=== PATIENT | male | born 1980 | race Two or more races ===

== ENCOUNTER 2016-04-30 22:21 | Emergency (ER) | payer SELFPAY ==
[2016-05-01] MEDS ORDERED: HYDROMORPHONE HCL INJ/PF 2 MG/ML AMPULE IV ONE (00:45)
[2016-05-01] MEDS ORDERED: NORMAL SALINE 1000 ML 1,000 ML IV ONE (00:45)
[2016-05-01 00:57] LABS: ABSOLUTE BASOPHILS # (AUTO) 0.1 10^3/uL (0.0-0.2); ABSOLUTE EOSINOPHILS # (AUTO) 0.4 10^3/uL (0.0-0.6); ABSOLUTE LYMPHOCYTES (AUTO) 2.4 10^3/uL (0.5-4.7); ABSOLUTE MONOCYTES (AUTO) 0.8 10^3/uL (0.1-1.4); ABSOLUTE NEUT (AUTO) 8.3 10^3/uL (1.7-8.2); EOSINOPHILS % (AUTO) 3.7 % (0-6); HEMATOCRIT 45.8 % (37.9-51.0); HEMOGLOBIN 15.1 g/dL (13.5-17.0); HGB HCT DIFFERENCE -0.5; MEAN CORPUSCULAR HEMOGLOBIN 29.3 pg (27.0-33.4); MEAN CORPUSCULAR HGB CONC 32.9 g/dL (32.0-36.0); MEAN CORPUSCULAR VOLUME 89 fl (80-97); MONOCYTES % (AUTO) 6.5 % (3-13); RED BLOOD COUNT 5.14 10^6/uL (4.35-5.55); RED CELL DISTRIBUTION WIDTH 14.4 % (11.5-14.0); SEGMENTED NEUTROPHILS % (AUTO) 68.8 % (42-78); WHITE BLOOD COUNT 12.1 10^3/uL (4.0-10.5)
[2016-05-01 00:58] LABS: ANION GAP 10 (5-19); BLOOD UREA NITROGEN 18 mg/dL (7-20); CALCIUM 9.9 mg/dL (8.4-10.2); CARBON DIOXIDE 32 mmol/L (22-30); CHLORIDE 103 mmol/L (98-107); CREATININE RESULT 0.95 mg/dL (0.52-1.25); GLUCOSE 81 mg/dL (75-110); POTASSIUM 4.1 mmol/L (3.6-5.0); SODIUM 144.7 mmol/L (137-145)
--- NOTE | 2016-05-01 01:02 | ER Document Report ---
ED General - General Chief Complaint: Abdominal Pain Stated Complaint: ABDOMINAL PAIN Notes: Patient is a 35-year-old male presents with complaint of pain in his abdomen. No fevers. Some nausea and vomiting. Mild diarrhea. No blood in the stool. He has a history of ulcerative colitis. He says his pain started up after she went without his pain medication. He was due for his pain medication today. He did see his physician who wrote his prescription but the prescription was not ready before the pharmacy closed and therefore he has gone more than 12 hours without any pain medication. He says since then he started having abdominal pain and feels as if he is having mild withdrawal. He has no other complaints at this time. Is currently prednisone for results of colitis. He is followed by Gastoenterologist, Dr. Reyes. No history of bowel resection. TRAVEL OUTSIDE OF THE [place] IN LAST 30 DAYS: No - Related Data Allergies/Adverse Reactions: Penicillins Allergy (Mild, Verified 04/07/16 12:58) rash/hives Past Medical History - Social History Smoking Status: Never Smoker Chew tobacco use (# tins/day): No Frequency of alcohol use: None Drug Abuse: None Family History: CAD, CVA, DM, Hyperlipidemia, Hypertension, Malignancy Patient has suicidal ideation: No Patient has homicidal ideation: No - Past Medical History Cardiac Medical History: Denies: Hx Heart Attack, Hx Hypertension Pulmonary Medical History: Denies: Hx Asthma, Hx Bronchitis, Hx COPD, Hx Pneumonia Neurological Medical History: Denies: Hx Seizures GI Medical History: Reports: Hx Ulcer - Ulcerative colitis, Hx Ulcerative Colitis, Hx Colonoscopy Musculoskeltal Medical History: Denies Hx Arthritis Past Surgical History: Reports: Hx Appendectomy - February 2015, Hx Vascular Surgery - Port placement - Immunizations Immunizations up to date: Yes Hx Diphtheria, Pertussis, Tetanus Vaccination: Yes Review of Systems - Review of Systems Notes: My Normal Review Basic REVIEW OF SYSTEMS: CONSTITUTIONAL : Denies fever, chills, or sweats. Denies recent illness. EENT: Denies eye, ear, throat, or mouth pain or symptoms. Denies nasal or sinus congestion. RESPIRATORY: Denies cough, cold, or chest congestion. Denies shortness of breath, difficulty breathing, or wheezing. GASTROINTESTINAL: Abdominal pain. Some vomiting. GENITOURINARY: Denies difficulty urinating, painful urination, burning, frequency, or blood in urine. MUSCULOSKELETAL: Denies neck or back pain or joint pain or swelling. SKIN: Denies rash or skin lesions. NEUROLOGICAL: Denies altered mental status or loss of consciousness. Denies headache. Denies weakness or paralysis or loss of use of either side. Denies problems with gait or speech. Denies sensory or motor loss. ALL OTHER SYSTEMS REVIEWED AND NEGATIVE. Physical Exam - Vital signs Vitals: Temp Pulse Resp BP Pulse Ox 97.5 F 84 17 141/91 H 96 04/30/16 22:42 04/30/16 22:42 04/30/16 22:42 04/30/16 22:42 04/30/16 22:42 - Notes Notes: General Appearance: Well nourished, alert, cooperative, no acute distress, no obvious discomfort. Vitals: reviewed, See vital signs table. Head: no swelling or tenderness to the head Eyes: PERRL, EOMI, Conjuctiva clear Mouth: No decreasd moisture Lungs: No wheezing, No rales, No rhonci, No accessory muscle use, good air exchange bilaterally. Heart: Normal rate, Regular rythm, No murmur, no rub Abdomen: Normal BS, soft, No rigidity, mild lower abdominal tenderness to palpation, No guarding, no rebound, no abdominal masses, no organomegaly Extremities: strength 5/5 in all extremities, good pulses in all extremities, no swelling or tenderness in the extremities, no edema. Skin: warm, dry, appropriate color, no rash Neuro: speech clear, oriented x 3, normal affect, responds appropriately to questions. Course - Vital Signs Vital signs: Temp Pulse Resp BP Pulse Ox 97.5 F 84 17 141/91 H 96 04/30/16 22:42 04/30/16 22:42 04/30/16 22:42 04/30/16 22:42 04/30/16 22:42 - Laboratory Result Diagrams: 05/01/16 00:17 05/01/16 00:17 Laboratory results interpreted by me: 05/01/16 05/01/16 00:17 00:17 WBC 12.1 H RDW 14.4 H Absolute Neutrophils 8.3 H Carbon Dioxide 32 H - Transfer of Care Notes: 05/01/16 04:02 Patient feels much improved and his pain is gone. He looks well. His laboratory evaluation is unremarkable. His abdominal exam is benign. I feel he is safe to be discharged home. I do suspect his symptoms were related to not having his narcotics as he typically is chronically on high dose narcotics. Patient encouraged return to ER immediately if he has worsening pain, fevers, or bloody stools. Patient agrees with plan and will be discharged home. Dictation of this chart was performed using voice recognition software; therefore, there may be some unintended grammatical errors. Discharge - Discharge Clinical Impression: Abdominal pain Qualifiers: Abdominal location: generalized Qualified Code(s): R10.84 - Generalized abdominal pain Opiate dependence Qualifiers: Substance use status: with unspecified opioid-induced disorder Qualified Code(s ): F11.29 - Opioid dependence with unspecified opioid-induced disorder Condition: Good Disposition: HOME, SELF-CARE Additional Instructions: ABDOMINAL PAIN: There are many causes of abdominal pain. Pain can mean a serious problem requiring surgery (such as appendicitis). It can also be an innocent problem that goes away on its own (such as a viral infection). Often, time must pass to determine the cause of pain. The physician does not feel that hospitalization is necessary, at present. Things may change within the next 24 hours. Call the doctor or come back for re- examination if any problems occur, such as: (1) Pain that becomes more severe, steady, or becomes concentrated in one specific area. Also, pain that is more severe with movement or coughing. (2) Vomiting that persists or becomes more frequent. (3) Blood in the vomitus, urine, or bowel movements. Blood in the stool may have a tarry or black appearance. (4) Shaking chills or fever greater than 100 degrees F. (5) The abdomen becomes more distended or swollen. (6) Bowel movements cease. (7) Failure to improve as expected. NORMAL EXAM AND WORKUP: At this time, your examination and workup show no significant abnormality. No significant abnormal physical findings are noted. All laboratory) studies that were ordered show no significant abnormality. Although your examination and all studies that were ordered showed no significant abnormal finding, there are no examinations and no studies that are 100% accurate. There is always the possibility that some abnormality could exist and not be detected with physical examination or within the limits and capabilities of laboratory and other studies. You should return or follow up as you were instructed on your visit today for further evaluation if your symptoms do not resolve. TORADOL INJECTION: You have been given an injection of ketorolac tromethamine (Toradol). This is an excellent, safe drug for pain control. It also has potent antiinflammatory action. You should have significant pain relief within about one hour. Toradol is not addicting and is non-sedating. It does not interfere with driving or work. Call or return if you develop itching, hives, shortness of breath, or rash. PAIN MEDICATION INJECTION: You have received an injection of a pain medication. You should experience significant pain relief within 45 minutes. This drug is a narcotic - - it will impair your judgement, slow your reaction time and make you sleepy ( as well as relieve your pain). Narcotics also can cause nausea. You should not drive, work with machinery, or perform any task requiring mental alertness until all effects of the medication are gone -- six to eight hours. Do not take any alcohol, or sedatives, and do not take any other medication without checking with your physician. FOLLOW-UP CARE: If you have been referred to a physician for follow-up care, call the physician s office for an appointment as you were instructed or within the next two days. If you experience worsening or a significant change in your symptoms, notify the physician immediately or return to the Emergency Department at any time for re-evaluation. FOLLOW-UP CARE: Please return to the ER immediately if you have worsening pain, fevers, intractable vomiting, bloody stools, or feel unwell. Referrals: ABBEY GARCIA DO [Primary Care Provider] - 05/03/16
[2016-05-01] MEDS ORDERED: PROMETHAZINE HCL INJ 25 MG/1 ML VIAL IM ONE (03:01)
[2016-05-01] MEDS ORDERED: PROMETHAZINE HCL INJ 25 MG/1 ML VIAL ONE (03:26)
[2016-05-01 04:51] VITALS: BP 128/86
== END 2016-05-01 04:40 | disposition home or self-care (01) ==
LOC: ER 22:21
DX: R10.84 Generalized abdominal pain (principal); F11.29 Opioid dependence with unspecified opioid-induced disorder; R11.2 Nausea with vomiting, unspecified; R19.7 Diarrhea, unspecified; Z88.0 Allergy status to penicillin
CPT/HCPCS: 99284; 96372; 96361; 96374; 36415; 82962; 85025; 80048; J1170; J2550; J7030

== ENCOUNTER 2016-05-17 04:35 | Emergency (ER) | payer SELFPAY ==
--- NOTE | 2016-05-17 06:49 | ER Document Report ---
ED General - General Chief Complaint: Other Stated Complaint: PORT COMPLICATIONS Mode of Arrival: Ambulatory Information source: Patient Notes: 35 yr old male with hx of power port placed 2 years ago in the right presents with sensation that the line is being extended and is palpable in the right neck. pt was seen here last month for similar complaint. TRAVEL OUTSIDE OF THE [place] IN LAST 30 DAYS: No - HPI Onset: Other Onset/Duration: Worse Quality of pain: No pain Severity: Mild Pain Level: 1 Associated symptoms: None Exacerbated by: Denies Relieved by: Denies Similar symptoms previously: Yes Recently seen / treated by doctor: Yes - Related Data Allergies/Adverse Reactions: Penicillins Allergy (Mild, Verified 04/07/16 12:58) rash/hives Past Medical History - Social History Smoking Status: Never Smoker Cigarette use (# per day): No Chew tobacco use (# tins/day): No Smoking Education Provided: No Frequency of alcohol use: None Drug Abuse: None Family History: CAD, CVA, DM, Hyperlipidemia, Hypertension, Malignancy Patient has suicidal ideation: No Patient has homicidal ideation: No - Past Medical History Cardiac Medical History: Denies: Hx Heart Attack, Hx Hypertension Pulmonary Medical History: Denies: Hx Asthma, Hx Bronchitis, Hx COPD, Hx Pneumonia Neurological Medical History: Denies: Hx Seizures Renal/ Medical History: Denies: Hx Peritoneal Dialysis GI Medical History: Reports: Hx Ulcer - Ulcerative colitis, Hx Ulcerative Colitis, Hx Colonoscopy Musculoskeltal Medical History: Denies Hx Arthritis Past Surgical History: Reports: Hx Appendectomy - February 2015, Hx Vascular Surgery - Port placement - Immunizations Immunizations up to date: Yes Hx Diphtheria, Pertussis, Tetanus Vaccination: Yes Review of Systems - Review of Systems Notes: REVIEW OF SYSTEMS: CONSTITUTIONAL : Denies fever, chills, or sweats. Denies recent illness. EENT: IV line in neck CARDIOVASCULAR: Denies chest pain. Denies palpitations or racing or irregular heart beat. Denies ankle edema. RESPIRATORY: Denies cough, cold, or chest congestion. Denies shortness of breath, difficulty breathing, or wheezing. GASTROINTESTINAL: Denies abdominal pain or distention. Denies nausea, vomiting , or diarrhea. Denies blood in vomitus, stools, or per rectum. Denies black, tarry stools. Denies constipation. GENITOURINARY: Denies difficulty urinating, painful urination, burning, frequency, blood in urine, or discharge. MUSCULOSKELETAL: Denies back or neck pain or stiffness. Denies joint pain or swelling. SKIN: Denies rash, lesions or sores. HEMATOLOGIC : Denies easy bruising or bleeding. LYMPHATIC: Denies swollen, enlarged glands. NEUROLOGICAL: Denies confusion or altered mental status. Denies passing out or loss of consciousness. Denies dizziness or lightheadedness. Denies headache. Denies weakness or paralysis or loss of use of either side. Denies problems with gait or speech. Denies sensory loss, numbness, or tingling. Denies seizures. PSYCHIATRIC: Denies anxiety or stress. Denies depression, suicidal ideation, or homicidal ideation. ALL OTHER SYSTEMS REVIEWED AND NEGATIVE. Dictation was performed using [employer] voice recognition software PHYSICAL EXAMINATION: GENERAL: Well-appearing, well-nourished and in no acute distress. HEAD: Atraumatic, normocephalic. EYES: Pupils equal round and reactive to light, extraocular movements intact, sclera anicteric, conjunctiva are normal. ENT: Nares patent, oropharynx clear without exudates. Moist mucous membranes. NECK: palpable port line in right neck LUNGS: Breath sounds clear to auscultation bilaterally and equal. No wheezes rales or rhonchi. HEART: Regular rate and rhythm without murmurs ABDOMEN: Soft, nontender, nondistended abdomen. No guarding, no rebound. No masses appreciated. Musculoskeletal: Normal range of motion, no pitting or edema. No cyanosis. NEUROLOGICAL: Cranial nerves grossly intact. Normal speech, normal gait. Normal sensory, motor exams PSYCH: Normal mood, normal affect. SKIN: Warm, Dry, normal turgor, no rashes or lesions noted. Physical Exam - Vital signs Vitals: Temp Pulse Resp BP Pulse Ox 97.9 F 84 18 129/82 H 95 05/17/16 04:44 05/17/16 04:44 05/17/16 04:44 05/17/16 04:44 05/17/16 04:44 Course - Re-evaluation Re-evalutation: 05/17/16 06:50 Patient will be sent for CT neck chest to evaluate proper placement 05/17/16 08:13 I spoke with on-call surgeon, I will order imaging to evaluate the function of the port 05/17/16 11:18 Port noted to be a dual, the medial port injected and works, pt made aware second access not checked pt wishes ot og home since he has been here so long will give him surgical follow up After performing a Medical Screening Examination, I estimate there is LOW risk for ACUTE CORONARY SYNDROME, RESPIRATORY FAILURE, SEPSIS OR MENINGITIS, thus I consider the discharge disposition reasonable. The patient and I have discussed the diagnosis and risks, and we agree with discharging home with close follow- up. We also discussed returning to the Emergency Department immediately if new or worsening symptoms occur. We have discussed the symptoms which are most concerning (e.g., changing or worsening pain, trouble swallowing or breathing, neck stiffness, fever) that necessitate immediate return. - Vital Signs Vital signs: Temp Pulse Resp BP Pulse Ox 97.9 F 84 18 129/82 H 95 05/17/16 04:44 05/17/16 04:44 05/17/16 04:44 05/17/16 04:44 05/17/16 04:44 - Diagnostic Test Radiology reviewed: Image reviewed, Reports reviewed Discharge - Discharge Clinical Impression: Neck pain on right side Condition: Stable Disposition: HOME, SELF-CARE Referrals: ABBEY GARCIA DO [Primary Care Provider] - Follow up as needed XENIA HARGROVE MD [ACTIVE STAFF] - Follow up tomorrow
[2016-05-17 12:25] VITALS: BP 120/90
== END 2016-05-17 12:16 | disposition home or self-care (01) ==
LOC: ER 04:35
DX: M54.2 Cervicalgia (principal); Z98.890 Other specified postprocedural states; Z88.0 Allergy status to penicillin
CPT/HCPCS: 36591; 36598; 70490; 71250; 99283

== ENCOUNTER 2016-06-14 18:00 | Emergency (ER) | payer SELFPAY ==
--- NOTE | 2016-06-14 18:35 | ER Document Report ---
ED Medical Screen (RME) - General Chief Complaint: Dizziness Stated Complaint: SHORTNESS OF BREATH,LIGHT HEADED Mode of Arrival: Ambulatory Information source: Patient Notes: 35 y/o M presents to ED c/o dizziness and sob. States was taking 120 mg Oxycodone daily and recently stopped three days ago. Denies fever or chest pain. I have greeted and performed a rapid initial assessment of this patient. A comprehensive ED assessment and evaluation of the patient, analysis of test results and completion of the medical decision making process will be conducted by additional ED providers. TRAVEL OUTSIDE OF THE [place] IN LAST 30 DAYS: No - Related Data Allergies/Adverse Reactions: Penicillins Allergy (Mild, Verified 06/14/16 18:24) rash/hives Past Medical History - Social History Chew tobacco use (# tins/day): No Frequency of alcohol use: None Drug Abuse: None - Past Medical History Cardiac Medical History: Denies: Hx Heart Attack, Hx Hypertension Pulmonary Medical History: Denies: Hx Asthma, Hx Bronchitis, Hx COPD, Hx Pneumonia Neurological Medical History: Denies: Hx Seizures Renal/ Medical History: Denies: Hx Peritoneal Dialysis GI Medical History: Reports: Hx Ulcer - Ulcerative colitis, Hx Ulcerative Colitis, Hx Colonoscopy Musculoskeltal Medical History: Denies Hx Arthritis Past Surgical History: Reports: Hx Appendectomy - February 2015, Hx Vascular Surgery - Port placement - Immunizations Immunizations up to date: Yes Hx Diphtheria, Pertussis, Tetanus Vaccination: Yes Physical Exam - General General appearance: Appears well, Alert In distress: None - Respiratory Respiratory status: No respiratory distress Breath sounds: Normal - Cardiovascular Rhythm: Regular Pulses: Normal: Radial Normal capillary refill: Yes - Psychological Associated symptoms: Anxious
[2016-06-14 18:53] LABS: ABSOLUTE BASOPHILS # (AUTO) 0.1 10^3/uL (0.0-0.2); ABSOLUTE EOSINOPHILS # (AUTO) 0.3 10^3/uL (0.0-0.6); ABSOLUTE LYMPHOCYTES (AUTO) 2.6 10^3/uL (0.5-4.7); ABSOLUTE MONOCYTES (AUTO) 0.8 10^3/uL (0.1-1.4); ABSOLUTE NEUT (AUTO) 7.1 10^3/uL (1.7-8.2); BASOPHILS % (AUTO) 1.2 % (0-2); EOSINOPHILS % (AUTO) 2.5 % (0-6); HEMATOCRIT 46.6 % (37.9-51.0); HEMOGLOBIN 15.6 g/dL (13.5-17.0); HGB HCT DIFFERENCE 0.2; MEAN CORPUSCULAR HEMOGLOBIN 29.6 pg (27.0-33.4); MEAN CORPUSCULAR HGB CONC 33.4 g/dL (32.0-36.0); MEAN CORPUSCULAR VOLUME 89 fl (80-97); RED BLOOD COUNT 5.25 10^6/uL (4.35-5.55); SEGMENTED NEUTROPHILS % (AUTO) 65.3 % (42-78); WHITE BLOOD COUNT 10.9 10^3/uL (4.0-10.5)
[2016-06-14 19:11] LABS: APPEARANCE,URINE SLIGHTLY-CLOUDY; BILIRUBIN,URINE NEGATIVE (NEGATIVE); GLUCOSE, URINE NEGATIVE (NEGATIVE); KETONES,URINE NEGATIVE (NEGATIVE); LEUKOCYTE ESTERASE,URINE NEGATIVE (NEGATIVE); NITRITE,URINE NEGATIVE (NEGATIVE); PROTEIN,URINE 30 mg/dL (NEGATIVE); URINE SPECIFIC GRAVITY 1.034; UROBILINOGEN,URINE NEGATIVE mg/dL (<2.0)
[2016-06-14 19:17] LABS: ALANINE AMINOTRANSFERASE 21 U/L (21-72); ALBUMIN 4.8 g/dL (3.5-5.0); ALKALINE PHOSPHATASE 84 U/L (38-126); ANION GAP 15 (5-19); ASPARTATE AMINO TRANSFERASE 21 U/L (17-59); BILIRUBIN,TOTAL 0.6 mg/dL (0.2-1.3); BLOOD UREA NITROGEN 15 mg/dL (7-20); CALCIUM 10.1 mg/dL (8.4-10.2); CARBON DIOXIDE 24 mmol/L (22-30); CHLORIDE 106 mmol/L (98-107); CREATININE RESULT 0.99 mg/dL (0.52-1.25); GLUCOSE 92 mg/dL (75-110); POTASSIUM 4.1 mmol/L (3.6-5.0); SODIUM 145.1 mmol/L (137-145)
[2016-06-14] MEDS ORDERED: PROMETHAZINE HCL INJ 25 MG/1 ML VIAL IM ONE (22:30)
[2016-06-14] MEDS ORDERED: CLONIDINE 0.1 MG/24 HR PATCH.TDWK TD ONE (22:30)
[2016-06-14] MEDS ORDERED: GABAPENTIN 300 MG CAPSULE PO ONE (22:30)
--- NOTE | 2016-06-14 22:36 | ER Document Report ---
ED General - General Chief Complaint: Dizziness Stated Complaint: SHORTNESS OF BREATH,LIGHT HEADED Mode of Arrival: Ambulatory Notes: Patient is a 35-year-old male presents with complaint of low nauseous, had some vomiting, times felt dizzy. He was on OxyContin and 20 mg 3 times a day. He says he started being on chronic pain medications and is trying to wean himself off. He says he quit taking them on Saturday. Today is night. He did receive a prescription for Phenergan from his PCP but has not yet picked up from the pharmacy. He's requesting further medications to help lessen the symptoms. He does not want any opiate pain medicines. TRAVEL OUTSIDE OF THE [place] IN LAST 30 DAYS: No - Related Data Allergies/Adverse Reactions: Penicillins Allergy (Mild, Verified 06/14/16 18:24) rash/hives Past Medical History - General Information source: Patient - Social History Smoking Status: Never Smoker Chew tobacco use (# tins/day): No Frequency of alcohol use: None Drug Abuse: None Family History: CAD, CVA, DM, Hyperlipidemia, Hypertension, Malignancy Patient has suicidal ideation: No Patient has homicidal ideation: No - Past Medical History Cardiac Medical History: Denies: Hx Heart Attack, Hx Hypertension Pulmonary Medical History: Denies: Hx Asthma, Hx Bronchitis, Hx COPD, Hx Pneumonia Neurological Medical History: Denies: Hx Seizures Renal/ Medical History: Denies: Hx Peritoneal Dialysis GI Medical History: Reports: Hx Ulcer - Ulcerative colitis, Hx Ulcerative Colitis, Hx Colonoscopy Musculoskeltal Medical History: Denies Hx Arthritis Past Surgical History: Reports: Hx Appendectomy - February 2015, Hx Vascular Surgery - Port placement - Immunizations Immunizations up to date: Yes Hx Diphtheria, Pertussis, Tetanus Vaccination: Yes Review of Systems - Review of Systems Notes: My Normal Review Basic REVIEW OF SYSTEMS: CONSTITUTIONAL : Denies fever, chills, or sweats. Denies recent illness. EENT: Denies eye, ear, throat, or mouth pain or symptoms. Denies nasal or sinus congestion. RESPIRATORY: Feels some shortness of breath GASTROINTESTINAL: Chronic mild abdominal pain. Some vomiting diarrhea Denies constipation. Last BM: GENITOURINARY: Denies difficulty urinating, painful urination, burning, frequency, or blood in urine. MUSCULOSKELETAL: Denies neck or back pain or joint pain or swelling. SKIN: Denies rash or skin lesions. NEUROLOGICAL: Denies altered mental status or loss of consciousness. Denies headache. Denies weakness or paralysis or loss of use of either side. Denies problems with gait or speech. Denies sensory or motor loss. ALL OTHER SYSTEMS REVIEWED AND NEGATIVE. Physical Exam - Notes Notes: General Appearance: Well nourished, alert, cooperative, no acute distress, no obvious discomfort. Well-appearing. Vitals: reviewed, See vital signs table. Head: no swelling or tenderness to the head Eyes: PERRL, EOMI, Conjuctiva clear Mouth: No decreasd moisture Neck: Supple, no neck tenderness, Lungs: No wheezing, No rales, No rhonci, No accessory muscle use, good air exchange bilaterally. Heart: Normal rate, Regular rythm, No murmur, no rub Abdomen: Normal BS, soft, No rigidity, mild diffuse abdominal tenderness to palpation, No guarding, no rebound, no abdominal masses, no organomegaly Extremities: strength 5/5 in all extremities, good pulses in all extremities, no swelling or tenderness in the extremities, no edema. Skin: warm, dry, appropriate color, no rash Neuro: speech clear, oriented x 3, normal affect, responds appropriately to questions. Course - Laboratory Result Diagrams: 06/14/16 18:45 06/14/16 18:45 Laboratory results interpreted by me: 06/14/16 06/14/16 06/14/16 18:45 18:45 18:45 WBC 10.9 H Sodium 145.1 H Urine Protein 30 H Urine Ascorbic Acid 20 H - Transfer of Care Notes: 06/14/16 22:36 Patient looks well. Feel the patient safe to be discharged home. Patient encouraged return to ER immediately if he has intractable vomiting, severe pain , or if he feels unwell. Patient agrees with plan will be discharged home. I do suspect his symptoms are related to stopping opiate medications being that this started approximately 1 day after he stopped them. Dictation of this chart was performed using voice recognition software; therefore, there may be some unintended grammatical errors. Discharge - Discharge Clinical Impression: Opiate withdrawal Condition: Good Disposition: HOME, SELF-CARE Additional Instructions: Please cover the clonidine patch when showering. You can wear the patch for 3- [address] when taking the Phenergan or gabapentin. Please return to ER immediately if you feel unwell, have recurrent vomiting, feel you' re becoming dehydrated, or feel further concerns. Please follow-up with your doctor in 3-4 days. Prescriptions: Gabapentin 200 mg PO BID #30 capsule Referrals: ARNOLDO NORTH MD [Primary Care Provider] - Follow up in 3-5 days
[2016-06-14] MEDS ORDERED: PROMETHAZINE HCL INJ 25 MG/1 ML VIAL ONE (23:12)
[2016-06-14 23:40] VITALS: BP 119/74
== END 2016-06-14 23:45 | disposition home or self-care (01) ==
LOC: ER 18:00
DX: F11.23 Opioid dependence with withdrawal (principal); R11.2 Nausea with vomiting, unspecified; R19.7 Diarrhea, unspecified; R42 Dizziness and giddiness; R06.02 Shortness of breath; R10.9 Unspecified abdominal pain; G89.29 Other chronic pain; Z88.0 Allergy status to penicillin
CPT/HCPCS: 99284; 96372; 36415; 85025; 80053; 81001; J3490; J2550

== ENCOUNTER 2016-06-17 22:16 | Emergency (ER) | payer SELFPAY ==
[2016-06-18] MEDS ORDERED: GABAPENTIN 300 MG CAPSULE PO ONE (00:57)
[2016-06-18] MEDS ORDERED: PROMETHAZINE HCL INJ 25 MG/1 ML VIAL IM ONE (00:57)
[2016-06-18] MEDS ORDERED: NORMAL SALINE 1000 ML 1,000 ML IV ONE (00:58)
[2016-06-18] MEDS ORDERED: CLONIDINE 0.1 MG/24 HR PATCH.TDWK TD ONE (00:58)
--- NOTE | 2016-06-18 00:59 | ER Document Report ---
ED General - General Chief Complaint: Nausea Stated Complaint: POSSIBLE DETOX Time seen by provider: 00:50 Notes: Patient is a 35-year-old male that comes emergency department for chief complaint of withdrawal symptoms. Patient states that he stopped taking 30 mg of oxycotin every 8 hours on Saturday, states that he has decided he is going to detox, he states that he was seen on night and was given a clonidine patch and additional medications, states he was unable to fill the medication or his provider's medication of Percocet because he did not make it to the pharmacy, states that today his patch and the medication seemed to wear off and his symptoms of nausea, shakiness, vomiting, and diarrhea returned. He denies any fever or chills. He states he feels like he is breathing rapidly occasionally. He denies any headache. Past medical history of ulcerative colitis, still taking his mesalamine. Denies blood in stools. TRAVEL OUTSIDE OF THE [place] IN LAST 30 DAYS: No - Related Data Allergies/Adverse Reactions: Penicillins Allergy (Mild, Verified 06/17/16 22:47) rash/hives Past Medical History - General Information source: Patient - Social History Smoking Status: Never Smoker Frequency of alcohol use: None Drug Abuse: Prescription drugs Lives with: Alone Family History: CAD, CVA, DM, Hyperlipidemia, Hypertension, Malignancy Patient has suicidal ideation: No Patient has homicidal ideation: No - Past Medical History Cardiac Medical History: Denies: Hx Heart Attack, Hx Hypertension Pulmonary Medical History: Denies: Hx Asthma, Hx Bronchitis, Hx COPD, Hx Pneumonia Neurological Medical History: Denies: Hx Seizures Renal/ Medical History: Denies: Hx Peritoneal Dialysis GI Medical History: Reports: Hx Ulcer - Ulcerative colitis, Hx Ulcerative Colitis, Hx Colonoscopy Musculoskeltal Medical History: Denies Hx Arthritis Past Surgical History: Reports: Hx Appendectomy - February 2015, Hx Vascular Surgery - Port placement - Immunizations Immunizations up to date: Yes Hx Diphtheria, Pertussis, Tetanus Vaccination: Yes Review of Systems - Review of Systems Constitutional: See HPI EENT: No symptoms reported Cardiovascular: No symptoms reported Respiratory: No symptoms reported Gastrointestinal: See HPI Genitourinary: No symptoms reported Male Genitourinary: No symptoms reported Musculoskeletal: No symptoms reported Skin: No symptoms reported Hematologic/Lymphatic: No symptoms reported Neurological/Psychological: No symptoms reported Physical Exam - Vital signs Vitals: Temp Pulse Resp BP Pulse Ox 97.5 F 88 16 114/70 98 06/17/16 22:19 06/17/16 22:19 06/17/16 22:19 06/17/16 22:19 06/17/16 22:19 Interpretation: Normal - General General appearance: Appears well, Alert In distress: None - HEENT Head: Normocephalic, Atraumatic Eyes: Normal Conjunctiva: Normal Extraocular movements intact: Yes Eyelashes: Normal Pupils: PERRL Mouth/Lips: Normal Mucous membranes: Normal Pharynx: Normal Neck: Normal - Respiratory Respiratory status: No respiratory distress Chest status: Nontender Breath sounds: Normal Chest palpation: Normal - Cardiovascular Rhythm: Regular. No: Tachycardia Heart sounds: Normal auscultation, S1 appreciated, S2 appreciated Murmur: No - Abdominal Inspection: Normal Distension: No distension Bowel sounds: Normal Tenderness: Nontender. No: Tender, Guarding Organomegaly: No organomegaly - Back Back: Normal, Nontender - Extremities General upper extremity: Normal inspection, Nontender, Normal color, Normal ROM , Normal temperature General lower extremity: Normal inspection, Nontender, Normal color, Normal ROM , Normal temperature, Normal weight bearing. No: Nazanin's sign - Neurological Neuro grossly intact: Yes Cognition: Normal Orientation: AAOx4 [place] Coma Scale Eye Opening: Spontaneous Perla Coma Scale Verbal: Oriented [place] Coma Scale Motor: Obeys Commands [place] Coma Scale Total: 15 Speech: Normal Cranial nerves: Normal Cerebellar coordination: Normal Motor strength normal: LUE, RUE, LLE, RLE Additional motor exam normals: Equal math interventionist Sensory: Normal - Psychological Associated symptoms: Normal affect, Normal mood - Skin Skin Temperature: Warm Skin Moisture: Dry Skin Color: Normal Course - Re-evaluation Re-evalutation: Chemistries unremarkable, patient is not tachycardic or hypertensive, he appears well on examination, no significant abdominal tenderness on examination. After treatment with Phenergan, gabapentin, replacement of clonidine patch, patient is sleeping and easily aroused. Patient states he feels much better than before and is requesting to leave, he states he has Phenergan and gabapentin prescriptions which she is going to fill today, he states he'll follow-up with his primary care and return for any concerning symptoms. - Vital Signs Vital signs: Temp Pulse Resp BP Pulse Ox 97.7 F 60 14 108/70 99 02/27/17 02:41 06/18/16 04:03 06/18/16 04:03 06/18/16 04:03 06/18/16 04:03 - Laboratory Result Diagrams: 06/18/16 01:30 Laboratory results interpreted by me: 06/18/16 01:30 Chloride 108 H AST 15 L Total Protein 6.1 L Discharge - Discharge Clinical Impression: Opiate withdrawal Nausea & vomiting Qualifiers: Vomiting type: unspecified Vomiting Intractability: non-intractable Qualified Code(s): R11.2 - Nausea with vomiting, unspecified Condition: Stable Disposition: HOME, SELF-CARE Additional Instructions: Fill your Phenergan and gabapentin as they were prescribed, follow up with her primary care for additional management. Return to emergency department for any concerning or worsening symptoms. Referrals: ABBEY GARCIA DO [Primary Care Provider] - Follow up as needed
[2016-06-18] MEDS ORDERED: PROMETHAZINE HCL INJ 25 MG/1 ML VIAL ONE (01:14)
[2016-06-18 02:35] LABS: ALANINE AMINOTRANSFERASE 21 U/L (21-72); ALBUMIN 3.5 g/dL (3.5-5.0); ALKALINE PHOSPHATASE 57 U/L (38-126); ANION GAP 10 (5-19); ASPARTATE AMINO TRANSFERASE 15 U/L (17-59); BILIRUBIN,TOTAL 0.3 mg/dL (0.2-1.3); BLOOD UREA NITROGEN 13 mg/dL (7-20); CARBON DIOXIDE 23 mmol/L (22-30); CHLORIDE 108 mmol/L (98-107); CREATININE RESULT 0.83 mg/dL (0.52-1.25); GLUCOSE 91 mg/dL (75-110); SODIUM 140.7 mmol/L (137-145); TOTAL PROTEIN 6.1 g/dL (6.3-8.2)
[2016-06-18 04:05] VITALS: BP 108/70
== END 2016-06-18 04:05 | disposition home or self-care (01) ==
LOC: ER 22:16
DX: F11.23 Opioid dependence with withdrawal (principal); R11.2 Nausea with vomiting, unspecified; R19.7 Diarrhea, unspecified; T40.2X5A Adverse effect of other opioids, initial encounter; K51.90 Ulcerative colitis, unspecified, without complications; Z79.899 Other long term (current) drug therapy; Z88.0 Allergy status to penicillin; Z90.49 Acquired absence of other specified parts of digestive tract
CPT/HCPCS: 36591; 99284; 96372; 96360; 36415; 80053; J7030; J3490; J2550

== ENCOUNTER 2016-09-27 23:04 | Emergency (ER) | payer SELFPAY ==
[2016-09-28] MEDS ORDERED: ONDANSETRON ODT 4 MG TAB (6 TAB/DSPK) PO PRN (01:19)
[2016-09-28] MEDS ORDERED: GABAPENTIN 300 MG CAPSULE PO ONE (01:19)
[2016-09-28] MEDS ORDERED: CLONIDINE 0.1 MG/24 HR PATCH.TDWK TD ONE (01:19)
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
[2016-09-28 01:45] VITALS: BP 122/85
== END 2016-09-28 01:44 | disposition home or self-care (01) ==
LOC: ER 23:04
DX: F11.23 Opioid dependence with withdrawal (principal); G89.29 Other chronic pain; Z88.0 Allergy status to penicillin
CPT/HCPCS: 99281; J3490

== ENCOUNTER 2016-12-24 16:21 | Emergency (ER) | payer SELFPAY ==
[2016-12-24] MEDS ORDERED: PREDNISONE 20 MG TABLET PO ONE (17:24)
[2016-12-24] MEDS ORDERED: OXYCODONE-ACETAMINOPHEN 5-325 MG TABLET PO ONE (17:24)
--- NOTE | 2016-12-24 18:10 | RADIOLOGY REPORT (SQ) ---
EXAM DESCRIPTION: L SPINE WHOLE COMPLETED DATE/TIME: 12/24/2016 5:50 pm REASON FOR STUDY: low back pain COMPARISON: None. NUMBER OF VIEWS: Five views including obliques. TECHNIQUE: AP, lateral, oblique, and sacral radiographic images acquired of the lumbar spine. LIMITATIONS: None. FINDINGS: MINERALIZATION: Normal. SEGMENTATION: Normal. No transitional anatomy. ALIGNMENT: Normal. VERTEBRAE: Maintained height. No fracture or worrisome bone lesion. DISCS: Preserved height. No significant osteophytes or end plate irregularity. POSTERIOR ELEMENTS: Pedicles and facets are intact. No pars defect or posterior arch defects. HARDWARE: None in the spine. PARASPINAL SOFT TISSUES: Normal. PELVIS: Intact as visualized. No fractures or worrisome bone lesions. SI joints intact. OTHER: No other significant finding. IMPRESSION: No acute finding. TECHNICAL DOCUMENTATION: JOB ID: [id number] [employer]- All Rights Reserved
--- NOTE | 2016-12-24 18:10 | ER Document Report ---
ED General - General Chief Complaint: Back Pain Stated Complaint: BACK PAIN Time Seen by Provider: 12/24/16 17:24 Mode of Arrival: Ambulatory Information source: Patient Notes: This is a 36-year-old man with a history of ulcerative colitis who presents to the emergency room with low back pain. The patient does have a history of sciatica but he states this is different. 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 He states that as he was getting up he feels a pop in his back. He has pain when he sits and when he negotiates the bed. He states it actually feels better when he is up walking around. He denies any urinary retention or urinary incontinence. He denies any fecal retention or fecal incontinence. He denies any saddle anesthesia or lower motor weakness. He does have a an appointment this Saturday with his primary care physician. The pain seems to have originated more from an acute injury. Patient denies any recent infections, fever, chills or upper respiratory tract infections. TRAVEL OUTSIDE OF THE [place] IN LAST 30 DAYS: No - Related Data Allergies/Adverse Reactions: Penicillins Allergy (Mild, Verified 12/24/16 16:24) rash/hives Past Medical History - Social History Smoking Status: Unknown if Ever Smoked Chew tobacco use (# tins/day): No Frequency of alcohol use: None Drug Abuse: None Family History: CAD, CVA, DM, Hyperlipidemia, Hypertension, Malignancy - Past Medical History Cardiac Medical History: Denies: Hx Heart Attack, Hx Hypertension Pulmonary Medical History: Denies: Hx Asthma, Hx Bronchitis, Hx COPD, Hx Pneumonia Neurological Medical History: Denies: Hx Seizures Renal/ Medical History: Denies: Hx Peritoneal Dialysis GI Medical History: Reports: Hx Ulcer - Ulcerative colitis, Hx Ulcerative Colitis, Hx Colonoscopy Musculoskeltal Medical History: Denies Hx Arthritis Past Surgical History: Reports: Hx Appendectomy - February 2015, Hx Vascular Surgery - Port placement - Immunizations Immunizations up to date: Yes Hx Diphtheria, Pertussis, Tetanus Vaccination: Yes Physical Exam - Vital signs Vitals: Temp Pulse Resp BP Pulse Ox 99.2 F 82 16 129/76 H 99 12/24/16 16:24 12/24/16 16:24 12/24/16 16:24 12/24/16 16:24 12/24/16 16:24 Notes: Physical exam: GENERAL: 36-year-old man, alert and oriented 3, no acute distress HEAD: Atraumatic, normocephalic. EYES: Pupils equal round and reactive to light, extraocular movements intact, sclera anicteric, conjunctiva are normal. ENT: TMs normal, nares patent, oropharynx clear without exudates. Moist mucous membranes. NECK: Normal range of motion, supple without ovious mass or JVD. LUNGS: Breath sounds clear to auscultation bilaterally and equal. No wheezes rales or rhonchi. HEART: Regular rate and rhythm without murmurs, rubs or gallops. ABDOMEN: Soft, normoactive bowel sounds. No tenderness to palpation. No guarding, no rebound. No masses appreciated. BACK: The patient does have a lot of lumbar paraspinal tenderness without any crepitus, step offs scar, skin changes. EXTREMITIES: Normal range of motion, no pitting or edema. No clubbing or cyanosis. NEUROLOGICAL: Cranial nerves II through XII grossly intact. Normal speech, moving all extremities, no numbness or weakness to the lower extremities. Reflexes are symmetrical. PSYCH: Normal mood, normal affect. SKIN: Warm, Dry, normal turgor, no rashes or lesions noted. Course - Vital Signs Vital signs: Temp Pulse Resp BP Pulse Ox 99.2 F 82 16 129/76 H 99 12/24/16 16:24 12/24/16 16:24 12/24/16 16:24 12/24/16 16:24 12/24/16 16:24 Discharge - Discharge Clinical Impression: Acute back pain Condition: Stable Disposition: HOME, SELF-CARE Additional Instructions: Thank you for choosing [facility] for your care. The examination and treatment you have received in the Emergency Department today has been rendered on an emergency basis only and is not intended to be a substitute for complete medical care. You should contact your follow-up physician as it is important that he or she examine you for any new or remaining problems. If given a copy of any lab tests or radiology reports, please bring them with you when you see your physician. If your problem worsens or new symptoms appear and you are unable to arrange prompt follow-up care, return to the Emergency Department. Specific signs to look out for: Worsening low back pain, weakness to the lower extremities, numbness to the groin area, inability to urinate, urinary or fecal incontinence. Any other instructions: Follow-up with your primary care doctor on Saturday as planned. Start the Medrol Dosepak today (you were given today's dose of steroids in the ER). Robaxin as a muscle relaxer. Take the oxycodone As prescribed. The pain medicine you're taking prescribed as a narcotic. There are several important things you should know about this medicine: 1. Taking narcotics for too long can lead to physical and mental dependence. Take this medicine only if really needed and in the lowest quantity to achieve pain relief. 2. Do not drink alcohol while on this medicine. Alcohol interacts with narcotics and the combination can be dangerous. 3. Do not drive or operate machinery while on this medicine. 4. Narcotics do cause constipation, so drink plenty of fluids and daily stool softeners. Primary Care Doctor's affiliated with [facility]: If you do not have a primary care doctor or you are unable to get an apointment during that time, you can try one of the doctor's below. These are internal medicine doctor's that have admitting priveledges to the hospital ( they will see you both in the office as well as in this hospital if you are ever hospitalized here). Dr. Moshe Sinclair [facility] [address], [place] [phone] Dr Sandoval Address: [address] [place] [address] [place] [address] Dr Wynn Address: [address] [place] [address] [place] [address] Prescriptions: Oxycodone HCl 10 mg PO Q6HP PRN #10 tablet PRN Reason: Methocarbamol [Robaxin 500 mg Tablet] 500 mg PO BID #30 tablet Methylprednisolone [Medrol 4 mg Dosepack 21 Tab/Pack] 4 mg PO ASDIR PRN #21 tab.ds.pk PRN Reason: Referrals: TRENT TREVIZO MD [Primary Care Provider] - Follow up as needed
[2016-12-24 18:43] VITALS: BP 120/83
== END 2016-12-24 18:42 | disposition home or self-care (01) ==
LOC: ER 16:21
DX: M54.5 Low back pain (principal); Z88.0 Allergy status to penicillin
CPT/HCPCS: 99283; 72110; J7512

== ENCOUNTER 2017-01-02 17:44 | Emergency (ER) | payer SELFPAY ==
[2017-01-02] MEDS ORDERED: NORMAL SALINE 1000 ML 1,000 ML IV ONE (18:38)
[2017-01-02] MEDS ORDERED: MORPHINE SULFATE 10 MG/ML INJ IV ONE ×2 (18:38→22:08)
--- NOTE | 2017-01-02 18:39 | ER Document Report ---
ED Medical Screen (RME) - General Chief Complaint: Abdominal Pain Stated Complaint: RECTAL BLEEDING AND ABDOMINAL PAIN Time Seen by Provider: 01/02/17 18:37 Mode of Arrival: Ambulatory Information source: Patient TRAVEL OUTSIDE OF THE [place] IN LAST 30 DAYS: No - HPI Patient complains to provider of: abd pain Onset: This morning - pt with h/o UC has been off of his meds for several days with c/o severe abd pain with rectal bleeding - Related Data Allergies/Adverse Reactions: Penicillins Allergy (Mild, Verified 01/02/17 17:56) rash/hives Past Medical History - Social History Frequency of alcohol use: None Drug Abuse: None - Past Medical History Cardiac Medical History: Denies: Hx Heart Attack, Hx Hypertension Pulmonary Medical History: Denies: Hx Asthma, Hx Bronchitis, Hx COPD, Hx Pneumonia Neurological Medical History: Denies: Hx Seizures Renal/ Medical History: Denies: Hx Peritoneal Dialysis GI Medical History: Reports: Hx Ulcer - Ulcerative colitis, Hx Ulcerative Colitis, Hx Colonoscopy Musculoskeltal Medical History: Denies Hx Arthritis Past Surgical History: Reports: Hx Appendectomy - February 2015, Hx Vascular Surgery - Port placement - Immunizations Immunizations up to date: Yes Hx Diphtheria, Pertussis, Tetanus Vaccination: Yes Physical Exam - Vital signs Vitals: Temp Pulse Resp BP Pulse Ox 99.2 F 100 16 139/88 H 98 01/02/17 17:56 01/02/17 17:56 01/02/17 17:56 01/02/17 17:56 01/02/17 17:56 Course - Vital Signs Vital signs: Temp Pulse Resp BP Pulse Ox 99.2 F 100 16 139/88 H 98 01/02/17 17:56 01/02/17 17:56 01/02/17 17:56 01/02/17 17:56 01/02/17 17:56
[2017-01-02 19:15] LABS: APPEARANCE,URINE CLEAR; BILIRUBIN,URINE NEGATIVE (NEGATIVE); GLUCOSE, URINE NEGATIVE (NEGATIVE); KETONES,URINE NEGATIVE (NEGATIVE); LEUKOCYTE ESTERASE,URINE NEGATIVE (NEGATIVE); NITRITE,URINE NEGATIVE (NEGATIVE); PROTEIN,URINE NEGATIVE (NEGATIVE); URINE SPECIFIC GRAVITY 1.004; UROBILINOGEN,URINE NEGATIVE mg/dL (<2.0)
[2017-01-02] MEDS ORDERED: METHYLPREDNISOLONE INJ 125 MG/2 ML SDV IV ONE (22:09)
[2017-01-02] MEDS ORDERED: MESALAMINE 400 MG CAPSULE.DR PO ONE ×2 (22:10→23:21)
--- NOTE | 2017-01-02 22:31 | ER Document Report ---
ED General - General Chief Complaint: Abdominal Pain Stated Complaint: RECTAL BLEEDING AND ABDOMINAL PAIN Time Seen by Provider: 01/02/17 18:37 Mode of Arrival: Ambulatory Notes: Patient is a 36-year-old male presents with complaint of exacerbation of ulcerative colitis. He is to be on mesalamine as well as prednisone. He had to go out of town to [place] for work. Because that he ran out of his medications. His next appointment with his doctor is Saturday. He says he will try to go to the office tomorrow by his next appointment is Saturday. Thus with his primary care doctor. His GI doctor is Dr. Russell. His next appointment with him is next week as well. He says he has been having some pain in his right lower quadrant as well as some bloody stools. He says this is typical for his ulcerative colitis to have pain in the right lower quadrant and have bloody stools. He is also on Percocet. Last time I saw him back in the spring he had weaned himself off opiates but says that his doctors placed him back on them because he was still having pain. Denies any fevers. No vomiting. No other complaints at this time. TRAVEL OUTSIDE OF THE [place] IN LAST 30 DAYS: No - Related Data Allergies/Adverse Reactions: Penicillins Allergy (Mild, Verified 01/02/17 17:56) rash/hives Past Medical History - General Information source: Patient - Social History Smoking Status: Never Smoker Frequency of alcohol use: None Drug Abuse: None Family History: CAD, CVA, DM, Hyperlipidemia, Hypertension, Malignancy - Past Medical History Cardiac Medical History: Denies: Hx Heart Attack, Hx Hypertension Pulmonary Medical History: Denies: Hx Asthma, Hx Bronchitis, Hx COPD, Hx Pneumonia Neurological Medical History: Denies: Hx Seizures Renal/ Medical History: Denies: Hx Peritoneal Dialysis GI Medical History: Reports: Hx Ulcer - Ulcerative colitis, Hx Ulcerative Colitis, Hx Colonoscopy Musculoskeltal Medical History: Denies Hx Arthritis Past Surgical History: Reports: Hx Appendectomy - February 2015, Hx Vascular Surgery - Port placement - Immunizations Immunizations up to date: Yes Hx Diphtheria, Pertussis, Tetanus Vaccination: Yes Review of Systems - Review of Systems Notes: My Normal Review Basic REVIEW OF SYSTEMS: CONSTITUTIONAL : Denies fever, chills, or sweats. Denies recent illness. EENT: Denies eye, ear, throat, or mouth pain or symptoms. Denies nasal or sinus congestion. RESPIRATORY: Denies cough, cold, or chest congestion. Denies shortness of breath, difficulty breathing, or wheezing. GASTROINTESTINAL: Abdominal pain. Hematochezia. MUSCULOSKELETAL: Denies neck or back pain or joint pain or swelling. SKIN: Denies rash or skin lesions. NEUROLOGICAL: Denies altered mental status or loss of consciousness. Denies headache. Denies weakness or paralysis or loss of use of either side. Denies problems with gait or speech. Denies sensory or motor loss. ALL OTHER SYSTEMS REVIEWED AND NEGATIVE. Physical Exam - Vital signs Vitals: Temp Pulse Resp BP Pulse Ox 99.2 F 100 16 139/88 H 98 01/02/17 17:56 01/02/17 17:56 01/02/17 17:56 01/02/17 17:56 01/02/17 17:56 - Notes Notes: General Appearance: Well nourished, alert, cooperative, no acute distress, no obvious discomfort. Well appearing. Vitals: reviewed, See vital signs table. Head: no swelling or tenderness to the head Eyes: PERRL, EOMI, Conjuctiva clear Mouth: No decreasd moisture Lungs: No wheezing, No rales, No rhonci, No accessory muscle use, good air exchange bilaterally. Heart: Normal rate, Regular rythm, No murmur, no rub Abdomen: Normal BS, soft, No rigidity, Some RLQ abdominal tenderness to palpation, No guarding, no rebound, no abdominal masses, no organomegaly Extremities: strength 5/5 in all extremities, good pulses in all extremities, no swelling or tenderness in the extremities, no edema. Skin: warm, dry, appropriate color, no rash Neuro: speech clear, oriented x 3, normal affect, responds appropriately to questions. Course - Re-evaluation Re-evalutation: 01/03/17 02:44 Patient laboratory evaluation is completely unremarkable. He has no leukocytosis and his hemoglobin is normal. On exam he has some pain to palpation of right lower quadrant but it is not severe. He has no peritoneal signs. He has no rebound. He is able to roll around and move in bed without showing any signs of significant discomfort. I do not all suspect perforation based on the fact that the patient's abdominal exam is benign, he has no leukocytosis, and his vital signs are normal. Patient will be discharged home and placed back on mesalamine as well as prednisone taper. He is to follow-up closely with his doctor this week. Patient is encouraged to return to ER if he has fevers, worsening pain, vomiting, or heavy bleeding. Patient agrees with plan and will be discharged home. Dictation of this chart was performed using voice recognition software; therefore, there may be some unintended grammatical errors. - Vital Signs Vital signs: Temp Pulse Resp BP Pulse Ox 99.2 F 100 21 H 132/86 H 100 01/02/17 17:56 01/02/17 17:56 01/03/17 00:00 01/02/17 23:02 01/03/17 00:00 - Laboratory Result Diagrams: 01/02/17 22:52 01/02/17 22:52 Laboratory results interpreted by me: 01/02/17 01/02/17 22:52 22:52 RDW 14.7 H AST 13 L Discharge - Discharge Clinical Impression: Abdominal pain Qualifiers: Abdominal location: right lower quadrant Qualified Code(s): R10.31 - Right lower quadrant pain Ulcerative (chronic) enterocolitis Qualifiers: Digestive disease complication type: with rectal bleeding Qualified Code(s): K51.011 - Ulcerative (chronic) pancolitis with rectal bleeding Condition: Good Disposition: HOME, SELF-CARE Additional Instructions: Please return to the ER immediately if you have worsening pain, fevers, worsening bleeding, vomiting, or feel unwell. Please take the medications as prescribed. Please follow up with your doctor as soon as possible. Prescriptions: Mesalamine [Lialda] 1.2 gm PO DAILY #30 tablet. Prednisone 10 mg PO ASDIR #42 tablet Forms: Return to Work Referrals: EVIN CHURCH MD [Primary Care Provider] - Follow up tomorrow
[2017-01-02 23:24] LABS: ABSOLUTE BASOPHILS # (AUTO) 0.1 10^3/uL (0.0-0.2); ABSOLUTE EOSINOPHILS # (AUTO) 0.4 10^3/uL (0.0-0.6); ABSOLUTE LYMPHOCYTES (AUTO) 2.2 10^3/uL (0.5-4.7); ABSOLUTE MONOCYTES (AUTO) 0.7 10^3/uL (0.1-1.4); ABSOLUTE NEUT (AUTO) 6.6 10^3/uL (1.7-8.2); EOSINOPHILS % (AUTO) 3.9 % (0-6); HEMATOCRIT 43.1 % (37.9-51.0); HEMOGLOBIN 14.4 g/dL (13.5-17.0); HGB HCT DIFFERENCE 0.1; LYMPHOCYTES % (AUTO) 22.1 % (13-45); MEAN CORPUSCULAR HEMOGLOBIN 29.5 pg (27.0-33.4); MEAN CORPUSCULAR HGB CONC 33.3 g/dL (32.0-36.0); MEAN CORPUSCULAR VOLUME 89 fl (80-97); MONOCYTES % (AUTO) 7.4 % (3-13); RED BLOOD COUNT 4.86 10^6/uL (4.35-5.55); RED CELL DISTRIBUTION WIDTH 14.7 % (11.5-14.0); SEGMENTED NEUTROPHILS % (AUTO) 65.6 % (42-78); WHITE BLOOD COUNT 10.1 10^3/uL (4.0-10.5)
[2017-01-02 23:32] LABS: ALANINE AMINOTRANSFERASE 22 U/L (21-72); ALBUMIN 3.9 g/dL (3.5-5.0); ALKALINE PHOSPHATASE 78 U/L (38-126); ANION GAP 10 (5-19); ASPARTATE AMINO TRANSFERASE 13 U/L (17-59); BILIRUBIN,DIRECT 0.3 mg/dL (0.0-0.4); BILIRUBIN,TOTAL 0.4 mg/dL (0.2-1.3); BLOOD UREA NITROGEN 11 mg/dL (7-20); CALCIUM 9.8 mg/dL (8.4-10.2); CARBON DIOXIDE 29 mmol/L (22-30); CHLORIDE 101 mmol/L (98-107); CREATININE RESULT 0.95 mg/dL (0.52-1.25); GLUCOSE 94 mg/dL (75-110); POTASSIUM 4.4 mmol/L (3.6-5.0); SODIUM 139.6 mmol/L (137-145); TOTAL PROTEIN 6.8 g/dL (6.3-8.2)
[2017-01-03 00:18] VITALS: BP 132/86
== END 2017-01-03 00:17 | disposition home or self-care (01) ==
LOC: ER 17:44
DX: K51.011 Ulcerative (chronic) pancolitis with rectal bleeding (principal); R10.31 Right lower quadrant pain; K62.5 Hemorrhage of anus and rectum
CPT/HCPCS: 36591; 99284; 96374; 96375; 36415; 83690; 85025; 80053; 81001; J2930; J2270

== ENCOUNTER 2017-01-20 09:03 | Emergency (ER) | payer SELFPAY ==
[2017-01-20] MEDS ORDERED: NORMAL SALINE 1000 ML 1,000 ML IV PRN (09:22)
[2017-01-20] MEDS ORDERED: ONDANSETRON HCL INJ/PF 4 MG/2 ML SDV IV ONE (09:22)
--- NOTE | 2017-01-20 09:24 | ER Document Report ---
ED Medical Screen (RME) - General Chief Complaint: Nausea/Vomiting/Diarrhea Stated Complaint: BODY WEAKNESS Time Seen by Provider: 01/20/17 09:20 Mode of Arrival: Ambulatory Information source: Patient TRAVEL OUTSIDE OF THE [place] IN LAST 30 DAYS: No - HPI Patient complains to provider of: Nausea, vomiting, diarrhea, abdominal pain Onset: Last week Notes: 01/20/17 09:23 Patient is a 36-year-old male with a history of ulcerative colitis, presenting to the emergency room today complaining of one-week history of nausea vomiting and bloody diarrhea with crampy abdominal pain, over the past 2 days he has been unable to keep any of his medications down as well, history of appendectomy in the past, sees Dr Russell - Related Data Allergies/Adverse Reactions: Penicillins Allergy (Mild, Verified 01/20/17 09:17) rash/hives Past Medical History - Past Medical History Cardiac Medical History: Denies: Hx Heart Attack, Hx Hypertension Pulmonary Medical History: Denies: Hx Asthma, Hx Bronchitis, Hx COPD, Hx Pneumonia Neurological Medical History: Denies: Hx Seizures Renal/ Medical History: Denies: Hx Peritoneal Dialysis GI Medical History: Reports: Hx Ulcer - Ulcerative colitis, Hx Ulcerative Colitis, Hx Colonoscopy Musculoskeltal Medical History: Denies Hx Arthritis Past Surgical History: Reports: Hx Appendectomy - February 2015, Hx Vascular Surgery - Port placement - Immunizations Immunizations up to date: Yes Hx Diphtheria, Pertussis, Tetanus Vaccination: Yes Physical Exam - Vital signs Vitals: Temp Pulse Resp BP Pulse Ox 98.6 F 99 16 130/86 H 98 01/20/17 09:11 01/20/17 09:11 01/20/17 09:11 01/20/17 09:11 01/20/17 09:11 Course - Vital Signs Vital signs: Temp Pulse Resp BP Pulse Ox 98.6 F 99 16 130/86 H 98 01/20/17 09:11 01/20/17 09:11 01/20/17 09:11 01/20/17 09:11 01/20/17 09:11
[2017-01-20] MEDS ORDERED: METHYLPREDNISOLONE INJ 125 MG/2 ML SDV IV ONE (09:25)
[2017-01-20] MEDS ORDERED: MORPHINE SULFATE 10 MG/ML INJ IV ONE (09:25)
--- NOTE | 2017-01-20 10:40 | ER Document Report ---
ED General - General Chief Complaint: Nausea/Vomiting/Diarrhea Stated Complaint: BODY WEAKNESS Time Seen by Provider: 01/20/17 09:20 Mode of Arrival: Ambulatory Information source: Patient Notes: 36-year-old male presents with history of ulcerative colitis with complaints of dehydration. Patient notes this is similar pain to his previous, he has already talked his primary care physician and his GI specialist and has a colonoscopy for Saturday but believed he was having a lot of diarrhea and one in his blood work checked. Patient denies any fevers does not believe he has an abscess TRAVEL OUTSIDE OF THE [place] IN LAST 30 DAYS: No - HPI Onset: Last week Onset/Duration: Intermittent Quality of pain: Cramping Severity: Mild Pain Level: 1 Associated symptoms: Diarrhea, Nausea, Vomiting Exacerbated by: Denies Relieved by: Denies Similar symptoms previously: Yes Recently seen / treated by doctor: Yes - Related Data Allergies/Adverse Reactions: Penicillins Allergy (Mild, Verified 01/20/17 09:17) rash/hives Home Medications: Current Home Medications Mesalamine [Lialda] 4 mg PO DAILY 01/20/17 [History] Oxycodone HCl [Oxycodone HCl] 1 tab PO QID 01/20/17 [History] Prednisone 4 tab PO TID 01/20/17 [History] Past Medical History - General Information source: Patient - Social History Smoking Status: Never Smoker Cigarette use (# per day): No Chew tobacco use (# tins/day): No Smoking Education Provided: No Frequency of alcohol use: None Drug Abuse: None Family History: CAD, CVA, DM, Hyperlipidemia, Hypertension, Malignancy Patient has suicidal ideation: No Patient has homicidal ideation: No - Past Medical History Cardiac Medical History: Denies: Hx Heart Attack, Hx Hypertension Pulmonary Medical History: Denies: Hx Asthma, Hx Bronchitis, Hx COPD, Hx Pneumonia Neurological Medical History: Denies: Hx Seizures Renal/ Medical History: Denies: Hx Peritoneal Dialysis GI Medical History: Reports: Hx Ulcer - Ulcerative colitis, Hx Ulcerative Colitis, Hx Colonoscopy Musculoskeltal Medical History: Denies Hx Arthritis Past Surgical History: Reports: Hx Appendectomy - February 2015, Hx Vascular Surgery - Port placement - Immunizations Immunizations up to date: Yes Hx Diphtheria, Pertussis, Tetanus Vaccination: Yes Review of Systems - Review of Systems Notes: REVIEW OF SYSTEMS: CONSTITUTIONAL : Denies fever, chills, or sweats. Denies recent illness. EENT: Denies eye, ear, throat, or mouth pain or symptoms. Denies nasal or sinus congestion or discharge. Denies throat, tongue, or mouth swelling or difficulty swallowing. CARDIOVASCULAR: Denies chest pain. Denies palpitations or racing or irregular heart beat. Denies ankle edema. RESPIRATORY: Denies cough, cold, or chest congestion. Denies shortness of breath, difficulty breathing, or wheezing. GASTROINTESTINAL: admits to abd nausea vomiting diarrhea bloody. GENITOURINARY: Denies difficulty urinating, painful urination, burning, frequency, blood in urine, or discharge. MUSCULOSKELETAL: Denies back or neck pain or stiffness. Denies joint pain or swelling. SKIN: Denies rash, lesions or sores. HEMATOLOGIC : Denies easy bruising or bleeding. LYMPHATIC: Denies swollen, enlarged glands. NEUROLOGICAL: Denies confusion or altered mental status. Denies passing out or loss of consciousness. Denies dizziness or lightheadedness. Denies headache. Denies weakness or paralysis or loss of use of either side. Denies problems with gait or speech. Denies sensory loss, numbness, or tingling. Denies seizures. PSYCHIATRIC: Denies anxiety or stress. Denies depression, suicidal ideation, or homicidal ideation. ALL OTHER SYSTEMS REVIEWED AND NEGATIVE. Dictation was performed using [employer] voice recognition software PHYSICAL EXAMINATION: GENERAL: Well-appearing, well-nourished and in no acute distress. HEAD: Atraumatic, normocephalic. EYES: Pupils equal round and reactive to light, extraocular movements intact, sclera anicteric, conjunctiva are normal. ENT: Nares patent, oropharynx clear without exudates. Moist mucous membranes. NECK: Normal range of motion, supple without lymphadenopathy LUNGS: Breath sounds clear to auscultation bilaterally and equal. No wheezes rales or rhonchi. HEART: Regular rate and rhythm without murmurs ABDOMEN: Soft, nontender, nondistended abdomen. No guarding, no rebound. No masses appreciated. Musculoskeletal: Normal range of motion, no pitting or edema. No cyanosis. NEUROLOGICAL: Cranial nerves grossly intact. Normal speech, normal gait. Normal sensory, motor exams PSYCH: Normal mood, normal affect. SKIN: Warm, Dry, normal turgor, no rashes or lesions noted. Physical Exam - Vital signs Vitals: Temp Pulse Resp BP Pulse Ox 98.6 F 99 16 130/86 H 98 01/20/17 09:11 01/20/17 09:11 01/20/17 09:11 01/20/17 09:11 01/20/17 09:11 Course - Re-evaluation Re-evalutation: 01/20/17 10:40 This is a 36-year-old male who is well-known to me, who looks quite healthy today, lab work is pending we will reevaluate him multiple times 01/20/17 11:24 Lab work notes no significant drop in his hemoglobin no sign of infection he otherwise looks well no distress. Patient will be discharged home at this time as he states he feels much better After performing a Medical Screening Examination, I estimate there is LOW risk for ACUTE APPENDICITIS, BOWEL OBSTRUCTION, ACUTE CHOLECYSTITIS, PERFORATED DIVERTICULITIS, INCARCERATED HERNIA, PANCREATITIS, or PERFORATED ULCER, thus I consider the discharge disposition reasonable. Also, there is no evidence or peritonitis, sepsis, or toxicity. I have reevaluated this patient multiple times and no significant life threatening changes are noted. The patient and I have discussed the diagnosis and risks, and we agree with discharging home with close follow-up with the understanding that symptoms and presentations can change. We also discussed returning to the Emergency Department immediately if new or worsening symptoms occur. We have discussed the symptoms which are most concerning (e.g., bloody stool, fever, changing or worsening pain, intractable vomiting - standard verbal up date) that necessitate immediate return. - Vital Signs Vital signs: Temp Pulse Resp BP Pulse Ox 98.6 F 99 16 130/86 H 98 01/20/17 09:11 01/20/17 09:11 01/20/17 09:11 01/20/17 09:11 01/20/17 09:11 - Laboratory Result Diagrams: 01/20/17 10:36 01/20/17 10:36 Laboratory results interpreted by me: 01/20/17 01/20/17 10:36 10:36 WBC 10.8 H Hgb 13.0 L Hct 37.5 L RDW 14.2 H AST 8 L Total Protein 5.8 L Albumin 3.3 L Discharge - Discharge Clinical Impression: Ulcerative (chronic) enterocolitis Qualifiers: Digestive disease complication type: without complication Qualified Code(s): K51.00 - Ulcerative (chronic) pancolitis without complications Nausea & vomiting Qualifiers: Vomiting type: unspecified Vomiting Intractability: non-intractable Qualified Code(s): R11.2 - Nausea with vomiting, unspecified Condition: Stable Disposition: HOME, SELF-CARE Instructions: Ulcerative Colitis ([facility]) Referrals: EVIN CHURCH MD [Primary Care Provider] - Follow up tomorrow
[2017-01-20 10:49] LABS: ABSOLUTE BASOPHILS # (AUTO) 0.1 10^3/uL (0.0-0.2); ABSOLUTE EOSINOPHILS # (AUTO) 0.3 10^3/uL (0.0-0.6); ABSOLUTE LYMPHOCYTES (AUTO) 1.9 10^3/uL (0.5-4.7); ABSOLUTE NEUT (AUTO) 7.5 10^3/uL (1.7-8.2); EOSINOPHILS % (AUTO) 2.9 % (0-6); HEMATOCRIT 37.5 % (37.9-51.0); HGB HCT DIFFERENCE 1.5; LYMPHOCYTES % (AUTO) 17.7 % (13-45); MEAN CORPUSCULAR HEMOGLOBIN 29.8 pg (27.0-33.4); MEAN CORPUSCULAR HGB CONC 34.6 g/dL (32.0-36.0); MEAN CORPUSCULAR VOLUME 86 fl (80-97); MONOCYTES % (AUTO) 9.3 % (3-13); RED BLOOD COUNT 4.35 10^6/uL (4.35-5.55); RED CELL DISTRIBUTION WIDTH 14.2 % (11.5-14.0); SEGMENTED NEUTROPHILS % (AUTO) 69.1 % (42-78); WHITE BLOOD COUNT 10.8 10^3/uL (4.0-10.5)
[2017-01-20 11:06] LABS: ALANINE AMINOTRANSFERASE 29 U/L (21-72); ALBUMIN 3.3 g/dL (3.5-5.0); ALKALINE PHOSPHATASE 67 U/L (38-126); ANION GAP 11 (5-19); ASPARTATE AMINO TRANSFERASE 8 U/L (17-59); BILIRUBIN,DIRECT 0.4 mg/dL (0.0-0.4); BILIRUBIN,TOTAL 0.6 mg/dL (0.2-1.3); BLOOD UREA NITROGEN 9 mg/dL (7-20); CALCIUM 8.8 mg/dL (8.4-10.2); CARBON DIOXIDE 25 mmol/L (22-30); CHLORIDE 101 mmol/L (98-107); GLUCOSE 90 mg/dL (75-110); LIPASE 39.5 U/L (23-300); POTASSIUM 3.9 mmol/L (3.6-5.0); SODIUM 137.4 mmol/L (137-145); TOTAL PROTEIN 5.8 g/dL (6.3-8.2)
[2017-01-20 13:40] VITALS: BP 126/78
== END 2017-01-20 13:40 | disposition home or self-care (01) ==
LOC: ER 09:03
DX: K51.00 Ulcerative (chronic) pancolitis without complications (principal); R11.2 Nausea with vomiting, unspecified; R19.7 Diarrhea, unspecified; E86.0 Dehydration; Z88.0 Allergy status to penicillin
CPT/HCPCS: 36591; 99284; 96361; 96374; 96375; 36415; 83690; 85025; 80053; J2930; J2270; J2405; J7030

== ENCOUNTER 2017-02-01 10:27 | Emergency (ER) | payer SELFPAY ==
[2017-02-01 10:48] VITALS: BP 126/87
[2017-02-01] MEDS ORDERED: ONDANSETRON HCL INJ/PF 4 MG/2 ML SDV IV ONE (11:16)
[2017-02-01] MEDS ORDERED: NORMAL SALINE 500 ML IV ONE (11:16)
--- NOTE | 2017-02-01 11:21 | ER Document Report ---
ED Medical Screen (RME) - General Chief Complaint: Lower Abdominal Pain Stated Complaint: ABDOMINAL PAIN Time Seen by Provider: 02/01/17 11:15 Mode of Arrival: Ambulatory Information source: Patient Notes: Patient reports a 2 day history of diffuse abdominal pain. Patient has a history of ulcerative colitis. Patient has an outpatient colonoscopy scheduled for next week. Patient states he has Zofran at home which has not helped his vomiting. Patient states he has had bowel movements with bright red blood. Patient states he has right lower quadrant abdominal pain that radiates to his back. TRAVEL OUTSIDE OF THE [place] IN LAST 30 DAYS: No - Related Data Allergies/Adverse Reactions: Penicillins Allergy (Mild, Verified 02/01/17 11:09) rash/hives Past Medical History - General Information source: [facility] Records - Social History Chew tobacco use (# tins/day): No Frequency of alcohol use: None Drug Abuse: None - Past Medical History Cardiac Medical History: Denies: Hx Heart Attack, Hx Hypertension Pulmonary Medical History: Denies: Hx Asthma, Hx Bronchitis, Hx COPD, Hx Pneumonia Neurological Medical History: Denies: Hx Seizures Renal/ Medical History: Denies: Hx Peritoneal Dialysis GI Medical History: Reports: Hx Ulcer - Ulcerative colitis, Hx Ulcerative Colitis, Hx Colonoscopy Musculoskeltal Medical History: Denies Hx Arthritis Past Surgical History: Reports: Hx Appendectomy - February 2015, Hx Vascular Surgery - Port placement - Immunizations Immunizations up to date: Yes Hx Diphtheria, Pertussis, Tetanus Vaccination: Yes Review of Systems - Review of Systems Gastrointestinal: See HPI, Abdominal pain, Diarrhea, Nausea, Vomiting, Rectal bleeding Physical Exam - Vital signs Vitals: Temp Pulse Resp BP Pulse Ox 98.7 F 114 H 18 126/87 H 99 02/01/17 10:46 02/01/17 10:46 02/01/17 10:46 02/01/17 10:46 02/01/17 10:46 - Notes Notes: Physical Exam: General: Alert, appears well. HEENT: Normocephalic. Atraumatic. PERRLA. Extraocular movements intact. Oropharynx clear. Neck: Supple. Respiratory: No respiratory distress. Abdominal: Diffuse minimal abdominal tenderness. No distension. Extremities: Moves all four extremities. Neurological: Normal cognition. AAOx4. Normal speech. Psychological: Normal affect. Normal Mood. Skin: Warm. Dry. Normal color. Course - Vital Signs Vital signs: Temp Pulse Resp BP Pulse Ox 98.7 F 114 H 18 126/87 H 99 02/01/17 10:46 02/01/17 10:46 02/01/17 10:46 02/01/17 10:46 02/01/17 10:46 Scribe Documentation - Scribe Written by Kurt:: Kurt Santana, 02/01/2017 1246 acting as scribe for :: Mickey
--- NOTE | 2017-02-01 13:46 | ER Document Report ---
ED General - General Chief Complaint: Lower Abdominal Pain Stated Complaint: ABDOMINAL PAIN Time Seen by Provider: 02/01/17 11:15 Mode of Arrival: Ambulatory TRAVEL OUTSIDE OF THE [place] IN LAST 30 DAYS: No - HPI Notes: Patient is a 36-year-old male with a history of ulcerative colitis who presents ED complaining of another acute flare with right lower quadrant pain that radiates to his right low back, and bloody stools. Patient states that every time he has a flare he has the same symptoms. He was evaluated here about 2 months ago with the same symptoms as well who was sent home on mesalamine and prednisone taper. Patient states that he did switch GI providers over the last few months to Dr. Russell. Patient states that he is scheduled for a colonoscopy next week. Patient states that he does have intermittent nausea and vomiting, and has had a decreased appetite. Patient states that he feels a little dry. He is still urinating normally and having normal bowel movements otherwise. Patient states his bowel movements are never solid 3 years. Patient is taking oxycodone for pain along with a low-dose prednisone daily. Pt does note some feeling of incomplete void on occasion. Denies any headache, fever, URI, sore throat, chest pain, palpitations, syncope , cough, shortness of breath, wheeze, dyspnea, urinary retention, hematuria, loss of control of bowel or bladder, numbness/tingling, saddle anesthesia, muscle paralysis/weakness, or rash. H/o appendectomy. - Related Data Allergies/Adverse Reactions: Penicillins Allergy (Mild, Verified 02/01/17 11:09) rash/hives Past Medical History - General Information source: [facility] Records - Social History Smoking Status: Never Smoker Chew tobacco use (# tins/day): No Frequency of alcohol use: None Drug Abuse: None Family History: CAD, CVA, DM, Hyperlipidemia, Hypertension, Malignancy Patient has suicidal ideation: No Patient has homicidal ideation: No - Past Medical History Cardiac Medical History: Denies: Hx Heart Attack, Hx Hypertension Pulmonary Medical History: Denies: Hx Asthma, Hx Bronchitis, Hx COPD, Hx Pneumonia Neurological Medical History: Denies: Hx Seizures Renal/ Medical History: Denies: Hx Peritoneal Dialysis GI Medical History: Reports: Hx Ulcer - Ulcerative colitis, Hx Ulcerative Colitis, Hx Colonoscopy Musculoskeltal Medical History: Denies Hx Arthritis Past Surgical History: Reports: Hx Appendectomy - February 2015, Hx Vascular Surgery - Port placement - Immunizations Immunizations up to date: Yes Hx Diphtheria, Pertussis, Tetanus Vaccination: Yes Review of Systems - Review of Systems Notes: REVIEW OF SYSTEMS: CONSTITUTIONAL : Denies fever, chills, or sweats. Denies recent illness. EENT: Denies eye, ear, throat, or mouth pain or symptoms. Denies nasal or sinus congestion or discharge. Denies throat, tongue, or mouth swelling or difficulty swallowing. CARDIOVASCULAR: Denies chest pain. Denies palpitations or racing or irregular heart beat. Denies ankle edema. RESPIRATORY: Denies cough, cold, or chest congestion. Denies shortness of breath, difficulty breathing, or wheezing. GASTROINTESTINAL: see hpi GENITOURINARY: Denies difficulty urinating, painful urination, burning, frequency, blood in urine, or discharge. MUSCULOSKELETAL: see hpi SKIN: Denies rash, lesions or sores. NEUROLOGICAL: Denies confusion or altered mental status. Denies passing out or loss of consciousness. Denies dizziness or lightheadedness. Denies headache. Denies weakness or paralysis or loss of use of either side. Denies problems with gait or speech. Denies sensory loss, numbness, or tingling. Denies seizures. PSYCHIATRIC: Denies anxiety or stress. Denies depression, suicidal ideation, or homicidal ideation. ALL OTHER SYSTEMS REVIEWED AND NEGATIVE. Dictation was performed using [employer] voice recognition software Physical Exam - Vital signs Vitals: Temp Pulse Resp BP Pulse Ox 98.7 F 114 H 18 126/87 H 99 02/01/17 10:46 02/01/17 10:46 02/01/17 10:46 02/01/17 10:46 02/01/17 10:46 Notes: PHYSICAL EXAMINATION: GENERAL: Well-appearing, well-nourished and in no acute distress. A&Ox4 HEAD: Atraumatic, normocephalic. EYES: Pupils equal round and reactive to light, extraocular movements intact, sclera anicteric, conjunctiva are normal. ENT: Nares patent and without discharge. oropharynx clear without exudates. No tonsilar hypertrophy or erythema. Moist mucous membranes. No sinus tenderness. NECK: Normal range of motion, supple without lymphadenopathy LUNGS: Breath sounds clear to auscultation bilaterally and equal. No wheezes rales or rhonchi. HEART: Regular rate and rhythm without murmurs, rubs, gallops. ABDOMEN: Soft, nondistended abdomen. No guarding, no rebound. No masses appreciated. Normal bowel sounds present. No CVA tenderness bilaterally. + mild tenderness to the RLQ only. Pt comfortable and moving around w/o difficulty. Musculoskeletal: FROM to passive/active. Strength 5+/5. Back: No step-offs. No midline tenderness. + tenderness to the rt SI jt. Extremities: No cyanosis, clubbing, or edema b/l. Peripheral pulses 2+. Capillary refill less than 3 seconds. NEUROLOGICAL: Normal speech, normal gait. Normal sensory, motor exams PSYCH: Normal mood, normal affect. SKIN: Warm, Dry, normal turgor, no rashes or lesions noted. Course - Re-evaluation Re-evalutation: 02/01/17 16:50 Pt is an afebrile, well-hydrated, 36yo male who presents to the ED with a suspected acute UC flare. Vitals are stable. PE is otherwise unremarkable. Reviewed with Dr. Ricks. Pt is feeling better after zofran and fluids. Pt's did not really have a lot of tenderness in the abdomen. He appeared comfortable and in no distress when moving around. A lidoderm patch was applied to the SI jt which improved that pain specifically. I suspect that his UA hematuria is contaminate as pt did not wipe prior and was during a BM noted to have blood in it. Pt is tolerating PO intake. CMP and lipase unremarkable. C-dif neg. Pt had a very similar presentation in the past. Pt does have a colonoscopy next week. Hgb is relatively stable with a slight drop of 1.2 since 1.5 weeks ago. Low suspicion/risk for acute appendicitis, bowel obstruction, acute cholecystitis, perforated diverticulitis, incarcerated hernia , pancreatitis, perforated ulcer, peritonitis, sepsis, testicular torsion, or other systemic emergent condition at this time. Patient is aware that his condition can change from initial presentation and he needs to monitor symptoms closely and seek medical attention if any acute changes. I will send him home with zofran and a prednisone taper. Conservative measures otherwise for symptoms. Recheck with PCM in 3-5 days. Keep consult with GI/colonoscopy next week. Return to the ED with any worsening/concerning symptoms otherwise as reviewed in discharge. Patient is in agreement. - Vital Signs Vital signs: Temp Pulse Resp BP Pulse Ox 98.7 F 114 H 18 126/87 H 99 02/01/17 10:46 02/01/17 10:46 02/01/17 10:46 02/01/17 10:46 02/01/17 10:46 - Laboratory Result Diagrams: 02/01/17 14:55 02/01/17 14:55 Laboratory results interpreted by me: 02/01/17 02/01/17 02/01/17 12:42 14:55 14:55 WBC 11.1 H RBC 3.72 L Hgb 10.8 L Hct 32.0 L RDW 14.8 H AST 12 L Total Protein 5.7 L Albumin 2.9 L Urine Blood MODERATE H Urine Urobilinogen 2.0 H Ur Leukocyte Esterase TRACE H Discharge - Discharge Clinical Impression: Ulcerative colitis, acute Qualifiers: Digestive disease complication type: with rectal bleeding Qualified Code(s): K51.911 - Ulcerative colitis, unspecified with rectal bleeding Condition: Stable Disposition: HOME, SELF-CARE Instructions: Ulcerative Colitis ([facility]) Additional Instructions: Maintain adequate fluid and food intake Mineral diet (B.R.A.T.) Bananas, rice, apples, toast, etc Zofran as needed tylenol if needed Monitor for any worsening symptoms Make sure you are staying hydrated enough to urinate and have normal BM's Recheck with your PCM next week Keep colonoscopy appointment and consult(s) with Gastroenterology. Return to the ED with any worsening symptoms and/or development of fever, headache, chest pain, palpitations, syncope, shortness of breath, trouble breathing, abdominal pain, n/v/d, worsening bleeding in the stool, weakness, or other worsening symptoms that are concerning to you. Prescriptions: Ondansetron [Zofran Odt 4 mg Tablet] 1 - 2 tab PO Q4H PRN #15 tab.rapdis PRN Reason: For Nausea/Vomiting Prednisone [Deltasone 10 mg Tablet] 10 mg PO ASDIR PRN #21 tablet PRN Reason: Forms: Elevated Blood Pressure Referrals: EARLENE RUSSELL MD [ACTIVE STAFF] - Follow up in 3-5 days
[2017-02-01 14:53] LABS: APPEARANCE,URINE CLEAR; BILIRUBIN,URINE NEGATIVE (NEGATIVE); GLUCOSE, URINE NEGATIVE (NEGATIVE); KETONES,URINE NEGATIVE (NEGATIVE); LEUKOCYTE ESTERASE,URINE TRACE (NEGATIVE); NITRITE,URINE NEGATIVE (NEGATIVE); PROTEIN,URINE NEGATIVE (NEGATIVE)
[2017-02-01] MEDS ORDERED: LIDOCAINE 5% (700 MG) TRANSDERMAL ADH..PATCH TP ONE (15:00)
[2017-02-01 15:10] LABS: ABSOLUTE BASOPHILS # (AUTO) 0.1 10^3/uL (0.0-0.2); ABSOLUTE EOSINOPHILS # (AUTO) 0.5 10^3/uL (0.0-0.6); ABSOLUTE LYMPHOCYTES (AUTO) 1.7 10^3/uL (0.5-4.7); ABSOLUTE MONOCYTES (AUTO) 0.8 10^3/uL (0.1-1.4); EOSINOPHILS % (AUTO) 4.2 % (0-6); HEMOGLOBIN 10.8 g/dL (13.5-17.0); HGB HCT DIFFERENCE 0.4; LYMPHOCYTES % (AUTO) 15.4 % (13-45); MEAN CORPUSCULAR HGB CONC 33.7 g/dL (32.0-36.0); MEAN CORPUSCULAR VOLUME 86 fl (80-97); MONOCYTES % (AUTO) 7.1 % (3-13); RED BLOOD COUNT 3.72 10^6/uL (4.35-5.55); RED CELL DISTRIBUTION WIDTH 14.8 % (11.5-14.0); SEGMENTED NEUTROPHILS % (AUTO) 72.3 % (42-78); WHITE BLOOD COUNT 11.1 10^3/uL (4.0-10.5)
[2017-02-01 15:27] LABS: ALANINE AMINOTRANSFERASE 22 U/L (21-72); ALBUMIN 2.9 g/dL (3.5-5.0); ALKALINE PHOSPHATASE 71 U/L (38-126); ANION GAP 11 (5-19); ASPARTATE AMINO TRANSFERASE 12 U/L (17-59); BILIRUBIN,DIRECT 0.3 mg/dL (0.0-0.4); BILIRUBIN,TOTAL 0.5 mg/dL (0.2-1.3); BLOOD UREA NITROGEN 11 mg/dL (7-20); CALCIUM 9.1 mg/dL (8.4-10.2); CARBON DIOXIDE 25 mmol/L (22-30); CHLORIDE 106 mmol/L (98-107); CREATININE RESULT 0.96 mg/dL (0.52-1.25); GLUCOSE 78 mg/dL (75-110); POTASSIUM 4.6 mmol/L (3.6-5.0); SODIUM 141.9 mmol/L (137-145); TOTAL PROTEIN 5.7 g/dL (6.3-8.2)
[2017-02-01] MEDS ORDERED: ONDANSETRON 4 MG TAB.RAPDIS PO ONE (16:48)
== END 2017-02-01 17:17 | disposition home or self-care (01) ==
LOC: ER 10:27
DX: K51.911 Ulcerative colitis, unspecified with rectal bleeding (principal); R10.30 Lower abdominal pain, unspecified; Z88.0 Allergy status to penicillin
CPT/HCPCS: 99284; 96374; 36415; 87045; 87205; 83690; 85025; 82272; 80053; 81001; 87493; J2405

== ENCOUNTER 2017-02-05 21:55 | Emergency (ER) | payer SELFPAY ==
[2017-02-05 22:34] LABS: ABSOLUTE BASOPHILS # (AUTO) 0.1 10^3/uL (0.0-0.2); ABSOLUTE EOSINOPHILS # (AUTO) 0.9 10^3/uL (0.0-0.6); ABSOLUTE LYMPHOCYTES (AUTO) 2.6 10^3/uL (0.5-4.7); ABSOLUTE NEUT (AUTO) 7.9 10^3/uL (1.7-8.2); BASOPHILS % (AUTO) 1.2 % (0-2); EOSINOPHILS % (AUTO) 6.9 % (0-6); HEMATOCRIT 34.9 % (37.9-51.0); HEMOGLOBIN 11.7 g/dL (13.5-17.0); HGB HCT DIFFERENCE 0.2; LYMPHOCYTES % (AUTO) 20.5 % (13-45); MEAN CORPUSCULAR HEMOGLOBIN 28.7 pg (27.0-33.4); MEAN CORPUSCULAR HGB CONC 33.5 g/dL (32.0-36.0); MEAN CORPUSCULAR VOLUME 86 fl (80-97); RED BLOOD COUNT 4.07 10^6/uL (4.35-5.55); RED CELL DISTRIBUTION WIDTH 14.8 % (11.5-14.0); SEGMENTED NEUTROPHILS % (AUTO) 63.4 % (42-78); WHITE BLOOD COUNT 12.4 10^3/uL (4.0-10.5)
[2017-02-05 22:53] LABS: ALANINE AMINOTRANSFERASE 18 U/L (21-72); ALBUMIN 3.3 g/dL (3.5-5.0); ALKALINE PHOSPHATASE 68 U/L (38-126); ANION GAP 13 (5-19); ASPARTATE AMINO TRANSFERASE 12 U/L (17-59); BILIRUBIN,DIRECT 0.4 mg/dL (0.0-0.4); BILIRUBIN,TOTAL 0.4 mg/dL (0.2-1.3); BLOOD UREA NITROGEN 13 mg/dL (7-20); CARBON DIOXIDE 26 mmol/L (22-30); CHLORIDE 103 mmol/L (98-107); CREATININE RESULT 0.95 mg/dL (0.52-1.25); GLUCOSE 93 mg/dL (75-110); POTASSIUM 4.3 mmol/L (3.6-5.0); SODIUM 141.7 mmol/L (137-145); TOTAL PROTEIN 6.5 g/dL (6.3-8.2)
[2017-02-05] MEDS ORDERED: ONDANSETRON HCL INJ/PF 4 MG/2 ML SDV IV ONE (23:20)
[2017-02-05] MEDS ORDERED: HYDROMORPHONE HCL INJ/PF 2 MG/ML AMPULE IV ONE (23:20)
[2017-02-05] MEDS ORDERED: METHYLPREDNISOLONE INJ 125 MG/2 ML SDV IV ONE (23:20)
[2017-02-05] MEDS ORDERED: NORMAL SALINE 1000 ML 1,000 ML IV ONE (23:35)
--- NOTE | 2017-02-05 23:41 | ER Document Report ---
ED General - General Chief Complaint: Vomiting Stated Complaint: VOMITING Time Seen by Provider: 02/05/17 23:00 Mode of Arrival: Ambulatory Information source: Patient TRAVEL OUTSIDE OF THE [place] IN LAST 30 DAYS: No - HPI Notes: Patient is a 36-year-old with history of ulcerative colitis since 2012 presents to the emergency department with report of worsening of his right lower quadrant pain and bloody bowel movements and now has nausea and vomiting. The patient was seen 3 days ago with blood work that was normal with the exception of slight drop in his hemoglobin. He had a negative C. difficile and has not been on antibiotics recently. The patient states he has been taking the Lialda, prednisone taper, Zofran and has been consistent with his oxycodone 15 mg 4 times daily dosing. The patient states he has a colonoscopy set up for this coming Saturday. 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 The patient denies any fever or chills or chest pain or difficulty breathing. Last CT scan of the abdomen appears to be February 2016. Patient previously has been on Humira, which is helped his ulcerative colitis, but he has not had a dose in many months. - Related Data Allergies/Adverse Reactions: Penicillins Allergy (Mild, Verified 02/01/17 11:09) rash/hives Past Medical History - General Information source: Patient - Social History Smoking Status: Never Smoker Frequency of alcohol use: None Drug Abuse: None Lives with: Family Family History: CAD, CVA, DM, Hyperlipidemia, Hypertension, Malignancy Patient has suicidal ideation: No Patient has homicidal ideation: No - Past Medical History Cardiac Medical History: Denies: Hx Heart Attack, Hx Hypertension Pulmonary Medical History: Denies: Hx Asthma, Hx Bronchitis, Hx COPD, Hx Pneumonia Neurological Medical History: Denies: Hx Seizures Renal/ Medical History: Denies: Hx Peritoneal Dialysis GI Medical History: Reports: Hx Ulcer - Ulcerative colitis, Hx Ulcerative Colitis, Hx Colonoscopy Musculoskeltal Medical History: Denies Hx Arthritis Past Surgical History: Reports: Hx Appendectomy - February 2015, Hx Vascular Surgery - Port placement - Immunizations Immunizations up to date: Yes Hx Diphtheria, Pertussis, Tetanus Vaccination: Yes Review of Systems - Review of Systems Notes: REVIEW OF SYSTEMS: CONSTITUTIONAL : Denies fever, chills, or sweats. EENT: Denies eye, ear, throat, or mouth pain or symptoms. Denies nasal or sinus congestion or discharge. Denies throat, tongue, or mouth swelling or difficulty swallowing. CARDIOVASCULAR: Denies chest pain. Denies palpitations or racing or irregular heart beat. Denies ankle edema. RESPIRATORY: Denies cough, cold, or chest congestion. Denies shortness of breath, difficulty breathing, or wheezing. GASTROINTESTINAL: Denies abdominal distention. Denies blood in vomitus. Denies black, tarry stools. Denies constipation. GENITOURINARY: Denies difficulty urinating, painful urination, burning, frequency, blood in urine, or discharge. MUSCULOSKELETAL: Denies back or neck pain or stiffness. Denies joint pain or swelling. SKIN: Denies rash, lesions or sores. HEMATOLOGIC : Denies easy bruising or bleeding. LYMPHATIC: Denies swollen, enlarged glands. NEUROLOGICAL: Denies confusion or altered mental status. Denies passing out or loss of consciousness. Denies dizziness or lightheadedness. Denies headache. Denies weakness or paralysis or loss of use of either side. Denies problems with gait or speech. Denies sensory loss, numbness, or tingling. Denies seizures. PSYCHIATRIC: Denies anxiety or stress. Denies depression, suicidal ideation, or homicidal ideation. ALL OTHER SYSTEMS REVIEWED AND NEGATIVE. Dictation was performed using [employer] voice recognition software Physical Exam - Vital signs Vitals: Temp Pulse Resp BP Pulse Ox 99.2 F 107 H 18 126/80 H 99 02/05/17 22:02 02/05/17 22:02 02/05/17 22:02 02/05/17 22:02 02/05/17 22:02 - Notes Notes: PHYSICAL EXAMINATION: GENERAL: Well-appearing, well-nourished and in no acute distress. HEAD: Atraumatic, normocephalic. EYES: Pupils equal round and reactive to light, extraocular movements intact, sclera anicteric, conjunctiva are normal. ENT: Nares patent, oropharynx clear without exudates. Moist mucous membranes. NECK: Normal range of motion, supple without lymphadenopathy LUNGS: Breath sounds clear to auscultation bilaterally and equal. No wheezes rales or rhonchi. Patient has a MediPort in the upper chest region which appears otherwise clear. HEART: Regular rate and rhythm without murmurs ABDOMEN: Soft, patient is tender through the right lower quadrant nondistended abdomen. No guarding, no rebound. No masses appreciated. Region predominantly but also some discomfort right mid abdominal region and suprapubic region. Musculoskeletal: Normal range of motion, no pitting or edema. No cyanosis. NEUROLOGICAL: Cranial nerves grossly intact. Normal speech, normal gait. Normal sensory, motor exams PSYCH: Normal mood, normal affect. SKIN: Warm, Dry, normal turgor, no rashes or lesions noted. Course - Re-evaluation Re-evalutation: 02/05/17 23:41 Patient was given normal saline bolus and was given Zofran, Dilaudid, Solu- Medrol. - Vital Signs Vital signs: Temp Pulse Resp BP Pulse Ox 99.2 F 107 H 18 126/80 H 99 02/05/17 22:02 02/05/17 22:02 02/05/17 22:02 02/05/17 22:02 02/05/17 22:02 - Laboratory Result Diagrams: 02/05/17 22:20 02/05/17 22:20 Laboratory results interpreted by me: 02/05/17 02/05/17 22:20 22:20 WBC 12.4 H RBC 4.07 L Hgb 11.7 L Hct 34.9 L RDW 14.8 H Plt Count 544 H Eosinophils % 6.9 H Absolute Eosinophils 0.9 H AST 12 L ALT 18 L Albumin 3.3 L Discharge - Discharge Clinical Impression: BRBPR (bright red blood per rectum) Ulcerative colitis with complication Qualifiers: Ulcerative colitis location: other ulcerative colitis Qualified Code(s): K51.819 - Other ulcerative colitis with unspecified complications Nausea & vomiting Qualifiers: Vomiting type: unspecified Vomiting Intractability: non-intractable Qualified Code(s): R11.2 - Nausea with vomiting, unspecified Vomiting Qualifiers: Vomiting type: unspecified Vomiting Intractability: non-intractable Nausea presence: with nausea Qualified Code(s): R11.2 - Nausea with vomiting, unspecified Condition: Stable Disposition: HOME, SELF-CARE Additional Instructions: Return to the emergency department in case of severe pain, fever or significant bleeding. Followup for Humira injection. Referrals: EVIN CHURCH MD [Primary Care Provider] - Follow up as needed EARLENE ALEXIS MD [ACTIVE STAFF] - Follow up as needed
[2017-02-06] MEDS ORDERED: LIDOCAINE 5% (700 MG) TRANSDERMAL ADH..PATCH TP ONE (00:22)
[2017-02-06] MEDS ORDERED: ONDANSETRON HCL INJ/PF 4 MG/2 ML SDV IV ONE ×2 (03:57→03:58)
[2017-02-06] MEDS ORDERED: HYDROMORPHONE HCL INJ/PF 2 MG/ML AMPULE IV ONE (03:57)
--- NOTE | 2017-02-06 04:37 | RADIOLOGY REPORT (SQ) ---
EXAM DESCRIPTION: CT ABD/PELVIS WITH IV ORAL COMPLETED DATE/TIME: 02/06/2017 4:15 am REASON FOR STUDY: RLQ pain, hx appy and UC COMPARISON: CT abdomen and pelvis 09/19/2015, 06/23/2015. TECHNIQUE: CT scan of the abdomen and pelvis performed using helical scanning technique with dynamic intravenous contrast injection and oral contrast. Images reviewed with lung, soft tissue, and bone w indows. Reconstructed coronal and sagittal MPR images reviewed. Delayed images for evaluation of the urinary system also acquired. All images stored on PACS. All CT scanners at this facility use dose modulation, iterative reconstruction, and/or weight based d osing when appropriate to reduce radiation dose to as low as reasonably achievable (ALARA). [facility]: Dose Right [facility]: CareDose [facility]: Dose Right [facility]: Teradose 4D [facility]: [facility] CONTRAST TYPE AND DOSE: contrast/concentration: Isovue 370.00 mg/ml; Total Contrast Delivered: 99.0 ml; Total Saline Delivered: 69.0 ml RENAL FUNCTION: GFR > 60. RADIATION DOSE: Up-to-date CT equipment and radiation dose reduction techniques were employed. CTDIv ol: 19.6 mGy. DLP: 2375 mGy-cm.. LIMITATIONS: None. FINDINGS: LOWER CHEST: Mild bibasilar atelectasis. No pleural effusion. LIVER: Normal size. No masses. No dilated ducts. SPLEEN: Normal size. PANCREAS: No significant calcifications. No adjacent inflammation or peripancreatic fluid collections . Pancreatic duct not dilated. GALLBLADDER: No identified stones by CT criteria. No inflammatory changes to suggest cholecystitis. ADRENAL GLANDS: No significant masses or asymmetry. RIGHT KIDNEY AND URETER: There is a 1.2 cm cyst at the right kidney. No significant calcifications. No hydronephrosis or hydroureter. LEFT KIDNEY AND URETER: No significant calcifications. No hydronephrosis or hydroureter. AORTA AND VESSELS: No abdominal aortic aneurysm. RETROPERITONEUM: No retroperitoneal adenopathy, hemorrhage or masses. BOWEL AND PERITONEAL CAVITY: No small bowel obstruction. The oral contrast has reached the cecum. M oderate amount of stool in the colon. There is diffuse wall thickening at the rectum. No adjacent i nflammatory changes. No free fluid or free air. APPENDIX: Surgically absent. PELVIS: The urinary bladder is decompressed. No pelvic mass. No free fluid. .ABDOMINAL WALL: Small fat containing umbilical hernia. BONES: Mild multilevel degenerative changes in the spine. IMPRESSION: Diffuse wall thickening at the rectum, may be secondary to known history of ulcerative c olitis. Moderate amount of stool in the colon, please correlate for constipation. Otherwise, no acu te findings. TECHNICAL DOCUMENTATION: JOB ID: [id number] PR-64 Quality ID # [id number]: Final reports with documentation of one or more dose reduction techniques (e.g., Au tomated exposure control, adjustment of the mA and/or kV according to patient size, use of iterative reconstruction technique) 2010 [employer]- All Rights Reserved
[2017-02-06] MEDS ORDERED: ONDANSETRON ODT 4 MG TAB (6 TAB/ER DISP) PO PRN (05:38)
[2017-02-06 05:56] VITALS: BP 110/71
== END 2017-02-06 05:55 | disposition home or self-care (01) ==
LOC: ER 21:55
DX: K51.911 Ulcerative colitis, unspecified with rectal bleeding (principal); R11.2 Nausea with vomiting, unspecified; R10.31 Right lower quadrant pain; Z79.891 Long term (current) use of opiate analgesic; Z88.0 Allergy status to penicillin; Z90.49 Acquired absence of other specified parts of digestive tract
CPT/HCPCS: 96376; 99284; 96361; 96374; 96375; 36415; 85025; 80053; 74177; J2930; J1170 ×2; J2405 ×2; J7030

== ENCOUNTER 2017-02-14 17:21 | Emergency (ER) | payer SELFPAY ==
[2017-02-14] MEDS ORDERED: ONDANSETRON HCL INJ/PF 4 MG/2 ML SDV IV ONE (17:39)
--- NOTE | 2017-02-14 17:39 | ER Document Report ---
ED Medical Screen (RME) - General Chief Complaint: Leg Swelling Stated Complaint: LEFT LEG PAIN, NAUSEA Time Seen by Provider: 02/14/17 17:38 TRAVEL OUTSIDE OF THE [place] IN LAST 30 DAYS: No - HPI Notes: 02/14/17 17:39 Leg swelling nausea history of ulcerative colitis history of travel. - Related Data Allergies/Adverse Reactions: Penicillins Allergy (Mild, Verified 02/01/17 11:09) rash/hives Past Medical History - Past Medical History Cardiac Medical History: Denies: Hx Heart Attack, Hx Hypertension Pulmonary Medical History: Denies: Hx Asthma, Hx Bronchitis, Hx COPD, Hx Pneumonia Neurological Medical History: Denies: Hx Seizures Renal/ Medical History: Denies: Hx Peritoneal Dialysis GI Medical History: Reports: Hx Ulcer - Ulcerative colitis, Hx Ulcerative Colitis, Hx Colonoscopy Musculoskeltal Medical History: Denies Hx Arthritis Past Surgical History: Reports: Hx Appendectomy - February 2015, Hx Vascular Surgery - Port placement - Immunizations Immunizations up to date: Yes Hx Diphtheria, Pertussis, Tetanus Vaccination: Yes Review of Systems - Review of Systems Gastrointestinal: Nausea Musculoskeletal: Leg swelling Physical Exam - Vital signs Vitals: Temp Pulse Resp BP Pulse Ox 97.4 F 86 20 111/63 99 02/14/17 17:23 02/14/17 17:23 02/14/17 17:23 02/14/17 17:23 02/14/17 17:23 - Respiratory Respiratory status: No respiratory distress Chest status: Nontender Breath sounds: Normal Chest palpation: Normal Course - Vital Signs Vital signs: Temp Pulse Resp BP Pulse Ox 97.4 F 86 20 111/63 99 02/14/17 17:23 02/14/17 17:23 02/14/17 17:23 02/14/17 17:23 02/14/17 17:23
[2017-02-14] MEDS: NORMAL SALINE 1000 ML 1,000 ML IV PRN ×2 (18:08→19:42)
[2017-02-14 19:08] LABS: ABSOLUTE BASOPHILS # (AUTO) 0.1 10^3/uL (0.0-0.2); ABSOLUTE EOSINOPHILS # (AUTO) 1.3 10^3/uL (0.0-0.6); ABSOLUTE LYMPHOCYTES (AUTO) 1.6 10^3/uL (0.5-4.7); ABSOLUTE MONOCYTES (AUTO) 0.8 10^3/uL (0.1-1.4); ABSOLUTE NEUT (AUTO) 7.2 10^3/uL (1.7-8.2); BASOPHILS % (AUTO) 1.2 % (0-2); EOSINOPHILS % (AUTO) 11.9 % (0-6); HEMATOCRIT 30.2 % (37.9-51.0); HEMOGLOBIN 9.8 g/dL (13.5-17.0); HGB HCT DIFFERENCE -0.8; LYMPHOCYTES % (AUTO) 14.1 % (13-45); MEAN CORPUSCULAR HEMOGLOBIN 27.4 pg (27.0-33.4); MEAN CORPUSCULAR HGB CONC 32.3 g/dL (32.0-36.0); MEAN CORPUSCULAR VOLUME 85 fl (80-97); MONOCYTES % (AUTO) 7.5 % (3-13); RED BLOOD COUNT 3.56 10^6/uL (4.35-5.55); RED CELL DISTRIBUTION WIDTH 15.2 % (11.5-14.0); SEGMENTED NEUTROPHILS % (AUTO) 65.3 % (42-78); WHITE BLOOD COUNT 11.1 10^3/uL (4.0-10.5)
[2017-02-14 19:22] LABS: ALANINE AMINOTRANSFERASE 32 U/L (21-72); ALBUMIN 2.7 g/dL (3.5-5.0); ALKALINE PHOSPHATASE 56 U/L (38-126); ANION GAP 10 (5-19); ASPARTATE AMINO TRANSFERASE 16 U/L (17-59); BILIRUBIN,DIRECT 0.4 mg/dL (0.0-0.4); BILIRUBIN,TOTAL 0.4 mg/dL (0.2-1.3); BLOOD UREA NITROGEN 9 mg/dL (7-20); CALCIUM 8.6 mg/dL (8.4-10.2); CARBON DIOXIDE 27 mmol/L (22-30); CHLORIDE 104 mmol/L (98-107); CREATINE KINASE 354 U/L (55-170); CREATININE RESULT 0.88 mg/dL (0.52-1.25); GLUCOSE 84 mg/dL (75-110); LIPASE 19.8 U/L (23-300); POTASSIUM 4.1 mmol/L (3.6-5.0); SODIUM 140.5 mmol/L (137-145); TOTAL PROTEIN 5.5 g/dL (6.3-8.2)
[2017-02-14] MEDS ORDERED: KETOROLAC TROMETHAMINE INJ/PF 30 MG/1 ML SDV IV ONE (19:59)
--- NOTE | 2017-02-14 21:19 | ER Document Report ---
ED Extremity Problem, Lower - General Chief Complaint: Leg Swelling Stated Complaint: LEFT LEG PAIN, NAUSEA Time Seen by Provider: 02/14/17 17:38 Mode of Arrival: Ambulatory Notes: 6-year-old male complaining of left lower extremity pain and redness. States that he injured his leg a long time ago. Has never gotten better. States there is pain. Swelling of the left leg. Has a history of inflammatory bowel disease. Denies any fever. No chills. No sweats. Patient states that he frequently comes to the emergency department and he always needs his pain treated with Dilaudid. Requesting Dilaudid at this time for his pain. TRAVEL OUTSIDE OF THE [place] IN LAST 30 DAYS: No - HPI Quality of pain: Achy, Cramping Severity: Moderate - Related Data Allergies/Adverse Reactions: Penicillins Allergy (Mild, Verified 02/14/17 19:17) rash/hives Past Medical History - General Information source: Patient - Social History Smoking Status: Never Smoker Chew tobacco use (# tins/day): No Frequency of alcohol use: None Drug Abuse: None Family History: CAD, CVA, DM, Hyperlipidemia, Hypertension, Malignancy Patient has suicidal ideation: No Patient has homicidal ideation: No - Past Medical History Cardiac Medical History: Denies: Hx Heart Attack, Hx Hypertension Pulmonary Medical History: Denies: Hx Asthma, Hx Bronchitis, Hx COPD, Hx Pneumonia Neurological Medical History: Denies: Hx Seizures Renal/ Medical History: Denies: Hx Peritoneal Dialysis GI Medical History: Reports: Hx Ulcer - Ulcerative colitis, Hx Ulcerative Colitis, Hx Colonoscopy Musculoskeltal Medical History: Denies Hx Arthritis Past Surgical History: Reports: Hx Appendectomy - February 2015, Hx Vascular Surgery - Port placement - Immunizations Immunizations up to date: Yes Hx Diphtheria, Pertussis, Tetanus Vaccination: Yes Review of Systems - Review of Systems Constitutional: No symptoms reported EENT: No symptoms reported Cardiovascular: No symptoms reported Respiratory: No symptoms reported Gastrointestinal: No symptoms reported Genitourinary: No symptoms reported Male Genitourinary: No symptoms reported Musculoskeletal: No symptoms reported, Leg swelling, Ankle swelling, Other - Left leg pain Skin: No symptoms reported, Other - Skin redness to the left lower extremity Hematologic/Lymphatic: No symptoms reported Neurological/Psychological: No symptoms reported Physical Exam - Vital signs Vitals: Temp Pulse Resp BP Pulse Ox 97.4 F 86 20 111/63 99 02/14/17 17:23 02/14/17 17:23 02/14/17 17:23 02/14/17 17:23 02/14/17 17:23 Interpretation: Normal - General General appearance: Appears well, Alert - HEENT Head: Normocephalic, Atraumatic Eyes: Normal Pupils: PERRL - Respiratory Respiratory status: No respiratory distress Chest status: Nontender Breath sounds: Normal Chest palpation: Normal - Cardiovascular Rhythm: Regular Heart sounds: Normal auscultation Murmur: No - Abdominal Inspection: Normal Distension: No distension Bowel sounds: Normal Tenderness: Nontender Organomegaly: No organomegaly - Back Back: Normal, Nontender - Extremities General upper extremity: Normal inspection, Nontender, Normal color, Normal ROM , Normal strength, Normal temperature General lower extremity: Tender, Edema, Normal strength, Normal temperature, Other - There are a few areas of the left lower extremity did appear to be chronic in healing. Is no significant calf tenderness.. No: Nazanin's sign - Neurological Neuro grossly intact: Yes Cognition: Normal Orientation: AAOx4 Perla Coma Scale Eye Opening: Spontaneous [place] Coma Scale Verbal: Oriented [place] Coma Scale Motor: Obeys Commands Perla Coma Scale Total: 15 Speech: Normal Motor strength normal: LUE, RUE, LLE, RLE Sensory: Normal - Psychological Associated symptoms: Normal affect, Normal mood - Skin Skin Temperature: Warm Skin Moisture: Dry Skin Color: Normal Course - Re-evaluation Re-evalutation: 02/14/17 21:16 We will do a left lower extremity ultrasound. Check basic labs. And reassess. 02/14/17 21:16 Verbal report from radiology gold cutter that there is no obvious DVT of the left lower extremity. Patient has baseline labs. Looking back he has chronically elevated sed rate and CRP. Patient is currently on prednisone at this time. I am not 100% convinced that he might not have a small or low-lying infection. May start patient at this time on antibiotics. Do not feel comfortable giving him anything stronger than Toradol in the emergency department at this time for his pain. Anticipate patient will need to follow- up with his regular primary care provider for repeat evaluation - Vital Signs Vital signs: Temp Pulse Resp BP Pulse Ox 97.4 F 86 20 111/63 99 02/14/17 17:23 02/14/17 17:23 02/14/17 17:23 02/14/17 17:23 02/14/17 17:23 - Laboratory Result Diagrams: 02/14/17 18:56 02/14/17 18:56 Laboratory results interpreted by me: 02/14/17 02/14/17 02/14/17 18:56 18:56 18:56 WBC 11.1 H RBC 3.56 L Hgb 9.8 L Hct 30.2 L RDW 15.2 H Plt Count 517 H Eosinophils % 11.9 H Absolute Eosinophils 1.3 H ESR 75 H AST 16 L Creatine Kinase 354 H C-Reactive Protein Total Protein 5.5 L Albumin 2.7 L Lipase 19.8 L 02/14/17 18:56 WBC RBC Hgb Hct RDW Plt Count Eosinophils % Absolute Eosinophils ESR AST Creatine Kinase C-Reactive Protein 224.4 H Total Protein Albumin Lipase Discharge - Discharge Clinical Impression: Edema of left lower extremity Disposition: HOME, SELF-CARE Instructions: Edema, Peripheral ([facility]), Cellulitis ([facility]) Additional Instructions: At this time there is no obvious blood clot in the left lower extremity. It is possible that he could have an infection in the skin that is red on the left lower extremity. We will start you on some antibiotics at this time. It will be very important that you follow-up with your regular doctor for repeat evaluation and possible repeat ultrasound within 1 week. If symptoms get worse please return for repeat evaluation. Prescriptions: Clindamycin HCl [Cleocin 300 mg Capsule] 300 mg PO Q6 10 Days #30 capsule Referrals: EVIN CHURCH MD [Primary Care Provider] - Follow up as needed
[2017-02-14] MEDS ORDERED: CLINDAMYCIN HCL 150 MG CAPSULE PO ONE (21:22)
[2017-02-14 22:20] VITALS: BP 123/63
--- NOTE | 2017-02-15 08:38 | XCELERA REPORT ---
[address] [address] Lower Extremity Venous Evaluation Name: JEREMIAH ANSARI Age: 36 yrs Gender: Male : 1980 Patient Status: Emergency Patient Location: ER Study Date: 02/14/2017 08:41 PM Procedure: Color flow and duplex imaging of the veins of the left lower extremity as well as the right Common Femoral vein. Reason For Study: lle edema Ordering Physician: KARLO DOOLEY Performed By: Maria Isabel Dewey Right Sided Venous Evaluation The right common femoral vein is fully compressible. Spontaneous and phasic flow is present in the right common femoral vein. Left Sided Venous Evaluation Normal vessel filling wall to wall, compression and augmentation as well as Colour flow down to the infrageniculate veins. Interpretation Summary No duplex evidence of DVT or obstruction in the left lower extremity nor in the right Common Femoral vein. : KARLO DOOLEY > Ed López
== END 2017-02-14 22:05 | disposition home or self-care (01) ==
LOC: ER 17:21
DX: R60.0 Localized edema (principal); L53.9 Erythematous condition, unspecified; M79.605 Pain in left leg; Z88.0 Allergy status to penicillin
CPT/HCPCS: 36591; 99284; 96361; 96374; 96375; 36415; 82550; 83690; 85025; 85652; 86140; 80053; 93971 ×2; J1885; J2405; J7030

== ENCOUNTER 2017-02-16 04:00 | Emergency (ER) | payer SELFPAY ==
[2017-02-16] MEDS ORDERED: NORMAL SALINE 1000 ML 1,000 ML IV ONE ×3 (04:19→09:13)
[2017-02-16] MEDS ORDERED: HYDROMORPHONE HCL INJ/PF 2 MG/ML AMPULE IV ONE ×2 (04:20→07:48)
[2017-02-16] MEDS ORDERED: METHYLPREDNISOLONE INJ 125 MG/2 ML SDV IV ONE (04:20)
[2017-02-16] MEDS ORDERED: ONDANSETRON HCL INJ/PF 4 MG/2 ML SDV IV ONE ×2 (04:21→09:13)
[2017-02-16 04:46] LABS: ABSOLUTE BASOPHILS # (AUTO) 0.1 10^3/uL (0.0-0.2); ABSOLUTE EOSINOPHILS # (AUTO) 0.9 10^3/uL (0.0-0.6); ABSOLUTE LYMPHOCYTES (AUTO) 1.6 10^3/uL (0.5-4.7); ABSOLUTE NEUT (AUTO) 10.2 10^3/uL (1.7-8.2); BASOPHILS % (AUTO) 0.9 % (0-2); EOSINOPHILS % (AUTO) 6.3 % (0-6); HEMATOCRIT 30.7 % (37.9-51.0); HGB HCT DIFFERENCE -0.7; LYMPHOCYTES % (AUTO) 11.3 % (13-45); MEAN CORPUSCULAR HEMOGLOBIN 27.4 pg (27.0-33.4); MEAN CORPUSCULAR HGB CONC 32.6 g/dL (32.0-36.0); MEAN CORPUSCULAR VOLUME 84 fl (80-97); MONOCYTES % (AUTO) 7.3 % (3-13); RED BLOOD COUNT 3.65 10^6/uL (4.35-5.55); RED CELL DISTRIBUTION WIDTH 15.3 % (11.5-14.0); SEGMENTED NEUTROPHILS % (AUTO) 74.2 % (42-78); WHITE BLOOD COUNT 13.7 10^3/uL (4.0-10.5)
[2017-02-16 05:06] LABS: ALANINE AMINOTRANSFERASE 29 U/L (21-72); ALBUMIN 2.8 g/dL (3.5-5.0); ALKALINE PHOSPHATASE 76 U/L (38-126); ANION GAP 14 (5-19); ASPARTATE AMINO TRANSFERASE 13 U/L (17-59); BILIRUBIN,DIRECT 0.5 mg/dL (0.0-0.4); BILIRUBIN,TOTAL 0.6 mg/dL (0.2-1.3); BLOOD UREA NITROGEN 7 mg/dL (7-20); CALCIUM 8.7 mg/dL (8.4-10.2); CARBON DIOXIDE 22 mmol/L (22-30); CHLORIDE 104 mmol/L (98-107); CREATININE RESULT 0.88 mg/dL (0.52-1.25); GLUCOSE 83 mg/dL (75-110); POTASSIUM 4.1 mmol/L (3.6-5.0); SODIUM 140.3 mmol/L (137-145); TOTAL PROTEIN 5.7 g/dL (6.3-8.2)
--- NOTE | 2017-02-16 05:31 | ER Document Report ---
ED General - General Chief Complaint: Rectal Bleeding Stated Complaint: RECTAL BLEEDING Time Seen by Provider: 02/16/17 04:08 Mode of Arrival: Stretcher Information source: Patient, Emergency Med Personnel, [facility] Records Notes: Patient is a 36-year-old white male who returns to the emergency room complaining of increased amount of bleeding from his ulcerative colitis and his infection in his lower extremity. Patient been here multiple times as known by the staff here. Patient does have a history of ulcerative colitis was here last evening for workup and was found to have a cellulitis of the left lower extremity which patient also states has opened up and bled today as well. Patient states that he has been feeling dizzy and lightheaded and has nearly passed out a couple of different times. Patient also states that currently he is on a steroid taper and is at 30 mg per day. TRAVEL OUTSIDE OF THE [place] IN LAST 30 DAYS: No - HPI Patient complains to provider of: Fatigue dizziness lightheadedness Onset: Other - Chronic in nature but becoming more acute secondary to bleed Onset/Duration: Gradual, Constant Quality of pain: Sharp, Stabbing, Throbbing Severity: Moderate Pain Level: 3 Associated symptoms: Nausea Exacerbated by: Denies Relieved by: Denies Similar symptoms previously: Yes Recently seen / treated by doctor: Yes - Related Data Allergies/Adverse Reactions: Penicillins Allergy (Mild, Verified 02/16/17 04:19) rash/hives Past Medical History - Social History Smoking Status: Never Smoker Frequency of alcohol use: None Drug Abuse: None Lives with: Family Family History: CAD, CVA, DM, Hyperlipidemia, Hypertension, Malignancy - Past Medical History Cardiac Medical History: Denies: Hx Heart Attack, Hx Hypertension Pulmonary Medical History: Denies: Hx Asthma, Hx Bronchitis, Hx COPD, Hx Pneumonia Neurological Medical History: Denies: Hx Seizures Renal/ Medical History: Denies: Hx Peritoneal Dialysis GI Medical History: Reports: Hx Ulcer - Ulcerative colitis, Hx Ulcerative Colitis, Hx Colonoscopy Musculoskeltal Medical History: Denies Hx Arthritis Past Surgical History: Reports: Hx Appendectomy - February 2015, Hx Vascular Surgery - Port placement - Immunizations Immunizations up to date: Yes Hx Diphtheria, Pertussis, Tetanus Vaccination: Yes Review of Systems - Review of Systems Constitutional: Malaise, Weakness EENT: No symptoms reported Cardiovascular: No symptoms reported Respiratory: No symptoms reported Gastrointestinal: No symptoms reported, Abdomen distended, Abdominal pain, Nausea, Poor appetite, Poor fluid intake Genitourinary: No symptoms reported Male Genitourinary: No symptoms reported Musculoskeletal: No symptoms reported Skin: See HPI, Rash Hematologic/Lymphatic: No symptoms reported Neurological/Psychological: Weakness -: Yes All other systems reviewed and negative Physical Exam - Vital signs Vitals: Resp 16 02/16/17 04:10 Interpretation: Hypertensive - Notes Notes: Physical exam patient is awake alert and oriented 4 responds appropriately to questions and answers appropriately. - General General appearance: Alert, Other - Ill-appearing In distress: None - HEENT Head: Normocephalic, Atraumatic Eyes: Normal Sinus: Normal Nasal: Normal Mouth/Lips: Normal, Other - Dry lips Mucous membranes: Dry Pharynx: Normal Neck: Normal - Respiratory Respiratory status: No respiratory distress Chest status: Nontender Breath sounds: Normal Chest palpation: Normal - Cardiovascular Rhythm: Regular Heart sounds: Normal auscultation Murmur: No - Abdominal Distension: Distended, Tympanitic Bowel sounds: Normal Tenderness: Tender, Other - Tenderness is diffuse and nonspecific Organomegaly: No organomegaly - Extremities General upper extremity: Normal inspection General lower extremity: Tender, Normal temperature, Other - Examination of the lower left extremity shows patient to have a marked cellulitis which is close to being circumferential but no occult abscesses noted. Calf: Tender, Other - Cellulitis of the lower extremities described above. - Neurological Neuro grossly intact: Yes Cognition: Normal Orientation: AAOx4 [place] Coma Scale Eye Opening: Spontaneous Perla Coma Scale Verbal: Oriented [place] Coma Scale Motor: Obeys Commands [place] Coma Scale Total: 15 Speech: Normal Course - Re-evaluation Re-evalutation: 02/16/17 08:15 Evaluation of patient again at 08 100 showed him to be comfortable at this time. I have contacted the house hospitalist and informed him of patient's condition and downtrending of his hemoglobin at this point he was requested since we do not have in-house colonoscopy or GI congressional aide for the weekend that we transfer patient. I have discussed with patient and he wanted to go to [facility]. I contacted the hospitalist there Dr. Raman who has accepted patient. I was informed by transfer center currently beds are limited there so we will keep patient here in ER until a bed is obtained at [facility] - Vital Signs Vital signs: Temp Pulse Resp BP Pulse Ox 98.8 F 95 16 116/72 97 02/16/17 04:19 02/16/17 06:04 02/16/17 04:19 02/16/17 06:04 02/16/17 04:19 - Laboratory Result Diagrams: 02/16/17 04:30 02/16/17 04:30 Laboratory results interpreted by me: 02/16/17 02/16/17 02/16/17 04:30 04:30 06:40 WBC 13.7 H RBC 3.65 L Hgb 10.0 L Hct 30.7 L RDW 15.3 H Plt Count 636 H Lymphocytes % 11.3 L Eosinophils % 6.3 H Absolute Neutrophils 10.2 H Absolute Eosinophils 0.9 H ESR 71 H Direct Bilirubin 0.5 H AST 13 L C-Reactive Protein 255.2 H Total Protein 5.7 L Albumin 2.8 L Urine Ketones 80 H Urine Urobilinogen 4.0 H - Diagnostic Test Radiology reviewed: Reports reviewed - Acute abdomen series showed there to beacute findings. Discharge - Discharge Clinical Impression: Cellulitis of left lower extremity Ulcerative (chronic) enterocolitis Qualifiers: Digestive disease complication type: with rectal bleeding Qualified Code(s): K51.011 - Ulcerative (chronic) pancolitis with rectal bleeding Anemia Qualifiers: Anemia type: other cause Disposition: [facility] Additional Instructions: Patient bisected by Dr. Raman hospitalist at [facility] Referrals: EVIN CHURCH MD [Primary Care Provider] - Follow up as needed
[2017-02-16 05:43] LABS: ERYTHROCYTE SEDIMENTATION RATE 71 mm/hr (0-15)
[2017-02-16 06:07] LABS: C-REACTIVE PROTEIN 255.2 mg/L (<10.0)
[2017-02-16] MEDS ORDERED: PROMETHAZINE HCL INJ 25 MG/1 ML VIAL IV ONE (06:17)
[2017-02-16 07:08] LABS: APPEARANCE,URINE CLEAR; BILIRUBIN,URINE NEGATIVE (NEGATIVE); GLUCOSE, URINE NEGATIVE (NEGATIVE); KETONES,URINE 80 mg/dL (NEGATIVE); LEUKOCYTE ESTERASE,URINE NEGATIVE (NEGATIVE); NITRITE,URINE NEGATIVE (NEGATIVE); PROTEIN,URINE NEGATIVE (NEGATIVE); URINE SPECIFIC GRAVITY 1.021
--- NOTE | 2017-02-16 07:18 | RADIOLOGY REPORT (SQ) ---
EXAM DESCRIPTION: ACUTE ABDOMEN SERIES COMPLETED DATE/TIME: 02/16/2017 7:00 am REASON FOR STUDY: hx ulcerative colitis COMPARISON: None. NUMBER OF VIEWS: Three views. 4 images. TECHNIQUE: Frontal chest, supine abdomen and upright/decubitus abdomen radiographic images acquired. LIMITATIONS: None. FINDINGS: CHEST: Lungs clear of infiltrates. FREE AIR: None. No abnormal gas collections. BOWEL GAS PATTERN: Nonobstructive pattern. No dilated loops or air fluid levels. Retained intralumin al transverse colonic contrast. CALCIFICATIONS: No suspicious calcifications. HARDWARE: Right internal jugular mini port catheter tip just above the atrial caval junction. SOFT TISSUES: No gross mass or suggestion of organomegaly. BONES: No acute fracture. No worrisome bone lesions. Mild osteoarthritis of bilateral hips. OTHER: No other significant finding. IMPRESSION: NO RADIOGRAPHIC EVIDENCE FOR ACUTE ABDOMINAL DISEASE. TECHNICAL DOCUMENTATION: JOB ID: [id number] [employer]- All Rights Reserved
[2017-02-16 07:24] LABS: URINE BARBITURATES SCREEN NEGATIVE; URINE METHADONE SCREEN NEGATIVE; URINE OPIATES LOW UNCONFIRMED POSITIVE; URINE PHENCYCLIDINE SCREEN NEGATIVE
[2017-02-16] MEDS ORDERED: SULFAMETHOXAZOLE/TRIMETHOPRIM 800-160 MG TABLET PO ONE (09:13)
[2017-02-16 10:52] VITALS: BP 116/59
== END 2017-02-16 11:30 | disposition short-term general hospital (02) ==
LOC: ER 04:00
DX: K51.011 Ulcerative (chronic) pancolitis with rectal bleeding (principal); L03.116 Cellulitis of left lower limb; R42 Dizziness and giddiness; R53.83 Other fatigue
CPT/HCPCS: 99285; 96361; 96374; 96375; 36415; 85025; 85652; 86140; 80053; 81001; 80307; 74022; J2930; J1170; J2550; J2405; J7030

== ENCOUNTER 2017-03-08 17:21 | Emergency (ER) | payer SELFPAY ==
[2017-03-08] MEDS ORDERED: NORMAL SALINE 1000 ML 2,000 ML IV PRN (17:58)
[2017-03-08] MEDS ORDERED: ONDANSETRON HCL INJ/PF 4 MG/2 ML SDV IV ONE (17:58)
[2017-03-08] MEDS ORDERED: MORPHINE SULFATE 10 MG/ML INJ IV ONE (17:59)
--- NOTE | 2017-03-08 18:39 | ER Document Report ---
ED GI/ - General Chief Complaint: Vomiting Stated Complaint: WEAKNESS Time Seen by Provider: 03/08/17 17:52 Mode of Arrival: Stretcher Information source: Patient TRAVEL OUTSIDE OF THE [place] IN LAST 30 DAYS: No - HPI Patient complains to provider of: Abdominal pain, Vomiting Onset: Other - 2 days Timing/Duration: Persistent Quality of pain: Achy Severity at maximum: Moderate Severity in ED: Moderate Location: Other - Diffuse Associated symptoms: Nausea, Vomiting Exacerbated by: Food Relieved by: Denies Similar symptoms previously: Yes Recently seen / treated by doctor: Yes Notes: 03/08/17 18:37 Patient is a 36-year-old male presenting to the emergency room with abdominal pain, nausea and vomiting, inability to tolerate p.o. intake for the past 2 days since being discharged from [facility] where patient had a colon resection secondary to ulcerative colitis, he reports his surgical incisions hurt, likely from retching and vomiting, he denies any fevers , he has had decreased urination, he has had normal output from his colostomy, and has been taking Percocet at home which he basically vomits right back - Related Data Allergies/Adverse Reactions: Penicillins Allergy (Mild, Verified 03/08/17 17:55) rash/hives Past Medical History - General Information source: Patient - Social History Smoking Status: Unknown if Ever Smoked Chew tobacco use (# tins/day): No Frequency of alcohol use: None Drug Abuse: None Family History: CAD, CVA, DM, Hyperlipidemia, Hypertension, Malignancy Patient has suicidal ideation: No Patient has homicidal ideation: No - Past Medical History Cardiac Medical History: Denies: Hx Heart Attack, Hx Hypertension Pulmonary Medical History: Denies: Hx Asthma, Hx Bronchitis, Hx COPD, Hx Pneumonia Neurological Medical History: Denies: Hx Seizures Renal/ Medical History: Denies: Hx Peritoneal Dialysis GI Medical History: Reports: Hx Ulcer - Ulcerative colitis, Hx Ulcerative Colitis, Hx Colonoscopy Musculoskeltal Medical History: Denies Hx Arthritis Past Surgical History: Reports: Hx Appendectomy - February 2015, Hx Vascular Surgery - Port placement - Immunizations Immunizations up to date: Yes Hx Diphtheria, Pertussis, Tetanus Vaccination: Yes Review of Systems - Review of Systems Constitutional: No symptoms reported EENT: No symptoms reported Cardiovascular: No symptoms reported Respiratory: No symptoms reported Gastrointestinal: See HPI Genitourinary: No symptoms reported Male Genitourinary: No symptoms reported Musculoskeletal: No symptoms reported Skin: No symptoms reported Hematologic/Lymphatic: No symptoms reported Neurological/Psychological: No symptoms reported -: Yes All other systems reviewed and negative Physical Exam - Vital signs Vitals: Temp Pulse BP Pulse Ox 97.8 F 160 H 116/69 93 03/08/17 17:32 03/08/17 17:32 03/08/17 17:32 03/08/17 17:32 Interpretation: Tachycardic - General General appearance: Alert In distress: Mild - HEENT Head: Normocephalic, Atraumatic Eyes: Normal Conjunctiva: Normal Extraocular movements intact: Yes Eyelashes: Normal Pupils: PERRL Mucous membranes: Dry Pharynx: Normal Neck: Normal - Respiratory Respiratory status: No respiratory distress Chest status: Nontender Breath sounds: Normal Chest palpation: Normal - Cardiovascular Rhythm: Regular Heart sounds: Normal auscultation Murmur: No - Abdominal Inspection: Fresh incision - With valerie in place Distension: Distended Bowel sounds: Normal Tenderness: Tender - Tender to palpate in midline abdomen and left lower quadrant, consistent with healing surgical incisions Organomegaly: No organomegaly - Back Back: Normal, Nontender - Extremities General upper extremity: Normal inspection, Nontender, Normal color, Normal ROM , Normal temperature General lower extremity: Normal inspection, Nontender, Normal color, Normal ROM , Normal temperature, Normal weight bearing. No: Nazanin's sign - Neurological Neuro grossly intact: Yes Cognition: Normal Orientation: AAOx4 Perla Coma Scale Eye Opening: Spontaneous Perla Coma Scale Verbal: Oriented Perla Coma Scale Motor: Obeys Commands [place] Coma Scale Total: 15 Speech: Normal Motor strength normal: LUE, RUE, LLE, RLE Sensory: Normal - Psychological Associated symptoms: Normal affect, Normal mood - Skin Skin Temperature: Warm Skin Moisture: Dry Skin Color: Jaundiced Course - Re-evaluation Re-evalutation: 03/08/17 21:30 A call was placed to [facility], patient was discussed with on-call surgeon, Dr. Kerr who graciously accepts patient for transfer, states he will image patient once he arrives at his facility, however if there is a bed delay imaging can be obtained here, he recommends continuing IV fluids , no antibiotics at this point 03/08/17 22:49 Patient remains tachycardic in the 140-150 range despite multiple liters of IV fluids, pain meds and nausea meds, he does report his pain is returning as well as his nausea, a call was placed to [facility], patient update was given to Dr. Kerr, including patient's continued tachycardia and now CT scan findings which are consistent with large amount of complex fluid containing gas seen throughout the abdomen with a multiloculated abscess measuring up to 24 cm, patient will be upgraded to the ICU and transfer center will attempt to have air transport dispatched to get patient, this plan was discussed with patient as well and he is in agreement, antibiotics have been ordered as well 03/08/17 22:51 03/08/17 23:45 Patient resting comfortably on stretcher, he remains quite tachycardic in the 140-150 range, however is awake, alert and mentating appropriately, [facility] air crew is in the department to transport patient to [facility] for further evaluation and treatment, patient is stable for transport at this time - Vital Signs Vital signs: Temp Pulse Resp BP Pulse Ox 97.8 F 160 H 26 H 123/73 96 03/08/17 17:32 03/08/17 17:32 03/08/17 23:17 03/08/17 23:17 03/08/17 23:17 - Laboratory Result Diagrams: 03/08/17 18:00 03/08/17 18:00 Laboratory results interpreted by me: 03/08/17 03/08/17 03/08/17 17:42 18:00 18:00 WBC 37.3 H* RBC 4.03 L Hgb 11.0 L Hct 34.5 L RDW 22.9 H Seg Neuts % (Manual) 96 H Band Neutrophils % 1 L Lymphocytes % (Manual) 0 L Abs Neuts (Manual) 36.2 H Abs Lymphs (Manual) 0.0 L PT 17.6 H VBG pH Sodium Carbon Dioxide Glucose POC Glucose 119 H Lactic Acid Calcium Total Bilirubin Direct Bilirubin Total Protein Albumin Lipase Urine Protein Urine Ketones Urine Bilirubin Urine Urobilinogen 03/08/17 03/08/17 03/08/17 18:00 18:00 18:20 WBC RBC Hgb Hct RDW Seg Neuts % (Manual) Band Neutrophils % Lymphocytes % (Manual) Abs Neuts (Manual) Abs Lymphs (Manual) PT VBG pH Sodium 131.7 L Carbon Dioxide 21 L Glucose 115 H POC Glucose Lactic Acid 2.2 H Calcium 8.2 L Total Bilirubin 2.3 H Direct Bilirubin 1.0 H Total Protein 4.7 L Albumin 2.3 L Lipase 15.0 L Urine Protein 100 H Urine Ketones 20 H Urine Bilirubin SMALL H Urine Urobilinogen 4.0 H 03/08/17 19:25 WBC RBC Hgb Hct RDW Seg Neuts % (Manual) Band Neutrophils % Lymphocytes % (Manual) Abs Neuts (Manual) Abs Lymphs (Manual) PT VBG pH 7.49 H Sodium Carbon Dioxide Glucose POC Glucose Lactic Acid Calcium Total Bilirubin Direct Bilirubin Total Protein Albumin Lipase Urine Protein Urine Ketones Urine Bilirubin Urine Urobilinogen - Diagnostic Test Radiology reviewed: Image reviewed, Reports reviewed - EKG Interpretation by Me EKG shows normal: Sinus rhythm Rate: Tachycardia Critical Care Note - Critical Care Note Total time excluding time spent on procedures (mins): 120 Comments: Patient persistently tachycardic, with profound leukocytosis and CT scan findings consistent with postoperative intra-abdominal infection, requiring multiple re-evaluations, multiple fluids and medications in the IV, consultation with surgeon at [facility] and [facility] air transport to [facility] for definitive care Discharge - Discharge Clinical Impression: Tachycardia Intra-abdominal abscess post-procedure Qualifiers: Encounter type: initial encounter Qualified Code(s): T81.4XXA - Infection following a procedure, initial encounter Sepsis Qualifiers: Sepsis type: sepsis due to unspecified organism Qualified Code(s): A41.9 - Sepsis, unspecified organism Condition: Critical Disposition: [facility]
[2017-03-08 18:47] LABS: PROTHROMBIN TIME 17.6 SEC (11.4-15.4)
[2017-03-08 18:50] LABS: HEMATOCRIT 34.5 % (37.9-51.0); HGB HCT DIFFERENCE -1.5; MEAN CORPUSCULAR HEMOGLOBIN 27.3 pg (27.0-33.4); MEAN CORPUSCULAR VOLUME 85 fl (80-97); RED BLOOD COUNT 4.03 10^6/uL (4.35-5.55); RED CELL DISTRIBUTION WIDTH 22.9 % (11.5-14.0)
[2017-03-08 18:59] LABS: ALANINE AMINOTRANSFERASE 52 U/L (21-72); ALBUMIN 2.3 g/dL (3.5-5.0); ALKALINE PHOSPHATASE 87 U/L (38-126); ANION GAP 13 (5-19); ASPARTATE AMINO TRANSFERASE 18 U/L (17-59); BILIRUBIN,TOTAL 2.3 mg/dL (0.2-1.3); BLOOD UREA NITROGEN 18 mg/dL (7-20); CALCIUM 8.2 mg/dL (8.4-10.2); CARBON DIOXIDE 21 mmol/L (22-30); CHLORIDE 98 mmol/L (98-107); GLUCOSE 115 mg/dL (75-110); POTASSIUM 4.5 mmol/L (3.6-5.0); SODIUM 131.7 mmol/L (137-145); TOTAL PROTEIN 4.7 g/dL (6.3-8.2)
[2017-03-08 19:09] LABS: BAND NEUTROPHILS % (MANUAL) 1 % (3-5); BASOPHILS % (MANUAL) 0 % (0-2); EOSINOPHILS % (MANUAL) 0 % (0-6); LYMPHOCYTES % (MANUAL) 0 % (13-45); TOTAL CELLS COUNTED 100
[2017-03-08 19:10] LABS: ANISOCYTOSIS 3+; HYPOCHROMASIA SLIGHT; POIKILOCYTOSIS 2+; POLYCHROMASIA SLIGHT; TOXIC GRANULATION SLIGHT
[2017-03-08 19:11] LABS: WHITE BLOOD COUNT 37.3 10^3/uL (4.0-10.5)
[2017-03-08 19:14] LABS: APPEARANCE,URINE SLIGHTLY-CLOUDY; BILIRUBIN,URINE SMALL (NEGATIVE); GLUCOSE, URINE NEGATIVE (NEGATIVE); KETONES,URINE 20 mg/dL (NEGATIVE); LEUKOCYTE ESTERASE,URINE NEGATIVE (NEGATIVE); NITRITE,URINE NEGATIVE (NEGATIVE); PROTEIN,URINE 100 mg/dL (NEGATIVE); URINE SPECIFIC GRAVITY 1.032
[2017-03-08 19:43] LABS: VENOUS BLOOD HCO3 26.2 mmol/L (20-32); VENOUS BLOOD PCO2 35.3 mmHg (35-63); VENOUS BLOOD PH 7.49 (7.30-7.42)
[2017-03-08] MEDS ORDERED: HYDROMORPHONE HCL INJ/PF 2 MG/ML AMPULE IV ONE ×2 (19:44→20:58)
[2017-03-08] MEDS ORDERED: METOCLOPRAMIDE HCL INJ/PF 10 MG/2 ML SDV IV ONE (19:44)
[2017-03-08] MEDS ORDERED: NORMAL SALINE 1000 ML 1,000 ML IV PRN ×3 (19:44→21:02)
[2017-03-08 21:55] VITALS: BP 123/73
--- NOTE | 2017-03-08 22:11 | RADIOLOGY REPORT (SQ) ---
EXAM DESCRIPTION: CTA CHEST COMPLETED DATE/TIME: 03/08/2017 9:58 pm REASON FOR STUDY: SOB COMPARISON: CT CHEST FROM 05/17/2016 TECHNIQUE: CT scan of the chest performed using helical scanning technique with dynamic intravenous contrast injection. Images reviewed with lung, soft tissue and bone windows. Reconstructed coronal and sagittal MPR images reviewed. Additional 3 dimensional post-processing performed to develop Maximal Intensity Projection images (UT P). All images stored on PACS. All CT scanners at this facility use dose modulation, iterative reconstruction, and/or weight based d osing when appropriate to reduce radiation dose to as low as reasonably achievable (ALARA). [facility]: Dose Right [facility]: CareDose [facility]: Dose Right [facility]: Teradose 4D [facility]: [employer] CONTRAST TYPE AND DOSE: contrast/concentration: Isovue 370.00 mg/ml; Total Contrast Delivered: 81.0 ml; Total Saline Delivered: 110.1 ml Contrast bolus optimized for the pulmonary arteries. Not diagnostic for the aorta. RENAL FUNCTION: None required. The patient is less than 50 years old. RADIATION DOSE: Up-to-date CT equipment and radiation dose reduction techniques were employed. CTDIv ol: 9.9 - 36.1 mGy. DLP: 5383 mGy-cm. . LIMITATIONS: None. FINDINGS: LUNGS AND PLEURA: Airspace disease within the lingula in dependent portions of the lower l obes presumably representing subsegmental atelectasis. There is a small left pleural effusion. No p neumothorax. AORTA AND GREAT VESSELS: No aneurysm. Contrast bolus not optimized for the aorta. HEART: No pericardial effusion. No significant coronary artery calcifications. PULMONARY ARTERIES: No emboli visualized in the main pulmonary arteries or the segmental branches. HILAR AND MEDIASTINAL STRUCTURES: No identified masses or abnormal nodes. HARDWARE: Stable appearance right-sided port. UPPER ABDOMEN: See separate report of the CT of the abdomen. THYROID AND OTHER SOFT TISSUES: No masses. No adenopathy. BONES: No acute or significant finding. 3D MIPS: Confirm above findings. OTHER: No other significant finding. IMPRESSION: NO PULMONARY EMBOLI. NEW AREAS OF AIRSPACE DISEASE WITHIN THE LINGULA AND DEPENDENT PORTIONS OF THE LOWER LOBES ALONG WITH SMALL LEFT PLEURAL EFFUSION. FAVOR AREAS OF SUBSEGMENTAL ATELECTASIS HOWEVER MULTIFOCAL PNEUMONIA C OULD HAVE THIS APPEARANCE. COMMENT: Quality ID # [id number]: Final reports with documentation of one or more dose reduction techniques (e.g., Automated exposure control, adjustment of the mA and/or kV according to patient size, use of iterative reconstruction technique) TECHNICAL DOCUMENTATION: JOB ID: [id number] [employer]- All Rights Reserved
--- NOTE | 2017-03-08 22:21 | RADIOLOGY REPORT (SQ) ---
EXAM DESCRIPTION: CT ABD/PELVIS WITH IV ONLY COMPLETED DATE/TIME: 03/08/2017 9:58 pm REASON FOR STUDY: n/v/pain, resect colectomy COMPARISON: 02/06/2017 TECHNIQUE: CT scan of the abdomen and pelvis performed using helical scanning technique with dynamic intravenous contrast injection. No oral contrast. Images reviewed with lung, soft tissue, and bone windows. Reconstructed coronal and sagittal MPR images reviewed. Delayed images for evaluation of the urinary system also acquired. All images stored on PACS. All CT scanners at this facility use dose modulation, iterative reconstruction, and/or weight based d osing when appropriate to reduce radiation dose to as low as reasonably achievable (ALARA). [facility]: Dose Right [facility]: CareDose [facility]: Dose Right [facility]: Teradose 4D [facility]: [employer]Engine CONTRAST TYPE AND DOSE: 81 ML Isovue 370- low osmolar. RENAL FUNCTION: None required. The patient is less than 50 years old. RADIATION DOSE: . LIMITATIONS: None. FINDINGS: LOWER CHEST: See separate report of the CT of the chest. LIVER: Normal size. No masses. No dilated ducts. New mild to moderate perihepatic fluid may represe nt reactive ascites or infected fluid. SPLEEN: Normal size. No focal lesions. PANCREAS: No masses. No significant calcifications. No adjacent inflammation or peripancreatic fluid collections. Pancreatic duct not dilated. GALLBLADDER: No identified stones by CT criteria. No inflammatory changes to suggest cholecystitis. ADRENAL GLANDS: No significant masses or asymmetry. RIGHT KIDNEY AND URETER: Stable cysts. No solid masses. No significant calcifications. No hydron ephrosis or hydroureter. LEFT KIDNEY AND URETER: No solid masses. No significant calcifications. No hydronephrosis or hydr oureter. AORTA AND VESSELS: No aneurysm. No dissection. Renal arteries, SMA, celiac without stenosis. RETROPERITONEUM: No retroperitoneal adenopathy, hemorrhage or masses. BOWEL AND PERITONEAL CAVITY: Interval postsurgical change related to subtotal colectomy with divertin g ileostomy. There is a large amount of complex fluid containing gas seen throughout the abdomen tra cking down into the pelvis compatible with a multiloculated abscess measuring up to 24 cm. There is reactive inflammation involving the remaining loops of small bowel most notably in the left upper amy drant. Minimal free air within normal limits for recent surgery. APPENDIX: Surgically absent. PELVIS: No mass. No free fluid. Normal bladder. ABDOMINAL WALL: Postsurgical change. BONES: No significant or acute findings. OTHER: No other significant finding. IMPRESSION: INTERVAL POSTSURGICAL CHANGE RELATED TO SUBTOTAL COLECTOMY WITH DIVERTING ILEOSTOMY. EX TENSIVE INFECTED FLUID/ ABSCESS THROUGHOUT THE ABDOMEN AND PELVIS DETAILED ABOVE. SURGICAL DEHISC ENCE CANNOT BE EXCLUDED. SURGICAL CONSULTATION IS RECOMMENDED. TECHNICAL DOCUMENTATION: JOB ID: [id number] Quality ID # [id number]: Final reports with documentation of one or more dose reduction techniques (e.g., Au tomated exposure control, adjustment of the mA and/or kV according to patient size, use of iterative reconstruction technique) 2010 [employer]- All Rights Reserved
--- NOTE | 2017-03-08 22:43 | EKG REPORT ---
SEVERITY:- ABNORMAL ECG - SINUS TACHYCARDIA CONSIDER ANTERIOR INFARCT : Confirmed by: Arash Oliva 08-Mar-2017 22:42:14
[2017-03-08] MEDS ORDERED: METRONIDAZOLE RTU 500 MG/NS 100 ML IV ONE (22:44)
[2017-03-08] MEDS ORDERED: LEVOFLOXACIN 750 MG/D5W RTU 750 MG/150 ML RTUPB IV ONE (23:00)
[2017-03-08] MEDS ORDERED: ACETAMINOPHEN 325 MG TABLET PO ONE (23:07)
[2017-03-09] MEDS ORDERED: ONDANSETRON HCL INJ/PF 4 MG/2 ML SDV IV SCH
[2017-03-09] MEDS ORDERED: HYDROMORPHONE HCL INJ/PF 2 MG/ML AMPULE IV SCH
== END 2017-03-09 00:02 | disposition short-term general hospital (02) ==
LOC: ER 17:21
DX: T81.4XXA Infection following a procedure, initial encounter (principal); A41.9 Sepsis, unspecified organism; R00.0 Tachycardia, unspecified; R53.1 Weakness; R10.9 Unspecified abdominal pain; R11.2 Nausea with vomiting, unspecified; Z93.3 Colostomy status; Z79.899 Other long term (current) drug therapy; Z98.890 Other specified postprocedural states
CPT/HCPCS: 93005; 36591; 96376; 99291; 99292; 96361; 96375; 96365; 96368; 36415; 87040; 87086; 82962; 83690; 85025; 85610; 80053; 81001; 82803; 83605; 71275; 74177; 93010; J2765; J2270; J1170; J2405; J7030; J1956

== ENCOUNTER 2017-04-20 17:26 | Emergency (ER) | payer SELFPAY ==
[2017-04-20] MEDS ORDERED: NORMAL SALINE 1000 ML 1,000 ML IV ONE (19:56)
--- NOTE | 2017-04-20 19:56 | ER Document Report ---
ED Medical Screen (RME) - General Chief Complaint: Rectal Pain Stated Complaint: ABDOMINAL PAIN Time Seen by Provider: 04/20/17 19:53 Information source: Patient Notes: 36-year-old male with a past medical history of ulcerative colitis, with colectomy in February, with repeat admission again in March discharge 9 days ago from [facility] with PICC line medication secondary to an intra-abdominal infection who presents today with some abdominal pain, 2 bowel movements which she has not had since his colectomy, and decreased drainage from his left abdomen drain site. Patient states he also has had trouble infusing his PICC line at home antibiotics for the last 3 days. He does not remember which antibiotic this is. He denies any fevers or vomiting. He states he has had some increased abdominal discomfort without radiation or aggravating or relieving factors. On examination, patient is tachycardic. No murmurs present. Lungs clear bilaterally. Patient has a PICC line with no infection at the insertion site. Patient's colostomy has green bluish stool and is pinkish in color. Patient's left drain tube insertion site and the abdomen shows no obvious infection. Bowel sounds are present. Diffusely tender without rebound or guarding to the abdomen. Given the above complicated history and physical examination, labs, CT scan of the abdomen and pelvis, and pain medications have been ordered. I have expedited the patient will level two and informed the charge nurse. TRAVEL OUTSIDE OF THE [place] IN LAST 30 DAYS: No - Related Data Allergies/Adverse Reactions: Penicillins Allergy (Mild, Verified 04/20/17 17:28) rash/hives Past Medical History - Past Medical History Cardiac Medical History: Denies: Hx Heart Attack, Hx Hypertension Pulmonary Medical History: Denies: Hx Asthma, Hx Bronchitis, Hx COPD, Hx Pneumonia Neurological Medical History: Denies: Hx Seizures Renal/ Medical History: Denies: Hx Peritoneal Dialysis GI Medical History: Reports: Hx Ulcer - Ulcerative colitis, Hx Ulcerative Colitis, Hx Colonoscopy Musculoskeltal Medical History: Denies Hx Arthritis Past Surgical History: Reports: Hx Appendectomy - February 2015, Hx Vascular Surgery - Port placement - Immunizations Immunizations up to date: Yes Hx Diphtheria, Pertussis, Tetanus Vaccination: Yes Physical Exam - Vital signs Vitals: Temp Pulse Resp BP Pulse Ox 97.6 F 118 H 20 120/84 98 04/20/17 17:34 12/30/17 17:34 04/20/17 17:34 04/20/17 17:34 04/20/17 17:34 Course - Vital Signs Vital signs: Temp Pulse Resp BP Pulse Ox 97.6 F 118 H 20 120/84 98 04/20/17 17:34 04/20/17 17:34 04/20/17 17:34 04/20/17 17:34 04/20/17 17:34
[2017-04-20] MEDS ORDERED: MORPHINE SULFATE 10 MG/ML INJ IV ONE (19:57)
[2017-04-20] MEDS ORDERED: ONDANSETRON HCL INJ/PF 4 MG/2 ML SDV IV ONE (22:09)
[2017-04-20] MEDS ORDERED: MORPHINE SULFATE 10 MG/ML INJ IV PRN (22:09)
--- NOTE | 2017-04-20 23:22 | RADIOLOGY REPORT (SQ) ---
EXAM DESCRIPTION: CT ABD/PELVIS WITH IV ONLY COMPLETED DATE/TIME: 04/20/2017 10:36 pm REASON FOR STUDY: PIT; UC/colectomy/pain/tachycardia/dec drainage COMPARISON: 03/08/2017, 06/23/2015, and 02/22/2015 TECHNIQUE: CT scan of the abdomen and pelvis performed using helical scanning technique with dynamic intravenous contrast injection. No oral contrast. Images reviewed with lung, soft tissue, and bone windows. Reconstructed coronal and sagittal MPR images reviewed. Delayed images for evaluation of the urinary system also acquired. All images stored on PACS. All CT scanners at this facility use dose modulation, iterative reconstruction, and/or weight based d osing when appropriate to reduce radiation dose to as low as reasonably achievable (ALARA). [facility]: Dose Right [facility]: CareDose [facility]: Dose Right [facility]: Teradose 4D [facility]: [employer] CONTRAST TYPE AND DOSE: contrast/concentration: Isovue 370.00 mg/ml; Total Contrast Delivered: 97.0 ml; Total Saline Delivered: 72.0 ml RENAL FUNCTION: None required. The patient is less than 50 years old. RADIATION DOSE: CT Rad equipment meets quality standard of care and radiation dose reduction techniq ues were employed. CTDIvol: 15.2 - 18.9 mGy. DLP: 1928 mGy-cm.. LIMITATIONS: None. FINDINGS: LOWER CHEST: No significant findings. No nodules or infiltrates. LIVER: Normal size. No masses. No dilated ducts. SPLEEN: Normal size. No focal lesions. PANCREAS: No masses. No significant calcifications. No adjacent inflammation or peripancreatic fluid collections. Pancreatic duct not dilated. GALLBLADDER: No identified stones by CT criteria. No inflammatory changes to suggest cholecystitis. ADRENAL GLANDS: No significant masses or asymmetry. RIGHT KIDNEY AND URETER: No solid masses. No significant calcifications. No hydronephrosis or hyd roureter. LEFT KIDNEY AND URETER: No solid masses. No significant calcifications. No hydronephrosis or hydr oureter. AORTA AND VESSELS: No aneurysm. No dissection. Renal arteries, SMA, celiac without stenosis. RETROPERITONEUM: No retroperitoneal adenopathy, hemorrhage or masses. BOWEL AND PERITONEAL CAVITY: Surgical changes of the bowel noting markedly decreased free peritoneal fluid and mesenteric fat stranding. APPENDIX: Surgically absent. PELVIS: No mass. No free fluid. Normal bladder. ABDOMINAL WALL: No masses. No hernias. BONES: No significant or acute findings. OTHER: Left lower quadrant percutaneous drain is present without evidence of complication. IMPRESSION: Left lower quadrant percutaneous drain without evidence of complication. Near complete resolution of previously described free peritoneal fluid. Stable postsurgical changes. TECHNICAL DOCUMENTATION: JOB ID: [id number] Quality ID # [id number]: Final reports with documentation of one or more dose reduction techniques (e.g., Au tomated exposure control, adjustment of the mA and/or kV according to patient size, use of iterative reconstruction technique) 2010 [employer]- All Rights Reserved
[2017-04-20 23:23] LABS: ABSOLUTE BASOPHILS # (AUTO) 0.2 10^3/uL (0.0-0.2); ABSOLUTE EOSINOPHILS # (AUTO) 0.7 10^3/uL (0.0-0.6); ABSOLUTE LYMPHOCYTES (AUTO) 1.7 10^3/uL (0.5-4.7); ABSOLUTE MONOCYTES (AUTO) 0.6 10^3/uL (0.1-1.4); ABSOLUTE NEUT (AUTO) 6.3 10^3/uL (1.7-8.2); BASOPHILS % (AUTO) 2.2 % (0-2); EOSINOPHILS % (AUTO) 7.2 % (0-6); HEMATOCRIT 36.7 % (37.9-51.0); HEMOGLOBIN 11.7 g/dL (13.5-17.0); LYMPHOCYTES % (AUTO) 17.9 % (13-45); MEAN CORPUSCULAR HEMOGLOBIN 26.9 pg (27.0-33.4); MEAN CORPUSCULAR HGB CONC 31.8 g/dL (32.0-36.0); MEAN CORPUSCULAR VOLUME 85 fl (80-97); MONOCYTES % (AUTO) 6.2 % (3-13); PLATELET COUNT 273 10^3/uL (150-450); RED BLOOD COUNT 4.33 10^6/uL (4.35-5.55); RED CELL DISTRIBUTION WIDTH 21.1 % (11.5-14.0); SEGMENTED NEUTROPHILS % (AUTO) 66.5 % (42-78); TOTAL CELLS COUNTED % (AUTO) 100 %; WHITE BLOOD COUNT 9.4 10^3/uL (4.0-10.5)
[2017-04-20 23:42] LABS: ALANINE AMINOTRANSFERASE 23 U/L (21-72); ALBUMIN 3.8 g/dL (3.5-5.0); ALKALINE PHOSPHATASE 55 U/L (38-126); ANION GAP 10 (5-19); ASPARTATE AMINO TRANSFERASE 16 U/L (17-59); BILIRUBIN,DIRECT 0.2 mg/dL (0.0-0.4); BILIRUBIN,TOTAL 0.2 mg/dL (0.2-1.3); BLOOD UREA NITROGEN 9 mg/dL (7-20); CARBON DIOXIDE 28 mmol/L (22-30); CHLORIDE 104 mmol/L (98-107); GLUCOSE 102 mg/dL (75-110); LIPASE 182.4 U/L (23-300); POTASSIUM 3.7 mmol/L (3.6-5.0); SODIUM 142.3 mmol/L (137-145); TOTAL PROTEIN 6.9 g/dL (6.3-8.2)
[2017-04-20 23:48] LABS: ANISOCYTOSIS 2+; HYPOCHROMASIA SLIGHT; PLATELET COMMENT ADEQUATE; POIKILOCYTOSIS 1+; TOXIC GRANULATION SLIGHT
[2017-04-20 23:52] LABS: SCHISTOCYTES SLIGHT
[2017-04-21] MEDS ORDERED: HYDROMORPHONE HCL INJ/PF 2 MG/ML AMPULE IV ONE (00:02)
[2017-04-21] MEDS ORDERED: ONDANSETRON HCL INJ/PF 4 MG/2 ML SDV IV ONE (00:04)
--- NOTE | 2017-04-21 00:06 | ER Document Report ---
ED General - General Chief Complaint: Rectal Pain Stated Complaint: ABDOMINAL PAIN Time Seen by Provider: 04/20/17 19:53 Notes: Patient is a 36-year-old male with a complex past surgical history including a recent ileostomy related to Crohn's disease with multiple percutaneous drainages with one remaining who presents with a focal area of lower abdominal pain just to the left of his umbilicus that is been present for the past 5-6 days as well as 1 day of greenish diarrheal output. Patient also had 2 bowel movements through his rectum. Patient denies any vomiting, fever or constitutional symptoms. The pain is localized to a small point on his abdomen and he describes it as a constant, stabbing, aching pain. He states that this is apparently the site where a local block was placed during the prior surgery. He has not followed up with his surgeon or GI doctor regarding today's concerns. He does continue on IV antibiotics. TRAVEL OUTSIDE OF THE [place] 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 Drug Abuse: Marijuana Lives with: Family Family History: CAD, CVA, DM, Hyperlipidemia, Hypertension, Malignancy Patient has suicidal ideation: No Patient has homicidal ideation: No - Past Medical History Cardiac Medical History: Denies: Hx Heart Attack, Hx Hypertension Pulmonary Medical History: Denies: Hx Asthma, Hx Bronchitis, Hx COPD, Hx Pneumonia Neurological Medical History: Denies: Hx Seizures Renal/ Medical History: Denies: Hx Peritoneal Dialysis GI Medical History: Reports: Hx Ulcer - Ulcerative colitis, Hx Ulcerative Colitis, Hx Colonoscopy Musculoskeltal Medical History: Denies Hx Arthritis Past Surgical History: Reports: Hx Appendectomy - February 2015, Hx Vascular Surgery - Port placement - Immunizations Immunizations up to date: Yes Hx Diphtheria, Pertussis, Tetanus Vaccination: Yes Review of Systems - Review of Systems Notes: Constitutional: Negative for fever. HENT: Negative for sore throat. Eyes: Negative for visual changes. Cardiovascular: Negative for chest pain. Respiratory: Negative for shortness of breath. Gastrointestinal: Positive for abdominal pain and diarrheal output into the ostomy Genitourinary: Negative for dysuria. Musculoskeletal: Negative for back pain. Skin: Negative for rash. Neurological: Negative for headaches, weakness or numbness. 10 point ROS negative except as marked above and in HPI. Physical Exam - Vital signs Vitals: Temp Pulse Resp BP Pulse Ox 97.6 F 118 H 20 120/84 98 04/20/17 17:34 04/20/17 17:34 04/20/17 17:34 04/20/17 17:34 04/20/17 17:34 Interpretation: Tachycardic Notes: PHYSICAL EXAMINATION: GENERAL: Well-appearing, well-nourished and in no acute distress. HEAD: Atraumatic, normocephalic. EYES: Pupils equal round and reactive to light, extraocular movements intact, sclera anicteric, conjunctiva are normal. ENT: nares patent, oropharynx clear without exudates. Moist mucous membranes. NECK: Normal range of motion, supple without lymphadenopathy LUNGS: Breath sounds clear to auscultation bilaterally and equal. No wheezes rales or rhonchi. HEART: Regular rate and rhythm without murmurs ABDOMEN: Soft, right lower quadrant ostomy with green stool output, otherwise the abdomen is benign without any localized tenderness, rebound or guarding. Stoma is well in appearance. There is one remaining percutaneous drain in the left lower quadrant that does not have any surrounding erythema or drainage. EXTREMITIES: Normal range of motion, no pitting or edema. No cyanosis. NEUROLOGICAL: No focal neurological deficits. Moves all extremities spontaneously and on command. PSYCH: Normal mood, normal affect. SKIN: Warm, Dry, normal turgor, no rashes or lesions noted. Course - Re-evaluation Re-evalutation: 04/21/17 00:03 36-year-old male with a past medical history of ulcerative colitis, with colectomy in February, with repeat admission again in March discharge 9 days ago from [facility] with PICC line medication secondary to an intra-abdominal infection who presents today with some abdominal pain, 2 bowel movements which she has not had since his colectomy, and decreased drainage from his left abdomen drain site. On CT scan patient does not have any significant remaining free intraperitoneal fluid, no evidence of recurrent colitis or obstruction. Patient's abdominal exam is benign without any localized tenderness. Vitals otherwise within normal limits, labs much improved from prior. Do not suspect any acute pathology other than possible antibiotic associated diarrhea. I have instructed the patient that he will need follow-up with his GI physician as well as his surgeon regarding today 's concerns. At this time will discharge with return precautions and follow-up recommendations. Verbal discharge instructions given a the bedside and opportunity for questions given. Medication warnings reviewed. Patient is in agreement with this plan and has verbalized understanding of return precautions and the need for primary care follow-up in the next 24-72 hours. - Vital Signs Vital signs: Temp Pulse Resp BP Pulse Ox 98.1 F 98 17 119/72 96 04/21/17 01:30 04/21/17 01:30 04/21/17 01:30 04/21/17 01:30 04/21/17 01:30 - Laboratory Result Diagrams: 04/20/17 23:05 04/20/17 23:05 Laboratory results interpreted by me: 04/20/17 04/20/17 23:05 23:05 RBC 4.33 L Hgb 11.7 L Hct 36.7 L MCH 26.9 L MCHC 31.8 L RDW 21.1 H Eosinophils % 7.2 H Basophils % 2.2 H Absolute Eosinophils 0.7 H AST 16 L - Diagnostic Test Radiology reviewed: Reports reviewed Discharge - Discharge Clinical Impression: Abdominal pain Qualifiers: Abdominal location: unspecified location Qualified Code(s): R10.9 - Unspecified abdominal pain Diarrhea Qualifiers: Diarrhea type: unspecified type Qualified Code(s): R19.7 - Diarrhea, unspecified Condition: Fair Disposition: HOME, SELF-CARE Additional Instructions: Follow-up with your GI doctor and surgeon regarding today's concerns. Your CT scan and labs are much improved and did not show any acute process. Return for any additional concerns you may have.
[2017-04-21 02:47] VITALS: BP 119/72
== END 2017-04-21 01:38 | disposition home or self-care (01) ==
LOC: ER 17:26
DX: R10.32 Left lower quadrant pain (principal); R19.7 Diarrhea, unspecified; B99.9 Unspecified infectious disease; Z93.2 Ileostomy status; Z87.892 Personal history of anaphylaxis; Z88.0 Allergy status to penicillin; Z90.49 Acquired absence of other specified parts of digestive tract; Z87.19 Personal history of other diseases of the digestive system
CPT/HCPCS: 99284; 96361; 96374; 96375; 36415; 83690; 85025; 80053; 74177; J2270; J1170; J2405; J7030

== ENCOUNTER 2017-04-21 22:05 | Emergency (ER) | payer SELFPAY ==
[2017-04-21] MEDS ORDERED: NORMAL SALINE 1000 ML 1,000 ML IV ONE (22:40)
--- NOTE | 2017-04-21 22:40 | ER Document Report ---
ED GI/ - General Chief Complaint: Abdominal Pain Stated Complaint: ABDOMINAL PAIN Time Seen by Provider: 04/21/17 22:37 Notes: Patient is a 36-year-old male with a complex past surgical history including a recent ileostomy related to Crohn's disease with prior percutaneous drainages, presents with a focal area of pain above the epigastrium and nausea that started after he took his evening dose of cefepime. The nausea has resolved, but he still feels the pain. He said that he had exactly the same pain yesterday when he came into the ER after taking his cefepime. He had a CAT scan and labs completed yesterday, which showed improvement from his prior visit and no other acute abnormalities. TRAVEL OUTSIDE OF THE [place] IN LAST 30 DAYS: No - Related Data Allergies/Adverse Reactions: Penicillins Allergy (Mild, Verified 04/21/17 22:07) rash/hives Past Medical History - General Information source: Patient - Social History Smoking Status: Unknown if Ever Smoked Drug Abuse: Marijuana Family History: CAD, CVA, DM, Hyperlipidemia, Hypertension, Malignancy - Past Medical History Cardiac Medical History: Denies: Hx Heart Attack, Hx Hypertension Pulmonary Medical History: Denies: Hx Asthma, Hx Bronchitis, Hx COPD, Hx Pneumonia Neurological Medical History: Denies: Hx Seizures Renal/ Medical History: Denies: Hx Peritoneal Dialysis GI Medical History: Reports: Hx Ulcer - Ulcerative colitis, Hx Ulcerative Colitis, Hx Colonoscopy Musculoskeltal Medical History: Denies Hx Arthritis Past Surgical History: Reports: Hx Appendectomy - February 2015, Hx Vascular Surgery - Port placement - Immunizations Immunizations up to date: Yes Hx Diphtheria, Pertussis, Tetanus Vaccination: Yes Review of Systems - Review of Systems Notes: REVIEW OF SYSTEMS: CONSTITUTIONAL: -fevers, -chills EENT: -eye pain, -difficulty swallowing, -nasal congestion CARDIOVASCULAR: -chest pain, -syncope. RESPIRATORY: -cough, -SOB GASTROINTESTINAL: +abdominal pain, +nausea, -vomiting, -diarrhea GENITOURINARY: -dysuria, -hematuria MUSCULOSKELETAL: -back pain, -neck pain SKIN: -rash or skin lesions. HEMATOLOGIC: -easy bruising or bleeding. LYMPHATIC: -swollen, enlarged glands. NEUROLOGICAL: -altered mental status or loss of consciousness, -headache, - neurologic symptoms PSYCHIATRIC: -anxiety, -depression. ALL OTHER SYSTEMS REVIEWED AND NEGATIVE. Physical Exam - Vital signs Vitals: Temp Pulse Resp BP Pulse Ox 97.5 F 111 H 20 132/93 H 100 04/21/17 22:09 04/21/17 22:09 04/21/17 22:09 04/21/17 22:09 04/21/17 22:09 - Notes Notes: PHYSICAL EXAMINATION: GENERAL: Well-appearing, well-nourished and in no acute distress. HEAD: Atraumatic, normocephalic. EYES: Pupils equal round and reactive to light, extraocular movements intact, sclera anicteric, conjunctiva are normal. ENT: nares patent, oropharynx clear without exudates. Moist mucous membranes. NECK: Normal range of motion, supple without lymphadenopathy LUNGS: Breath sounds clear to auscultation bilaterally and equal. No wheezes rales or rhonchi. HEART: Tachycardia, regular rhythm. ABDOMEN: Soft, small area of tenderness above umbilicus where prior surgical scar is located, RLQ ileostomy bag with brown stool, LLQ percutaneous drain, normoactive bowel sounds. No guarding, no rebound. No masses appreciated. EXTREMITIES: Normal range of motion, no pitting or edema. No cyanosis. NEUROLOGICAL: Cranial nerves grossly intact. Normal speech, normal gait. Normal sensory and motor exams. PSYCH: Normal mood, normal affect. SKIN: Warm, Dry, normal turgor, no rashes or lesions noted. Course - Re-evaluation Re-evalutation: Patient with exactly the same symptoms yesterday that started 20 minutes after he received a dose of his cefepime through his PICC line at home. He tried calling his surgeon and home nurse, but it is New Year's [place] and he was unable to get through. CT scan performed last night did not show any concerning abnormalities and actually showed improvement from his prior CT scans. His nausea improved and pain resolved. Lab work is unremarkable. Patient thinks that the pain is only related to when he takes his cefepime. He is chronically on large doses of opioids and has antiemetics at home. Pt also having intermittent muscle spasms and will try Flexeril to help. Will discharge patient home with follow-up at his surgeon tomorrow. - Vital Signs Vital signs: Temp Pulse Resp BP Pulse Ox 97.5 F 111 H 17 111/89 H 97 04/21/17 22:09 04/21/17 22:09 04/22/17 01:30 04/22/17 01:30 04/22/17 01:30 - Laboratory Result Diagrams: 04/22/17 00:00 04/22/17 00:00 Laboratory results interpreted by me: 04/21/17 04/22/17 04/22/17 23:26 00:00 00:00 RBC 4.30 L Hgb 11.7 L Hct 36.7 L MCHC 31.9 L RDW 20.8 H Eosinophils % 10.1 H Basophils % 2.5 H Absolute Eosinophils 0.9 H ALT 20 L Urine Protein 30 H Urine Ketones TRACE H Urine Bilirubin SMALL H Discharge - Discharge Clinical Impression: Muscle spasm Abdominal pain Qualifiers: Abdominal location: unspecified location Qualified Code(s): R10.9 - Unspecified abdominal pain Condition: Stable Disposition: HOME, SELF-CARE Additional Instructions: Your CT scan from yesterday and blood work today do not show any concerning abnormalities. You must follow-up with your surgeon and home nurse for a recheck of your symptoms and to discuss if you need your antibiotic changed. Flexeril for any spasms and Reglan for any nausea. ABDOMINAL PAIN: There are many causes of abdominal pain. Pain can mean a serious problem requiring surgery (such as appendicitis). It can also be an innocent problem that goes away on its own (such as a viral infection). Often, time must pass to determine the cause of pain. The physician does not feel that hospitalization is necessary, at present. Things may change within the next 24 hours. Call the doctor or come back for re- examination if any problems occur, such as: (1) Pain that becomes more severe, steady, or becomes concentrated in one specific area. Also, pain that is more severe with movement or coughing. (2) Vomiting that persists or becomes more frequent. (3) Blood in the vomitus, urine, or bowel movements. Blood in the stool may have a tarry or black appearance. (4) Shaking chills or fever greater than 100 degrees F. (5) The abdomen becomes more distended or swollen. (6) Bowel movements cease. (7) Failure to improve as expected. NORMAL EXAM AND WORKUP: At this time, your examination and workup show no significant abnormality. No significant abnormal physical findings are noted. All laboratory, EKG, and imaging (x-ray, CT scans, ultrasound) studies that were ordered show no significant abnormality. Although your examination and all studies that were ordered showed no significant abnormal finding, there are no examinations and no studies that are 100% accurate. There is always the possibility that some abnormality could exist and not be detected with physical examination or within the limits and capabilities of laboratory and other studies. You should return or follow up as you were instructed on your visit today for further evaluation if your symptoms do not resolve. PAIN MEDICATION INJECTION: You have received an injection of a pain medication. You should experience significant pain relief within 45 minutes. This drug is a narcotic - - it will impair your judgement, slow your reaction time and make you sleepy ( as well as relieve your pain). Narcotics also can cause nausea. You should not drive, work with machinery, or perform any task requiring mental alertness until all effects of the medication are gone -- six to eight hours. Do not take any alcohol, or sedatives, and do not take any other medication without checking with your physician. ANT[place]AUSEA MEDICATION: You have been given a medication to suppress nausea and vomiting. This type of medication can be given as a shot, pill, or suppository. It will usually last for many hours. Pills and shots usually last six to eight hours, suppositories last about 12 hours. For the typical illness, only one or two doses of the medication may be necessary. Mild lightheadedness may occur. This type of medicine can cause drowsiness. Do not drive or operate dangerous machinery while under its influence. Do not mix with alcohol. See your doctor at once if you have muscle spasms or tightness, or uncontrollable motions (particularly of the neck, mouth, or jaw). Persistent vomiting or severe lightheadedness should also be evaluated by the physician. FOLLOW-UP CARE: If you have been referred to a physician for follow-up care, call the physician s office for an appointment as you were instructed or within the next two days. If you experience worsening or a significant change in your symptoms, notify the physician immediately or return to the Emergency Department at any time for re-evaluation. Prescriptions: Cyclobenzaprine HCl [Flexeril 10 mg Tablet] 10 mg PO TIDP PRN #15 tab PRN Reason: Metoclopramide HCl [Reglan 10 mg Tablet] 1 - 2 tab PO ASDIR PRN #14 tablet PRN Reason: Forms: Elevated Blood Pressure
[2017-04-21] MEDS ORDERED: HYDROMORPHONE HCL INJ/PF 2 MG/ML AMPULE IV ONE (23:03)
[2017-04-21] MEDS ORDERED: ONDANSETRON HCL INJ/PF 4 MG/2 ML SDV IV ONE (23:03)
[2017-04-21 23:47] LABS: APPEARANCE,URINE SLIGHTLY-CLOUDY; BILIRUBIN,URINE SMALL (NEGATIVE); COLOR,URINE YELLOW; GLUCOSE, URINE NEGATIVE (NEGATIVE); KETONES,URINE TRACE mg/dL (NEGATIVE); LEUKOCYTE ESTERASE,URINE NEGATIVE (NEGATIVE); NITRITE,URINE NEGATIVE (NEGATIVE); PROTEIN,URINE 30 mg/dL (NEGATIVE); UROBILINOGEN,URINE NEGATIVE mg/dL (<2.0)
[2017-04-22 00:16] LABS: VENOUS BLOOD BASE EXCESS 0.2 mmol/L; VENOUS BLOOD HCO3 25.4 mmol/L (20-32); VENOUS BLOOD PCO2 43.4 mmHg (35-63); VENOUS BLOOD PH 7.39 (7.30-7.42)
[2017-04-22] MEDS ORDERED: DIPHENHYDRAMINE HCL 50 MG/ML VIAL IV ONE (00:21)
[2017-04-22] MEDS ORDERED: METOCLOPRAMIDE HCL INJ/PF 10 MG/2 ML SDV IV ONE (00:21)
[2017-04-22 00:23] LABS: ABSOLUTE BASOPHILS # (AUTO) 0.2 10^3/uL (0.0-0.2); ABSOLUTE EOSINOPHILS # (AUTO) 0.9 10^3/uL (0.0-0.6); ABSOLUTE MONOCYTES (AUTO) 0.6 10^3/uL (0.1-1.4); BASOPHILS % (AUTO) 2.5 % (0-2); EOSINOPHILS % (AUTO) 10.1 % (0-6); HEMATOCRIT 36.7 % (37.9-51.0); HEMOGLOBIN 11.7 g/dL (13.5-17.0); LYMPHOCYTES % (AUTO) 23.2 % (13-45); MEAN CORPUSCULAR HEMOGLOBIN 27.2 pg (27.0-33.4); MEAN CORPUSCULAR HGB CONC 31.9 g/dL (32.0-36.0); MEAN CORPUSCULAR VOLUME 85 fl (80-97); MONOCYTES % (AUTO) 6.9 % (3-13); PLATELET COUNT 292 10^3/uL (150-450); RED CELL DISTRIBUTION WIDTH 20.8 % (11.5-14.0); SEGMENTED NEUTROPHILS % (AUTO) 57.3 % (42-78); TOTAL CELLS COUNTED % (AUTO) 100 %; WHITE BLOOD COUNT 8.6 10^3/uL (4.0-10.5)
[2017-04-22 00:38] LABS: ALANINE AMINOTRANSFERASE 20 U/L (21-72); ALBUMIN 3.7 g/dL (3.5-5.0); ALKALINE PHOSPHATASE 55 U/L (38-126); ANION GAP 11 (5-19); ASPARTATE AMINO TRANSFERASE 17 U/L (17-59); BILIRUBIN,DIRECT 0.2 mg/dL (0.0-0.4); BILIRUBIN,TOTAL 0.2 mg/dL (0.2-1.3); BLOOD UREA NITROGEN 7 mg/dL (7-20); CALCIUM 9.7 mg/dL (8.4-10.2); CARBON DIOXIDE 27 mmol/L (22-30); CHLORIDE 106 mmol/L (98-107); GLUCOSE 99 mg/dL (75-110); LIPASE 259.5 U/L (23-300); POTASSIUM 4.3 mmol/L (3.6-5.0); SODIUM 144.3 mmol/L (137-145); TOTAL PROTEIN 6.8 g/dL (6.3-8.2)
[2017-04-22] MEDS ORDERED: CYCLOBENZAPRINE HCL 10 MG TABLET PO ONE (01:00)
[2017-04-22] MEDS ORDERED: PROMETHAZINE HCL 25 MG TABLET PO ONE (01:26)
[2017-04-22 01:45] VITALS: BP 111/89
== END 2017-04-22 01:45 | disposition home or self-care (01) ==
LOC: ER 22:05
DX: M62.838 Other muscle spasm (principal); R10.9 Unspecified abdominal pain; K50.90 Crohn's disease, unspecified, without complications; R10.13 Epigastric pain; R11.0 Nausea
CPT/HCPCS: 99284; 96361; 96374; 96375; 36415; 83690; 85025; 80053; 81001; 82803; 83605; J1200; J2765; J1170; J2405; J7030

== ENCOUNTER 2017-04-22 09:32 | Emergency (ER) | payer SELFPAY ==
[2017-04-22] MEDS ORDERED: KETOROLAC TROMETHAMINE INJ/PF 30 MG/1 ML SDV IV ONE (09:52)
[2017-04-22] MEDS ORDERED: NORMAL SALINE 1000 ML 1,000 ML IV ONE (10:08)
[2017-04-22] MEDS ORDERED: ONDANSETRON HCL INJ/PF 4 MG/2 ML SDV IV ONE (10:08)
[2017-04-22] MEDS ORDERED: HYDROMORPHONE HCL INJ/PF 2 MG/ML AMPULE IV ONE (10:48)
[2017-04-22 11:28] LABS: ABSOLUTE BASOPHILS # (AUTO) 0.2 10^3/uL (0.0-0.2); ABSOLUTE EOSINOPHILS # (AUTO) 0.5 10^3/uL (0.0-0.6); ABSOLUTE LYMPHOCYTES (AUTO) 1.2 10^3/uL (0.5-4.7); ABSOLUTE MONOCYTES (AUTO) 0.5 10^3/uL (0.1-1.4); ABSOLUTE NEUT (AUTO) 5.4 10^3/uL (1.7-8.2); BASOPHILS % (AUTO) 2.1 % (0-2); EOSINOPHILS % (AUTO) 5.9 % (0-6); HEMATOCRIT 33.9 % (37.9-51.0); HEMOGLOBIN 10.7 g/dL (13.5-17.0); LYMPHOCYTES % (AUTO) 14.9 % (13-45); MEAN CORPUSCULAR HEMOGLOBIN 26.8 pg (27.0-33.4); MEAN CORPUSCULAR HGB CONC 31.6 g/dL (32.0-36.0); MEAN CORPUSCULAR VOLUME 85 fl (80-97); MONOCYTES % (AUTO) 6.7 % (3-13); PLATELET COUNT 263 10^3/uL (150-450); RED BLOOD COUNT 3.99 10^6/uL (4.35-5.55); RED CELL DISTRIBUTION WIDTH 21.5 % (11.5-14.0); SEGMENTED NEUTROPHILS % (AUTO) 70.4 % (42-78); TOTAL CELLS COUNTED % (AUTO) 100 %; WHITE BLOOD COUNT 7.7 10^3/uL (4.0-10.5)
[2017-04-22 11:50] LABS: ALANINE AMINOTRANSFERASE 24 U/L (21-72); ALBUMIN 3.2 g/dL (3.5-5.0); ALKALINE PHOSPHATASE 53 U/L (38-126); ANION GAP 12 (5-19); ASPARTATE AMINO TRANSFERASE 13 U/L (17-59); BILIRUBIN,DIRECT 0.2 mg/dL (0.0-0.4); BILIRUBIN,TOTAL 0.3 mg/dL (0.2-1.3); BLOOD UREA NITROGEN 7 mg/dL (7-20); CARBON DIOXIDE 21 mmol/L (22-30); CHLORIDE 110 mmol/L (98-107); GLUCOSE 95 mg/dL (75-110); POTASSIUM 3.9 mmol/L (3.6-5.0); SODIUM 142.7 mmol/L (137-145)
--- NOTE | 2017-04-22 12:02 | ER Document Report ---
ED GI/ - General Chief Complaint: Abdominal Pain Stated Complaint: ABDOMINAL PAIN, NAUSEA Time Seen by Provider: 04/22/17 09:51 Mode of Arrival: Ambulatory Information source: Patient Notes: Patient is a 36-year-old male with ulcerative colitis and recent colectomy with an ileostomy on the right side of the abdomen and recent percutaneous drain placed for an abscess in the left lower quadrant of the abdomen who presents to the ER today for the third time in 3 days for abdominal pain that he thinks is being caused from his cefepime. He was seen at [facility] and sent home with a PICC line on IV cefepime antibiotic that a nurse comes to his house and administers twice a day. He states that after he takes the cefepime he gets abdominal pain in the middle of his abdomen that is unusual for him with nausea and vomiting. He is on chronic opioid prescription for pain and states that not even that will help his abdominal pain. He denies any fevers or chills. He is also concerned that the percutaneous drain in the left lower quadrant of his abdomen is coming out. He states that yesterday he saw the wire. He states that the draining has been less and less and he is concerned about that. TRAVEL OUTSIDE OF THE [place] IN LAST 30 DAYS: No - Related Data Allergies/Adverse Reactions: Penicillins Allergy (Mild, Verified 04/21/17 22:07) rash/hives Past Medical History - General Information source: Patient - Social History Smoking Status: Never Smoker Chew tobacco use (# tins/day): No Frequency of alcohol use: None Drug Abuse: None Family History: CAD, CVA, DM, Hyperlipidemia, Hypertension, Malignancy Patient has suicidal ideation: No Patient has homicidal ideation: No - Past Medical History Cardiac Medical History: Denies: Hx Heart Attack, Hx Hypertension Pulmonary Medical History: Denies: Hx Asthma, Hx Bronchitis, Hx COPD, Hx Pneumonia Neurological Medical History: Denies: Hx Seizures Renal/ Medical History: Denies: Hx Peritoneal Dialysis GI Medical History: Reports: Hx Ulcer - Ulcerative colitis, Hx Ulcerative Colitis, Hx Colonoscopy Musculoskeltal Medical History: Denies Hx Arthritis Past Surgical History: Reports: Hx Abdominal Surgery - colon/colostomy, Hx Appendectomy - February 2015, Hx Vascular Surgery - Port placement - Immunizations Immunizations up to date: Yes Hx Diphtheria, Pertussis, Tetanus Vaccination: Yes Review of Systems - Review of Systems Constitutional: No symptoms reported EENT: No symptoms reported Cardiovascular: No symptoms reported Respiratory: No symptoms reported Gastrointestinal: See HPI Genitourinary: No symptoms reported Male Genitourinary: No symptoms reported Musculoskeletal: No symptoms reported Skin: No symptoms reported Hematologic/Lymphatic: No symptoms reported Neurological/Psychological: No symptoms reported Physical Exam - Notes Notes: PHYSICAL EXAMINATION: GENERAL: Well-appearing and in no acute distress. HEAD: Atraumatic, normocephalic. EYES: Pupils equal round and reactive to light, extraocular movements intact, sclera anicteric, conjunctiva are normal. NECK: Normal range of motion, supple without lymphadenopathy LUNGS: CTAB and equal. No wheezes rales or rhonchi. HEART: Regular rate and rhythm without murmurs ABDOMEN: Soft, mild periumbilical tenderness. Ileostomy with brown stool, no blood, in place without erythema or abnormality to the right lower quadrant, percutaneous drain in place without erythema or abnormality to the left lower quadrant, yellow purulent drainage and percutaneous drain bag, no guarding, no rebound BACK: no vertebral tenderness, normal ROM GI/: no CVA tenderness EXTREMITIES: Normal range of motion, no pitting edema. No cyanosis. NEUROLOGICAL: Cranial nerves grossly intact. Normal sensory/motor exams. PSYCH: Normal mood, normal affect. SKIN: Warm, Dry, normal turgor, no rashes or lesions noted Course - Re-evaluation Re-evalutation: 04/22/17 12:00 Spoke with surgeon on-call at [facility] who looked at patient's records there and advises against changing antibiotic from cefepime to something else. Surgeon states that he was discharged with Flagyl as well and that it sounds like patient may be drinking alcohol with the Flagyl but he doubts that the symptoms of nausea and abdominal pain are from the cefepime. Patient has an appointment in 3 days with the doctor who prescribed the cefepime. I will advise patient to not drink any alcohol with the Flagyl. His white blood cell count is normal again today for the third time in 3 days. Patient advised that we cannot do anything about his percutaneous drain, if he truly wants it to be looked at he needs to go to [facility] so that the surgeon there can take a look at it, but it does not appear to be abnormal to me. - Laboratory Result Diagrams: 04/22/17 11:16 04/22/17 11:16 Laboratory results interpreted by me: 04/22/17 11:16 RBC 3.99 L Hgb 10.7 L Hct 33.9 L MCH 26.8 L MCHC 31.6 L RDW 21.5 H Basophils % 2.1 H Discharge - Discharge Clinical Impression: Nausea & vomiting Qualifiers: Vomiting type: unspecified Vomiting Intractability: non-intractable Qualified Code(s): R11.2 - Nausea with vomiting, unspecified Abdominal pain Qualifiers: Abdominal location: periumbilical Qualified Code(s): R10.33 - Periumbilical pain Condition: Stable Disposition: HOME, SELF-CARE Additional Instructions: Please follow-up with your doctors as appointments are already scheduled coming up in the next couple of days. Please do not stop your cefepime as the surgeon does not think this is causing her symptoms. Return immediately for any new or worsening symptoms. Follow up with primary care provider, call tomorrow to make followup appointment. Prescriptions: Promethazine HCl [Phenergan 25 mg Tablet] 1 - 2 tab PO Q6H PRN #15 tablet PRN Reason: Referrals: EVIN CHURCH MD [Primary Care Provider] - Follow up as needed
[2017-04-22 12:28] VITALS: BP 111/80
== END 2017-04-22 12:28 | disposition home or self-care (01) ==
LOC: ER 09:32
DX: R10.33 Periumbilical pain (principal); R11.2 Nausea with vomiting, unspecified; Z90.49 Acquired absence of other specified parts of digestive tract; Z93.2 Ileostomy status; Z88.0 Allergy status to penicillin
CPT/HCPCS: 99284; 96361; 96374; 96375; 36415; 85025; 80053; J1885; J1170; J2405; J7030

== ENCOUNTER 2017-04-22 19:57 | Emergency (ER) | payer SELFPAY ==
[2017-04-22 20:55] LABS: HEMATOCRIT 37.9 % (37.9-51.0); MEAN CORPUSCULAR HEMOGLOBIN 27.3 pg (27.0-33.4); MEAN CORPUSCULAR HGB CONC 31.7 g/dL (32.0-36.0); MEAN CORPUSCULAR VOLUME 86 fl (80-97); PLATELET COUNT 280 10^3/uL (150-450); RED BLOOD COUNT 4.41 10^6/uL (4.35-5.55); RED CELL DISTRIBUTION WIDTH 21.2 % (11.5-14.0)
[2017-04-22 21:10] LABS: ALANINE AMINOTRANSFERASE 24 U/L (21-72); ALBUMIN 3.6 g/dL (3.5-5.0); ALKALINE PHOSPHATASE 69 U/L (38-126); ANION GAP 13 (5-19); ASPARTATE AMINO TRANSFERASE 31 U/L (17-59); BILIRUBIN,DIRECT 0.4 mg/dL (0.0-0.4); BILIRUBIN,TOTAL 0.5 mg/dL (0.2-1.3); BLOOD UREA NITROGEN 11 mg/dL (7-20); CALCIUM 9.6 mg/dL (8.4-10.2); CARBON DIOXIDE 23 mmol/L (22-30); CHLORIDE 108 mmol/L (98-107); GLUCOSE 91 mg/dL (75-110); LIPASE 297.2 U/L (23-300); POTASSIUM 3.9 mmol/L (3.6-5.0); SODIUM 143.6 mmol/L (137-145); TOTAL PROTEIN 6.7 g/dL (6.3-8.2)
[2017-04-22 21:23] LABS: ABSOLUTE LYMPHOCYTES# (MANUAL) 2.2 10^3/uL (0.5-4.7); ABSOLUTE MONOCYTES # (MANUAL) 0.2 10^3/uL (0.1-1.4); ABSOLUTE NEUTROPHILS# (MANUAL) 4.8 10^3/uL (1.7-8.2); BASOPHILS % (MANUAL) 3 % (0-2); EOSINOPHILS % (MANUAL) 7 % (0-6); LYMPHOCYTES % (MANUAL) 28 % (13-45); MONOCYTES % (MANUAL) 2 % (3-13); SEGMENTED NEUTROPHILS % (MAN) 60 % (42-78); TOTAL CELLS COUNTED 100
[2017-04-22 21:24] LABS: ANISOCYTOSIS 3+; PLATELET COMMENT ADEQUATE; PLATELET LARGE PRESENT; TOXIC VACUOLATION PRESENT
[2017-04-22] MEDS ORDERED: NORMAL SALINE 1000 ML 1,000 ML IV ONE (21:54)
[2017-04-22] MEDS ORDERED: ONDANSETRON HCL INJ/PF 4 MG/2 ML SDV IV ONE (21:55)
[2017-04-22] MEDS ORDERED: HYDROMORPHONE HCL INJ/PF 2 MG/ML AMPULE IV ONE (22:04)
--- NOTE | 2017-04-22 22:07 | ER Document Report ---
ED General - General Chief Complaint: Nausea/Vomiting Stated Complaint: ABDOMINAL PAIN, NAUSEA Time Seen by Provider: 04/22/17 21:09 Notes: Patient is a 36-year-old male who presents today with vomiting and ongoing abdominal pain after administering cefepime through his PICC line. Patient was seen earlier today for the same complaint and was instructed to take his cefepime and Flagyl separately to delineate which of the antibiotics may be triggering his vomiting and abdominal pain. Patient states he took his Flagyl when he got home and had no difficulty. He states within 5 minutes of administering 5 mL's of cefepime through his PICC line he immediately developed abdominal pain and began having nonbilious vomiting. He describes the pain in his abdomen is a dull, aching, stabbing pain to the lower abdomen. Nothing improves or worsens his symptoms once they are present. He states he plans to follow-up with his surgeon as scheduled in several days. TRAVEL OUTSIDE OF THE [place] IN LAST 30 DAYS: No - Related Data Allergies/Adverse Reactions: Penicillins Allergy (Mild, Verified 04/21/17 22:07) rash/hives Past Medical History - General Information source: Patient - Social History Smoking Status: Former Smoker Frequency of alcohol use: None Drug Abuse: None Lives with: Family Family History: CAD, CVA, DM, Hyperlipidemia, Hypertension, Malignancy Patient has suicidal ideation: No Patient has homicidal ideation: No - Past Medical History Cardiac Medical History: Denies: Hx Heart Attack, Hx Hypertension Pulmonary Medical History: Denies: Hx Asthma, Hx Bronchitis, Hx COPD, Hx Pneumonia Neurological Medical History: Denies: Hx Seizures Renal/ Medical History: Denies: Hx Peritoneal Dialysis GI Medical History: Reports: Hx Ulcer - Ulcerative colitis, Hx Ulcerative Colitis, Hx Colonoscopy Musculoskeltal Medical History: Denies Hx Arthritis Past Surgical History: Reports: Hx Abdominal Surgery - colon/colostomy, Hx Appendectomy - February 2015, Hx Vascular Surgery - Port placement - Immunizations Immunizations up to date: Yes Hx Diphtheria, Pertussis, Tetanus Vaccination: Yes Review of Systems - Review of Systems Notes: Constitutional: Negative for fever. HENT: Negative for sore throat. Eyes: Negative for visual changes. Cardiovascular: Negative for chest pain. Respiratory: Negative for shortness of breath. Gastrointestinal: Positive for abdominal pain and vomiting Genitourinary: Negative for dysuria. Musculoskeletal: Negative for back pain. Skin: Negative for rash. Neurological: Negative for headaches, weakness or numbness. 10 point ROS negative except as marked above and in HPI. Physical Exam - Vital signs Vitals: Temp Pulse Resp BP Pulse Ox 97.7 F 78 16 139/84 H 100 04/22/17 19:59 04/22/17 19:59 04/22/17 19:59 04/22/17 19:59 04/22/17 19:59 Interpretation: Normal Notes: PHYSICAL EXAMINATION: GENERAL: Well-appearing, well-nourished and in no acute distress. HEAD: Atraumatic, normocephalic. EYES: Pupils equal round and reactive to light, extraocular movements intact, sclera anicteric, conjunctiva are normal. ENT: nares patent, oropharynx clear without exudates. Moist mucous membranes. NECK: Normal range of motion, supple without lymphadenopathy LUNGS: Breath sounds clear to auscultation bilaterally and equal. No wheezes rales or rhonchi. HEART: Regular rate and rhythm without murmurs ABDOMEN: Soft, right lower quadrant ostomy, stoma is pink and healthy in appearance, liquidy brown discharge. Nontender, normoactive bowel sounds. No guarding, no rebound. No masses appreciated. EXTREMITIES: Normal range of motion, no pitting or edema. No cyanosis. NEUROLOGICAL: No focal neurological deficits. Moves all extremities spontaneously and on command. PSYCH: Normal mood, normal affect. SKIN: Warm, Dry, normal turgor, no rashes or lesions noted. Course - Re-evaluation Re-evalutation: 04/22/17 22:05 Patient presents again for vomiting, loose ostomy abdominal pain in the setting of administering cefepime. Patient reports that 5 minutes after giving himself cefepime tonight he began vomiting and having increased ostomy output as well as lower abdominal pain. His white count continues to be normal and he is otherwise well in appearance, vitals within normal limits. Patient is noted to be actively vomiting in the emergency department. He reports that his symptoms started approximately 5 minutes after administration of cefepime. He took Flagyl without any difficulty per his report. I have encouraged the patient to hold any further doses of cefepime at this point until he has discussed with his surgeon about her long-term management plan with his IV antibiotics as it appears the patient is approaching a time where these could be discontinued given his continued normal white count, absence of free fluid on CT that I performed 2 days ago, and no further drain output. He has verbalized understanding. He has been able to tolerate oral intake after administration of IV ondansetron. Patient was given IV fluids and a small amount of pain control here in the emergency department. At this time will discharge with return precautions and follow-up recommendations. Verbal discharge instructions given a the bedside and opportunity for questions given. Medication warnings reviewed. Patient is in agreement with this plan and has verbalized understanding of return precautions and the need for follow-up with the surgeon within the next 24 hours. - Vital Signs Vital signs: Temp Pulse Resp BP Pulse Ox 98.3 F 78 18 120/85 98 04/22/17 23:45 04/22/17 23:45 04/22/17 23:45 04/22/17 23:45 04/22/17 23:45 - Laboratory Result Diagrams: 04/22/17 20:35 04/22/17 20:35 Laboratory results interpreted by me: 04/22/17 04/22/17 20:35 20:35 Hgb 12.0 L MCHC 31.7 L RDW 21.2 H Monocytes % (Manual) 2 L Eosinophils % (Manual) 7 H Basophils % (Manual) 3 H Chloride 108 H Discharge - Discharge Clinical Impression: Ulcerative (chronic) enterocolitis Qualifiers: Digestive disease complication type: unspecified complication Qualified Code(s) : K51.019 - Ulcerative (chronic) pancolitis with unspecified complications Vomiting Qualifiers: Vomiting type: unspecified Vomiting Intractability: non-intractable Nausea presence: with nausea Qualified Code(s): R11.2 - Nausea with vomiting, unspecified Medication side effect Qualifiers: Encounter type: initial encounter Qualified Code(s): T88.7XXA - Unspecified adverse effect of drug or medicament, initial encounter Condition: Good Disposition: HOME, SELF-CARE Additional Instructions: Please hold off on additional cefepime dosing until you have discussed with your surgeon as it appears that this is causing your symptoms. Return for any additional concerns he may have including persistent vomiting, worsening pain, passing out, fever greater than 100.4F, or any other symptoms that are worrisome to you. Referrals: EVIN CHURCH MD [Primary Care Provider] - Follow up as needed
[2017-04-22] MEDS ORDERED: PROMETHAZINE HCL INJ 50 MG/1 ML VIAL IM ONE (23:11)
[2017-04-22] MEDS ORDERED: PROMETHAZINE HCL INJ 25 MG/1 ML VIAL ONE (23:17)
[2017-04-22 23:45] VITALS: BP 120/85
== END 2017-04-22 23:51 | disposition home or self-care (01) ==
LOC: ER 19:57
DX: R11.2 Nausea with vomiting, unspecified (principal); T36.1X5A Adverse effect of cephalosporins and other beta-lactam antibiotics, initial encounter; K51.019 Ulcerative (chronic) pancolitis with unspecified complications; R10.30 Lower abdominal pain, unspecified; Z88.0 Allergy status to penicillin; Z87.891 Personal history of nicotine dependence; Z90.49 Acquired absence of other specified parts of digestive tract
CPT/HCPCS: 99284; 96372; 96361; 96374; 96375; 36415; 83690; 85025; 80053; J1170; J2550; J2405; J7030

== ENCOUNTER 2017-04-30 01:37 | Emergency (ER) | payer SELFPAY ==
[2017-04-30] MEDS ORDERED: NORMAL SALINE 1000 ML 1,000 ML IV ONE (03:28)
[2017-04-30] MEDS ORDERED: HYDROMORPHONE HCL INJ/PF 2 MG/ML AMPULE IV ONE ×3 (03:28→09:55)
[2017-04-30] MEDS ORDERED: ONDANSETRON HCL INJ/PF 4 MG/2 ML SDV IV ONE ×2 (03:28→09:55)
--- NOTE | 2017-04-30 03:28 | ER Document Report ---
ED General - General Chief Complaint: Allergic Reaction Stated Complaint: POSSIBLE REACTION TO MEDICATION Time Seen by Provider: 04/30/17 03:18 Notes: Patient is a 36-year-old male that comes emergency department for chief complaint of side effects related to his cefepime antibiotic. He has a PICC line, he is supposed to be taking Flagyl 3 times a day as well as cefepime twice a day through the PICC line. He states he was seen here for this before, told to follow-up with his provider, he states his provider wants him to continue taking it. He states yesterday he did not take it because he forgot to take it with him on a car ride, states he was fine, states he began taking it again today and within a few minutes of taking it he starts vomiting. He had ulcerative colitis, he had a colectomy secondary to it, has a ileostomy, has a percutaneous drainage remaining, is passing normal looking stool into his ostomy bag, still has drainage in his drainage bag. No fevers, no complaints otherwise. TRAVEL OUTSIDE OF THE [place] IN LAST 30 DAYS: No - Related Data Allergies/Adverse Reactions: Penicillins Allergy (Mild, Verified 04/21/17 22:07) rash/hives Past Medical History - General Information source: Patient - Social History Smoking Status: Never Smoker Frequency of alcohol use: None Drug Abuse: None Lives with: Family Family History: CAD, CVA, DM, Hyperlipidemia, Hypertension, Malignancy - Past Medical History Cardiac Medical History: Denies: Hx Heart Attack, Hx Hypertension Pulmonary Medical History: Denies: Hx Asthma, Hx Bronchitis, Hx COPD, Hx Pneumonia Neurological Medical History: Denies: Hx Seizures Renal/ Medical History: Denies: Hx Peritoneal Dialysis GI Medical History: Reports: Hx Ulcer - Ulcerative colitis, Hx Ulcerative Colitis, Hx Colonoscopy Musculoskeltal Medical History: Denies Hx Arthritis Past Surgical History: Reports: Hx Abdominal Surgery - colon/colostomy, Hx Appendectomy - February 2015, Hx Vascular Surgery - Port placement - Immunizations Immunizations up to date: Yes Hx Diphtheria, Pertussis, Tetanus Vaccination: Yes Review of Systems - Review of Systems Constitutional: No symptoms reported EENT: No symptoms reported Cardiovascular: No symptoms reported Respiratory: No symptoms reported Gastrointestinal: See HPI Genitourinary: No symptoms reported Male Genitourinary: No symptoms reported Musculoskeletal: No symptoms reported Skin: No symptoms reported Hematologic/Lymphatic: No symptoms reported Neurological/Psychological: No symptoms reported Physical Exam - Vital signs Vitals: Temp Pulse Resp BP Pulse Ox 97.1 F 118 H 18 132/99 H 98 04/30/17 01:49 04/30/17 01:49 04/30/17 01:49 04/30/17 01:49 04/30/17 01:49 Interpretation: Normal - General General appearance: Appears well, Alert In distress: None - Sitting up in the bed, alert, well-appearing - HEENT Head: Normocephalic, Atraumatic Eyes: Normal Pupils: PERRL - Respiratory Respiratory status: No respiratory distress Chest status: Nontender Breath sounds: Normal Chest palpation: Normal - Cardiovascular Rhythm: Regular, Tachycardia - Borderline Heart sounds: Normal auscultation, S1 appreciated, S2 appreciated Murmur: No - Abdominal Inspection: Other - Ileostomy bag in place in the right midabdomen (contains normal stool), there is a drain in place in the left lower abdomen (contains slightly off color but mostly clear fluid). Wounds and skin appear normal. No erythema, abnormal heat, or significant tenderness. Bowel sounds: Normal Tenderness: Nontender. No: Tender, Guarding - Back Back: Normal, Nontender - Extremities General upper extremity: Normal inspection, Nontender, Normal color, Normal ROM , Normal temperature General lower extremity: Normal inspection, Nontender, Normal color, Normal ROM , Normal temperature, Normal weight bearing. No: Nazanin's sign - Neurological Neuro grossly intact: Yes Cognition: Normal Orientation: AAOx4 Perla Coma Scale Eye Opening: Spontaneous [place]la Coma Scale Verbal: Oriented [place] Coma Scale Motor: Obeys Commands Perla Coma Scale Total: 15 Speech: Normal Motor strength normal: LUE, RUE, LLE, RLE Sensory: Normal - Psychological Associated symptoms: Normal affect, Normal mood - Skin Skin Temperature: Warm Skin Moisture: Dry Skin Color: Normal Course - Re-evaluation Re-evalutation: Patient tachycardic initially, however he is well-appearing, his abdomen is nontender, no evidence of postop skin infection, no fever. Ileostomy bag has normal-appearing stool, there is fluid in his drain as well. CBC, chemistry unremarkable. Radiology system is down without images being sent or read, this delayed the acute abdominal series. He has had a recent postoperative CAT scan which was normal. Called and spoke with Dr. Linda, rn oncology clinical for Dr. Bond. Discussed patient 's presentation, discussed labs, discussed patient's concerns about his medications and his complaints. He finds it strange as well that patient is vomiting with the cefepime as opposed to the Flagyl. He recommends that patient take the Flagyl, wait 2 hours, take Zofran or Phenergan, and then take the cefepime basically immediately afterwards. He recommends trying this here first. He also states that he will contact Dr. Bond to have him contact the patient for specific recommendations for changing his antibiotic since we do not know the particular bacteria that we are trying to treat. Patient initially had told me he was doing this, however when I discussed this with patient again he states that he actually has not been taking is nausea medication with his antibiotics. I recommended staying and performing this recommended organization for his medicine, he states he wants to do it at home instead. He states he will be awaiting the call for adjustments if it does not work, states that he has a close follow-up within the next few days to see the surgeon. Discussed return precautions, patient states understanding and agreement. - Vital Signs Vital signs: Temp Pulse Resp BP Pulse Ox 98.5 F 96 17 112/78 98 04/30/17 05:04 04/30/17 05:04 04/30/17 05:04 04/30/17 05:04 04/30/17 05:04 - Laboratory Result Diagrams: 04/30/17 04:00 04/30/17 04:00 Laboratory results interpreted by me: 04/30/17 04/30/17 04:00 04:00 Hgb 12.2 L Hct 37.5 L RDW 20.3 H Eosinophils % 9.4 H Basophils % 2.5 H Absolute Eosinophils 0.7 H AST 13 L ALT 15 L Discharge - Discharge Clinical Impression: Vomiting Qualifiers: Vomiting type: unspecified Vomiting Intractability: non-intractable Nausea presence: with nausea Qualified Code(s): R11.2 - Nausea with vomiting, unspecified Medication side effect Qualifiers: Encounter type: subsequent encounter Qualified Code(s): T88.7XXD - Unspecified adverse effect of drug or medicament, subsequent encounter Condition: Stable Disposition: HOME, SELF-CARE Additional Instructions: I spoke with Dr. Linda, rn oncology clinical for Dr. oBnd. He will be contacting your provider who will then be contacting you with recommendations. At this time the recommendation is to take Flagyl, wait 2 hours, then take either your Zofran or your Phenergan followed by taking your cefepime dose. Follow-up with your appointment as planned. Return for any concerning symptoms including fever of 100.4 or greater, uncontrolled vomiting, severe pain, or any other concerning symptoms. Referrals: EVIN CHURCH MD [Primary Care Provider] - Follow up as needed
[2017-04-30 04:21] LABS: ABSOLUTE BASOPHILS # (AUTO) 0.2 10^3/uL (0.0-0.2); ABSOLUTE EOSINOPHILS # (AUTO) 0.7 10^3/uL (0.0-0.6); ABSOLUTE LYMPHOCYTES (AUTO) 1.4 10^3/uL (0.5-4.7); ABSOLUTE MONOCYTES (AUTO) 0.6 10^3/uL (0.1-1.4); ABSOLUTE NEUT (AUTO) 4.6 10^3/uL (1.7-8.2); BASOPHILS % (AUTO) 2.5 % (0-2); EOSINOPHILS % (AUTO) 9.4 % (0-6); HEMATOCRIT 37.5 % (37.9-51.0); HEMOGLOBIN 12.2 g/dL (13.5-17.0); LYMPHOCYTES % (AUTO) 18.7 % (13-45); MEAN CORPUSCULAR HEMOGLOBIN 27.6 pg (27.0-33.4); MEAN CORPUSCULAR HGB CONC 32.6 g/dL (32.0-36.0); MEAN CORPUSCULAR VOLUME 85 fl (80-97); MONOCYTES % (AUTO) 8.3 % (3-13); PLATELET COUNT 228 10^3/uL (150-450); RED BLOOD COUNT 4.43 10^6/uL (4.35-5.55); RED CELL DISTRIBUTION WIDTH 20.3 % (11.5-14.0); SEGMENTED NEUTROPHILS % (AUTO) 61.1 % (42-78); TOTAL CELLS COUNTED % (AUTO) 100 %; WHITE BLOOD COUNT 7.5 10^3/uL (4.0-10.5)
[2017-04-30 04:24] LABS: ALANINE AMINOTRANSFERASE 15 U/L (21-72); ALKALINE PHOSPHATASE 61 U/L (38-126); ANION GAP 12 (5-19); ASPARTATE AMINO TRANSFERASE 13 U/L (17-59); BILIRUBIN,DIRECT 0.2 mg/dL (0.0-0.4); BILIRUBIN,TOTAL 0.2 mg/dL (0.2-1.3); BLOOD UREA NITROGEN 9 mg/dL (7-20); CALCIUM 9.3 mg/dL (8.4-10.2); CARBON DIOXIDE 24 mmol/L (22-30); CHLORIDE 103 mmol/L (98-107); GLUCOSE 106 mg/dL (75-110); SODIUM 138.7 mmol/L (137-145)
[2017-04-30 10:22] VITALS: BP 124/91
--- NOTE | 2017-04-30 10:55 | RADIOLOGY REPORT (SQ) ---
EXAM DESCRIPTION: ACUTE ABDOMEN SERIES COMPLETED DATE/TIME: 04/30/2017 5:26 am REASON FOR STUDY: post op, vomiting COMPARISON: CT abdomen pelvis 04/20/2017, 03/08/2017, 02/06/2017 NUMBER OF VIEWS: Three views. TECHNIQUE: Frontal chest, supine abdomen and upright abdomen radiographic images acquired. LIMITATIONS: None. FINDINGS: CHEST: Minimal bandlike atelectasis along the right minor fissure. No fluffy alveolar inf iltrates worrisome for edema or pneumonia. No pleural effusion. No pneumothorax. Cardiac silhouett e size, natalia unremarkable. Unchanged right-sided permanent central line with the tip in the superior vena cava. FREE AIR: None. No abnormal gas collections. BOWEL GAS PATTERN: Nonobstructive pattern. No dilated loops or air fluid levels. CALCIFICATIONS: No suspicious calcifications. HARDWARE: Surgical clips in the left upper quadrant of abdomen post partial left colectomy. Left-roman ed pigtail catheter superimposed over the upper 3rd left SI joint similar compared to CT 04/20/2017. SOFT TISSUES: No gross mass or suggestion of organomegaly. BONES: No acute fracture. No worrisome bone lesions. OTHER: No other significant finding. IMPRESSION: NO RADIOGRAPHIC EVIDENCE FOR ACUTE ABDOMINAL DISEASE. COMMENT: Delay in issuing report since 0526 hours, unable to move images from the aquisition hardwar e into pacs TECHNICAL DOCUMENTATION: JOB ID: [id number] [employer]- All Rights Reserved
== END 2017-04-30 10:58 | disposition home or self-care (01) ==
LOC: ER 01:37
DX: T88.7XXD Unspecified adverse effect of drug or medicament, subsequent encounter (principal); R11.2 Nausea with vomiting, unspecified; Z79.899 Other long term (current) drug therapy
CPT/HCPCS: 96376; 99284; 96361; 96374; 96375; 36415; 83690; 85025; 80053; 74022; J1170; J2405; J7030

== ENCOUNTER 2017-04-30 22:04 | Emergency (ER) | payer SELFPAY ==
--- NOTE | 2017-05-01 00:01 | ER Document Report ---
HPI - HPI Patient complains to provider of: Nausea and epigastric abdominal pain Pain Level: 4 - REPRODUCTIVE Reproductive: DENIES: : Past Medical History - Social History Family History: CAD, CVA, DM, Hyperlipidemia, Hypertension, Malignancy - Past Medical History Cardiac Medical History: Denies: Hx Heart Attack, Hx Hypertension Pulmonary Medical History: Denies: Hx Asthma, Hx Bronchitis, Hx COPD, Hx Pneumonia Neurological Medical History: Denies: Hx Seizures Renal/ Medical History: Denies: Hx Peritoneal Dialysis GI Medical History: Reports: Hx Ulcer - Ulcerative colitis, Hx Ulcerative Colitis, Hx Colonoscopy Musculoskeltal Medical History: Denies Hx Arthritis Past Surgical History: Reports: Hx Abdominal Surgery - colon/colostomy, Hx Appendectomy - February 2015, Hx Vascular Surgery - Port placement - Immunizations Immunizations up to date: Yes Hx Diphtheria, Pertussis, Tetanus Vaccination: Yes Vertical Provider Document - INFECTION CONTROL TRAVEL OUTSIDE OF THE [place] IN LAST 30 DAYS: No - RESPIRATORY O2 Sat by Pulse Oximetry: 100 Course - Vital Signs Vital signs: Temp Pulse Resp BP Pulse Ox 97.7 F 108 H 18 114/86 H 100 04/30/17 22:09 04/30/17 22:09 04/30/17 22:09 04/30/17 22:09 04/30/17 22:09
[2017-05-01] MEDS ORDERED: LIDOCAINE 2% VISCOUS SOLN 20 ML UDCUP PO ONE (00:32)
[2017-05-01] MEDS ORDERED: LANSOPRAZOLE 30 MG TAB.RAP.DR PO ONE (00:32)
[2017-05-01] MEDS ORDERED: MAG HYDROX/AL HYDROX/SIMETH SUSP 30 ML UDCUP PO ONE (00:32)
--- NOTE | 2017-05-01 00:32 | ER Document Report ---
ED GI/ - General Chief Complaint: Nausea Stated Complaint: NAUSEA Time Seen by Provider: 05/01/17 00:01 TRAVEL OUTSIDE OF THE [place] IN LAST 30 DAYS: No - Related Data Allergies/Adverse Reactions: Penicillins Allergy (Mild, Verified 04/21/17 22:07) rash/hives Past Medical History - Social History Family History: CAD, CVA, DM, Hyperlipidemia, Hypertension, Malignancy - Past Medical History Cardiac Medical History: Denies: Hx Heart Attack, Hx Hypertension Pulmonary Medical History: Denies: Hx Asthma, Hx Bronchitis, Hx COPD, Hx Pneumonia Neurological Medical History: Denies: Hx Seizures Renal/ Medical History: Denies: Hx Peritoneal Dialysis GI Medical History: Reports: Hx Ulcer - Ulcerative colitis, Hx Ulcerative Colitis, Hx Colonoscopy Musculoskeltal Medical History: Denies Hx Arthritis Past Surgical History: Reports: Hx Abdominal Surgery - colon/colostomy, Hx Appendectomy - February 2015, Hx Vascular Surgery - Port placement - Immunizations Immunizations up to date: Yes Hx Diphtheria, Pertussis, Tetanus Vaccination: Yes Physical Exam - Vital signs Vitals: Temp Pulse Resp BP Pulse Ox 97.7 F 108 H 18 114/86 H 100 04/30/17 22:09 04/30/17 22:09 04/30/17 22:09 04/30/17 22:09 04/30/17 22:09 Course - Vital Signs Vital signs: Temp Pulse Resp BP Pulse Ox 97.7 F 108 H 18 114/86 H 100 04/30/17 22:09 04/30/17 22:09 04/30/17 22:09 04/30/17 22:09 04/30/17 22:09 Discharge - Discharge Referrals: EVIN CHURCH MD [Primary Care Provider] - Follow up as needed
[2017-05-01] MEDS ORDERED: ONDANSETRON 4 MG TAB.RAPDIS PO ONE (00:44)
--- NOTE | 2017-05-01 00:44 | ER Document Report ---
ED Medical Screen (RME) - General Chief Complaint: Nausea Stated Complaint: NAUSEA Time Seen by Provider: 05/01/17 00:01 Mode of Arrival: Ambulatory Information source: Patient Notes: 36-year-old male complains that he gets nausea and epigastric pain after cefepime IV that he uses in his port at 2030 tonight. He states that Zofran and Dilaudid stops the pain. He came into the emergency room and saw Randy last night for similar symptoms and his doctor in [place] told him to continue it when he consulted with him.. He is prescribed oxycodone 15 mg #60 every month for twice a day but he has been taking it 3 times a day. He did not run out. His last dose of opiate was at 730 this morning. The other problem he has today is that when he irrigated his percutaneous abdominal drain today with normal saline as usual he got a bloody drainage which he has never had before. The pt states he has an appointment tomorrow with the surgeon in [place]. I discussed the pt with dr arias, no opiates will be given. TRAVEL OUTSIDE OF THE [place] IN LAST 30 DAYS: No - Related Data Allergies/Adverse Reactions: Penicillins Allergy (Mild, Verified 04/21/17 22:07) rash/hives Past Medical History - Past Medical History Cardiac Medical History: Denies: Hx Heart Attack, Hx Hypertension Pulmonary Medical History: Denies: Hx Asthma, Hx Bronchitis, Hx COPD, Hx Pneumonia Neurological Medical History: Denies: Hx Seizures Renal/ Medical History: Denies: Hx Peritoneal Dialysis GI Medical History: Reports: Hx Ulcer - Ulcerative colitis, Hx Ulcerative Colitis, Hx Colonoscopy Musculoskeltal Medical History: Denies Hx Arthritis Past Surgical History: Reports: Hx Abdominal Surgery - colon/colostomy, Hx Appendectomy - February 2015, Hx Vascular Surgery - Port placement - Immunizations Immunizations up to date: Yes Hx Diphtheria, Pertussis, Tetanus Vaccination: Yes Physical Exam - Vital signs Vitals: Temp Pulse Resp BP Pulse Ox 97.7 F 108 H 18 114/86 H 100 04/30/17 22:09 04/30/17 22:09 04/30/17 22:09 04/30/17 22:09 04/30/17 22:09 Course - Vital Signs Vital signs: Temp Pulse Resp BP Pulse Ox 97.7 F 108 H 18 114/86 H 100 04/30/17 22:09 04/30/17 22:09 04/30/17 22:09 04/30/17 22:09 04/30/17 22:09 Doctor's Discharge - Discharge Referrals: EVIN CHURCH MD [Primary Care Provider] - Follow up as needed
[2017-05-01 01:31] LABS: ABSOLUTE BASOPHILS # (AUTO) 0.1 10^3/uL (0.0-0.2); ABSOLUTE EOSINOPHILS # (AUTO) 0.3 10^3/uL (0.0-0.6); ABSOLUTE MONOCYTES (AUTO) 0.6 10^3/uL (0.1-1.4); ABSOLUTE NEUT (AUTO) 4.8 10^3/uL (1.7-8.2); BASOPHILS % (AUTO) 1.2 % (0-2); HEMATOCRIT 43.5 % (37.9-51.0); HEMOGLOBIN 14.2 g/dL (13.5-17.0); LYMPHOCYTES % (AUTO) 15.1 % (13-45); MEAN CORPUSCULAR HEMOGLOBIN 28.1 pg (27.0-33.4); MEAN CORPUSCULAR HGB CONC 32.7 g/dL (32.0-36.0); MEAN CORPUSCULAR VOLUME 86 fl (80-97); MONOCYTES % (AUTO) 9.4 % (3-13); PLATELET COUNT 245 10^3/uL (150-450); RED BLOOD COUNT 5.07 10^6/uL (4.35-5.55); SEGMENTED NEUTROPHILS % (AUTO) 70.3 % (42-78); TOTAL CELLS COUNTED % (AUTO) 100 %; WHITE BLOOD COUNT 6.9 10^3/uL (4.0-10.5)
[2017-05-01 01:35] LABS: ALANINE AMINOTRANSFERASE 17 U/L (21-72); ALBUMIN 4.6 g/dL (3.5-5.0); ALKALINE PHOSPHATASE 80 U/L (38-126); ANION GAP 13 (5-19); ASPARTATE AMINO TRANSFERASE 27 U/L (17-59); BILIRUBIN,DIRECT 0.4 mg/dL (0.0-0.4); BILIRUBIN,TOTAL 0.5 mg/dL (0.2-1.3); BLOOD UREA NITROGEN 6 mg/dL (7-20); CALCIUM 10.8 mg/dL (8.4-10.2); CARBON DIOXIDE 29 mmol/L (22-30); CHLORIDE 104 mmol/L (98-107); GLUCOSE 103 mg/dL (75-110); LIPASE 96.4 U/L (23-300); POTASSIUM 4.4 mmol/L (3.6-5.0); SODIUM 145.8 mmol/L (137-145); TOTAL PROTEIN 8.4 g/dL (6.3-8.2)
[2017-05-01] MEDS ORDERED: PROMETHAZINE HCL INJ 25 MG/1 ML VIAL IM ONE (02:16)
[2017-05-01] MEDS ORDERED: HYDROMORPHONE HCL INJ/PF 2 MG/ML AMPULE IM ONE (02:17)
--- NOTE | 2017-05-01 02:36 | ER Document Report ---
ED General - General Chief Complaint: Nausea Stated Complaint: NAUSEA Time Seen by Provider: 05/01/17 00:01 Mode of Arrival: Ambulatory Notes: Patient is a 36-year-old male who presents with complaint of epigastric pain and vomiting after receiving his Rocephin through PICC line. This is happened several times to the patient in the past. He is actually been here several times for this. He is actually scheduled to go to [facility] to see his physician, Dr. Peter. He is also scheduled to see his surgeon tomorrow. Patient also mentions that today he had a small bowel movement from the rectum. There was liquid stool without blood. He also mentioned that he had a little bit of blood-tinged fluid from his drain after he flushed. He also mentions that his ileostomy has increased output. No fevers. TRAVEL OUTSIDE OF THE [place] IN LAST 30 DAYS: No - Related Data Allergies/Adverse Reactions: Penicillins Allergy (Mild, Verified 04/21/17 22:07) rash/hives Past Medical History - General Information source: Patient - Social History Smoking Status: Unknown if Ever Smoked Frequency of alcohol use: None Drug Abuse: None Family History: CAD, CVA, DM, Hyperlipidemia, Hypertension, Malignancy Patient has suicidal ideation: No Patient has homicidal ideation: No - Past Medical History Cardiac Medical History: Denies: Hx Heart Attack, Hx Hypertension Pulmonary Medical History: Denies: Hx Asthma, Hx Bronchitis, Hx COPD, Hx Pneumonia Neurological Medical History: Denies: Hx Seizures Renal/ Medical History: Denies: Hx Peritoneal Dialysis GI Medical History: Reports: Hx Ulcer - Ulcerative colitis, Hx Ulcerative Colitis, Hx Colonoscopy Musculoskeltal Medical History: Denies Hx Arthritis Past Surgical History: Reports: Hx Abdominal Surgery - colon/colostomy, Hx Appendectomy - February 2015, Hx Vascular Surgery - Port placement - Immunizations Immunizations up to date: Yes Hx Diphtheria, Pertussis, Tetanus Vaccination: Yes Review of Systems - Review of Systems Notes: My Normal Review Basic REVIEW OF SYSTEMS: CONSTITUTIONAL : Denies fever, chills, or sweats. Denies recent illness. EENT: Denies eye, ear, throat, or mouth pain or symptoms. Denies nasal or sinus congestion. CARDIOVASCULAR: Denies chest pain. RESPIRATORY: Denies cough, cold, or chest congestion. Denies shortness of breath, difficulty breathing, or wheezing. GASTROINTESTINAL: Increased ileostomy output. Epigastric abdominal pain after receiving Rocephin. MUSCULOSKELETAL: Denies neck or back pain or joint pain or swelling. SKIN: Denies rash or skin lesions. NEUROLOGICAL: Denies altered mental status or loss of consciousness. Denies headache. Denies weakness or paralysis or loss of use of either side. Denies problems with gait or speech. Denies sensory or motor loss. ALL OTHER SYSTEMS REVIEWED AND NEGATIVE. Physical Exam - Vital signs Vitals: Temp Pulse Resp BP Pulse Ox 97.7 F 108 H 18 114/86 H 100 04/30/17 22:09 04/30/17 22:09 04/30/17 22:09 04/30/17 22:09 04/30/17 22:09 - Notes Notes: General Appearance: Well nourished, alert, cooperative, no acute distress, no obvious discomfort. Well-appearing. Vitals: reviewed, See vital signs table. Head: no swelling or tenderness to the head Eyes: PERRL, EOMI, Conjuctiva clear Mouth: No decreasd moisture Throat: No tonsillar inflammation, No airway obstruction, No lymphadenopathy Neck: Supple, no neck tenderness Lungs: No wheezing, No rales, No rhonci, No accessory muscle use, good air exchange bilaterally. Heart: Normal rate, Regular rythm, No murmur, no rub Abdomen: Abdomen soft and nontender to palpation. Ileostomy in right lower quadrant has seedy appearing stool without blood. Drain from left lower quadrant has blood-tinged fluid in the back. There is no irritation or redness around the ileostomy or drain sites. Extremities: strength 5/5 in all extremities, good pulses in all extremities, no swelling or tenderness in the extremities, no edema. Skin: warm, dry, appropriate color, no rash Neuro: speech clear, oriented x 3, normal affect, responds appropriately to questions. Course - Re-evaluation Re-evalutation: 05/01/17 06:01 Patient clinically looks very well. His laboratory evaluation is unremarkable. I did call and speak with Dr. Maurice from [facility]. I did inform her of the patient's new symptoms today. I told her that I feel that clinically he looks very well and I feel he still safe to be discharged follow-up with them tomorrow as scheduled. She also recommended follow-up with the surgeon which patient actually has an appointment with the surgeon tomorrow at 1 PM. Patient has no fevers and otherwise looks well and will be discharged home to follow-up with her doctor tomorrow. Even though I did tell Dr. Maurice about the patient's her symptoms I informed Mr. Jimenez that he needs to also tell his surgeon tomorrow about his new symptoms including increased output from his ileostomy, blood-tinged fluid from his drain, and the stool that came from his rectum. Patient agrees with plan will be discharged home. Patient encouraged to return to ER for severe pain, fevers, vomiting, or feels unwell. Dictation of this chart was performed using voice recognition software; therefore, there may be some unintended grammatical errors. - Vital Signs Vital signs: Temp Pulse Resp BP Pulse Ox 98.9 F 94 19 122/76 100 05/01/17 02:50 05/01/17 02:50 05/01/17 02:50 05/01/17 02:50 05/01/17 02:50 - Laboratory Result Diagrams: 05/01/17 01:00 05/01/17 01:00 Laboratory results interpreted by me: 05/01/17 05/01/17 01:00 01:00 RDW 20.0 H Sodium 145.8 H BUN 6 L Calcium 10.8 H ALT 17 L Total Protein 8.4 H Discharge - Discharge Clinical Impression: Abdominal pain Qualifiers: Abdominal location: epigastric Qualified Code(s): R10.13 - Epigastric pain Vomiting Qualifiers: Vomiting type: unspecified Vomiting Intractability: non-intractable Nausea presence: with nausea Qualified Code(s): R11.2 - Nausea with vomiting, unspecified Condition: Good Disposition: HOME, SELF-CARE Additional Instructions: Please follow up at [facility] as scheduled tomorrow. Please return to the ER immediately if you develop fevers, intractable vomiting, or if you have further concerns. Prescriptions: Promethazine HCl [Phenergan 25 mg Tablet] 1 tab PO Q6H PRN #15 tablet PRN Reason: Referrals: EVIN CHURCH MD [Primary Care Provider] - Follow up as needed
--- NOTE | 2017-05-01 02:41 | RADIOLOGY REPORT (SQ) ---
EXAM DESCRIPTION: ACUTE ABDOMEN SERIES CLINICAL HISTORY: epigastric abd pain COMPARISON: None. FINDINGS: Single view of the chest with upright and spine views of the abdomen. Right-sided dual lumen Mediport. Cardiomediastinal silhouette is otherwise unremarkable. No consolidation, pneumothorax, or pleural effusion. Upright spine views of the abdomen demonstrates left abdominal pigtail drainage catheter. Air-filled loops of nondilated large and small bowel. No acute osseous abnormalities. Postoperative change in the left abdomen. No free intraperitoneal air. IMPRESSION: 1. No acute pulmonary process. 2. Nonobstructive bowel gas pattern.
[2017-05-01 02:51] VITALS: BP 122/76
== END 2017-05-01 02:51 | disposition home or self-care (01) ==
LOC: ER 22:04
DX: R10.13 Epigastric pain (principal); R11.2 Nausea with vomiting, unspecified
CPT/HCPCS: 99284; 96372; 36415; 83690; 85025; 80053; 74022; S0119; J3490; J1170; J2550

== ENCOUNTER 2017-05-12 23:10 | Emergency (ER) | payer SELFPAY ==
--- NOTE | 2017-05-12 23:44 | ER Document Report ---
ED Medical Screen (RME) - General Chief Complaint: Abdominal Pain Stated Complaint: ABDOMINAL PAIN Time Seen by Provider: 05/12/17 23:37 Notes: 36-year-old male, comes by EMS for chief complaint of abdominal pain, pain is in his mid abdomen and radiates up to his right upper quadrant, he states he felt very nauseated but this resolved after EMS gave him Zofran. He has a history of ulcerative colitis, status post colectomy with ileostomy bag in place , states that he had blood in his back earlier. He states he emptied it and did not have blood afterwards. He denies fever. TRAVEL OUTSIDE OF THE [place] IN LAST 30 DAYS: No - Related Data Allergies/Adverse Reactions: Penicillins Allergy (Mild, Verified 04/21/17 22:07) rash/hives Past Medical History - Past Medical History Cardiac Medical History: Denies: Hx Heart Attack, Hx Hypertension Pulmonary Medical History: Denies: Hx Asthma, Hx Bronchitis, Hx COPD, Hx Pneumonia Neurological Medical History: Denies: Hx Seizures Renal/ Medical History: Denies: Hx Peritoneal Dialysis GI Medical History: Reports: Hx Ulcer - Ulcerative colitis, Hx Ulcerative Colitis, Hx Colonoscopy Musculoskeltal Medical History: Denies Hx Arthritis Past Surgical History: Reports: Hx Abdominal Surgery - colon/colostomy, Hx Appendectomy - February 2015, Hx Vascular Surgery - Port placement - Immunizations Immunizations up to date: Yes Hx Diphtheria, Pertussis, Tetanus Vaccination: Yes Physical Exam - Abdominal Tenderness: Tender - Patient reacts with pain with palpation of epigastric and right upper quadrant areas, no tenderness noted otherwise Course - Re-evaluation Re-evalutation: Patient reacting with pain with palpation of the epigastric and right upper quadrant areas, does not appear to be in distress, limited exam due to sitting position.
[2017-05-13] MEDS ORDERED: OXYCODONE HCL IR 5 MG TABLET PO ONE (01:04)
[2017-05-13 01:17] LABS: ABSOLUTE BASOPHILS # (AUTO) 0.2 10^3/uL (0.0-0.2); ABSOLUTE EOSINOPHILS # (AUTO) 0.4 10^3/uL (0.0-0.6); ABSOLUTE LYMPHOCYTES (AUTO) 2.1 10^3/uL (0.5-4.7); ABSOLUTE MONOCYTES (AUTO) 0.6 10^3/uL (0.1-1.4); ABSOLUTE NEUT (AUTO) 6.4 10^3/uL (1.7-8.2); BASOPHILS % (AUTO) 1.9 % (0-2); EOSINOPHILS % (AUTO) 4.5 % (0-6); HEMATOCRIT 42.1 % (37.9-51.0); HEMOGLOBIN 13.7 g/dL (13.5-17.0); LYMPHOCYTES % (AUTO) 21.3 % (13-45); MEAN CORPUSCULAR HEMOGLOBIN 27.5 pg (27.0-33.4); MEAN CORPUSCULAR HGB CONC 32.5 g/dL (32.0-36.0); MEAN CORPUSCULAR VOLUME 85 fl (80-97); MONOCYTES % (AUTO) 5.7 % (3-13); PLATELET COUNT 332 10^3/uL (150-450); RED BLOOD COUNT 4.98 10^6/uL (4.35-5.55); RED CELL DISTRIBUTION WIDTH 18.2 % (11.5-14.0); SEGMENTED NEUTROPHILS % (AUTO) 66.6 % (42-78); TOTAL CELLS COUNTED % (AUTO) 100 %; WHITE BLOOD COUNT 9.7 10^3/uL (4.0-10.5)
[2017-05-13 01:23] LABS: ALANINE AMINOTRANSFERASE 26 U/L (21-72); ALKALINE PHOSPHATASE 70 U/L (38-126); ANION GAP 12 (5-19); ASPARTATE AMINO TRANSFERASE 16 U/L (17-59); BILIRUBIN,DIRECT 0.2 mg/dL (0.0-0.4); BILIRUBIN,TOTAL 0.3 mg/dL (0.2-1.3); BLOOD UREA NITROGEN 8 mg/dL (7-20); CARBON DIOXIDE 25 mmol/L (22-30); CHLORIDE 106 mmol/L (98-107); GLUCOSE 93 mg/dL (75-110); LIPASE 106.2 U/L (23-300); POTASSIUM 4.5 mmol/L (3.6-5.0); SODIUM 143.2 mmol/L (137-145); TOTAL PROTEIN 6.8 g/dL (6.3-8.2)
--- NOTE | 2017-05-13 01:35 | ER Document Report ---
ED General - General Chief Complaint: Abdominal Pain Stated Complaint: ABDOMINAL PAIN Time Seen by Provider: 05/12/17 23:37 Notes: Patient is a 36-year-old male with a past medical history of ulcerative colitis status post partial colectomy with an ostomy in place, chronic abdominal pain, frequent visits to the emergency department for pain related complaints who presents with generalized abdominal cramping, nausea, vomiting and liquidy ostomy output for the past 36 hours. Patient describes the pain as a generalized abdominal pain. He states that the pain started approximately 6 hours after he ran out of his oxycodone. He admits he has had similar symptoms in the past when he has been out of pain medications. Nothing seems to improve his symptoms. He denies any fever. He is scheduled to see his surgeon tomorrow. He notes that he has had similar abdominal pain in the past but that this is different than his typical chronic abdominal pain. TRAVEL OUTSIDE OF THE [place] IN LAST 30 DAYS: No - Related Data Allergies/Adverse Reactions: Penicillins Allergy (Mild, Verified 04/21/17 22:07) rash/hives Past Medical History - General Information source: Patient - Social History Smoking Status: Never Smoker Frequency of alcohol use: None Drug Abuse: None Lives with: Family Family History: CAD, CVA, DM, Hyperlipidemia, Hypertension, Malignancy Patient has suicidal ideation: No Patient has homicidal ideation: No - Past Medical History Cardiac Medical History: Denies: Hx Heart Attack, Hx Hypertension Pulmonary Medical History: Denies: Hx Asthma, Hx Bronchitis, Hx COPD, Hx Pneumonia Neurological Medical History: Denies: Hx Seizures Renal/ Medical History: Denies: Hx Peritoneal Dialysis GI Medical History: Reports: Hx Ulcer - Ulcerative colitis, Hx Ulcerative Colitis, Hx Colonoscopy Musculoskeltal Medical History: Denies Hx Arthritis Past Surgical History: Reports: Hx Abdominal Surgery - colon/colostomy, Hx Appendectomy - February 2015, Hx Vascular Surgery - Port placement - Immunizations Immunizations up to date: Yes Hx Diphtheria, Pertussis, Tetanus Vaccination: Yes Review of Systems - Review of Systems Notes: Constitutional: Negative for fever. HENT: Negative for sore throat. Eyes: Negative for visual changes. Cardiovascular: Negative for chest pain. Respiratory: Negative for shortness of breath. Gastrointestinal: Positive for abdominal pain, vomiting and liquidy output from the ostomy Genitourinary: Negative for dysuria. Musculoskeletal: Negative for back pain. Skin: Negative for rash. Neurological: Negative for headaches, weakness or numbness. 10 point ROS negative except as marked above and in HPI. Physical Exam - Vital signs Vitals: Temp Pulse Resp BP Pulse Ox 98.8 F 100 18 124/94 H 98 05/13/17 02:03 05/13/17 02:03 05/13/17 02:03 05/13/17 02:03 05/13/17 02:03 Interpretation: Normal Notes: PHYSICAL EXAMINATION: GENERAL: Well-appearing, well-nourished and in no acute distress. HEAD: Atraumatic, normocephalic. EYES: Pupils equal round and reactive to light, extraocular movements intact, sclera anicteric, conjunctiva are normal. ENT: nares patent, oropharynx clear without exudates. Moist mucous membranes. NECK: Normal range of motion, supple without lymphadenopathy LUNGS: Breath sounds clear to auscultation bilaterally and equal. No wheezes rales or rhonchi. HEART: Regular rate and rhythm without murmurs ABDOMEN: Soft, mild upper abdominal pain to the epigastrium on palpation otherwise no localized tenderness. Brown, liquid output in the ostomy bag. Normoactive bowel sounds. No guarding, no rebound. No masses appreciated. EXTREMITIES: Normal range of motion, no pitting or edema. No cyanosis. NEUROLOGICAL: No focal neurological deficits. Moves all extremities spontaneously and on command. PSYCH: Normal mood, normal affect. SKIN: Warm, Dry, normal turgor, no rashes or lesions noted. Course - Re-evaluation Re-evalutation: 05/13/17 01:30 Patient presents with nausea, vomiting, loose ostomy output with a brownish reddish tinge as well as generalized abdominal pain that is been present for the past 24 hours. His pain did start after he ran out of his daily oxycodone that he normally takes I do suspect that he is having opiate withdrawal. Patient is mildly tremulous, admits that the symptoms began within 6 hours of his last dose of oxycodone, and has a clinical constellation to meet this diagnosis. His labs are unremarkable without any evidence of a leukocytosis, transaminitis or increased bilirubin level. He has mild upper abdominal tenderness on palpation without rebound or guarding. A bedside ultrasound does not demonstrate any evidence of acute cholecystitis, there is no gallbladder wall thickening, pericholecystic fluid and there are no stones visualized in the gallbladder. Regarding his concern of possible blood in the ostomy bag: His hemoglobin is effectively unchanged from his last visit in the emergency department and is currently within normal limits. The fluid itself does not appear to have any blood in it. It is a brownish, slightly red tinged color but there are no signs of juan blood. He is scheduled follow-up with his surgeon in the morning. His symptoms have improved after receiving a dose of oral oxycodone. At this time based on his reassuring exam, labs and vitals I do not believe repeat CT imaging the abdomen pelvis is appropriate as patient has had a very concerning number of these scans already and does not appear to have a clinical history to suggest any acute life-threatening intra-abdominal pathology that would warrant this imaging modality currently. At this time will discharge with return precautions and follow-up recommendations. Verbal discharge instructions given a the bedside and opportunity for questions given. Medication warnings reviewed. Patient is in agreement with this plan and has verbalized understanding of return precautions and the need for primary care follow-up in the next 24-72 hours. - Vital Signs Vital signs: Temp Pulse Resp BP Pulse Ox 98.8 F 100 18 124/94 H 98 05/13/17 02:03 05/13/17 02:03 05/13/17 02:03 05/13/17 02:03 05/13/17 02:03 - Laboratory Result Diagrams: 05/13/17 00:45 05/13/17 00:45 Laboratory results interpreted by me: 05/13/17 05/13/17 00:45 00:45 RDW 18.2 H AST 16 L Discharge - Discharge Clinical Impression: Opiate withdrawal, Loose stools, Chronic abdominal pain Vomiting Qualifiers: Vomiting type: unspecified Vomiting Intractability: non-intractable Nausea presence: with nausea Qualified Code(s): R11.2 - Nausea with vomiting, unspecified Additional Instructions: Your symptoms are likely secondary to opiate withdrawal. Please follow-up with your surgeon in the morning as scheduled. Return if you have worsening of your pain, persistent vomiting, develop a fever, or have any other symptoms that are worrisome to you. Referrals: EVIN CHURCH MD [Primary Care Provider] - Follow up as needed
[2017-05-13 02:06] VITALS: BP 124/94
== END 2017-05-13 02:06 | disposition home or self-care (01) ==
LOC: ER 23:10
DX: R11.2 Nausea with vomiting, unspecified (principal); F11.23 Opioid dependence with withdrawal; R19.5 Other fecal abnormalities; G89.29 Other chronic pain; R10.84 Generalized abdominal pain; Z90.49 Acquired absence of other specified parts of digestive tract; Z93.3 Colostomy status; Z88.0 Allergy status to penicillin
CPT/HCPCS: 36415; 80053; 83690; 85025; 99284

== ENCOUNTER 2017-05-18 03:27 | Emergency (ER) | payer SELFPAY ==
[2017-05-18] MEDS ORDERED: NORMAL SALINE 1000 ML 1,000 ML IV ONE (04:14)
--- NOTE | 2017-05-18 04:18 | ER Document Report ---
ED GI Bleed / Rectal Pain - General Chief Complaint: Bloody Stools Stated Complaint: BLOOD IN STOOL Time Seen by Provider: 05/18/17 03:47 Mode of Arrival: Ambulatory Information source: Patient Notes: Patient states that he has noticed blood in his ileostomy bag off and on this past week. Patient does have a history of ulcerative colitis and is status post colectomy in March of last year. Patient does state he has had some nausea and vomiting 6 episodes. Patient states that he does have chronic abdominal pain although his pain today seems to be a little more superior to where his chronic pain is. Patient does have an appointment with his GI doctor as well as surgeon in 3 days. Patient has been here multiple times this month with similar complaints as well as chronic abdominal pain. TRAVEL OUTSIDE OF THE [place] IN LAST 30 DAYS: No - HPI Patient complains to provider of: Other - Dark colored blood to ileostomy bag Onset: Last week Timing/Duration: Persistent Quality of pain: Cramping Pain Level: 3 Exacerbated by: Denies Relieved by: Denies Similar symptoms previously: Yes Recently seen / treated by doctor: Yes - Related Data Allergies/Adverse Reactions: Penicillins Allergy (Mild, Verified 04/21/17 22:07) rash/hives Past Medical History - General Information source: Patient - Social History Smoking Status: Never Smoker Chew tobacco use (# tins/day): No Frequency of alcohol use: None Drug Abuse: None Occupation: None Family History: CAD, CVA, DM, Hyperlipidemia, Hypertension, Malignancy Patient has suicidal ideation: No Patient has homicidal ideation: No - Past Medical History Cardiac Medical History: Denies: Hx Heart Attack, Hx Hypertension Pulmonary Medical History: Denies: Hx Asthma, Hx Bronchitis, Hx COPD, Hx Pneumonia Neurological Medical History: Denies: Hx Seizures Renal/ Medical History: Denies: Hx Peritoneal Dialysis GI Medical History: Reports: Hx Ulcer - Ulcerative colitis, Hx Ulcerative Colitis, Hx Colonoscopy Musculoskeltal Medical History: Denies Hx Arthritis Past Surgical History: Reports: Hx Abdominal Surgery - colon/colostomy, Hx Appendectomy - February 2015, Hx Vascular Surgery - Port placement - Immunizations Immunizations up to date: Yes Hx Diphtheria, Pertussis, Tetanus Vaccination: Yes Review of Systems - Review of Systems Constitutional: No symptoms reported. denies: Fever, Recent illness EENT: No symptoms reported Cardiovascular: No symptoms reported. denies: Chest pain, Dizziness Respiratory: No symptoms reported. denies: Cough, Short of breath Gastrointestinal: Abdominal pain, Nausea, Vomiting, Blood streaked bowels. denies: Diarrhea Genitourinary: No symptoms reported Male Genitourinary: No symptoms reported Musculoskeletal: No symptoms reported Skin: No symptoms reported Hematologic/Lymphatic: No symptoms reported Neurological/Psychological: No symptoms reported Physical Exam - Vital signs Vitals: Temp Pulse Resp BP Pulse Ox 97.9 F 95 18 130/41 H 99 05/18/17 03:38 05/18/17 03:38 05/18/17 03:38 05/18/17 03:38 05/18/17 03:38 - General General appearance: Appears well, Alert In distress: None - HEENT Head: Normocephalic, Atraumatic Eyes: Normal Conjunctiva: Normal Nasal: Normal Mouth/Lips: Normal Neck: Normal, Supple. No: Lymphadenopathy - Respiratory Respiratory status: No respiratory distress Chest status: Nontender Breath sounds: Normal. No: Rales, Rhonchi, Stridor, Wheezing Chest palpation: Normal - Cardiovascular Rhythm: Regular Heart sounds: S1 appreciated, S2 appreciated Murmur: No - Abdominal Inspection: Other - Ileostomy the right lower abdomen, scar to umbilical area Distension: No distension Bowel sounds: Normal Tenderness: Tender - Umbilical tenderness and supraumbilical tenderness - Back Back: Normal, Nontender. No: CVA tenderness - Extremities General upper extremity: Normal inspection, Normal ROM General lower extremity: Normal inspection, Normal ROM - Neurological Neuro grossly intact: Yes Cognition: Normal [place] Coma Scale Eye Opening: Spontaneous [place] Coma Scale Verbal: Oriented [place] Coma Scale Motor: Obeys Commands [place]la Coma Scale Total: 15 - Psychological Associated symptoms: Normal affect, Normal mood - Skin Skin Temperature: Warm Skin Moisture: Dry Skin Color: Normal Course - Re-evaluation Re-evalutation: 05/18/17 06:25 Call placed to [facility] for consultation with patient's GI doctor. 05/18/17 06:[address] Carrera at [facility] who is on for GI. Discussed patient's presentation, diagnostic test results and history. Dr. Carrera recommends evaluating the ostomy site as typically bleeding is usually superficial and at the surface especially in ostomies that are younger than 6 months old. Feels that patient does not need transfer or admission given stable vital signs and stable H&H. Reexamined patient's ostomy site, bag had been emptied and no longer has any blood-tinged stool. Site cleaned, no active bleeding noted. Patient educated on use of Desitin and ostomy site per GI recommendation. Patient does have an appointment in 3 days for follow-up with both surgeon and GI doctor in [place]. Patient encouraged to keep this appointment but should return immediately for any new or worsening symptoms. - Vital Signs Vital signs: Temp Pulse Resp BP Pulse Ox 98.2 F 79 16 111/66 100 05/18/17 06:27 05/18/17 06:27 05/18/17 06:27 05/18/17 06:27 05/18/17 06:27 - Laboratory Result Diagrams: 05/18/17 05:05 05/18/17 05:05 Laboratory results interpreted by me: 05/18/17 05/18/17 04:52 05:05 Hgb 12.6 L RDW 17.6 H Eosinophils % 6.2 H Urine Ascorbic Acid 40 H Labs- Entire Visit 05/18/17 05/18/17 05/18/17 04:52 04:52 04:52 WBC RBC Hgb Hct MCV MCH MCHC RDW Plt Count Seg Neutrophils % Lymphocytes % Monocytes % Eosinophils % Basophils % Absolute Neutrophils Absolute Lymphocytes Absolute Monocytes Absolute Eosinophils Absolute Basophils Platelet Comment Poikilocytosis Anisocytosis Ovalocytes Stomatocytes PT INR APTT Sodium Potassium Chloride Carbon Dioxide Anion Gap BUN Creatinine Est GFR ( Amer) Est GFR (Non-Af Amer) Glucose Calcium Total Bilirubin Direct Bilirubin Neonat Total Bilirubin Neonat Direct Bilirubin Neonat Indirect Bili AST ALT Alkaline Phosphatase Total Protein Albumin Lipase Urine Color Urine Appearance Urine pH Ur Specific [place] Urine Protein Urine Glucose (UA) Urine Ketones Urine Blood Urine Nitrite Urine Bilirubin Urine Urobilinogen Ur Leukocyte Esterase Urine WBC (Auto) Urine RBC (Auto) U Hyaline Cast (Auto) Urine Mucus (Auto) Urine Ascorbic Acid Stool Occult Blood POSITIVE Stool for White Cells NO WBCs SEEN C. difficile Tox (PCR) NEGATIVE 05/18/17 05/18/17 05/18/17 04:52 05:05 05:05 WBC 8.1 RBC 4.59 Hgb 12.6 L Hct 38.6 MCV 84 MCH 27.4 MCHC 32.5 RDW 17.6 H Plt Count 285 Seg Neutrophils % 60.4 Lymphocytes % 24.2 Monocytes % 8.0 Eosinophils % 6.2 H Basophils % 1.2 Absolute Neutrophils 4.9 Absolute Lymphocytes 2.0 Absolute Monocytes 0.6 Absolute Eosinophils 0.5 Absolute Basophils 0.1 Platelet Comment ADEQUATE Poikilocytosis SLIGHT Anisocytosis 1+ Ovalocytes SLIGHT Stomatocytes SLIGHT PT 12.8 INR 0.90 APTT 31.3 Sodium Potassium Chloride Carbon Dioxide Anion Gap BUN Creatinine Est GFR ( Amer) Est GFR (Non-Af Amer) Glucose Calcium Total Bilirubin Direct Bilirubin Neonat Total Bilirubin Neonat Direct Bilirubin Neonat Indirect Bili AST ALT Alkaline Phosphatase Total Protein Albumin Lipase Urine Color YELLOW Urine Appearance CLEAR Urine pH 5.0 Ur Specific [place] 1.021 Urine Protein NEGATIVE Urine Glucose (UA) NEGATIVE Urine Ketones NEGATIVE Urine Blood NEGATIVE Urine Nitrite NEGATIVE Urine Bilirubin NEGATIVE Urine Urobilinogen NEGATIVE Ur Leukocyte Esterase NEGATIVE Urine WBC (Auto) 0 Urine RBC (Auto) 0 U Hyaline Cast (Auto) 1 Urine Mucus (Auto) RARE Urine Ascorbic Acid 40 H Stool Occult Blood Stool for White Cells C. difficile Tox (PCR) 05/18/17 05:05 WBC RBC Hgb Hct MCV MCH MCHC RDW Plt Count Seg Neutrophils % Lymphocytes % Monocytes % Eosinophils % Basophils % Absolute Neutrophils Absolute Lymphocytes Absolute Monocytes Absolute Eosinophils Absolute Basophils Platelet Comment Poikilocytosis Anisocytosis Ovalocytes Stomatocytes PT INR APTT Sodium 139.8 Potassium 4.1 Chloride 106 Carbon Dioxide 26 Anion Gap 8 BUN 16 Creatinine 0.64 Est GFR ( Amer) > 60 Est GFR (Non-Af Amer) > 60 Glucose 96 Calcium 9.6 Total Bilirubin 0.2 Direct Bilirubin 0.1 Neonat Total Bilirubin Not Reportable Neonat Direct Bilirubin Not Reportable Neonat Indirect Bili Not Reportable AST 25 ALT 37 Alkaline Phosphatase 58 Total Protein 6.4 Albumin 3.6 Lipase 123.7 Urine Color Urine Appearance Urine pH Ur Specific [place] Urine Protein Urine Glucose (UA) Urine Ketones Urine Blood Urine Nitrite Urine Bilirubin Urine Urobilinogen Ur Leukocyte Esterase Urine WBC (Auto) Urine RBC (Auto) U Hyaline Cast (Auto) Urine Mucus (Auto) Urine Ascorbic Acid Stool Occult Blood Stool for White Cells C. 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 Apply Desitin skin cream around your ostomy site as instructed Return for any increased bleeding, worsening pain, fever, or any new or concerning symptoms Prescriptions: Ondansetron HCl [Zofran 4 mg Tablet] 1 - 2 tab PO Q6 PRN #12 tablet PRN Reason: Referrals: SONNY GARNER JR, MD [NO LOCAL MD] - 05/20/17 PARAMJIT MARX FNP-C [Primary Care Provider] - 05/20/17
[2017-05-18] MEDS ORDERED: PANTOPRAZOLE SODIUM 40 MG VIAL IV ONE (04:19)
[2017-05-18 05:10] LABS: APPEARANCE,URINE CLEAR; BILIRUBIN,URINE NEGATIVE (NEGATIVE); COLOR,URINE YELLOW; GLUCOSE, URINE NEGATIVE (NEGATIVE); KETONES,URINE NEGATIVE (NEGATIVE); LEUKOCYTE ESTERASE,URINE NEGATIVE (NEGATIVE); NITRITE,URINE NEGATIVE (NEGATIVE); PROTEIN,URINE NEGATIVE (NEGATIVE); URINE SPECIFIC GRAVITY 1.021; UROBILINOGEN,URINE NEGATIVE mg/dL (<2.0)
[2017-05-18 05:24] LABS: PROTHROMBIN TIME 12.8 SEC (11.4-15.4)
[2017-05-18 05:25] LABS: PARTIAL THROMBOPLASTIN TIME 31.3 SEC (23.5-35.8)
[2017-05-18 05:36] LABS: ABSOLUTE BASOPHILS # (AUTO) 0.1 10^3/uL (0.0-0.2); ABSOLUTE EOSINOPHILS # (AUTO) 0.5 10^3/uL (0.0-0.6); ABSOLUTE MONOCYTES (AUTO) 0.6 10^3/uL (0.1-1.4); ABSOLUTE NEUT (AUTO) 4.9 10^3/uL (1.7-8.2); BASOPHILS % (AUTO) 1.2 % (0-2); EOSINOPHILS % (AUTO) 6.2 % (0-6); HEMATOCRIT 38.6 % (37.9-51.0); HEMOGLOBIN 12.6 g/dL (13.5-17.0); LYMPHOCYTES % (AUTO) 24.2 % (13-45); MEAN CORPUSCULAR HEMOGLOBIN 27.4 pg (27.0-33.4); MEAN CORPUSCULAR HGB CONC 32.5 g/dL (32.0-36.0); MEAN CORPUSCULAR VOLUME 84 fl (80-97); PLATELET COUNT 285 10^3/uL (150-450); RED BLOOD COUNT 4.59 10^6/uL (4.35-5.55); RED CELL DISTRIBUTION WIDTH 17.6 % (11.5-14.0); SEGMENTED NEUTROPHILS % (AUTO) 60.4 % (42-78); TOTAL CELLS COUNTED % (AUTO) 100 %; WHITE BLOOD COUNT 8.1 10^3/uL (4.0-10.5)
[2017-05-18 05:40] LABS: ALANINE AMINOTRANSFERASE 37 U/L (21-72); ALBUMIN 3.6 g/dL (3.5-5.0); ALKALINE PHOSPHATASE 58 U/L (38-126); ANION GAP 8 (5-19); ASPARTATE AMINO TRANSFERASE 25 U/L (17-59); BILIRUBIN,DIRECT 0.1 mg/dL (0.0-0.4); BILIRUBIN,TOTAL 0.2 mg/dL (0.2-1.3); BLOOD UREA NITROGEN 16 mg/dL (7-20); CALCIUM 9.6 mg/dL (8.4-10.2); CARBON DIOXIDE 26 mmol/L (22-30); CHLORIDE 106 mmol/L (98-107); GLUCOSE 96 mg/dL (75-110); LIPASE 123.7 U/L (23-300); POTASSIUM 4.1 mmol/L (3.6-5.0); SODIUM 139.8 mmol/L (137-145); TOTAL PROTEIN 6.4 g/dL (6.3-8.2)
[2017-05-18 06:02] LABS: OVALOCYTES SLIGHT; POIKILOCYTOSIS SLIGHT; STOMATOCYTES SLIGHT
[2017-05-18 06:03] LABS: ANISOCYTOSIS 1+; PLATELET COMMENT ADEQUATE
[2017-05-18 06:36] VITALS: BP 111/66
[2017-05-18] MEDS ORDERED: ONDANSETRON HCL INJ/PF 4 MG/2 ML SDV IV ONE (06:44)
== END 2017-05-18 07:07 | disposition home or self-care (01) ==
LOC: ER 03:27
DX: K92.1 Melena (principal); R10.84 Generalized abdominal pain; G89.29 Other chronic pain; R11.2 Nausea with vomiting, unspecified; Z93.2 Ileostomy status; Z90.49 Acquired absence of other specified parts of digestive tract; Z88.0 Allergy status to penicillin; Z87.19 Personal history of other diseases of the digestive system
CPT/HCPCS: 99285; 96375; 96365; 36415; 87045; 89055; 87205; 83690; 85025; 85610; 85730; 82272; 80053; 81001; 87493; S0164; J2405; J7030

== ENCOUNTER 2017-06-15 04:11 | Emergency (ER) | payer SELFPAY ==
[2017-06-15 04:32] VITALS: BP 133/78
[2017-06-15] MEDS ORDERED: OXYCODONE HCL SR 10 MG TABLET PO ONE (04:36)
--- NOTE | 2017-06-15 04:40 | ER Document Report ---
ED General - General Chief Complaint: Alcohol Withdrawl Stated Complaint: POSSIBLE WITHDRAWALS Time Seen by Provider: 06/15/17 04:36 Notes: Patient is a 36-year-old male who presents with complaint of being out of his pain medicine. Patient has a history of Crohn's disease. He had a colectomy not long ago. He is on chronic pain management through Dr. Church. They have been titrating down his oxycodone. Is currently on oxycodone 15 mg tablets one half tablets a day. He had to leave and go to [place] because his brother . He try to follow back up with Dr. Church on Saturday however he did not have any appointments until Saturday. Patient is out of his medication therefore is come to the Rx he says he started to feel as if he is getting withdrawal and that he has pain and body aches and some nausea. He has had no vomiting. No fevers. No new symptoms in regards to his abdomen. No bloody discharge from his colostomy bag. No fevers. TRAVEL OUTSIDE OF THE [place] IN LAST 30 DAYS: No - Related Data Allergies/Adverse Reactions: Penicillins Allergy (Mild, Verified 04/21/17 22:07) rash/hives Past Medical History - Social History Smoking Status: Never Smoker Frequency of alcohol use: None Drug Abuse: None Family History: CAD, CVA, DM, Hyperlipidemia, Hypertension, Malignancy - Past Medical History Cardiac Medical History: Denies: Hx Heart Attack, Hx Hypertension Pulmonary Medical History: Denies: Hx Asthma, Hx Bronchitis, Hx COPD, Hx Pneumonia Neurological Medical History: Denies: Hx Seizures Renal/ Medical History: Denies: Hx Peritoneal Dialysis GI Medical History: Reports: Hx Ulcer - Ulcerative colitis, Hx Ulcerative Colitis, Hx Colonoscopy Musculoskeltal Medical History: Denies Hx Arthritis Past Surgical History: Reports: Hx Abdominal Surgery - colon/colostomy, Hx Appendectomy - February 2015, Hx Vascular Surgery - Port placement - Immunizations Immunizations up to date: Yes Hx Diphtheria, Pertussis, Tetanus Vaccination: Yes Review of Systems - Review of Systems Notes: My Normal Review Basic REVIEW OF SYSTEMS: CONSTITUTIONAL : Denies fever, chills, or sweats. Denies recent illness. EENT: Denies eye, ear, throat, or mouth pain or symptoms. Denies nasal or sinus congestion. CARDIOVASCULAR: Denies chest pain. RESPIRATORY: Denies cough, cold, or chest congestion. Denies shortness of breath, difficulty breathing, or wheezing. GASTROINTESTINAL: Chronic abdominal pain which is unchanged from his baseline. No vomiting or diarrhea. MUSCULOSKELETAL: Denies neck or back pain or joint pain or swelling. SKIN: Denies rash or skin lesions. NEUROLOGICAL: Denies altered mental status or loss of consciousness. ALL OTHER SYSTEMS REVIEWED AND NEGATIVE. Physical Exam - Vital signs Vitals: Temp Pulse BP Pulse Ox 97.7 F 99 133/78 H 100 06/15/17 04:26 06/15/17 04:26 06/15/17 04:26 06/15/17 04:26 - Notes Notes: General Appearance: Well nourished, alert, cooperative, no acute distress, mild obvious discomfort. Vitals: reviewed, See vital signs table. Head: no swelling or tenderness to the head Eyes: PERRL, EOMI, Conjuctiva clear Mouth: No decreasd moisture Lungs: No wheezing, No rales, No rhonci, No accessory muscle use, good air exchange bilaterally. Heart: Normal rate, Regular rythm, No murmur, no rub Abdomen: Normal BS, soft, No rigidity, No abdominal tenderness, No guarding, no rebound, no abdominal masses, no organomegaly. Colostomy bag in place on right side of the abdomen. Greenish type stool in colostomy bag. No gross blood in colostomy bag. No redness or swelling around the ostomy site. Extremities: strength 5/5 in all extremities, good pulses in all extremities, no swelling or tenderness in the extremities, no edema. Skin: warm, dry, appropriate color, no rash Neuro: speech clear, oriented x 3, normal affect, responds appropriately to questions. Course - Re-evaluation Re-evalutation: 06/15/17 05:43 She is well-appearing. He says he feels well except for start have some symptoms of withdrawal. His last dose of pain medicine was yesterday. I did give him a dose of his oxycodone 15 mg here. Artery prescription for 8 tablets to get him through until he sees his doctor on Saturday. I encourage him return to ER if he has fevers, abdominal pain, blood in his colostomy bag, vomiting, or if he feels unwell. Patient agrees with plan will be discharged home. I did look the patient up on the [employer] controlled substance database and it shows that the patient was indeed due for new prescription on June 13. Dictation of this chart was performed using voice recognition software; therefore, there may be some unintended grammatical errors. - Vital Signs Vital signs: Temp Pulse Resp BP Pulse Ox 97.7 F 99 133/78 H 100 06/15/17 04:26 06/15/17 04:26 06/15/17 04:06/15/17 04:26 Discharge - Discharge Clinical Impression: Opiate dependence Qualifiers: Substance use status: uncomplicated Qualified Code(s): F11.20 - Opioid dependence, uncomplicated Condition: Good Disposition: HOME, SELF-CARE Additional Instructions: Please follow up with Dr. Church on Saturday for continued pain management and refill of your pain medicine. Please return to the ER immediately if you have vomiting, fevers, bloody stools, atypical abdominal pain, or if you feel unwell. Prescriptions: Oxycodone HCl 15 mg PO DAILY #8 tablet Referrals: EVIN CHURCH MD [Primary Care Provider] - 06/17/17
[2017-06-15] MEDS ORDERED: OXYCODONE HCL IR 5 MG TABLET PO ONE (04:52)
== END 2017-06-15 05:00 | disposition home or self-care (01) ==
LOC: ER 04:11
DX: F11.20 Opioid dependence, uncomplicated (principal); G89.29 Other chronic pain; R10.9 Unspecified abdominal pain; R11.0 Nausea; Z87.19 Personal history of other diseases of the digestive system; Z90.49 Acquired absence of other specified parts of digestive tract; Z93.3 Colostomy status; Z88.0 Allergy status to penicillin
CPT/HCPCS: 99284

== ENCOUNTER 2017-07-08 02:04 | Emergency (ER) | payer SELFPAY ==
[2017-07-08 02:26] VITALS: BP 117/78
--- NOTE | 2017-07-08 03:20 | ER Document Report ---
ED General - General Chief Complaint: Other Stated Complaint: ILEOSTOMY BAG ISSUE Time Seen by Provider: 07/08/17 02:34 Notes: Patient is a 37-year-old male with a past medical history of ulcerative colitis with an ileostomy in place who presents with concerns of running out of his ostomy bag supplies. He states he has no additional bags at home. He denies any additional concerns or complaints. He notes that he does have chronic generalized abdominal pain although this has been much better lately. I have seen this patient on multiple occasions in the past and after our prior conversations he has elected to begin weaning down his pain medications. He does report that he is intermittently having some moderate withdrawal symptoms of nausea, body aches, but overall feels much improved since weaning down his pain medications. He has not had any vomiting, change in stool output, fever or any additional concerns. TRAVEL OUTSIDE OF THE [place] IN LAST 30 DAYS: No - Related Data Allergies/Adverse Reactions: Penicillins Allergy (Mild, Verified 04/21/17 22:07) rash/hives Past Medical History - General Information source: Patient - Social History Smoking Status: Never Smoker Chew tobacco use (# tins/day): No Frequency of alcohol use: None Drug Abuse: None Lives with: Family Family History: CAD, CVA, DM, Hyperlipidemia, Hypertension, Malignancy Patient has suicidal ideation: No Patient has homicidal ideation: No - Past Medical History Cardiac Medical History: Denies: Hx Heart Attack, Hx Hypertension Pulmonary Medical History: Denies: Hx Asthma, Hx Bronchitis, Hx COPD, Hx Pneumonia Neurological Medical History: Denies: Hx Seizures Renal/ Medical History: Denies: Hx Peritoneal Dialysis GI Medical History: Reports: Hx Ulcer - Ulcerative colitis, Hx Ulcerative Colitis, Hx Colonoscopy Musculoskeltal Medical History: Denies Hx Arthritis Past Surgical History: Reports: Hx Abdominal Surgery - colon/colostomy, Hx Appendectomy - February 2015, Hx Vascular Surgery - Port placement - Immunizations Immunizations up to date: Yes Hx Diphtheria, Pertussis, Tetanus Vaccination: Yes Review of Systems - Review of Systems Notes: Constitutional: Negative for fever. Cardiovascular: Negative for chest pain. Respiratory: Negative for shortness of breath. Gastrointestinal: Negative for vomiting Musculoskeletal: Negative for back pain. Skin: Negative for rash. Neurological: Negative for weakness or numbness. 10 point ROS negative except as marked above and in HPI. Physical Exam - Vital signs Vitals: Temp Pulse Resp BP Pulse Ox 98.7 F 110 H 18 117/78 99 07/08/17 02:23 07/08/17 02:23 07/08/17 02:23 07/08/17 02:23 07/08/17 02:23 Interpretation: Tachycardic Notes: PHYSICAL EXAMINATION: GENERAL: Well-appearing, well-nourished and in no acute distress. HEAD: Atraumatic, normocephalic. EYES: Pupils equal round and reactive to light, extraocular movements intact, sclera anicteric, conjunctiva are normal. ENT: nares patent, oropharynx clear without exudates. Mildly dry mucous membranes. NECK: Normal range of motion, supple without lymphadenopathy LUNGS: Breath sounds clear to auscultation bilaterally and equal. No wheezes rales or rhonchi. HEART: Regular rate and rhythm without murmurs ABDOMEN: Soft, nontender, normoactive bowel sounds. No guarding, no rebound. No masses appreciated. Ileostomy in place. Stoma is pink, well-perfused EXTREMITIES: Normal range of motion, no pitting or edema. No cyanosis. NEUROLOGICAL: No focal neurological deficits. Moves all extremities spontaneously and on command. PSYCH: Normal mood, normal affect. SKIN: Warm, Dry, normal turgor, no rashes or lesions noted. Course - Re-evaluation Re-evalutation: 07/08/17 03:19 Presentation of an overall well-appearing male that I know quite well from prior visits with concerns primarily that he needs ostomy supplies. We replaced his ostomy bag. His abdominal exam is benign, no focal tenderness rebound or guarding. Initial tachycardia is noted at time of assessment in triage although has resolved at the time of my evaluation. He does appear mildly dehydrated and I have emphasized continued to keep hydrated. I also encouraged him to continue weaning off his opiates in conjunction with his pain management doctor. At this time will discharge with return precautions and follow-up recommendations. Verbal discharge instructions given a the bedside and opportunity for questions given. Medication warnings reviewed. Patient is in agreement with this plan and has verbalized understanding of return precautions. - Vital Signs Vital signs: Temp Pulse Resp BP Pulse Ox 98.7 F 110 H 18 117/78 99 07/08/17 02:23 07/08/17 02:23 07/08/17 02:23 07/08/17 02:23 07/08/17 02:23 Discharge - Discharge Clinical Impression: Complication of ostomy Condition: Good Disposition: HOME, SELF-CARE Additional Instructions: Please return to the emergency room immediately if you experience any concerning symptoms including high fevers, severe headache, chest pain, difficulty breathing, abdominal pain, slurred speech, numbness or weakness in your arms or legs, or any other symptom that concerns you.
== END 2017-07-08 03:29 | disposition home or self-care (01) ==
LOC: ER 02:04
DX: K94.10 Enterostomy complication, unspecified (principal); Y83.8 Other surgical procedures as the cause of abnormal reaction of the patient, or of later complication, without mention of misadventure at the time of the procedure; R10.84 Generalized abdominal pain; Z79.899 Other long term (current) drug therapy; Z88.0 Allergy status to penicillin
CPT/HCPCS: 99282

== ENCOUNTER 2017-07-13 03:25 | Emergency (ER) | payer SELFPAY ==
[2017-07-13] MEDS ORDERED: NORMAL SALINE 1000 ML 1,000 ML IV ONE (03:48)
[2017-07-13] MEDS ORDERED: HYDROMORPHONE HCL INJ/PF 2 MG/ML AMPULE IV ONE (03:49)
[2017-07-13] MEDS ORDERED: METHYLPREDNISOLONE INJ 125 MG/2 ML SDV IV ONE (03:54)
--- NOTE | 2017-07-13 04:18 | RADIOLOGY REPORT (SQ) ---
EXAM DESCRIPTION: CHEST SINGLE VIEW CLINICAL HISTORY: dyspnea COMPARISON: 03/08/2017 FINDINGS: Single frontal view of the chest. Right IJ Mediport with tip in the SVC. Low lung volumes. Leads overlie the chest. No consolidation, pneumothorax, or pleural effusion. No displaced rib fractures identified. Upper abdominal soft tissues are unremarkable. IMPRESSION: 1. No acute pulmonary process identified.
--- NOTE | 2017-07-13 04:36 | ER Document Report ---
ED General - General TRAVEL OUTSIDE OF THE [place] IN LAST 30 DAYS: No <MICHAEL HUGHES - Last Filed: 07/13/17 05:20> <KARLO DOOLEY - Last Filed: 07/13/17 14:15> - General Chief Complaint: Abdominal Pain Stated Complaint: DIFFICULTY BREATHING Time Seen by Provider: 07/13/17 03:41 Notes: Patient is 37-year-old male who presents with multiple complaints. First complaint to start on some shortness of breath today. He does admit that he took his last dose of pain medicine yesterday morning. Says he does have some increased abdominal pain is not sure if this is due to not having pain medicine or something in relation to his ulcerative colitis. He is well-known to the ER and has a long history of ulcerative colitis and a few months ago had surgery at [facility] left him with a ileostomy. He says over last 3 days he has noticed some bloody type mucus coming from the rectal area. No bowel movements from the rectal area. No fevers. Some nausea but no vomiting. No other complaints at this time. (MICHAEL HUGHES) - Related Data Allergies/Adverse Reactions: Penicillins Allergy (Mild, Verified 04/21/17 22:07) rash/hives Past Medical History - Social History Smoking Status: Unknown if Ever Smoked Frequency of alcohol use: None Drug Abuse: None Family History: CAD, CVA, DM, Hyperlipidemia, Hypertension, Malignancy - Past Medical History Cardiac Medical History: Denies: Hx Heart Attack, Hx Hypertension Pulmonary Medical History: Denies: Hx Asthma, Hx Bronchitis, Hx COPD, Hx Pneumonia Neurological Medical History: Denies: Hx Seizures Renal/ Medical History: Denies: Hx Peritoneal Dialysis GI Medical History: Reports: Hx Ulcer - Ulcerative colitis, Hx Ulcerative Colitis, Hx Colonoscopy Musculoskeltal Medical History: Denies Hx Arthritis Past Surgical History: Reports: Hx Abdominal Surgery - colon/colostomy, Hx Appendectomy - February 2015, Hx Vascular Surgery - Port placement - Immunizations Immunizations up to date: Yes Hx Diphtheria, Pertussis, Tetanus Vaccination: Yes <MICHAEL HUGHES - Last Filed: 07/13/17 05:20> Review of Systems <MICHAEL HUGHES - Last Filed: 07/13/17 05:20> <KARLO DOOLEY - Last Filed: 07/13/17 14:15> - Review of Systems Notes: My Normal Review Basic REVIEW OF SYSTEMS: CONSTITUTIONAL : Denies fever, chills, or sweats. Denies recent illness. EENT: Denies eye, ear, throat, or mouth pain or symptoms. Denies nasal or sinus congestion. CARDIOVASCULAR: Denies chest pain. RESPIRATORY: some dyspnea GASTROINTESTINAL: Dental pain. Some bloody mucousy discharge from rectum GENITOURINARY: Denies difficulty urinating, painful urination, burning, frequency, or blood in urine. MUSCULOSKELETAL: Denies neck or back pain or joint pain or swelling. SKIN: Denies rash or skin lesions. NEUROLOGICAL: Denies altered mental status or loss of consciousness. Denies headache. Denies weakness or paralysis or loss of use of either side. Denies problems with gait or speech. Denies sensory or motor loss. ALL OTHER SYSTEMS REVIEWED AND NEGATIVE. (MICHAEL HUGHES) Physical Exam <MICHAEL HUGHES - Last Filed: 07/13/17 05:20> <KARLO DOOLEY - Last Filed: 07/13/17 14:15> - Vital signs Vitals: Temp Pulse Resp BP Pulse Ox 98.1 F 129 H 20 122/76 100 07/13/17 03:29 07/13/17 03:29 07/13/17 03:29 07/13/17 03:29 07/13/17 03:29 - Notes Notes: General Appearance: Well nourished, alert, cooperative, no acute distress, mild to moderate obvious discomfort. Vitals: reviewed, See vital signs table. Head: no swelling or tenderness to the head Eyes: PERRL, EOMI, Conjuctiva clear Mouth: No decreasd moisture Throat: No tonsillar inflammation, No airway obstruction, No lymphadenopathy Neck: Supple, no neck tenderness, No thyromegaly Lungs: No wheezing, No rales, No rhonci, No accessory muscle use, good air exchange bilaterally. Heart: Normal rate, Regular rythm, No murmur, no rub Abdomen: Normal BS, soft, No rigidity, moderate diffuse abdominal tenderness, No guarding, no rebound, ileostomy over left central abdomen. Normal-appearing output in the ileostomy bag. Extremities: strength 5/5 in all extremities, good pulses in all extremities, no swelling or tenderness in the extremities, no edema. Skin: warm, dry, appropriate color, no rash Neuro: speech clear, oriented x 3, normal affect, responds appropriately to questions. (MICHAEL HUGHES) Course - Laboratory Result Diagrams: 07/13/17 04:30 07/13/17 04:30 <MICHAEL HUGHES - Last Filed: 07/13/17 05:20> - Laboratory Result Diagrams: 07/13/17 04:30 07/13/17 04:30 <KARLO DOOLEY - Last Filed: 07/13/17 14:15> - Re-evaluation Re-evalutation: 07/13/17 05:28 Patient says he is feeling much improved now after receiving pain medicine. He looks better and his heart rate immediately improved with 1 dose of pain medicine. His white count is 18,000 he is having some symptoms suggestive he is having some colitis flare with the bloody mucus coming from the rectal area. With all the comp occasions he has had in the recent past we will still continue with the CT scan. If the CT scan does not show anything too concerning for likely he will be discharged home with tapering dose prednisone and the pain medicine so that he can continue to taper himself off the opiates and to the point where he is not having withdrawal. Informed patient of the plan and he is agreeable to this plan. (MICHAEL HUGHES) 07/13/17 07:54 Patient was reevaluated at this time. CT scan showing a left upper quadrant intra-abdominal abscess. Patient states most of his pain is in the lower region however with some shortness of breath last night. Patient does have leukocytosis and was tachycardic upon arrival. Patient otherwise looks to be stabilized this time heart rate 83. Blood pressure within normal limits. 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 Will start patient on Cipro Flagyl. Patient was updated of these findings. Patient looks to be comfortable no obvious distress patient requesting more pain and nausea medication at this time. 07/13/17 08:50 Discussed initially with hospitalist Dr. Schuler recommended surgical team to take the patient. Discussed patient's case with Dr. Josue Sanchez surgeon at [facility]. Accepted the patient in transfer. Patient otherwise remained stable at this time. 07/13/17 14:15 I was present at the time transport was here to corn picker the patient patient was stable at that time able to move himself from his on stretcher to transport stretcher. (KARLO DOOLEY) - Vital Signs Vital signs: Temp Pulse Resp BP Pulse Ox 98.2 F 129 H 16 101/65 98 07/13/17 13:20 07/13/17 03:29 07/13/17 13:20 07/13/17 13:20 07/13/17 13:20 - Laboratory Laboratory results interpreted by me: 07/13/17 07/13/17 04:30 04:30 WBC 18.4 H Hgb 12.0 L Hct 36.4 L RDW 15.5 H Plt Count 592 H Seg Neutrophils % 83.5 H Lymphocytes % 10.4 L Absolute Neutrophils 15.4 H Sodium 134.0 L Chloride 96 L Discharge <MICHAEL HUGHES - Last Filed: 07/13/17 05:20> <KARLO DOOLEY - Last Filed: 07/13/17 14:15> - Discharge Clinical Impression: Intra-abdominal abscess Ulcerative (chronic) enterocolitis Qualifiers: Digestive disease complication type: unspecified complication Qualified Code(s) : K51.019 - Ulcerative (chronic) pancolitis with unspecified complications Abdominal pain Qualifiers: Abdominal location: generalized Qualified Code(s): R10.84 - Generalized abdominal pain Opiate dependence Qualifiers: Substance use status: in withdrawal Qualified Code(s): F11.23 - Opioid dependence with withdrawal Condition: Stable Disposition: FOR[facility]LY [facility], [facility]1983 Additional Instructions: PLease continue to try and wean down off the opiate medications. Please take the Prednisone as prescribed. please return to the ER immediately if you develop worsening pain, fevers, vomiting, increasing passage of blood, or if you feel unwell. Please follow up with your doctor or return to the ER in 2 days for reevaluation. Prescriptions: Oxycodone HCl/Acetaminophen [Percocet 5-325 mg Tablet] 1 tab PO Q12 #15 tablet Prednisone 10 mg PO ASDIR #42 tablet
[2017-07-13] MEDS ORDERED: ONDANSETRON HCL INJ/PF 4 MG/2 ML SDV IV ONE (04:38)
[2017-07-13 04:44] LABS: ABSOLUTE BASOPHILS # (AUTO) 0.1 10^3/uL (0.0-0.2); ABSOLUTE EOSINOPHILS # (AUTO) 0.1 10^3/uL (0.0-0.6); ABSOLUTE LYMPHOCYTES (AUTO) 1.9 10^3/uL (0.5-4.7); ABSOLUTE NEUT (AUTO) 15.4 10^3/uL (1.7-8.2); BASOPHILS % (AUTO) 0.3 % (0-2); EOSINOPHILS % (AUTO) 0.6 % (0-6); HEMATOCRIT 36.4 % (37.9-51.0); LYMPHOCYTES % (AUTO) 10.4 % (13-45); MEAN CORPUSCULAR HGB CONC 33.1 g/dL (32.0-36.0); MEAN CORPUSCULAR VOLUME 82 fl (80-97); MONOCYTES % (AUTO) 5.2 % (3-13); PLATELET COUNT 592 10^3/uL (150-450); RED BLOOD COUNT 4.46 10^6/uL (4.35-5.55); RED CELL DISTRIBUTION WIDTH 15.5 % (11.5-14.0); SEGMENTED NEUTROPHILS % (AUTO) 83.5 % (42-78); TOTAL CELLS COUNTED % (AUTO) 100 %; WHITE BLOOD COUNT 18.4 10^3/uL (4.0-10.5)
[2017-07-13 04:55] LABS: ALANINE AMINOTRANSFERASE 40 U/L (21-72); ALBUMIN 3.6 g/dL (3.5-5.0); ALKALINE PHOSPHATASE 112 U/L (38-126); ANION GAP 14 (5-19); ASPARTATE AMINO TRANSFERASE 20 U/L (17-59); BILIRUBIN,DIRECT 0.4 mg/dL (0.0-0.4); BILIRUBIN,TOTAL 0.4 mg/dL (0.2-1.3); BLOOD UREA NITROGEN 12 mg/dL (7-20); CALCIUM 9.8 mg/dL (8.4-10.2); CARBON DIOXIDE 24 mmol/L (22-30); CHLORIDE 96 mmol/L (98-107); GLUCOSE 93 mg/dL (75-110); LIPASE 47.1 U/L (23-300); POTASSIUM 4.9 mmol/L (3.6-5.0); TOTAL PROTEIN 7.4 g/dL (6.3-8.2)
--- NOTE | 2017-07-13 06:54 | RADIOLOGY REPORT (SQ) ---
EXAM DESCRIPTION: CT ABDOMEN AND PELVIS WITH CONTRAST CLINICAL HISTORY: Diffuse COMPARISON: None Available. TECHNIQUE: CT of the abdomen and pelvis performed following IV administration of 91.2 mL of Isovue-370. DLP: 1777.86 mGycm FINDINGS: Lung Bases: The visualized lung bases are clear. Bones: No destructive bone lesions identified. Minimal degenerative change of the spine. Abdomen: Liver: The liver has normal size and density. No intrahepatic mass or biliary dilatation. Gallbladder: No calcified gallstones. Spleen, Pancreas, and Adrenal Glands: The pancreas and adrenal glands are unremarkable. Kidneys: The kidneys have normal size and contour without evidence of solid mass or hydronephrosis. Vasculature: The aorta and IVC have normal caliber and position. The portal vein is patent. The proximal visceral and renal arteries are patent. Stomach: The stomach and duodenum have normal course. Other: Right-sided ileostomy. Prior colectomy. Postoperative change in the left abdomen. Interval development of inflammatory change surrounding suture line along the course of the previously placed drain there is an irregular fluid collection beginning at the inferior aspect of the spleen and extending inferiorly. The fluid collection measures 5.9 x 3.3 x 1.5 cm. No lymphadenopathy. Pelvis: Bladder: Urinary bladder is decompressed questionable wall thickening of the urinary bladder. Bowel: Postoperative change of the bowel. Appendix: Surgically absent Pelvis: Prostate is not enlarged. IMPRESSION: 1. Interval development of fluid collection in the left upper abdomen as well as adjacent inflammatory change beginning at the inferior aspect of the spleen. This fluid collection measures 5.9 x 3.3 x 1.5 cm. This is concerning for abscess formation. A component of this fluid collection may be in a subcapsular location at the inferior border of the spleen. 2. Mild wall thickening of the urinary bladder may be due to underdistention. Cystitis or other etiology cannot be excluded. Correlation with urinalysis recommended. 3. Prior colectomy with right-sided ileostomy. This exam was performed according to our departmental dose-optimization program, which includes automated exposure control, adjustment of the mA and/or kV according to patient size and/or use of iterative reconstruction technique.
[2017-07-13] MEDS ORDERED: METRONIDAZOLE 500 MG/NS RTU 100 ML IV ONE (07:18)
[2017-07-13] MEDS: ONDANSETRON HCL INJ/PF 4 MG/2 ML SDV IV PRN ×2 (07:44→11:42)
[2017-07-13] MEDS: HYDROMORPHONE HCL INJ/PF 2 MG/ML AMPULE IV PRN ×2 (07:45→11:42)
[2017-07-13] MEDS ORDERED: RINGERS SOLUTION,LACTATED 1,000 ML IV ONE (08:53)
[2017-07-13] MEDS ORDERED: CIPROFLOXACIN 400 MG/D5W RTU 400 MG/200 ML RTUPB IV SCH (10:00)
[2017-07-13 10:15] LABS: APPEARANCE,URINE CLEAR; BILIRUBIN,URINE NEGATIVE (NEGATIVE); COLOR,URINE YELLOW; GLUCOSE, URINE NEGATIVE (NEGATIVE); KETONES,URINE NEGATIVE (NEGATIVE); LEUKOCYTE ESTERASE,URINE NEGATIVE (NEGATIVE); NITRITE,URINE NEGATIVE (NEGATIVE); PROTEIN,URINE NEGATIVE (NEGATIVE); UROBILINOGEN,URINE NEGATIVE mg/dL (<2.0)
[2017-07-13 10:26] LABS: URINE SPECIFIC GRAVITY > 1.060
[2017-07-13 13:39] VITALS: BP 101/65
== END 2017-07-13 13:38 | disposition short-term general hospital (02) ==
LOC: ER 03:25
DX: K51.014 Ulcerative (chronic) pancolitis with abscess (principal); F11.23 Opioid dependence with withdrawal; R10.84 Generalized abdominal pain; R06.02 Shortness of breath; R11.0 Nausea; R00.0 Tachycardia, unspecified; Z93.2 Ileostomy status; Z88.0 Allergy status to penicillin; Z90.49 Acquired absence of other specified parts of digestive tract
CPT/HCPCS: 96376; 99285; 96361; 96375; 96365; 96366; 96367; 36415; 87040; 87086; 83690; 85025; 80053; 81001; 71045; 74177; J2930; J1170; J2405; J7030; J7120; J0744

== ENCOUNTER 2017-07-25 01:34 | Emergency (ER) | payer SELFPAY ==
[2017-07-25] MEDS ORDERED: MORPHINE SULFATE 10 MG/ML INJ IV ONE ×2 (02:12→05:11)
[2017-07-25] MEDS ORDERED: NORMAL SALINE 1000 ML 1,000 ML IV ONE (02:14)
--- NOTE | 2017-07-25 02:14 | ER Document Report ---
ED GI/ - General Chief Complaint: Nausea/Vomiting Stated Complaint: ABDOMINAL PAIN Time Seen by Provider: 07/25/17 02:00 Notes: Patient is a 37-year-old male that comes emergency department for chief complaint of abdominal pain, vomiting, and feeling lightheaded when he stands up. He states he started feeling pain and threw up yesterday, he has thrown up twice more today. He has a history of colectomy, ileostomy, he states stool has been normal in the ileocolostomy. Unsure of fever. He was discharged from [facility] reportedly 5 days ago, states he is taking Cipro and Flagyl for an abscess in the abdomen. He states he is following with [facility] infectious disease. TRAVEL OUTSIDE OF THE [place] IN LAST 30 DAYS: No - Related Data Allergies/Adverse Reactions: Penicillins Allergy (Mild, Verified 04/21/17 22:07) rash/hives Past Medical History - General Information source: Patient - Social History Smoking Status: Never Smoker Frequency of alcohol use: None Drug Abuse: None Lives with: Alone Family History: CAD, CVA, DM, Hyperlipidemia, Hypertension, Malignancy - Past Medical History Cardiac Medical History: Denies: Hx Heart Attack, Hx Hypertension Pulmonary Medical History: Denies: Hx Asthma, Hx Bronchitis, Hx COPD, Hx Pneumonia Neurological Medical History: Denies: Hx Seizures Renal/ Medical History: Denies: Hx Peritoneal Dialysis GI Medical History: Reports: Hx Ulcer - Ulcerative colitis, Hx Ulcerative Colitis, Hx Colonoscopy Musculoskeltal Medical History: Denies Hx Arthritis Past Surgical History: Reports: Hx Abdominal Surgery - colon/colostomy, Hx Appendectomy - February 2015, Hx Vascular Surgery - Port placement - Immunizations Immunizations up to date: Yes Hx Diphtheria, Pertussis, Tetanus Vaccination: Yes Review of Systems - Review of Systems Constitutional: No symptoms reported EENT: No symptoms reported Cardiovascular: No symptoms reported Respiratory: No symptoms reported Gastrointestinal: See HPI Genitourinary: No symptoms reported Male Genitourinary: No symptoms reported Musculoskeletal: No symptoms reported Skin: No symptoms reported Hematologic/Lymphatic: No symptoms reported Neurological/Psychological: No symptoms reported Physical Exam - Vital signs Vitals: Temp Pulse Resp BP Pulse Ox 97.7 F 116 H 18 130/80 H 99 07/25/17 01:41 07/25/17 01:41 07/25/17 01:41 07/25/17 01:41 07/25/17 01:41 Interpretation: Normal - General General appearance: Alert, Anxious In distress: None - HEENT Head: Normocephalic, Atraumatic Eyes: Normal Pupils: PERRL - Respiratory Respiratory status: No respiratory distress Chest status: Nontender Breath sounds: Normal Chest palpation: Normal - Cardiovascular Rhythm: Regular Heart sounds: Normal auscultation Murmur: No - Abdominal Inspection: Other - Ileostomy bag present, normal appearing stool in the bag Distension: No distension. No: Distended Bowel sounds: Normal Tenderness: Tender - Minimal generalized tenderness, nonspecific, no guarding. No: McBurney's point, Pinedo's sign, Guarding Organomegaly: No organomegaly - Back Back: Normal, Nontender - Extremities General upper extremity: Normal inspection, Nontender, Normal color, Normal ROM , Normal temperature General lower extremity: Normal inspection, Nontender, Normal color, Normal ROM , Normal temperature, Normal weight bearing. No: Nazanin's sign - Neurological Neuro grossly intact: Yes Cognition: Normal Orientation: AAOx4 [place] Coma Scale Eye Opening: Spontaneous [place]la Coma Scale Verbal: Oriented [place] Coma Scale Motor: Obeys Commands [place] Coma Scale Total: 15 Speech: Normal Motor strength normal: LUE, RUE, LLE, RLE Sensory: Normal - Psychological Associated symptoms: Anxious - Skin Skin Temperature: Warm Skin Moisture: Dry Skin Color: Normal Course - Re-evaluation Re-evalutation: Tachycardia resolved after pain medication and one fluid bolus. No fever, no hypotension. Patient is actually alert, well-appearing, stands and ambulates without any difficulty. CBC shows mild exact doses with elevation of neutrophils, lower than prior, chemistry and lipase unremarkable. Because of previous abscess and reported symptoms will evaluate with CT, patient is specifically requesting this, states he was given this instruction. CT showing interval resolution of abscess, no concerning findings otherwise. Patient is eating and tolerating food/fluids without any difficulty. Discussed with patient, provided with copy of his report. Discussed with Dr. Nguyen. Patient will follow up with his infectious disease appointment. Patient states he just ran out of his pain medication, states he is concerned he will get withdrawals. Patient was provided with clonidine, gabapentin for this, instructed follow-up with his primary who provides him with pain management, patient has Zofran and Phenergan at home. Discussed return precautions with patient, patient states understanding and agreement. - Vital Signs Vital signs: Temp Pulse Resp BP Pulse Ox 97.6 F 86 16 112/70 100 07/25/17 05:02 07/25/17 05:02 07/25/17 05:02 07/25/17 05:02 07/25/17 05:02 - Laboratory Result Diagrams: 07/25/17 02:38 07/25/17 02:38 Laboratory results interpreted by me: 07/25/17 07/25/17 02:38 02:38 WBC 13.9 H Hgb 12.1 L Hct 37.6 L RDW 18.4 H Absolute Neutrophils 10.4 H Total Bilirubin 0.1 L Discharge - Discharge Clinical Impression: Abdominal pain Qualifiers: Abdominal location: generalized Qualified Code(s): R10.84 - Generalized abdominal pain Opiate dependence Qualifiers: Substance use status: with unspecified opioid-induced disorder Qualified Code(s ): F11.29 - Opioid dependence with unspecified opioid-induced disorder Condition: Stable Disposition: HOME, SELF-CARE Additional Instructions: Your CAT scan shows interval resolution of the abscess seen previously. Continue current antibiotics, follow closely with infectious disease, bring your copy of the CD and report with this follow-up. Follow-up with your provider for additional evaluation and management of pain. If you have withdrawal symptoms, take the clonidine, gabapentin, and either your Zofran or Phenergan as prescribed. Return for any concerning symptoms including uncontrolled vomiting, fever 100.4 or greater, or any other concerning or worsening symptoms. Prescriptions: Clonidine HCl 0.2 mg PO ASDIR PRN #30 tablet PRN Reason: Gabapentin 2 cap PO BID PRN #30 capsule PRN Reason:
[2017-07-25 02:54] LABS: ABSOLUTE BASOPHILS # (AUTO) 0.1 10^3/uL (0.0-0.2); ABSOLUTE EOSINOPHILS # (AUTO) 0.2 10^3/uL (0.0-0.6); ABSOLUTE LYMPHOCYTES (AUTO) 2.5 10^3/uL (0.5-4.7); ABSOLUTE MONOCYTES (AUTO) 0.7 10^3/uL (0.1-1.4); ABSOLUTE NEUT (AUTO) 10.4 10^3/uL (1.7-8.2); BASOPHILS % (AUTO) 0.7 % (0-2); EOSINOPHILS % (AUTO) 1.3 % (0-6); HEMATOCRIT 37.6 % (37.9-51.0); HEMOGLOBIN 12.1 g/dL (13.5-17.0); MEAN CORPUSCULAR HGB CONC 32.1 g/dL (32.0-36.0); MEAN CORPUSCULAR VOLUME 84 fl (80-97); MONOCYTES % (AUTO) 5.3 % (3-13); PLATELET COUNT 405 10^3/uL (150-450); RED BLOOD COUNT 4.47 10^6/uL (4.35-5.55); RED CELL DISTRIBUTION WIDTH 18.4 % (11.5-14.0); SEGMENTED NEUTROPHILS % (AUTO) 74.7 % (42-78); TOTAL CELLS COUNTED % (AUTO) 100 %; WHITE BLOOD COUNT 13.9 10^3/uL (4.0-10.5)
[2017-07-25 03:00] LABS: ALANINE AMINOTRANSFERASE 33 U/L (21-72); ALBUMIN 3.6 g/dL (3.5-5.0); ALKALINE PHOSPHATASE 58 U/L (38-126); ANION GAP 10 (5-19); ASPARTATE AMINO TRANSFERASE 17 U/L (17-59); BILIRUBIN,DIRECT 0.1 mg/dL (0.0-0.4); BILIRUBIN,TOTAL 0.1 mg/dL (0.2-1.3); BLOOD UREA NITROGEN 12 mg/dL (7-20); CALCIUM 9.4 mg/dL (8.4-10.2); CARBON DIOXIDE 26 mmol/L (22-30); CHLORIDE 106 mmol/L (98-107); GLUCOSE 109 mg/dL (75-110); LIPASE 90.6 U/L (23-300); POTASSIUM 4.1 mmol/L (3.6-5.0); SODIUM 141.5 mmol/L (137-145); TOTAL PROTEIN 6.5 g/dL (6.3-8.2)
--- NOTE | 2017-07-25 04:36 | RADIOLOGY REPORT (SQ) ---
EXAM DESCRIPTION: CT ABDOMEN AND PELVIS WITH CONTRAST CLINICAL HISTORY: Left upper and lower abdominal pain. COMPARISON: 07/13/2017 TECHNIQUE: CT of the abdomen and pelvis performed following IV administration of 70 mL of Isovue-370. Delayed imaging obtained. DLP: 1665.56 mGycm FINDINGS: Lung Bases: The visualized lung bases are clear. Bones: No destructive bone lesions identified. Degenerative change of the spine. Sacroiliitis. Abdomen: Liver: The liver has normal size and density. No intrahepatic mass or biliary dilatation. Gallbladder: No calcified gallstones. Spleen, Pancreas, and Adrenal Glands: The spleen, pancreas, and adrenal glands are unremarkable. Kidneys: The kidneys have normal size and contour without evidence of solid mass or hydronephrosis. Bosniak class I right renal cyst. Vasculature: The aorta and IVC have normal caliber and position. The portal vein is patent. The proximal visceral and renal arteries are patent. Stomach: The stomach and duodenum have normal course. Other: Right-sided ostomy. Prior colectomy. Postoperative change in the left abdomen. No definite well-circumscribed fluid collection identified. Residual soft tissue density along suture line may represent inflammatory phlegmon. No definite lymphadenopathy. Pelvis: Bladder: There is wall thickening of the urinary bladder. Bowel: Postoperative change of the bowel. No definite dilated loops of bowel. Appendix: Surgically absent. Pelvis: Prostate is not enlarged. IMPRESSION: 1. Interval resolution of previously described fluid collection at the inferior aspect of the spleen with mild residual inflammatory change or scarring along the suture line in the left abdomen. 2. Wall thickening of the urinary bladder is again identified. This could be seen with cystitis however other etiology not excluded. This exam was performed according to our departmental dose-optimization program, which includes automated exposure control, adjustment of the mA and/or kV according to patient size and/or use of iterative reconstruction technique.
[2017-07-25 05:02] VITALS: BP 112/70
[2017-07-25] MEDS ORDERED: HYDROCODONE/ACETAMINOPHEN 5-325 MG (6 TAB/ER DISP) PO PRN (05:11)
== END 2017-07-25 05:32 | disposition home or self-care (01) ==
LOC: ER 01:34
DX: K65.1 Peritoneal abscess (principal); R10.84 Generalized abdominal pain; F11.29 Opioid dependence with unspecified opioid-induced disorder; R11.2 Nausea with vomiting, unspecified; F41.9 Anxiety disorder, unspecified; R42 Dizziness and giddiness; R00.0 Tachycardia, unspecified; Z93.2 Ileostomy status; Z90.49 Acquired absence of other specified parts of digestive tract; Z88.0 Allergy status to penicillin
CPT/HCPCS: 36591; 96376; 99284; 96361; 96374; 36415; 83690; 85025; 80053; 74177; J2270; J7030

== ENCOUNTER 2017-07-26 02:02 | Emergency (ER) | payer SELFPAY ==
[2017-07-26 02:05] VITALS: BP 122/79
--- NOTE | 2017-07-26 06:46 | ER Document Report ---
ED General - General Chief Complaint: Weakness Stated Complaint: WEAKNESS Time Seen by Provider: 07/26/17 06:06 Notes: 37-year-old male well-known to the emergency department presents complaining of just generalized weakness. Patient was here last night. He received a CT scan IV fluids. Complete lab workup. Patient has a history of ulcerative colitis with electively and ileostomy. The patient received IV fluids here last night. He received pain medicine. Patient stated he went home and just felt weak like his legs are weak. He complains of no back pain. No chest pain shortness of breath states his abdominal discomfort nausea and vomiting are better. The patient was given medicine for some narcotic withdrawal issues. The patient was discharged home he returns stating that he just feels very weak all over. And wanted to be rechecked. TRAVEL OUTSIDE OF THE [place] IN LAST 30 DAYS: No - Related Data Allergies/Adverse Reactions: Penicillins Allergy (Mild, Verified 04/21/17 22:07) rash/hives Past Medical History - General Information source: Patient - Social History Smoking Status: Unknown if Ever Smoked Family History: CAD, CVA, DM, Hyperlipidemia, Hypertension, Malignancy - Past Medical History Cardiac Medical History: Denies: Hx Heart Attack, Hx Hypertension Pulmonary Medical History: Denies: Hx Asthma, Hx Bronchitis, Hx COPD, Hx Pneumonia Neurological Medical History: Denies: Hx Seizures Renal/ Medical History: Denies: Hx Peritoneal Dialysis GI Medical History: Reports: Hx Ulcer - Ulcerative colitis, Hx Ulcerative Colitis, Hx Colonoscopy Musculoskeltal Medical History: Denies Hx Arthritis Past Surgical History: Reports: Hx Abdominal Surgery - colon/colostomy, Hx Appendectomy - February 2015, Hx Vascular Surgery - Port placement - Immunizations Immunizations up to date: Yes Hx Diphtheria, Pertussis, Tetanus Vaccination: Yes Review of Systems - Review of Systems Constitutional: Malaise EENT: No symptoms reported Cardiovascular: No symptoms reported Respiratory: No symptoms reported Gastrointestinal: Diarrhea, Nausea, Vomiting Genitourinary: No symptoms reported Musculoskeletal: No symptoms reported Skin: No symptoms reported Hematologic/Lymphatic: No symptoms reported Neurological/Psychological: Anxiety, Loss of power. denies: Paralysis, Seizure , Lost consciousness, Headaches -: Yes All other systems reviewed and negative Physical Exam - Vital signs Vitals: Temp Pulse Resp BP Pulse Ox 98.9 F 92 20 122/79 98 07/26/17 02:03 07/26/17 02:03 07/26/17 02:03 07/26/17 02:03 07/26/17 02:03 - Notes Notes: GENERAL_APPEARANCE: well_nourished, alert, cooperative, no_acute_distress, no_ obvious_discomfort. VITALS: reviewed, see vital signs table. HEAD: no_swelling\tenderness on the head. EYES: PERRL, EOMI, conjunctiva_clear. NOSE: no_nasal_discharge. MOUTH: (-)decreased moisture. THROAT: no_airway_obstruction. no_lymphadenopathy NECK: supple, no_neck_tenderness, (-)thyromegaly. BACK: no_back_tenderness. CHEST_WALL: no_chest_tenderness. LUNGS: no_wheezing, no_rales, no_rhonchi, (-)accessory muscle use, good air exchange bilateral. HEART: normal_rate, normal_rhythm, normal_S1, normal_S2, (-)S3, (-)S4, no_ murmur, no_rub. ABDOMEN: Right lower quadrant ostomy, stump is pink no signs of abnormalities there is brown stool in the bag normal_BS, soft, no_abd_tenderness, (-)guarding , (-)rebound, no_organomegaly, no_abd_masses. EXTREMITIES: strength 5/5 in all_extremities, good pulses in all_extremities, no_swelling\tenderness in the extremities, no_edema. SKIN: warm, dry, good_color, no_rash. MENTAL_STATUS: speech_clear, oriented_X_3, normal_affect, responds_ appropriately to questions. NEURO: Neg Motor or Sensory Deficits on exam, CN 2-12 intact, DTR 2+ symmetric x 4, No cerbellar signs Course - Re-evaluation Re-evalutation: 07/26/17 06:43 Patient comes in complaining of weakness and is found to be rechecked he had a comprehensive lab workup last night his potassium was normal he received IV fluids. The patient may have some mild opioid withdrawal. I spoke with him about this. He gets his pain medicine from his primary care physician. I cannot provide him any additional. Patient was given clonidine withdrawal medications. He used his medications early. His abdominal exam is improved comparing to last night's note. His abdomen is soft and supple. The patient stated that he has been sick so much that he just feels weak and would like to get into physical therapy. I spoke with him that he would need to engage his family physician about this. Otherwise I see no acute emergency medical condition at this time patient will be discharged home he has plenty of prescriptions for antibiotics and narcotic withdrawal medications. - Vital Signs Vital signs: Temp Pulse Resp BP Pulse Ox 98.9 F 92 20 122/79 98 07/26/17 02:03 07/26/17 02:03 07/26/17 02:03 07/26/17 02:03 07/26/17 02:03 Discharge - Discharge Clinical Impression: Malaise and fatigue Condition: Good Disposition: HOME, SELF-CARE Instructions: Malaise (OM) Additional Instructions: Please follow-up with your family doctor. If you develop a fever of 101 or above return to the ER
== END 2017-07-26 07:34 | disposition home or self-care (01) ==
LOC: ER 02:02
DX: R53.81 Other malaise (principal); R53.1 Weakness; Z88.0 Allergy status to penicillin; Z93.2 Ileostomy status
CPT/HCPCS: 99284

== ENCOUNTER 2017-08-07 01:58 | Emergency (ER) | payer SELFPAY ==
[2017-08-07] MEDS ORDERED: HYDROMORPHONE HCL INJ/PF 2 MG/ML AMPULE IM ONE (02:16)
[2017-08-07] MEDS ORDERED: ONDANSETRON 4 MG TAB.RAPDIS PO ONE (02:16)
--- NOTE | 2017-08-07 02:20 | ER Document Report ---
ED General - General Chief Complaint: Abdominal Pain Stated Complaint: ABDOMINAL PAIN Time Seen by Provider: 08/07/17 02:06 Notes: Patient is a 37-year-old male who presents with complaints of worsening abdominal pain and also weakness. He was seen here on July [address] scan which showed that his intra-abdominal abscess is resolved. He came back on the 6 weeks he felt weak. Time was discharged and told to follow-up with his primary care doctor. His primary care doctor as arranged physical therapy which she starts later this week. No edema or swelling to legs. No actual pain in the legs. He says he just feels weak when he and says because of the weakness he has difficulty walking. Of note, at the end of talking with him he said he did use the bathroom and stood up and walked him to the bathroom without any difficulty. Patient says he has had some increased output from his ostomy. No blood in his ostomy. No vomiting. No fevers. He is currently on antibiotics. No other complaints at this time. He is followed by pain management and on chronic pain medications. He says he did take his pain medications today. TRAVEL OUTSIDE OF THE [place] IN LAST 30 DAYS: No - Related Data Allergies/Adverse Reactions: Penicillins Allergy (Mild, Verified 04/21/17 22:07) rash/hives Past Medical History - Social History Smoking Status: Unknown if Ever Smoked Chew tobacco use (# tins/day): No Frequency of alcohol use: None Drug Abuse: None Family History: CAD, CVA, DM, Hyperlipidemia, Hypertension, Malignancy Patient has suicidal ideation: No Patient has homicidal ideation: No - Past Medical History Cardiac Medical History: Denies: Hx Heart Attack, Hx Hypertension Pulmonary Medical History: Denies: Hx Asthma, Hx Bronchitis, Hx COPD, Hx Pneumonia Neurological Medical History: Denies: Hx Seizures Renal/ Medical History: Denies: Hx Peritoneal Dialysis GI Medical History: Reports: Hx Ulcer - Ulcerative colitis, Hx Ulcerative Colitis, Hx Colonoscopy Musculoskeltal Medical History: Denies Hx Arthritis Past Surgical History: Reports: Hx Abdominal Surgery - colon/colostomy, Hx Appendectomy - February 2015, Hx Vascular Surgery - Port placement - Immunizations Immunizations up to date: Yes Hx Diphtheria, Pertussis, Tetanus Vaccination: Yes Review of Systems - Review of Systems Notes: My Normal Review Basic REVIEW OF SYSTEMS: CONSTITUTIONAL : Denies fever, chills, or sweats. Denies recent illness. Generalized weakness. EENT: Denies eye, ear, throat, or mouth pain or symptoms. Denies nasal or sinus congestion. CARDIOVASCULAR: Denies chest pain. RESPIRATORY: Denies cough, cold, or chest congestion. Denies shortness of breath, difficulty breathing, or wheezing. GASTROINTESTINAL: Abdominal pain. GENITOURINARY: Denies difficulty urinating, painful urination, burning, frequency, or blood in urine. MUSCULOSKELETAL: Denies neck or back pain or joint pain or swelling. SKIN: Denies rash or skin lesions. NEUROLOGICAL: Denies altered mental status or loss of consciousness. Denies headache. Denies weakness or paralysis or loss of use of either side. Denies problems with gait or speech. Denies sensory or motor loss. ALL OTHER SYSTEMS REVIEWED AND NEGATIVE. Physical Exam - Vital signs Vitals: Temp Pulse Resp BP Pulse Ox 97.7 F 64 18 127/84 H 100 08/07/17 02:05 08/07/17 02:05 08/07/17 02:05 08/07/17 02:05 08/07/17 02:05 - Notes Notes: General Appearance: Well nourished, alert, cooperative, no acute distress, mild obvious discomfort. Well-appearing. Vitals: reviewed, See vital signs table. Head: no swelling or tenderness to the head Eyes: PERRL, EOMI, Conjuctiva clear Mouth: No decreasd moisture Lungs: No wheezing, No rales, No rhonci, No accessory muscle use, good air exchange bilaterally. Heart: Normal rate, Regular rythm, No murmur, no rub Abdomen: Normal BS, soft, No rigidity, pain to palpation mainly left side of his abdomen. Abdomen is soft and not rigid. He does have an ostomy in the right lower portion of his abdomen. As normal-appearing output. No first blood in ostomy. No guarding, no rebound, Extremities: strength 5/5 in all extremities, good pulses in all extremities, no swelling or tenderness in the extremities, no edema. Skin: warm, dry, appropriate color, no rash Neuro: speech clear, oriented x 3, normal affect, responds appropriately to questions. Course - Re-evaluation Re-evalutation: 08/13/17 05:57 Patient's laboratory evaluation is unremarkable. His ostomy bag shows normal- appearing output without any blood in it. He has no leukocytosis. I feel he is safe to be discharged home. I encourage him return to ER immediately if he has any bloody output from his ostomy, any fevers, worsening pain, or if he feels unwell. Patient to follow-up closely with his GI physician this week. He has been on antibiotics for long period time. I asked him to talk to them about potential probiotics to see if they felt this would be appropriate being that he feels that he does have some increased output from his ostomy. Dictation of this chart was performed using voice recognition software; therefore, there may be some unintended grammatical errors. - Vital Signs Vital signs: Temp Pulse Resp BP Pulse Ox 97.7 F 59 L 16 118/66 100 08/07/17 04:42 08/07/17 04:42 08/07/17 04:42 08/07/17 04:42 08/07/17 04:42 - Laboratory Result Diagrams: 08/07/17 02:25 08/07/17 02:25 Laboratory results interpreted by me: 08/07/17 08/07/17 02:25 02:25 Hgb 12.6 L RDW 21.1 H Eosinophils % 11.2 H Absolute Eosinophils 0.9 H AST 14 L Total Protein 6.0 L Albumin 3.3 L Discharge - Discharge Clinical Impression: Weakness Abdominal pain Qualifiers: Abdominal location: generalized Qualified Code(s): R10.84 - Generalized abdominal pain Condition: Good Disposition: HOME, SELF-CARE Additional Instructions: Your laboratory work up shows no concerning findings. Please return to the ER immediately if you have fevers, vomiting, blood in your colostomy bag, or feel that you are worsening. please ask your doctor about starting probiotics and if they feel that this would help.
[2017-08-07 03:09] LABS: ABSOLUTE BASOPHILS # (AUTO) 0.1 10^3/uL (0.0-0.2); ABSOLUTE EOSINOPHILS # (AUTO) 0.9 10^3/uL (0.0-0.6); ABSOLUTE LYMPHOCYTES (AUTO) 1.7 10^3/uL (0.5-4.7); ABSOLUTE MONOCYTES (AUTO) 0.6 10^3/uL (0.1-1.4); ABSOLUTE NEUT (AUTO) 4.5 10^3/uL (1.7-8.2); BASOPHILS % (AUTO) 1.3 % (0-2); EOSINOPHILS % (AUTO) 11.2 % (0-6); HEMATOCRIT 38.8 % (37.9-51.0); HEMOGLOBIN 12.6 g/dL (13.5-17.0); LYMPHOCYTES % (AUTO) 21.6 % (13-45); MEAN CORPUSCULAR HGB CONC 32.6 g/dL (32.0-36.0); MEAN CORPUSCULAR VOLUME 86 fl (80-97); MONOCYTES % (AUTO) 7.2 % (3-13); PLATELET COUNT 267 10^3/uL (150-450); RED BLOOD COUNT 4.51 10^6/uL (4.35-5.55); RED CELL DISTRIBUTION WIDTH 21.1 % (11.5-14.0); SEGMENTED NEUTROPHILS % (AUTO) 58.7 % (42-78); TOTAL CELLS COUNTED % (AUTO) 100 %; WHITE BLOOD COUNT 7.7 10^3/uL (4.0-10.5)
[2017-08-07 03:20] LABS: ALANINE AMINOTRANSFERASE 24 U/L (21-72); ALBUMIN 3.3 g/dL (3.5-5.0); ALKALINE PHOSPHATASE 56 U/L (38-126); ANION GAP 10 (5-19); ASPARTATE AMINO TRANSFERASE 14 U/L (17-59); BILIRUBIN,DIRECT 0.2 mg/dL (0.0-0.4); BILIRUBIN,TOTAL 0.2 mg/dL (0.2-1.3); BLOOD UREA NITROGEN 12 mg/dL (7-20); CALCIUM 9.4 mg/dL (8.4-10.2); CARBON DIOXIDE 26 mmol/L (22-30); CHLORIDE 107 mmol/L (98-107); GLUCOSE 95 mg/dL (75-110); POTASSIUM 4.3 mmol/L (3.6-5.0); SODIUM 143.3 mmol/L (137-145)
[2017-08-07 05:05] VITALS: BP 118/66
== END 2017-08-07 04:45 | disposition home or self-care (01) ==
LOC: ER 01:58
DX: R10.84 Generalized abdominal pain (principal); R53.1 Weakness; G89.29 Other chronic pain; Z79.899 Other long term (current) drug therapy; Z88.0 Allergy status to penicillin; Z87.19 Personal history of other diseases of the digestive system; Z90.49 Acquired absence of other specified parts of digestive tract; Z93.3 Colostomy status
CPT/HCPCS: 99284; 96372; 36415; 85025; 80053; S0119; J1170

== ENCOUNTER 2017-08-08 05:41 | Emergency (ER) | payer SELFPAY ==
[2017-08-08 06:08] VITALS: BP 124/79
[2017-08-08] MEDS ORDERED: OXYCODONE HCL IR 5 MG TABLET PO ONE (06:36)
--- NOTE | 2017-08-08 07:03 | ER Document Report ---
ED General - General Chief Complaint: Fall Stated Complaint: FALL/ABDOMINAL PAIN Time Seen by Provider: 08/08/17 06:12 TRAVEL OUTSIDE OF THE [place] IN LAST 30 DAYS: No - HPI Patient complains to provider of: Fall abdominal pain Notes: Patient coming in for evaluation of fall. Patient has been seen multiple times in the last few days for generalized weakness patient states he is currently waiting to undergo his reevaluation by PT and OT. Patient states he is walking his house when he had a trip and fall hitting the corner of his abdomen on a coffee table patient tore his ileostomy bag and had pain so therefore came into the ER for further evaluation. Patient states he was unable to take his chronic pain medication at home. Patient otherwise denies any other injuries denies any loss of conscious and is denies any chest pain extremity pain patient is resting comfortably upon my evaluation. - Related Data Allergies/Adverse Reactions: Penicillins Allergy (Mild, Verified 04/21/17 22:07) rash/hives Past Medical History - Social History Smoking Status: Current Every Day Smoker Chew tobacco use (# tins/day): No Frequency of alcohol use: None Drug Abuse: None Family History: CAD, CVA, DM, Hyperlipidemia, Hypertension, Malignancy Patient has suicidal ideation: No Patient has homicidal ideation: No - Past Medical History Cardiac Medical History: Denies: Hx Heart Attack, Hx Hypertension Pulmonary Medical History: Denies: Hx Asthma, Hx Bronchitis, Hx COPD, Hx Pneumonia Neurological Medical History: Denies: Hx Seizures Renal/ Medical History: Denies: Hx Peritoneal Dialysis GI Medical History: Reports: Hx Ulcer - Ulcerative colitis, Hx Ulcerative Colitis, Hx Colonoscopy Musculoskeltal Medical History: Denies Hx Arthritis Past Surgical History: Reports: Hx Abdominal Surgery - colon/colostomy, Hx Appendectomy - February 2015, Hx Vascular Surgery - Port placement - Immunizations Immunizations up to date: Yes Hx Diphtheria, Pertussis, Tetanus Vaccination: Yes Review of Systems - Review of Systems Constitutional: No symptoms reported EENT: No symptoms reported Cardiovascular: No symptoms reported Respiratory: No symptoms reported Gastrointestinal: Abdominal pain Genitourinary: No symptoms reported Male Genitourinary: No symptoms reported Musculoskeletal: No symptoms reported Skin: No symptoms reported Hematologic/Lymphatic: No symptoms reported Neurological/Psychological: No symptoms reported -: Yes All other systems reviewed and negative Physical Exam - Vital signs Vitals: Temp Pulse Resp BP Pulse Ox 98.7 F 86 18 124/79 100 08/08/17 05:41 08/08/17 05:41 08/08/17 05:41 08/08/17 05:41 08/08/17 05:41 Interpretation: Normal - General General appearance: Appears well, Alert - HEENT Head: Normocephalic, Atraumatic Eyes: Normal Pupils: PERRL - Respiratory Respiratory status: No respiratory distress Chest status: Nontender Breath sounds: Normal Chest palpation: Normal - Cardiovascular Rhythm: Regular Heart sounds: Normal auscultation Murmur: No - Abdominal Inspection: Normal Distension: No distension Bowel sounds: Normal Tenderness: Tender - Diffuse nonspecific tenderness to palpation no tenderness to deep auscultation on examination. Organomegaly: No organomegaly Notes: Patient has ileostomy to the right lower quadrant of this abdomen stoma is pink there is no swelling there is no bleeding of the stomach. There is dark brown stool within the ileostomy bag. Patient has healing surgical scars. There is no signs of significant trauma seen there is no bruising no abrasions on the patient's abdominal wall. Bedside ultrasound was also performed showing no fluid within Morison's pouch and no fluid in the splenorenal junction. - Back Back: Normal, Nontender - Extremities General upper extremity: Normal inspection, Nontender, Normal color, Normal ROM , Normal temperature General lower extremity: Normal inspection, Nontender, Normal color, Normal ROM , Normal temperature, Normal weight bearing. No: Nazanin's sign - Neurological Neuro grossly intact: Yes Cognition: Normal Orientation: AAOx4 Perla Coma Scale Eye Opening: Spontaneous [place]la Coma Scale Verbal: Oriented [place] Coma Scale Motor: Obeys Commands Perla Coma Scale Total: 15 Speech: Normal Motor strength normal: LUE, RUE, LLE, RLE Sensory: Normal - Psychological Associated symptoms: Normal affect, Normal mood - Skin Skin Temperature: Warm Skin Moisture: Dry Skin Color: Normal Course - Re-evaluation Re-evalutation: 08/08/17 13:20 The patient presents with abdominal pain without signs of peritonitis or other life-threatening or serious etiology. The patient appears stable for discharge and has been instructed to return immediately if the symptoms worsen in any way , or in 8-12hr if not improved for re-evaluation. The patient has been instructed to return if the symptoms worsen or change in any way. Patient did not show any significant trauma on his abdominal examination debility patient will more likely end up with a abdominal wall contusion and bruising. Patient was given his dose of home medications here however patient will be discharged home. - Vital Signs Vital signs: Temp Pulse Resp BP Pulse Ox 98.7 F 86 18 124/79 100 08/08/17 05:41 08/08/17 05:41 08/08/17 05:41 08/08/17 05:41 08/08/17 05:41 Discharge - Discharge Clinical Impression: Abdominal wall pain Condition: Good Disposition: HOME, SELF-CARE Instructions: Contusion ([facility]) Additional Instructions: Your evaluation excessive any acute traumatic findings. He can expect to have some pain to abdominal wall and possibly some slight bruising. Please return to the ER if your symptoms worsen. Take your home pain medication as prescribed. Return to ER symptoms worsen
== END 2017-08-08 07:20 | disposition home or self-care (01) ==
LOC: ER 05:41
DX: R10.9 Unspecified abdominal pain (principal); F17.200 Nicotine dependence, unspecified, uncomplicated; Z93.2 Ileostomy status; Z88.0 Allergy status to penicillin
CPT/HCPCS: 99284

== ENCOUNTER 2017-08-11 00:20 | Emergency (ER) | payer SELFPAY ==
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
[2017-08-11] MEDS: CIPROFLOXACIN HCL 500 MG TABLET PO ONE (01:38)
[2017-08-11] MEDS: OXYCODONE HCL IR 5 MG TABLET PO ONE (01:39)
[2017-08-11] MEDS: ONDANSETRON HCL 8 MG TABLET PO ONE (01:39)
[2017-08-11] MEDS: PREDNISONE 20 MG TABLET PO ONE (02:14)
[2017-08-11 02:15] VITALS: BP 126/85
[2017-08-11] MEDS: RIVAROXABAN 15 MG TABLET PO ONE (02:15)
== END 2017-08-11 03:07 | disposition home or self-care (01) ==
LOC: ER 00:20
DX: Z76.0 Encounter for issue of repeat prescription (principal); K51.919 Ulcerative colitis, unspecified with unspecified complications; R10.9 Unspecified abdominal pain; Z88.0 Allergy status to penicillin; Z93.3 Colostomy status
CPT/HCPCS: 99282; S0119; J7512

== ENCOUNTER 2017-08-12 00:01 | Emergency (ER) | payer SELFPAY ==
[2017-08-12 00:44] VITALS: BP 133/84
[2017-08-12] MEDS ORDERED: ONDANSETRON 4 MG TAB.RAPDIS PO ONE (02:17)
[2017-08-12] MEDS ORDERED: OXYCODONE-ACETAMINOPHEN 5-325 MG TABLET PO ONE (02:17)
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
== END 2017-08-12 02:30 | disposition home or self-care (01) ==
LOC: ER 00:01
DX: Z76.0 Encounter for issue of repeat prescription (principal); G89.29 Other chronic pain; R10.84 Generalized abdominal pain; K58.9 Irritable bowel syndrome, unspecified; R53.83 Other fatigue; R11.0 Nausea; Z88.0 Allergy status to penicillin; Z90.49 Acquired absence of other specified parts of digestive tract; Z93.2 Ileostomy status
CPT/HCPCS: 99281; S0119

== ENCOUNTER 2017-08-20 08:30 | Emergency (ER) | payer SELFPAY ==
[2017-08-20] MEDS ORDERED: MORPHINE SULFATE 10 MG/ML INJ IV ONE (09:18)
[2017-08-20] MEDS ORDERED: KETOROLAC TROMETHAMINE INJ/PF 30 MG/1 ML SDV IV ONE (09:18)
--- NOTE | 2017-08-20 09:20 | ER Document Report ---
ED Medical Screen (RME) - General Chief Complaint: Abdominal Pain Stated Complaint: STOMA PROBLEMS Time Seen by Provider: 08/20/17 09:11 Notes: Patient is a 37-year-old male, past medical history ulcerative colitis with ostomy, presents with worsening right lower quadrant abdominal pain and leaking from his ostomy site. He has changed his bag 4 times today and one bag usually last 4 days. Denies fevers, blood in stool, nausea or vomiting. PE: Brown watery stool leaking around ostomy site and in bag. I have greeted and performed a rapid initial assessment of this patient. A comprehensive ED assessment and evaluation of the patient, analysis of test results and completion of the medical decision making process will be conducted by additional ED providers. TRAVEL OUTSIDE OF THE [place] IN LAST 30 DAYS: No - Related Data Allergies/Adverse Reactions: Penicillins Allergy (Mild, Verified 08/20/17 08:31) rash/hives metronidazole [From Flagyl] Allergy (Verified 08/20/17 09:16) Past Medical History - Social History Frequency of alcohol use: None Drug Abuse: None - Past Medical History Cardiac Medical History: Denies: Hx Heart Attack, Hx Hypertension Pulmonary Medical History: Denies: Hx Asthma, Hx Bronchitis, Hx COPD, Hx Pneumonia Neurological Medical History: Denies: Hx Seizures Renal/ Medical History: Denies: Hx Peritoneal Dialysis GI Medical History: Reports: Hx Ulcer - Ulcerative colitis, Hx Ulcerative Colitis, Hx Colonoscopy Musculoskeltal Medical History: Denies Hx Arthritis Past Surgical History: Reports: Hx Abdominal Surgery - colon/colostomy, Hx Appendectomy - February 2015, Hx Vascular Surgery - Port placement - Immunizations Immunizations up to date: Yes Hx Diphtheria, Pertussis, Tetanus Vaccination: Yes Physical Exam - Vital signs Vitals: Temp Pulse Resp BP Pulse Ox 97.8 F 95 18 125/79 99 08/20/17 08:37 08/20/17 08:37 08/20/17 08:37 08/20/17 08:37 08/20/17 08:37 Course - Vital Signs Vital signs: Temp Pulse Resp BP Pulse Ox 97.8 F 95 18 125/79 99 08/20/17 08:37 08/20/17 08:37 08/20/17 08:37 08/20/17 08:37 08/20/17 08:37
[2017-08-20 09:51] LABS: ABSOLUTE BASOPHILS # (AUTO) 0.1 10^3/uL (0.0-0.2); ABSOLUTE EOSINOPHILS # (AUTO) 0.6 10^3/uL (0.0-0.6); ABSOLUTE LYMPHOCYTES (AUTO) 1.8 10^3/uL (0.5-4.7); ABSOLUTE MONOCYTES (AUTO) 0.9 10^3/uL (0.1-1.4); ABSOLUTE NEUT (AUTO) 7.5 10^3/uL (1.7-8.2); BASOPHILS % (AUTO) 0.8 % (0-2); EOSINOPHILS % (AUTO) 5.3 % (0-6); HEMOGLOBIN 13.6 g/dL (13.5-17.0); LYMPHOCYTES % (AUTO) 16.3 % (13-45); MEAN CORPUSCULAR HEMOGLOBIN 28.2 pg (27.0-33.4); MEAN CORPUSCULAR HGB CONC 32.5 g/dL (32.0-36.0); MEAN CORPUSCULAR VOLUME 87 fl (80-97); MONOCYTES % (AUTO) 8.4 % (3-13); PLATELET COUNT 292 10^3/uL (150-450); RED BLOOD COUNT 4.84 10^6/uL (4.35-5.55); RED CELL DISTRIBUTION WIDTH 20.8 % (11.5-14.0); SEGMENTED NEUTROPHILS % (AUTO) 69.2 % (42-78); TOTAL CELLS COUNTED % (AUTO) 100 %; WHITE BLOOD COUNT 10.8 10^3/uL (4.0-10.5)
--- NOTE | 2017-08-20 09:52 | ER Document Report ---
ED General - General Chief Complaint: Abdominal Pain Stated Complaint: STOMA PROBLEMS Time Seen by Provider: 08/20/17 09:11 Notes: 37-year-old male with a history of ulcerative colitis presents to the ER wanting to be evaluated. He stated he is having some pain around his stoma having increased output of the stoma. Patient is a frequent visitor here to the emergency department. His complaints are very similar. Patient stated he went through 4 bags this morning due to the amount of output. He denies any fever or chills stress and burning pain around his ostomy but it is draining well. Denies nausea or vomiting. Denies sore throat cough chest pain or shortness of breath he describes a burning around his ostomy is severe. Nothing makes it better or worse. TRAVEL OUTSIDE OF THE [place] IN LAST 30 DAYS: No - Related Data Allergies/Adverse Reactions: Penicillins Allergy (Mild, Verified 08/20/17 08:31) rash/hives metronidazole [From Flagyl] Allergy (Verified 08/20/17 09:16) Past Medical History - Social History Smoking Status: Never Smoker Frequency of alcohol use: None Drug Abuse: None Family History: CAD, CVA, DM, Hyperlipidemia, Hypertension, Malignancy Patient has suicidal ideation: No Patient has homicidal ideation: No - Past Medical History Cardiac Medical History: Denies: Hx Heart Attack, Hx Hypertension Pulmonary Medical History: Denies: Hx Asthma, Hx Bronchitis, Hx COPD, Hx Pneumonia Neurological Medical History: Denies: Hx Seizures Renal/ Medical History: Denies: Hx Peritoneal Dialysis GI Medical History: Reports: Hx Ulcer - Ulcerative colitis, Hx Ulcerative Colitis, Hx Colonoscopy Musculoskeltal Medical History: Denies Hx Arthritis Past Surgical History: Reports: Hx Abdominal Surgery - colon/colostomy, Hx Appendectomy - February 2015, Hx Vascular Surgery - Port placement - Immunizations Immunizations up to date: Yes Hx Diphtheria, Pertussis, Tetanus Vaccination: Yes Review of Systems - Review of Systems Gastrointestinal: Abdominal pain, Diarrhea. denies: Nausea Genitourinary: denies: Dysuria, Hematuria -: Yes All other systems reviewed and negative Physical Exam - Vital signs Vitals: Temp Pulse Resp BP Pulse Ox 97.8 F 95 18 125/79 99 08/20/17 08:37 08/20/17 08:37 08/20/17 08:37 08/20/17 08:37 08/20/17 08:37 - Notes Notes: GENERAL_APPEARANCE: well_nourished, alert, cooperative, no_acute_distress, no_ obvious_discomfort. VITALS: reviewed, see vital signs table. HEAD: no_swelling\tenderness on the head. EYES: conjunctiva_clear. NOSE: no_nasal_discharge. MOUTH: (-)decreased moisture. THROAT:no_airway_obstruction. no_lymphadenopathy NECK: supple, no_neck_tenderness, (-)thyromegaly. BACK: no_back_tenderness. CHEST_WALL: no_chest_tenderness. LUNGS: no_wheezing, no_rales, no_rhonchi, (-)accessory muscle use, good air exchange bilateral. HEART: normal_rate, normal_rhythm, normal_S1, normal_S2, (-)S3, (-)S4, no_ murmur, no_rub. ABDOMEN: Normal bowel sounds, patient has some tenderness around the ostomy is soft supple. The ostomy is pink and is draining out brown green fluid. No signs of any surrounding cellulitis, no rebound no guarding no masses. EXTREMITIES:no_swelling\tenderness in the extremities, no_edema. SKIN: warm, dry, good_color, no_rash. MENTAL_STATUS: speech_clear, oriented_X_3, normal_affect, responds_ appropriately to questions. Course - Re-evaluation Re-evalutation: 08/20/17 09:51 37-year-old male history of ulcerative colitis well-known to the emergency room for multiple visits for the same. Comes in complaining of abdominal pain. He has been CAT scan many times. This is similar pain to all his prior visits. I do not think repeating any imaging is indicated especially with such a benign exam. He is complaining of some increased output. He has had no fever no chills. Recheck in some generalized labs. He always asked for pain medicine. Triage did order some pain medicine for him but no additional meds will be given beyond that. Likely more acute on chronic condition. 08/20/17 11:19 Laboratory 08/20/17 08/20/17 09:36 09:36 WBC 10.8 H RBC 4.84 Hgb 13.6 Hct 42.0 MCV 87 MCH 28.2 MCHC 32.5 RDW 20.8 H Plt Count 292 Seg Neutrophils % 69.2 Lymphocytes % 16.3 Monocytes % 8.4 Eosinophils % 5.3 Basophils % 0.8 Absolute Neutrophils 7.5 Absolute Lymphocytes 1.8 Absolute Monocytes 0.9 Absolute Eosinophils 0.6 Absolute Basophils 0.1 Sodium 141.6 Potassium 4.6 Chloride 106 Carbon Dioxide 22 Anion Gap 14 BUN 9 Creatinine 0.74 Est GFR ( Amer) > 60 Est GFR (Non-Af Amer) > 60 Glucose 110 Calcium 9.8 Total Bilirubin 0.4 Direct Bilirubin 0.3 Neonat Total Bilirubin Not Reportable Neonat Direct Bilirubin Not Reportable Neonat Indirect Bili Not Reportable AST 18 ALT 27 Alkaline Phosphatase 68 Total Protein 7.6 Albumin 4.5 Lipase 36.7 The patient has no electrolyte disturbances. No fever no significant leukocytosis. The patient is very similar to what he was since I seen him last time. He will be given supplies and discharged home to follow-up with his paper cone grader. - Vital Signs Vital signs: Temp Pulse Resp BP Pulse Ox 97.8 F 95 18 125/79 99 08/20/17 08:37 08/20/17 08:37 08/20/17 08:37 08/20/17 08:37 08/20/17 08:37 - Laboratory Result Diagrams: 08/20/17 09:36 08/20/17 09:36 Laboratory results interpreted by me: 08/20/17 09:36 WBC 10.8 H RDW 20.8 H Discharge - Discharge Clinical Impression: Abdominal pain Qualifiers: Abdominal location: generalized Qualified Code(s): R10.84 - Generalized abdominal pain Condition: Good Disposition: HOME, SELF-CARE Instructions: Abdominal Pain ([facility]) Additional Instructions: Please follow-up with your paper cone grader in [place] for further care
[2017-08-20 10:08] LABS: ALANINE AMINOTRANSFERASE 27 U/L (21-72); ALBUMIN 4.5 g/dL (3.5-5.0); ALKALINE PHOSPHATASE 68 U/L (38-126); ANION GAP 14 (5-19); ASPARTATE AMINO TRANSFERASE 18 U/L (17-59); BILIRUBIN,DIRECT 0.3 mg/dL (0.0-0.4); BILIRUBIN,TOTAL 0.4 mg/dL (0.2-1.3); BLOOD UREA NITROGEN 9 mg/dL (7-20); CALCIUM 9.8 mg/dL (8.4-10.2); CARBON DIOXIDE 22 mmol/L (22-30); CHLORIDE 106 mmol/L (98-107); GLUCOSE 110 mg/dL (75-110); LIPASE 36.7 U/L (23-300); POTASSIUM 4.6 mmol/L (3.6-5.0); SODIUM 141.6 mmol/L (137-145); TOTAL PROTEIN 7.6 g/dL (6.3-8.2)
[2017-08-20 12:29] VITALS: BP 115/83
== END 2017-08-20 12:29 | disposition home or self-care (01) ==
LOC: ER 08:30
DX: K51.90 Ulcerative colitis, unspecified, without complications (principal); R10.84 Generalized abdominal pain; R19.7 Diarrhea, unspecified; Z93.3 Colostomy status; Z88.0 Allergy status to penicillin; Z88.1 Allergy status to other antibiotic agents
CPT/HCPCS: 36591; 99284; 96374; 36415; 83690; 85025; 80053; J1885; J1642

== ENCOUNTER 2017-08-22 10:00 | Emergency (ER) | payer SELFPAY ==
[2017-08-22 10:57] LABS: ABSOLUTE BASOPHILS # (AUTO) 0.1 10^3/uL (0.0-0.2); ABSOLUTE EOSINOPHILS # (AUTO) 0.7 10^3/uL (0.0-0.6); ABSOLUTE LYMPHOCYTES (AUTO) 1.3 10^3/uL (0.5-4.7); ABSOLUTE MONOCYTES (AUTO) 0.6 10^3/uL (0.1-1.4); ABSOLUTE NEUT (AUTO) 6.2 10^3/uL (1.7-8.2); BASOPHILS % (AUTO) 0.6 % (0-2); EOSINOPHILS % (AUTO) 8.2 % (0-6); LYMPHOCYTES % (AUTO) 15.2 % (13-45); MEAN CORPUSCULAR HEMOGLOBIN 28.7 pg (27.0-33.4); MEAN CORPUSCULAR HGB CONC 33.3 g/dL (32.0-36.0); MEAN CORPUSCULAR VOLUME 86 fl (80-97); MONOCYTES % (AUTO) 6.3 % (3-13); PLATELET COUNT 305 10^3/uL (150-450); RED BLOOD COUNT 5.47 10^6/uL (4.35-5.55); RED CELL DISTRIBUTION WIDTH 20.2 % (11.5-14.0); SEGMENTED NEUTROPHILS % (AUTO) 69.7 % (42-78); TOTAL CELLS COUNTED % (AUTO) 100 %; WHITE BLOOD COUNT 8.9 10^3/uL (4.0-10.5)
[2017-08-22 11:05] LABS: HEMOGLOBIN 15.7 g/dL (13.5-17.0)
[2017-08-22 11:14] LABS: ALANINE AMINOTRANSFERASE 35 U/L (21-72); ALBUMIN 4.5 g/dL (3.5-5.0); ALKALINE PHOSPHATASE 87 U/L (38-126); ANION GAP 15 (5-19); ASPARTATE AMINO TRANSFERASE 25 U/L (17-59); BILIRUBIN,DIRECT 0.2 mg/dL (0.0-0.4); BILIRUBIN,TOTAL 0.6 mg/dL (0.2-1.3); BLOOD UREA NITROGEN 8 mg/dL (7-20); CALCIUM 10.6 mg/dL (8.4-10.2); CARBON DIOXIDE 21 mmol/L (22-30); CHLORIDE 107 mmol/L (98-107); GLUCOSE 108 mg/dL (75-110); POTASSIUM 4.5 mmol/L (3.6-5.0); SODIUM 142.7 mmol/L (137-145); TOTAL PROTEIN 7.8 g/dL (6.3-8.2)
[2017-08-22] MEDS ORDERED: ONDANSETRON 4 MG TAB.RAPDIS PO ONE (11:35)
[2017-08-22] MEDS ORDERED: OXYCODONE HCL SR 10 MG TABLET PO ONE (11:35)
--- NOTE | 2017-08-22 11:37 | ER Document Report ---
ED GI/ - General Chief Complaint: Abdominal Pain Stated Complaint: ABDOMINAL PAIN Time Seen by Provider: 08/22/17 10:13 Mode of Arrival: Medic Information source: Patient Notes: Patient is a 37-year-old male with ulcerative colitis, very well-known to our emergency department who presents to the ER today for pain around his stoma and "peeing into my colostomy bag." Patient states "this pain is different than my normal pain." Patient was recently transferred multiple times to [facility] due to intra-abdominal abscesses that were drained surgically with tubes placed. Patient states that this has all improved, until yesterday when his pain worsened again. Patient states that he has seen urine and his colostomy bag and that yesterday "I drank fruit punch and then saw it in the bag." He admits to nausea, but that is a chronic complaint. He denies any vomiting, fever, chills. He states that he has not urinated in 2-1/2 days. TRAVEL OUTSIDE OF THE [place] IN LAST 30 DAYS: No - Related Data Allergies/Adverse Reactions: Penicillins Allergy (Mild, Verified 08/20/17 08:31) rash/hives metronidazole [From Flagyl] Allergy (Verified 08/20/17 09:16) Past Medical History - General Information source: Patient - Social History Smoking Status: Unknown if Ever Smoked Family History: CAD, CVA, DM, Hyperlipidemia, Hypertension, Malignancy Patient has suicidal ideation: No Patient has homicidal ideation: No - Past Medical History Cardiac Medical History: Denies: Hx Heart Attack, Hx Hypertension Pulmonary Medical History: Denies: Hx Asthma, Hx Bronchitis, Hx COPD, Hx Pneumonia Neurological Medical History: Denies: Hx Seizures Renal/ Medical History: Denies: Hx Peritoneal Dialysis GI Medical History: Reports: Hx Ulcer - Ulcerative colitis, Hx Ulcerative Colitis, Hx Colonoscopy Musculoskeltal Medical History: Denies Hx Arthritis Past Surgical History: Reports: Hx Abdominal Surgery - colon/colostomy, Hx Appendectomy - February 2015, Hx Vascular Surgery - Port placement - Immunizations Immunizations up to date: Yes Hx Diphtheria, Pertussis, Tetanus Vaccination: Yes Review of Systems - Review of Systems Constitutional: No symptoms reported EENT: No symptoms reported Cardiovascular: No symptoms reported Respiratory: No symptoms reported Gastrointestinal: See HPI Genitourinary: No symptoms reported Male Genitourinary: No symptoms reported Musculoskeletal: No symptoms reported Skin: No symptoms reported Hematologic/Lymphatic: No symptoms reported Neurological/Psychological: No symptoms reported Physical Exam - Vital signs Vitals: Resp Pulse Ox 25 H 100 08/22/17 10:11 08/22/17 10:11 - Notes Notes: PHYSICAL EXAMINATION: GENERAL: Well-appearing and in no acute distress. HEAD: Atraumatic, normocephalic. EYES: Pupils equal round and reactive to light, extraocular movements intact, sclera anicteric, conjunctiva are normal. NECK: Normal range of motion, supple without lymphadenopathy LUNGS: CTAB and equal. No wheezes rales or rhonchi. HEART: Regular rate and rhythm without murmurs ABDOMEN: Soft, mild tenderness around colostomy bag in right lower quadrant, brown watery stool in colostomy bag, no other abdominal tenderness. No erythema , stoma looks well, no guarding, no rebound BACK: no vertebral tenderness, normal ROM GI/: no CVA tenderness EXTREMITIES: Normal range of motion, no pitting edema. No cyanosis. NEUROLOGICAL: Cranial nerves grossly intact. Normal sensory/motor exams. PSYCH: Anxious SKIN: Warm, Dry, normal turgor, no rashes or lesions noted Course - Re-evaluation Re-evalutation: 08/22/17 16:25 Lab work is unremarkable including a normal white blood cell count, CT unremarkable today for any signs of acute pathology, some inflammation in the distal sigmoid and rectum but patient is not having any pain there. No fistulas noted on CAT scan today. Bladder unremarkable on CAT scan, nondistended. - Vital Signs Vital signs: Temp Pulse Resp BP Pulse Ox 97.6 F 112 H 18 125/94 H 98 08/22/17 16:00 08/22/17 16:00 08/22/17 16:00 08/22/17 16:00 08/22/17 16:00 - Laboratory Result Diagrams: 08/22/17 10:40 08/22/17 10:40 Laboratory results interpreted by me: 08/22/17 08/22/17 10:40 10:40 RDW 20.2 H Eosinophils % 8.2 H Absolute Eosinophils 0.7 H Carbon Dioxide 21 L Calcium 10.6 H Discharge - Discharge Clinical Impression: Ulcerative (chronic) enterocolitis Qualifiers: Digestive disease complication type: without complication Qualified Code(s): K51.00 - Ulcerative (chronic) pancolitis without complications Condition: Stable Disposition: HOME, SELF-CARE Additional Instructions: Return immediately for any new or worsening symptoms. Follow up with primary care provider, call tomorrow to make followup appointment. Referrals: EVIN CHURCH MD [Primary Care Provider] - Follow up as needed
--- NOTE | 2017-08-22 14:12 | RADIOLOGY REPORT (SQ) ---
EXAM DESCRIPTION: CT ABD/PELVIS WITH IV ONLY COMPLETED DATE/TIME: 08/22/2017 1:42 pm REASON FOR STUDY: UC, pain, "urine in colostomy bag" COMPARISON: 07/25/2017 TECHNIQUE: CT scan of the abdomen and pelvis performed using helical scanning technique with dynamic intravenous contrast injection. No oral contrast. Images reviewed with lung, soft tissue, and bone windows. Reconstructed coronal and sagittal MPR images reviewed. Delayed images for evaluation of the urinary system also acquired. All images stored on PACS. All CT scanners at this facility use dose modulation, iterative reconstruction, and/or weight based d osing when appropriate to reduce radiation dose to as low as reasonably achievable (ALARA). [facility]: Dose Right [facility]: CareDose [facility]: Dose Right [facility]: Teradose 4D [facility]: [employer] CONTRAST TYPE AND DOSE: contrast/concentration: Isovue 370.00 mg/ml; Total Contrast Delivered: 100.0 ml; Total Saline Delivered: 57.0 ml RENAL FUNCTION: None required. The patient is less than 50 years old. RADIATION DOSE: CT Rad equipment meets quality standard of care and radiation dose reduction techniq ues were employed. CTDIvol: 11.7 - 16.8 mGy. DLP: 1558 mGy-cm.. LIMITATIONS: None. FINDINGS: LOWER CHEST: No significant findings. No nodules or infiltrates. LIVER: Normal size. No masses. No dilated ducts. SPLEEN: Normal size. No focal lesions. PANCREAS: No masses. No significant calcifications. No adjacent inflammation or peripancreatic fluid collections. Pancreatic duct not dilated. GALLBLADDER: No identified stones by CT criteria. No inflammatory changes to suggest cholecystitis. ADRENAL GLANDS: No significant masses or asymmetry. RIGHT KIDNEY AND URETER: No solid masses. No significant calcifications. No hydronephrosis or hyd roureter. LEFT KIDNEY AND URETER: No solid masses. No significant calcifications. No hydronephrosis or hydr oureter. AORTA AND VESSELS: No aneurysm. No dissection. Renal arteries, SMA, celiac without stenosis. RETROPERITONEUM: No retroperitoneal adenopathy, hemorrhage or masses. BOWEL AND PERITONEAL CAVITY: Again the patient is status post subtotal colectomy. Ostomy is again id entified in the right lower quadrant. There is some thickening of the sandra of the remaining distal sigmoid colon and rectum which could represent involvement by the patient's known ulcerative colitis. APPENDIX: Status post appendectomy PELVIS: No mass. No free fluid. Again there is some thickening of the sandra of the bladder unchange d from the previous study. This could be in part related to its non distended state. ABDOMINAL WALL: No masses. No hernias. BONES: No significant or acute findings. OTHER: No other significant finding. IMPRESSION: Stable appearing postsurgical changes as noted above. Right lower quadrant ostomy is un changed. There is thickening of the sandra of the remaining distal sigmoid colon and rectum which cou ld represent involvement by the patient's known ulcerative colitis. Other findings as noted above TECHNICAL DOCUMENTATION: JOB ID: [id number] Quality ID # [id number]: Final reports with documentation of one or more dose reduction techniques (e.g., Au tomated exposure control, adjustment of the mA and/or kV according to patient size, use of iterative reconstruction technique) 2010 [employer]- All Rights Reserved Reading location - IP/workstation name: [email or web address]
[2017-08-22] MEDS ORDERED: ONDANSETRON HCL INJ/PF 4 MG/2 ML SDV IV ONE (14:34)
[2017-08-22 16:01] VITALS: BP 125/94
--- NOTE | 2017-08-22 23:28 | EKG REPORT ---
SEVERITY:- ABNORMAL ECG - SINUS TACHYCARDIA LEFT ATRIAL ABNORMALITY BORDERLINE LEFT AXIS DEVIATION CONSIDER ANTERIOR INFARCT : Confirmed by: Arash Oliva 22-Aug-2017 23:28:02
== END 2017-08-22 16:00 | disposition home or self-care (01) ==
LOC: ER 10:00
DX: K51.00 Ulcerative (chronic) pancolitis without complications (principal); R10.9 Unspecified abdominal pain; Z88.0 Allergy status to penicillin; Z93.3 Colostomy status
CPT/HCPCS: 93005; 99285; 96374; 36415; 85025; 80053; 74177; 93010; S0119; J2405

== ENCOUNTER 2017-08-26 20:03 | Emergency (ER) | payer SELFPAY ==
--- NOTE | 2017-08-26 21:14 | ER Document Report ---
ED General - General Chief Complaint: Urinary Incontinence Stated Complaint: URINARY ISSUES Time Seen by Provider: 08/26/17 20:24 Mode of Arrival: Medic Information source: Patient, [facility] Records, Outside Facility Records Notes: 37-year-old male with history of ulcerative colitis, recent colectomy presents with complaint of abdominal pain that has been ongoing for several weeks. Patient also states that he is experiencing the inability to urinate. He states the last time he was able to urinate was 6 days prior to arrival. Pain is located in the periumbilical region of his abdomen, described as a stent, throbbing, sharp pain is worse than his usual pain that he experiences with his ulcerative colitis. Patient states this is his third visit to the emergency department this week. He believes that his urinary is dumping into his ostomy bag. He states he has had more output of his ostomy over the last week. He states that he thinks the fruit punch that he is drinking is going directly into his ostomy bag. Patient has had associated nausea without vomiting. He has taken his oxycodone 15 mg as prescribed without relief of pain. TRAVEL OUTSIDE OF THE [place] IN LAST 30 DAYS: No - HPI Onset: Last week Onset/Duration: Constant, Worse Quality of pain: Throbbing Severity: Moderate Associated symptoms: Nausea Exacerbated by: Denies Relieved by: Denies Similar symptoms previously: Yes Recently seen / treated by doctor: Yes - Related Data Allergies/Adverse Reactions: Penicillins Allergy (Mild, Verified 08/20/17 08:31) rash/hives metronidazole [From Flagyl] Allergy (Verified 08/20/17 09:16) Past Medical History - General Information source: Patient, [facility] Records, Outside Facility Records - Social History Smoking Status: Unknown if Ever Smoked Frequency of alcohol use: None Drug Abuse: None Lives with: Family Family History: CAD, CVA, DM, Hyperlipidemia, Hypertension, Malignancy Patient has suicidal ideation: No Patient has homicidal ideation: No - Past Medical History Cardiac Medical History: Denies: Hx Heart Attack, Hx Hypertension Pulmonary Medical History: Denies: Hx Asthma, Hx Bronchitis, Hx COPD, Hx Pneumonia Neurological Medical History: Denies: Hx Seizures Renal/ Medical History: Denies: Hx Peritoneal Dialysis GI Medical History: Reports: Hx Ulcer - Ulcerative colitis, Hx Ulcerative Colitis, Hx Colonoscopy Musculoskeltal Medical History: Denies Hx Arthritis Past Surgical History: Reports: Hx Abdominal Surgery - colon/colostomy, Hx Appendectomy - February 2015, Hx Vascular Surgery - Port placement, Other - colectomy - Immunizations Immunizations up to date: Yes Hx Diphtheria, Pertussis, Tetanus Vaccination: Yes Review of Systems - Review of Systems Notes: Patient denies fever, chills, headache, ear pain, sore throat, cough, chest pain , shortness of breath, back pain, dysuria, hematuria, rash, SI/HI. Physical Exam - Vital signs Vitals: Temp Pulse Resp BP Pulse Ox 98.0 F 98 17 137/81 H 99 08/26/17 20:13 08/26/17 20:13 08/26/17 20:13 08/26/17 20:13 08/26/17 20:13 Interpretation: Normal, Hypertensive. No: Tachycardic, Hypoxic, Febrile - Notes Notes: PHYSICAL EXAMINATION: GENERAL: Well-appearing, well-nourished and in no acute distress. HEAD: Atraumatic, normocephalic. EYES: Pupils equal round and reactive to light, extraocular movements intact, sclera anicteric, conjunctiva are normal. ENT: Nares patent, oropharynx clear without exudates. Moist mucous membranes. NECK: Normal range of motion, supple without lymphadenopathy LUNGS: Breath sounds clear to auscultation bilaterally and equal. No wheezes rales or rhonchi. HEART: Regular rate and rhythm without murmurs ABDOMEN: Diffuse abdominal tenderness with guarding no rebound. No masses appreciated. ostomy site without erythema. Musculoskeletal: Normal range of motion, no pitting or edema. No cyanosis. NEUROLOGICAL: Cranial nerves grossly intact. Normal speech, normal gait. Normal sensory, motor exams PSYCH: Normal mood, normal affect. SKIN: Warm, Dry, normal turgor, no rashes or lesions noted. Course - Re-evaluation Re-evalutation: Mr. Lima is a 37-year-old male with a history of ulcerative colitis, recent colectomy with complications performed by Dr. López at [facility]. Patient reports complications with abdominal abscess after surgery. He is here today the third time this week with complaints of worsening abdominal pain, inability to urinate. Patient was seen by myself upon arrival. Vital signs were reviewed. Patient is afebrile, normotensive and not hypoxic. Patient does not appear toxic or dehydrated. They are in no acute distress. Previous medical records and nursing notes reviewed. Patient' s recent laboratory testing and imaging were reviewed. Bedside ultrasound of the bladder was performed and showed 20 cc of volume. Patient reports good p.o. intake. He continually states "I know when there is something wrong with me". Because of the patient's complex history, repeated imaging, I will contact Dr. López for further suggestions. 08/26/17 21:55 [facility] was contacted where the patient has had his colectomy with Dr. López. I have requested to talk to whoever is on-call for Dr. López for further recommendations. 08/26/17 22:[address] Gonzales who is covering Dr. López and is familiar with the patient. She does not recommend any workup or imaging here since it will all be repeated when he arrives. She agrees patient has a complex history and has recommended transfer to [facility] for further evaluation. 08/26/17 23:30 - Vital Signs Vital signs: Temp Pulse Resp BP Pulse Ox 98.0 F 98 17 137/81 H 99 08/26/17 20:13 08/26/17 20:13 08/26/17 20:13 08/26/17 20:13 08/26/17 20:13 - Diagnostic Test Radiology reviewed: Image reviewed Procedures - Ultrasound/Bedside Ultrasound/Bedside Time completed: 21:13 - Bedside ultrasound of the bladder was performed and patient has 22 cc of urine not consistent with urinary retention. Discharge - Discharge Clinical Impression: Urinary retention, H/O colectomy Abdominal pain Qualifiers: Abdominal location: periumbilical Qualified Code(s): R10.33 - Periumbilical pain Ulcerative (chronic) enterocolitis Qualifiers: Digestive disease complication type: unspecified complication Qualified Code(s) : K51.019 - Ulcerative (chronic) pancolitis with unspecified complications Ulcerative colitis with complication Qualifiers: Ulcerative colitis location: unspecified ulcerative colitis location Qualified Code(s): K51.919 - Ulcerative colitis, unspecified with unspecified complications Disposition: [facility]
[2017-08-26] MEDS ORDERED: OXYCODONE HCL SR 10 MG TABLET PO ONE (21:25)
[2017-08-26] MEDS ORDERED: ONDANSETRON 4 MG TAB.RAPDIS PO ONE (22:20)
[2017-08-27] MEDS ORDERED: OXYCODONE-ACETAMINOPHEN 5-325 MG TABLET PO ONE (01:15)
[2017-08-27] MEDS ORDERED: ONDANSETRON 4 MG TAB.RAPDIS PO ONE (03:08)
[2017-08-27 03:13] VITALS: BP 139/84
== END 2017-08-27 03:12 | disposition short-term general hospital (02) ==
LOC: ER 20:03
DX: R33.9 Retention of urine, unspecified (principal); K51.014 Ulcerative (chronic) pancolitis with abscess; R10.33 Periumbilical pain; R11.0 Nausea; Z93.3 Colostomy status; Z90.49 Acquired absence of other specified parts of digestive tract; Z88.1 Allergy status to other antibiotic agents; Z88.0 Allergy status to penicillin
CPT/HCPCS: 99285; S0119 ×2

== ENCOUNTER 2017-08-29 23:27 | Emergency (ER) | payer SELFPAY ==
[2017-08-30] MEDS ORDERED: MORPHINE SULFATE IR 15 MG TABLET PO ONE (00:36)
--- NOTE | 2017-08-30 00:40 | ER Document Report ---
ED GI/ - General Chief Complaint: Rectal Bleeding Stated Complaint: RECTAL BLEEDING Time Seen by Provider: 08/30/17 00:18 Notes: Patient is a 37-year-old male that comes emergency department for chief complaint of abdominal pain and rectal bleeding. He states that he noticed some bright red blood per rectum last night, today he noticed it again but to a lesser degree. Patient has a history of ulcerative colitis, colectomy, he follows with [facility], gastroenterology, and he was transferred there last week but he states that when he was evaluated there he was discharged without changes. He denies fever, vomiting, no significant change in the stool in his ostomy bag. He states that the pain in his abdomen is the same pain that was going on when he was transferred to [facility] last time, sharp and intermittent. Only daily medication currently is oxycodone 15 mg TID. TRAVEL OUTSIDE OF THE [place] IN LAST 30 DAYS: No - Related Data Allergies/Adverse Reactions: Penicillins Allergy (Mild, Verified 08/20/17 08:31) rash/hives metronidazole [From Flagyl] Allergy (Verified 08/20/17 09:16) Past Medical History - General Information source: Patient - Social History Smoking Status: Never Smoker Frequency of alcohol use: None Drug Abuse: None Lives with: Alone Family History: CAD, CVA, DM, Hyperlipidemia, Hypertension, Malignancy - Past Medical History Cardiac Medical History: Denies: Hx Heart Attack, Hx Hypertension Pulmonary Medical History: Denies: Hx Asthma, Hx Bronchitis, Hx COPD, Hx Pneumonia Neurological Medical History: Denies: Hx Seizures Renal/ Medical History: Denies: Hx Peritoneal Dialysis GI Medical History: Reports: Hx Ulcer - Ulcerative colitis, Hx Ulcerative Colitis, Hx Colonoscopy Musculoskeltal Medical History: Denies Hx Arthritis Past Surgical History: Reports: Hx Abdominal Surgery - colon/colostomy, Hx Appendectomy - February 2015, Hx Vascular Surgery - Port placement, Other - colectomy - Immunizations Immunizations up to date: Yes Hx Diphtheria, Pertussis, Tetanus Vaccination: Yes Review of Systems - Review of Systems Constitutional: No symptoms reported EENT: No symptoms reported Cardiovascular: No symptoms reported Respiratory: No symptoms reported Gastrointestinal: See HPI Genitourinary: No symptoms reported Male Genitourinary: No symptoms reported Musculoskeletal: No symptoms reported Skin: No symptoms reported Hematologic/Lymphatic: No symptoms reported Neurological/Psychological: No symptoms reported Physical Exam - Vital signs Vitals: Temp Pulse Resp BP Pulse Ox 98.0 F 99 19 127/82 H 100 08/29/17 23:33 08/29/17 23:33 08/29/17 23:33 08/29/17 23:33 08/29/17 23:33 Interpretation: Normal - General General appearance: Appears well, Alert In distress: None - HEENT Head: Normocephalic, Atraumatic Eyes: Normal Pupils: PERRL - Respiratory Respiratory status: No respiratory distress Chest status: Nontender Breath sounds: Normal. No: Decreased air movement, Wheezing Chest palpation: Normal - Cardiovascular Rhythm: Regular. No: Tachycardia Heart sounds: Normal auscultation, S1 appreciated, S2 appreciated Murmur: No - Abdominal Inspection: Other - Ostomy bag noted with normal-appearing stool, old surgical scars midline, no other obvious abnormalities Distension: No distension Bowel sounds: Normal Tenderness: Tender - Soft benign abdomen with minimal generalized tenderness. No: Guarding Organomegaly: No organomegaly - Rectal Tenderness: No Stool: Heme positive, See lab result. No: Black, Bloody Hemorrhoids: None Prostate: Normal - Back Back: Normal, Nontender. No: Tender - Extremities General upper extremity: Normal inspection, Nontender, Normal color, Normal ROM , Normal temperature General lower extremity: Normal inspection, Nontender, Normal color, Normal ROM , Normal temperature, Normal weight bearing. No: Nazanin's sign - Neurological Neuro grossly intact: Yes Cognition: Normal Orientation: AAOx4 Durant Coma Scale Eye Opening: Spontaneous Durant Coma Scale Verbal: Oriented Perla Coma Scale Motor: Obeys Commands Perla Coma Scale Total: 15 Speech: Normal Motor strength normal: LUE, RUE, LLE, RLE Sensory: Normal - Psychological Associated symptoms: Normal affect, Normal mood - Skin Skin Temperature: Warm Skin Moisture: Dry Skin Color: Normal Course - Re-evaluation Re-evalutation: Patient with no gross bleeding on rectal exam, no masses or obvious abnormality , his ostomy bag has normal-appearing stool, his abdomen is soft and benign. No fever, unremarkable vital signs, CBC does not show leukocytosis or bandemia, chemistry unremarkable. Hemoccult is positive. Suspect mild flare of Crohn's in the rectal area. Based on his evaluation of low suspicion of acute abdomen, intra-abdominal abscess, and the amount of bleeding appears to be very minimal. Discussed with Dr. Potts. Discussed with patient in detail. 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 - Vital Signs Vital signs: Temp Pulse Resp BP Pulse Ox 98.0 F 99 19 127/82 H 100 08/29/17 23:33 08/29/17 23:33 08/29/17 23:33 08/29/17 23:33 08/29/17 23:33 - Laboratory Result Diagrams: 08/30/17 01:39 08/30/17 01:39 Laboratory results interpreted by me: 08/30/17 08/30/17 01:39 01:39 RDW 19.7 H Eosinophils % 8.2 H Absolute Eosinophils 0.7 H Sodium 145.5 H Total Bilirubin 0.1 L Discharge - Discharge Clinical Impression: Rectal bleeding Condition: Stable Disposition: HOME, SELF-CARE Additional Instructions: You do have some rectal bleeding suggesting a flare of ulcerative colitis in this area. Recommendation is to take the prednisone taper as prescribed, follow -up with gastroenterology for additional management. Return for any concerning or worsening symptoms including heavy bleeding, passing out, fever of 100.4 or greater, or any other concerning or worsening symptoms. Prescriptions: Prednisone [Deltasone 10 mg Tablet] 10 mg PO ASDIR PRN #21 tablet PRN Reason:
[2017-08-30 01:48] LABS: ABSOLUTE EOSINOPHILS # (AUTO) 0.7 10^3/uL (0.0-0.6); ABSOLUTE MONOCYTES (AUTO) 0.5 10^3/uL (0.1-1.4); ABSOLUTE NEUT (AUTO) 5.2 10^3/uL (1.7-8.2); BASOPHILS % (AUTO) 0.2 % (0-2); EOSINOPHILS % (AUTO) 8.2 % (0-6); HEMATOCRIT 41.8 % (37.9-51.0); HEMOGLOBIN 13.8 g/dL (13.5-17.0); MEAN CORPUSCULAR HEMOGLOBIN 28.5 pg (27.0-33.4); MEAN CORPUSCULAR HGB CONC 32.9 g/dL (32.0-36.0); MEAN CORPUSCULAR VOLUME 87 fl (80-97); MONOCYTES % (AUTO) 5.8 % (3-13); PLATELET COUNT 301 10^3/uL (150-450); RED BLOOD COUNT 4.83 10^6/uL (4.35-5.55); RED CELL DISTRIBUTION WIDTH 19.7 % (11.5-14.0); SEGMENTED NEUTROPHILS % (AUTO) 61.8 % (42-78); TOTAL CELLS COUNTED % (AUTO) 100 %; WHITE BLOOD COUNT 8.5 10^3/uL (4.0-10.5)
[2017-08-30 02:09] LABS: ALANINE AMINOTRANSFERASE 33 U/L (21-72); ALBUMIN 3.8 g/dL (3.5-5.0); ALKALINE PHOSPHATASE 65 U/L (38-126); ANION GAP 13 (5-19); ASPARTATE AMINO TRANSFERASE 28 U/L (17-59); BILIRUBIN,DIRECT 0.1 mg/dL (0.0-0.4); BILIRUBIN,TOTAL 0.1 mg/dL (0.2-1.3); BLOOD UREA NITROGEN 11 mg/dL (7-20); CALCIUM 9.6 mg/dL (8.4-10.2); CARBON DIOXIDE 29 mmol/L (22-30); CHLORIDE 104 mmol/L (98-107); GLUCOSE 90 mg/dL (75-110); LIPASE 74.1 U/L (23-300); POTASSIUM 4.6 mmol/L (3.6-5.0); SODIUM 145.5 mmol/L (137-145); TOTAL PROTEIN 6.5 g/dL (6.3-8.2)
[2017-08-30] MEDS ORDERED: PREDNISONE 20 MG TABLET PO ONE (03:14)
[2017-08-30] MEDS ORDERED: MORPHINE SULFATE 10 MG/ML INJ IM ONE (03:14)
[2017-08-30 04:01] VITALS: BP 118/76
== END 2017-08-30 03:45 | disposition home or self-care (01) ==
LOC: ER 23:27
DX: K62.5 Hemorrhage of anus and rectum (principal); R10.9 Unspecified abdominal pain; Z88.0 Allergy status to penicillin; Z90.49 Acquired absence of other specified parts of digestive tract; Z93.3 Colostomy status
CPT/HCPCS: 99283; 96374; 36415; 83690; 85025; 82272; 80053; J2270; J7512

== ENCOUNTER 2017-09-06 00:20 | Emergency (ER) | payer SELFPAY ==
[2017-09-06] MEDS ORDERED: ONDANSETRON HCL INJ/PF 4 MG/2 ML SDV IV ONE (03:36)
[2017-09-06] MEDS ORDERED: MORPHINE SULFATE 10 MG/ML INJ IV ONE (03:36)
[2017-09-06 04:06] LABS: ABSOLUTE EOSINOPHILS # (AUTO) 0.9 10^3/uL (0.0-0.6); ABSOLUTE LYMPHOCYTES (AUTO) 2.4 10^3/uL (0.5-4.7); ABSOLUTE MONOCYTES (AUTO) 0.6 10^3/uL (0.1-1.4); ABSOLUTE NEUT (AUTO) 6.4 10^3/uL (1.7-8.2); BASOPHILS % (AUTO) 0.4 % (0-2); HEMATOCRIT 40.1 % (37.9-51.0); HEMOGLOBIN 13.4 g/dL (13.5-17.0); LYMPHOCYTES % (AUTO) 23.2 % (13-45); MEAN CORPUSCULAR HEMOGLOBIN 29.2 pg (27.0-33.4); MEAN CORPUSCULAR HGB CONC 33.4 g/dL (32.0-36.0); MEAN CORPUSCULAR VOLUME 87 fl (80-97); MONOCYTES % (AUTO) 5.7 % (3-13); PLATELET COUNT 284 10^3/uL (150-450); RED BLOOD COUNT 4.59 10^6/uL (4.35-5.55); RED CELL DISTRIBUTION WIDTH 18.5 % (11.5-14.0); SEGMENTED NEUTROPHILS % (AUTO) 61.7 % (42-78); TOTAL CELLS COUNTED % (AUTO) 100 %; WHITE BLOOD COUNT 10.4 10^3/uL (4.0-10.5)
[2017-09-06 04:19] LABS: ALANINE AMINOTRANSFERASE 20 U/L (21-72); ALKALINE PHOSPHATASE 57 U/L (38-126); ANION GAP 10 (5-19); ASPARTATE AMINO TRANSFERASE 13 U/L (17-59); BILIRUBIN,DIRECT 0.2 mg/dL (0.0-0.4); BILIRUBIN,TOTAL 0.3 mg/dL (0.2-1.3); BLOOD UREA NITROGEN 19 mg/dL (7-20); CALCIUM 9.5 mg/dL (8.4-10.2); CARBON DIOXIDE 27 mmol/L (22-30); CHLORIDE 105 mmol/L (98-107); GLUCOSE 87 mg/dL (75-110); POTASSIUM 4.7 mmol/L (3.6-5.0); SODIUM 142.1 mmol/L (137-145); TOTAL PROTEIN 6.7 g/dL (6.3-8.2)
--- NOTE | 2017-09-06 04:38 | ER Document Report ---
ED General - General Chief Complaint: Rectal Bleeding Stated Complaint: RECTAL BLEEDING,NAUSEA,ABDOMINAL PAIN Time Seen by Provider: 09/06/17 03:26 Notes: Patient is a 29-year-old male who is well-known to the ER. He has a long history of ulcerative colitis multiple complications. Had surgery several months ago. A colectomy at that time. He was seen here a few days ago because he was having some blood per rectum and some increasing pain. Was placed on tapering steroids. Patient says initially doing better but now feels that he is passing more bloody type mucus per rectum. He says his pain is little bit more than usual but is in the same location that he chronically does have pain. He is on chronic pain management and takes oxycodone. He denies any fevers. Said he did have some nausea. Ostomy output has remained unchanged. He has an appointment with his new GI doctor on Saturday as well as his surgeon. TRAVEL OUTSIDE OF THE [place] IN LAST 30 DAYS: No - Related Data Allergies/Adverse Reactions: Penicillins Allergy (Mild, Verified 08/20/17 08:31) rash/hives metronidazole [From Flagyl] Allergy (Verified 08/20/17 09:16) Past Medical History - Social History Smoking Status: Unknown if Ever Smoked Frequency of alcohol use: None Drug Abuse: None Family History: CAD, CVA, DM, Hyperlipidemia, Hypertension, Malignancy Patient has suicidal ideation: No Patient has homicidal ideation: No - Past Medical History Cardiac Medical History: Denies: Hx Heart Attack, Hx Hypertension Pulmonary Medical History: Denies: Hx Asthma, Hx Bronchitis, Hx COPD, Hx Pneumonia Neurological Medical History: Denies: Hx Seizures Renal/ Medical History: Denies: Hx Peritoneal Dialysis GI Medical History: Reports: Hx Ulcer - Ulcerative colitis, Hx Ulcerative Colitis, Hx Colonoscopy Musculoskeltal Medical History: Denies Hx Arthritis Past Surgical History: Reports: Hx Abdominal Surgery - colon/colostomy, Hx Appendectomy - February 2015, Hx Vascular Surgery - Port placement, Other - colectomy - Immunizations Immunizations up to date: Yes Hx Diphtheria, Pertussis, Tetanus Vaccination: Yes Review of Systems - Review of Systems Notes: My Normal Review Basic REVIEW OF SYSTEMS: CONSTITUTIONAL : Denies fever, chills, or sweats. Denies recent illness. EENT: Denies eye, ear, throat, or mouth pain or symptoms. Denies nasal or sinus congestion. CARDIOVASCULAR: Denies chest pain. RESPIRATORY: Denies cough, cold, or chest congestion. Denies shortness of breath, difficulty breathing, or wheezing. GASTROINTESTINAL: abdominal pain. Some nausea MUSCULOSKELETAL: Denies neck or back pain or joint pain or swelling. SKIN: Denies rash or skin lesions. NEUROLOGICAL: Denies altered mental status or loss of consciousness. Denies headache. Denies weakness or paralysis or loss of use of either side. Denies problems with gait or speech. Denies sensory or motor loss. ALL OTHER SYSTEMS REVIEWED AND NEGATIVE. Physical Exam - Vital signs Vitals: Pulse Resp BP Pulse Ox 78 18 162/75 H 100 09/06/17 05:03 09/06/17 05:03 09/06/17 05:03 09/06/17 05:03 - Notes Notes: General Appearance: Well nourished, alert, cooperative, no acute distress, mild obvious discomfort. Well-appearing. Vitals: reviewed, See vital signs table. Head: no swelling or tenderness to the head Eyes: PERRL, EOMI, Conjuctiva clear Mouth: No decreasd moisture Lungs: No wheezing, No rales, No rhonci, No accessory muscle use, good air exchange bilaterally. Heart: Normal rate, Regular rythm, No murmur, no rub Abdomen: Normal BS, soft, No rigidity, mild pain to palpation just left to the ostomy. The remainder of abdomen is nontender. No redness or swelling around the ostomy., No guarding, no rebound, no abdominal masses, no organomegaly. brown soft and liquid stool in ostomy bag. No gross blood in ostomy. Rectal exam: Very small amount of light brown mucus on digital rectal exam. This was placed on guaiac card and sent to lab. Extremities: strength 5/5 in all extremities, good pulses in all extremities, no swelling or tenderness in the extremities, no edema. Skin: warm, dry, appropriate color, no rash Neuro: speech clear, oriented x 3, normal affect, responds appropriately to questions. Course - Re-evaluation Re-evalutation: 09/06/17 06:24 Patient's patient's vital signs are normal. His ostomy output is normal appearing. His cardiac is negative. Abdominal exam is benign. I feel he is safe to be discharged home. I will continue his steroid taper and have him follow-up with his GI doctor and surgeon on Saturday as scheduled. I informed him he can call Saturday to see if they can get him a little bit sooner. She is return to ER if he has worsening pain, fevers, increased bloody output from his ostomy or rectum, or if he feels unwell. Patient agrees with plan will be discharged home. Dictation of this chart was performed using voice recognition software; therefore, there may be some unintended grammatical errors. - Vital Signs Vital signs: Temp Pulse Resp BP Pulse Ox 78 18 162/75 H 100 09/06/17 05:03 09/06/17 05:03 09/06/17 05:03 09/06/17 05:03 - Laboratory Result Diagrams: 09/06/17 03:56 09/06/17 03:56 Laboratory results interpreted by me: 09/06/17 09/06/17 03:56 03:56 Hgb 13.4 L RDW 18.5 H Eosinophils % 9.0 H Absolute Eosinophils 0.9 H AST 13 L ALT 20 L Discharge - Discharge Clinical Impression: Abdominal pain Qualifiers: Abdominal location: unspecified location Qualified Code(s): R10.9 - Unspecified abdominal pain Ulcerative (chronic) enterocolitis Qualifiers: Digestive disease complication type: unspecified complication Qualified Code(s) : K51.019 - Ulcerative (chronic) pancolitis with unspecified complications Condition: Good Disposition: HOME, SELF-CARE Additional Instructions: Please take the steroid as prescribed. please follow up with your GI physician on Saturday as scheduled. Call his office Saturday to see if they can maybe get you in earlier in the week. Return to the ER immediately if you develop fevers, vomiting, worsening pain, or increasing blood from your rectum, or blood in your ostomy bag. Prescriptions: Prednisone 10 mg PO ASDIR #26 tablet Referrals: EVIN CHURCH MD [Primary Care Provider] - 09/09/17
[2017-09-06 05:04] VITALS: BP 162/75
== END 2017-09-06 05:03 | disposition home or self-care (01) ==
LOC: ER 00:20
DX: K51.019 Ulcerative (chronic) pancolitis with unspecified complications (principal); K62.5 Hemorrhage of anus and rectum; R11.0 Nausea; R10.9 Unspecified abdominal pain; Z88.0 Allergy status to penicillin
CPT/HCPCS: 99283; 96374; 96375; 36415; 85025; 82272; 80053; J2270; J2405

== ENCOUNTER 2017-09-12 02:03 | Emergency (ER) | payer SELFPAY ==
--- NOTE | 2017-09-12 04:05 | ER Document Report ---
ED GI Bleed / Rectal Pain - General Chief Complaint: Bloody Stools Stated Complaint: ABDOMINAL PAIN Time Seen by Provider: 09/12/17 03:50 Notes: Patient is a 37 year old male that comes to the ED for chief complaint of rectal bleeding and lower abdominal pain. He is well known to this ED and has a history of ulcerative colitis, large bowel resection, ostomy. He states that he was evaluated by his commercial administrator yesterday, he was placed back on Lialda and given a 2 week follow-up, he also states that his commercial administrator will be contacting his surgeon because of this. He states his commercial administrator agrees that this is probably ulcerative colitis flare in his rectum area, he is completing prednisone taper and has 2 days left. He denies fever or chills. He reports normal output from his ostomy bag. TRAVEL OUTSIDE OF THE [place] IN LAST 30 DAYS: No - Related Data Allergies/Adverse Reactions: Penicillins Allergy (Mild, Verified 08/20/17 08:31) rash/hives metronidazole [From Flagyl] Allergy (Verified 08/20/17 09:16) Past Medical History - General Information source: Patient - Social History Smoking Status: Current Every Day Smoker Chew tobacco use (# tins/day): No Frequency of alcohol use: None Drug Abuse: None Lives with: Alone Family History: CAD, CVA, DM, Hyperlipidemia, Hypertension, Malignancy Patient has suicidal ideation: No Patient has homicidal ideation: No - Past Medical History Cardiac Medical History: Denies: Hx Heart Attack, Hx Hypertension Pulmonary Medical History: Denies: Hx Asthma, Hx Bronchitis, Hx COPD, Hx Pneumonia Neurological Medical History: Denies: Hx Seizures Renal/ Medical History: Denies: Hx Peritoneal Dialysis GI Medical History: Reports: Hx Ulcer - Ulcerative colitis, Hx Ulcerative Colitis, Hx Colonoscopy Musculoskeltal Medical History: Denies Hx Arthritis Past Surgical History: Reports: Hx Abdominal Surgery - colon/colostomy, Hx Appendectomy - February 2015, Hx Vascular Surgery - Port placement, Other - colectomy - Immunizations Immunizations up to date: Yes Hx Diphtheria, Pertussis, Tetanus Vaccination: Yes Review of Systems - Review of Systems Constitutional: No symptoms reported EENT: No symptoms reported Cardiovascular: No symptoms reported Respiratory: No symptoms reported Gastrointestinal: See HPI Genitourinary: No symptoms reported Male Genitourinary: No symptoms reported Musculoskeletal: No symptoms reported Skin: No symptoms reported Hematologic/Lymphatic: No symptoms reported Neurological/Psychological: No symptoms reported Physical Exam - Vital signs Vitals: Temp Pulse Resp BP Pulse Ox 99.6 F 82 16 123/73 96 09/12/17 02:21 09/12/17 02:21 09/12/17 02:21 09/12/17 02:21 09/12/17 02:21 Interpretation: Normal - General General appearance: Appears well, Alert In distress: None - HEENT Head: Normocephalic, Atraumatic Eyes: Normal Pupils: PERRL - Respiratory Respiratory status: No respiratory distress Chest status: Nontender Breath sounds: Normal Chest palpation: Normal - Cardiovascular Rhythm: Regular Heart sounds: Normal auscultation Murmur: No - Abdominal Inspection: Other - Ostomy bag located in the mid right abdomen, normal- appearing stool, nontender around the area Distension: No distension Bowel sounds: Normal Tenderness: Tender - There is mild generalized tenderness in the mid to lower abdomen, nonspecific, no guarding, no rigidity Organomegaly: No organomegaly - Back Back: Normal, Nontender - Extremities General upper extremity: Normal inspection, Nontender, Normal color, Normal ROM , Normal temperature General lower extremity: Normal inspection, Nontender, Normal color, Normal ROM , Normal temperature, Normal weight bearing. No: Nazanin's sign - Neurological Neuro grossly intact: Yes Cognition: Normal Orientation: AAOx4 [place] Coma Scale Eye Opening: Spontaneous [place] Coma Scale Verbal: Oriented [place] Coma Scale Motor: Obeys Commands [place] Coma Scale Total: 15 Speech: Normal Motor strength normal: LUE, RUE, LLE, RLE Sensory: Normal - Psychological Associated symptoms: Normal affect, Normal mood - Skin Skin Temperature: Warm Skin Moisture: Dry Skin Color: Normal Course - Re-evaluation Re-evalutation: Patient well-appearing, alert, talkative, vital signs unremarkable, CBC and chemistry unremarkable. I was going to perform a rectal exam to check for blood in stool, however patient had a bowel movement which was small, I did observe the stool afterwards and this has no gross bloody stool. Abdominal exam very unremarkable. Patient has already been placed on a regimen by his commercial administrator within the past 2 days for his current presenting symptoms and he has not had any complicating additional symptoms. He was given Solu- Medrol while he was here, he is to complete his prednisone taper, continue his mesalamine, and follow-up with gastroenterology. Discussed follow-up and return precautions, patient states understanding and agreement. - Vital Signs Vital signs: Temp Pulse Resp BP Pulse Ox 99.6 F 70 18 117/65 98 09/12/17 02:21 09/12/17 06:17 09/12/17 06:17 09/12/17 06:17 09/12/17 06:17 - Laboratory Result Diagrams: 09/12/17 04:20 09/12/17 04:20 Laboratory results interpreted by me: 09/12/17 09/12/17 04:20 04:20 RDW 17.7 H Chloride 108 H Discharge - Discharge Clinical Impression: Ulcerative (chronic) enterocolitis Qualifiers: Digestive disease complication type: unspecified complication Qualified Code(s) : K51.019 - Ulcerative (chronic) pancolitis with unspecified complications Condition: Stable Disposition: HOME, SELF-CARE Additional Instructions: Evaluation does not show any concerning adenoids at this time. Finish steroid taper, continue Lialda, follow-up with gastroenterology as planned. Return if you worsen including temperature 100.4 or greater, swelling or severe pain of the abdomen, heavy bleeding, or any other concerning or worsening symptoms. Referrals: EVIN CHURCH MD [Primary Care Provider] - Follow up as needed
[2017-09-12 04:36] LABS: HEMATOCRIT 42.3 % (37.9-51.0); HEMOGLOBIN 13.9 g/dL (13.5-17.0); MEAN CORPUSCULAR HGB CONC 32.9 g/dL (32.0-36.0); MEAN CORPUSCULAR VOLUME 88 fl (80-97); PLATELET COUNT 250 10^3/uL (150-450); RED BLOOD COUNT 4.81 10^6/uL (4.35-5.55); RED CELL DISTRIBUTION WIDTH 17.7 % (11.5-14.0); WHITE BLOOD COUNT 9.3 10^3/uL (4.0-10.5)
[2017-09-12 04:45] LABS: ANION GAP 9 (5-19); BLOOD UREA NITROGEN 12 mg/dL (7-20); CALCIUM 9.5 mg/dL (8.4-10.2); CARBON DIOXIDE 26 mmol/L (22-30); CHLORIDE 108 mmol/L (98-107); GLUCOSE 80 mg/dL (75-110); POTASSIUM 3.9 mmol/L (3.6-5.0)
[2017-09-12 04:56] LABS: ABSOLUTE LYMPHOCYTES# (MANUAL) 3.6 10^3/uL (0.5-4.7); ABSOLUTE MONOCYTES # (MANUAL) 0.7 10^3/uL (0.1-1.4); ABSOLUTE NEUTROPHILS# (MANUAL) 4.5 10^3/uL (1.7-8.2); BASOPHILS % (MANUAL) 0 % (0-2); EOSINOPHILS % (MANUAL) 5 % (0-6); LYMPHOCYTES % (MANUAL) 39 % (13-45); MONOCYTES % (MANUAL) 8 % (3-13); SEGMENTED NEUTROPHILS % (MAN) 48 % (42-78); TOTAL CELLS COUNTED 100
[2017-09-12 04:58] LABS: ANISOCYTOSIS 1+; OVALOCYTES SLIGHT; PLATELET COMMENT ADEQUATE; POIKILOCYTOSIS SLIGHT; TOXIC GRANULATION SLIGHT; TOXIC VACUOLATION PRESENT
[2017-09-12] MEDS ORDERED: METHYLPREDNISOLONE INJ 125 MG/2 ML SDV IM ONE (05:13)
[2017-09-12] MEDS ORDERED: MORPHINE SULFATE IR 15 MG TABLET PO ONE (05:13)
[2017-09-12] MEDS ORDERED: ONDANSETRON 4 MG TAB.RAPDIS PO ONE (05:13)
[2017-09-12 06:18] VITALS: BP 117/65
== END 2017-09-12 06:17 | disposition home or self-care (01) ==
LOC: ER 02:03
DX: K51.019 Ulcerative (chronic) pancolitis with unspecified complications (principal); R10.30 Lower abdominal pain, unspecified; F17.200 Nicotine dependence, unspecified, uncomplicated; Z93.3 Colostomy status; Z87.19 Personal history of other diseases of the digestive system; Z88.1 Allergy status to other antibiotic agents; Z88.0 Allergy status to penicillin
CPT/HCPCS: 99284; 96372; 36415; 85025; 80048; S0119; J2930

== ENCOUNTER 2017-09-17 02:20 | Emergency (ER) | payer SELFPAY ==
[2017-09-17 04:10] LABS: ABSOLUTE BASOPHILS # (AUTO) 0.1 10^3/uL (0.0-0.2); ABSOLUTE EOSINOPHILS # (AUTO) 0.6 10^3/uL (0.0-0.6); ABSOLUTE LYMPHOCYTES (AUTO) 1.7 10^3/uL (0.5-4.7); ABSOLUTE MONOCYTES (AUTO) 0.6 10^3/uL (0.1-1.4); ABSOLUTE NEUT (AUTO) 8.3 10^3/uL (1.7-8.2); BASOPHILS % (AUTO) 0.9 % (0-2); EOSINOPHILS % (AUTO) 5.5 % (0-6); HEMATOCRIT 43.7 % (37.9-51.0); HEMOGLOBIN 14.6 g/dL (13.5-17.0); MEAN CORPUSCULAR HEMOGLOBIN 29.6 pg (27.0-33.4); MEAN CORPUSCULAR HGB CONC 33.4 g/dL (32.0-36.0); MEAN CORPUSCULAR VOLUME 89 fl (80-97); MONOCYTES % (AUTO) 4.9 % (3-13); PLATELET COUNT 278 10^3/uL (150-450); RED BLOOD COUNT 4.94 10^6/uL (4.35-5.55); RED CELL DISTRIBUTION WIDTH 17.8 % (11.5-14.0); SEGMENTED NEUTROPHILS % (AUTO) 73.7 % (42-78); TOTAL CELLS COUNTED % (AUTO) 100 %; WHITE BLOOD COUNT 11.3 10^3/uL (4.0-10.5)
[2017-09-17 04:19] LABS: ALANINE AMINOTRANSFERASE 25 U/L (21-72); ALKALINE PHOSPHATASE 62 U/L (38-126); ANION GAP 12 (5-19); ASPARTATE AMINO TRANSFERASE 20 U/L (17-59); BILIRUBIN,DIRECT 0.3 mg/dL (0.0-0.4); BILIRUBIN,TOTAL 0.4 mg/dL (0.2-1.3); BLOOD UREA NITROGEN 16 mg/dL (7-20); CALCIUM 9.7 mg/dL (8.4-10.2); CARBON DIOXIDE 24 mmol/L (22-30); CHLORIDE 109 mmol/L (98-107); GLUCOSE 98 mg/dL (75-110); POTASSIUM 4.5 mmol/L (3.6-5.0)
[2017-09-17] MEDS ORDERED: ONDANSETRON 4 MG TAB.RAPDIS PO ONE (04:42)
--- NOTE | 2017-09-17 04:44 | ER Document Report ---
ED GI/ - General Chief Complaint: Rectal Bleeding Stated Complaint: ABDOMINAL PAIN Time Seen by Provider: 09/17/17 04:37 Notes: The patient is a 37 yo male who is well known to this ED and has a history of ulcerative colitis, large bowel resection, ostomy. He states he is having nausea and vomiting and feels like his ulcerative colitis is flaring again. He recently finished a course of steroids and was started on Lialda by his GI doc last week. This is small amount of blood in his ostomy, but this has resolved. Patient denies fevers, syncope, chest pain, shortness of breath, hematemesis or urinary symptoms. TRAVEL OUTSIDE OF THE [place] IN LAST 30 DAYS: No - Related Data Allergies/Adverse Reactions: Penicillins Allergy (Mild, Verified 08/20/17 08:31) rash/hives metronidazole [From Flagyl] Allergy (Verified 08/20/17 09:16) Past Medical History - General Information source: Patient - Social History Smoking Status: Unknown if Ever Smoked Family History: CAD, CVA, DM, Hyperlipidemia, Hypertension, Malignancy - Past Medical History Cardiac Medical History: Denies: Hx Heart Attack, Hx Hypertension Pulmonary Medical History: Denies: Hx Asthma, Hx Bronchitis, Hx COPD, Hx Pneumonia Neurological Medical History: Denies: Hx Seizures Renal/ Medical History: Denies: Hx Peritoneal Dialysis GI Medical History: Reports: Hx Ulcer - Ulcerative colitis, Hx Ulcerative Colitis, Hx Colonoscopy Musculoskeltal Medical History: Denies Hx Arthritis Past Surgical History: Reports: Hx Abdominal Surgery - colon/colostomy, Hx Appendectomy - February 2015, Hx Vascular Surgery - Port placement, Other - colectomy - Immunizations Immunizations up to date: Yes Hx Diphtheria, Pertussis, Tetanus Vaccination: Yes Review of Systems - Review of Systems Notes: REVIEW OF SYSTEMS: CONSTITUTIONAL: -fevers, -chills EENT: -eye pain, -difficulty swallowing, -nasal congestion CARDIOVASCULAR: -chest pain, -syncope. RESPIRATORY: -cough, -SOB GASTROINTESTINAL: +abdominal pain, +nausea, +vomiting, -diarrhea GENITOURINARY: -dysuria, -hematuria MUSCULOSKELETAL: -back pain, -neck pain SKIN: -rash or skin lesions. HEMATOLOGIC: -easy bruising or bleeding. LYMPHATIC: -swollen, enlarged glands. NEUROLOGICAL: -altered mental status or loss of consciousness, -headache, - neurologic symptoms PSYCHIATRIC: -anxiety, -depression. ALL OTHER SYSTEMS REVIEWED AND NEGATIVE. Physical Exam - Vital signs Vitals: Temp Pulse Resp BP Pulse Ox 97.9 F 118 H 16 137/87 H 98 09/17/17 02:28 09/17/17 02:28 09/17/17 02:28 09/17/17 02:09/17/17 02:28 - Notes Notes: PHYSICAL EXAMINATION: GENERAL: Well-appearing, well-nourished and in no acute distress. HEAD: Atraumatic, normocephalic. EYES: Pupils equal round and reactive to light, extraocular movements intact, sclera anicteric, conjunctiva are normal. ENT: nares patent, oropharynx clear without exudates. Moist mucous membranes. NECK: Normal range of motion, supple without lymphadenopathy LUNGS: Breath sounds clear to auscultation bilaterally and equal. No wheezes rales or rhonchi. HEART: Regular rate and rhythm without murmurs ABDOMEN: Soft, nontender, normoactive bowel sounds. Ostomy with brown stool. No guarding, no rebound. No masses appreciated. EXTREMITIES: Normal range of motion, no pitting or edema. No cyanosis. NEUROLOGICAL: Cranial nerves grossly intact. Normal speech, normal gait. Normal sensory and motor exams. SKIN: Warm, Dry, normal turgor, no rashes or lesions noted. Course - Re-evaluation Re-evalutation: Patient frequently in the ER for similar complaints. His abdomen is soft and nontender. No blood in his ostomy bag, but there is normal output from his ostomy bag. Blood work is unremarkable, other than a slight leukocytosis, which is most likely related to his recent steroid use. Instructed patient that since he is already on chronic pain management with oxycodone, unable to provide additional pain medicine from the ER. He is requesting Zofran for his nausea and vomiting. After Zofran in the ER, he is drinking fluids without any vomiting. Instructed him to follow-up with his GI doctor for further evaluation and treatment. - Vital Signs Vital signs: Temp Pulse Resp BP Pulse Ox 97.9 F 118 H 16 137/87 H 98 09/17/17 02:28 09/17/17 02:28 09/17/17 02:09/17/17 02:09/17/17 02:28 - Laboratory Result Diagrams: 09/17/17 03:52 09/17/17 03:52 Laboratory results interpreted by me: 09/17/17 09/17/17 03:52 03:52 WBC 11.3 H RDW 17.8 H Absolute Neutrophils 8.3 H Chloride 109 H Discharge - Discharge Clinical Impression: Nausea & vomiting Qualifiers: Vomiting type: unspecified Vomiting Intractability: non-intractable Qualified Code(s): R11.2 - Nausea with vomiting, unspecified Ulcerative colitis with complication Qualifiers: Ulcerative colitis location: unspecified ulcerative colitis location Qualified Code(s): K51.919 - Ulcerative colitis, unspecified with unspecified complications Condition: Stable Disposition: HOME, SELF-CARE Additional Instructions: Follow-up with your GI doctor and surgeon for further evaluation and treatment. Take Zofran as needed for any nausea and vomiting and stay hydrated. VOMITING: Vomiting (or nausea without vomiting) can be caused by many other different problems. It can mean that something's wrong with the stomach, such as ulcers or inflammation or the intestinal tract, such as appendicitis. But it can also be a symptom of a problem that has nothing to do with the stomach or intestines. Vomiting is common with severe headaches, earaches, tonsillitis, and kidney infections, etc. We see it with pneumonia or heart attacks. Drugs can cause nausea and vomiting. Many abdominal problems cause vomiting; for example, gallstones, kidney stones, pancreatitis, and intestinal obstruction ( blocked bowels). In most cases, curing the vomiting depends on fixing the problem that caused it. For temporary relief, we may use an anti-nausea medicine. For home use, we can prescribe suppositories, chewable pills, pills that dissolve in the mouth, or liquid anti-nausea drugs. If the vomiting seems to be caused by a problem in the stomach, acid-suppressing drugs may be prescribed as well. It's important to avoid dehydration. Sip small amounts of clear liquids ( soft drinks, tea, broth, etc) . Try to take fluids frequently even if you are vomiting to prevent dehydration. Take increasing amounts of fluid and when liquids are being consumed successfully, advance to small amounts of bland food (toast, soups, mashed potatoes, etc.) until you are able to resume a regular diet. Avoid aspirin, tobacco, and alcohol. If the vomiting worsens, if the problem that's making you vomit worsens, or if there's evidence of bleeding in the stomach (such as black, tarry stool, or bloody or black vomit), you should return immediately. Also, return if abdominal pain worsens or becomes localized to one area or you develop high fever. Call your doctor if you aren't improved in 24 hours. FOLLOW-UP CARE: If you have been referred to a physician for follow-up care, call the physician s office for an appointment as you were instructed or within the next two days. If you experience worsening or a significant change in your symptoms, notify the physician immediately or return to the Emergency Department at any time for re-evaluation. Prescriptions: Ondansetron [Zofran Odt 4 mg Tablet] 1 - 2 tab PO Q4H PRN #15 tab.rapdis PRN Reason: For Nausea/Vomiting Forms: Elevated Blood Pressure Referrals: KIAN VELEZ MD [ACTIVE STAFF] - Follow up as needed
[2017-09-17 04:53] VITALS: BP 124/67
== END 2017-09-17 04:56 | disposition home or self-care (01) ==
LOC: ER 02:20
DX: K51.919 Ulcerative colitis, unspecified with unspecified complications (principal); R11.2 Nausea with vomiting, unspecified; G89.29 Other chronic pain; Z79.891 Long term (current) use of opiate analgesic; Z93.3 Colostomy status; Z90.49 Acquired absence of other specified parts of digestive tract; Z88.0 Allergy status to penicillin; Z88.1 Allergy status to other antibiotic agents
CPT/HCPCS: 99283; 36415; 83690; 85025; 80053; S0119

== ENCOUNTER 2017-09-26 01:08 | Emergency (ER) | payer SELFPAY ==
[2017-09-26 02:06] VITALS: BP 127/79
--- NOTE | 2017-10-01 05:51 | ER Document Report ---
ED General - General Chief Complaint: Other Stated Complaint: ABDOMINAL PAIN Time Seen by Provider: 09/26/17 01:23 Notes: Patient is a 37-year-old male with history of complicated of colitis who is well -known to the ER who presents with complaint that his ostomy bag ruptured and he does not have any supplies to place a new ostomy bag on and therefore is come to the ER. He denies any blood from his ostomy. Denies any increasing pain. No fevers. No other complaints this time. He said it felt like there is some pressure and then the ostomy bag blew off. Patient has no other complaints or concerns at this time. TRAVEL OUTSIDE OF THE [place] IN LAST 30 DAYS: No - Related Data Allergies/Adverse Reactions: Penicillins Allergy (Mild, Verified 08/20/17 08:31) rash/hives metronidazole [From Flagyl] Allergy (Verified 08/20/17 09:16) Past Medical History - Social History Smoking Status: Unknown if Ever Smoked Frequency of alcohol use: None Drug Abuse: None Family History: CAD, CVA, DM, Hyperlipidemia, Hypertension, Malignancy Patient has suicidal ideation: No Patient has homicidal ideation: No - Past Medical History Cardiac Medical History: Denies: Hx Heart Attack, Hx Hypertension Pulmonary Medical History: Denies: Hx Asthma, Hx Bronchitis, Hx COPD, Hx Pneumonia Neurological Medical History: Denies: Hx Seizures Renal/ Medical History: Denies: Hx Peritoneal Dialysis GI Medical History: Reports: Hx Ulcer - Ulcerative colitis, Hx Ulcerative Colitis, Hx Colonoscopy Musculoskeltal Medical History: Denies Hx Arthritis Past Surgical History: Reports: Hx Abdominal Surgery - colon/colostomy, Hx Appendectomy - February 2015, Hx Vascular Surgery - Port placement, Other - colectomy - Immunizations Immunizations up to date: Yes Hx Diphtheria, Pertussis, Tetanus Vaccination: Yes Review of Systems - Review of Systems Notes: My Normal Review Basic REVIEW OF SYSTEMS: CONSTITUTIONAL : Denies fever, chills, or sweats. Denies recent illness. RESPIRATORY: Denies cough, cold, or chest congestion. Denies shortness of breath, difficulty breathing, or wheezing. GASTROINTESTINAL: Chronic unchanged abdominal pain. Denies nausea, vomiting, or diarrhea. SKIN: Some skin breakdown around ostomy site. NEUROLOGICAL: Denies altered mental status or loss of consciousness. Denies headache. Denies weakness or paralysis or loss of use of either side. Denies problems with gait or speech. Denies sensory or motor loss. ALL OTHER SYSTEMS REVIEWED AND NEGATIVE. Physical Exam - Vital signs Vitals: Temp Pulse Resp BP Pulse Ox 98.8 F 83 16 127/79 H 100 09/26/17 01:23 09/26/17 01:09/26/17 01:09/26/17 01:09/26/17 01:23 - Notes Notes: General Appearance: Well nourished, alert, cooperative, no acute distress, no obvious discomfort. Well appearing. Vitals: reviewed, See vital signs table. Eyes: PERRL, EOMI, Conjuctiva clear Lungs: No wheezing, No rales, No rhonci, No accessory muscle use, good air exchange bilaterally. Heart: Normal rate, Regular rythm, No murmur, no rub Abdomen: Normal BS, soft, No rigidity, no reproducible abdominal tenderness palpation other than over the area where she has some skin excoriations near the ostomy site. Ostomy is well-appearing. Normal appearing brown stool is coming from ostomy. Gross blood. Skin: warm, dry, appropriate color, no rash Neuro: speech clear, oriented x 3, normal affect, responds appropriately to questions. Course - Re-evaluation Re-evalutation: 10/01/17 05:50 I ordered to the patient placed over his stoma. Nurse told me shortly after she applied the ostomy bag the patient walked out and did not return. Patient has eloped. Dictation of this chart was performed using voice recognition software; therefore, there may be some unintended grammatical errors. - Vital Signs Vital signs: Temp Pulse Resp BP Pulse Ox 98.8 F 83 16 127/79 H 100 09/26/17 01:09/26/17 01:09/26/17 01:09/26/17 01:09/26/17 01:23 Discharge - Discharge Clinical Impression: Encounter for ostomy care education Disposition: ELOPED
== END 2017-09-26 02:54 | disposition left against medical advice (07) ==
LOC: ER 01:08
DX: K94.09 Other complications of colostomy (principal); R10.9 Unspecified abdominal pain; G89.29 Other chronic pain
CPT/HCPCS: 99284

== ENCOUNTER 2017-10-01 21:36 | Emergency (ER) | payer SELFPAY | END 2017-10-01 22:18 | disposition left against medical advice (07) | LOC: ER 21:36 | DX: Z53.21 Procedure and treatment not carried out due to patient leaving prior to being seen by health care provider (principal) ==

== ENCOUNTER 2017-10-16 03:46 | Emergency (ER) | payer SELFPAY ==
[2017-10-16] MEDS ORDERED: PROMETHAZINE HCL INJ 25 MG/1 ML VIAL IV ONE (04:01)
[2017-10-16] MEDS ORDERED: NORMAL SALINE 1000 ML 1,000 ML IV ONE ×2 (04:03→04:04)
[2017-10-16] MEDS ORDERED: CLONIDINE 0.2 MG/24 HR PATCH.TDWK TD ONE ×2 (04:04→08:30)
--- NOTE | 2017-10-16 04:06 | ER Document Report ---
ED GI/ - General Stated Complaint: ABDOMINAL PAIN Time Seen by Provider: 10/16/17 03:56 Notes: Patient is a 37-year-old male comes emergency department by EMS for chief complaint of vomiting. Patient states he has been vomiting since yesterday, last night he took his mom's last opiates and has had none since. Patient ran out of his opiates before that, states that he could not afford the co-pay to see his primary care to get his regular prescriptions. He states he has had opiate withdrawals before. Normally takes Lialda, was on prednisone, was on oxycodone. He denies fever or chills. No abnormal stools in his ostomy bag. He denies any flank pain. Patient has a history of ulcerative colitis, colectomy. TRAVEL OUTSIDE OF THE [place] IN LAST 30 DAYS: No - Related Data Allergies/Adverse Reactions: Penicillins Allergy (Mild, Verified 08/20/17 08:31) rash/hives metronidazole [From Flagyl] Allergy (Verified 08/20/17 09:16) Past Medical History - General Information source: Patient - Social History Smoking Status: Never Smoker Frequency of alcohol use: None Drug Abuse: None Lives with: Alone Family History: CAD, CVA, DM, Hyperlipidemia, Hypertension, Malignancy - Past Medical History Cardiac Medical History: Denies: Hx Heart Attack, Hx Hypertension Pulmonary Medical History: Denies: Hx Asthma, Hx Bronchitis, Hx COPD, Hx Pneumonia Neurological Medical History: Denies: Hx Seizures Renal/ Medical History: Denies: Hx Peritoneal Dialysis GI Medical History: Reports: Hx Ulcer - Ulcerative colitis, Hx Ulcerative Colitis, Hx Colonoscopy Musculoskeltal Medical History: Denies Hx Arthritis Past Surgical History: Reports: Hx Abdominal Surgery - colon/colostomy, Hx Appendectomy - February 2015, Hx Vascular Surgery - Port placement, Other - colectomy - Immunizations Immunizations up to date: Yes Hx Diphtheria, Pertussis, Tetanus Vaccination: Yes Review of Systems - Review of Systems Constitutional: No symptoms reported EENT: No symptoms reported Cardiovascular: No symptoms reported Respiratory: No symptoms reported Gastrointestinal: See HPI Genitourinary: No symptoms reported Male Genitourinary: No symptoms reported Musculoskeletal: No symptoms reported Skin: No symptoms reported Hematologic/Lymphatic: No symptoms reported Neurological/Psychological: No symptoms reported Physical Exam - Vital signs Vitals: Pulse Resp BP Pulse Ox 58 L 20 105/51 L 100 10/16/17 03:56 10/16/17 03:56 10/16/17 03:56 10/16/17 03:56 - Notes Notes: GENERAL: Alert, interacts well. No acute distress. HEAD: Normocephalic, atraumatic. EYES: Pupils equal, round, and reactive to light. Extraocular movements intact. ENT: Oral mucosa dry, tongue midline. NECK: Full range of motion. Supple. Trachea midline. LUNGS: Clear to auscultation bilaterally, no wheezes, rales, or rhonchi. No respiratory distress. HEART: Regular rate and rhythm. No murmur ABDOMEN: Abdomen is actually very soft. Examination of the colostomy bag shows no concerning abnormalities, no blood in the bag noted. Mid abdominal scar in the lower abdomen. No guarding, rigidity, or rebound tenderness. EXTREMITIES: Moves all 4 extremities spontaneously. No edema, normal radial and dorsalis pedis pulses bilaterally. No cyanosis. BACK: no cervical, thoracic, lumbar midline tenderness. No saddle anesthesia, normal distal neurovascular exam. NEUROLOGICAL: Alert and oriented x3. Normal speech. [cranial nerves II through XII grossly intact]. PSYCH: Patient anxious, makes poor eye contact SKIN: Warm, dry, normal turgor. No rashes or lesions noted. Course - Re-evaluation Re-evalutation: CBC unremarkable, chemistry unremarkable. Vital signs unremarkable. Patient initially vomiting, medicated. Giving IV fluids. Patient vomited again twice, I discussed with patient. Discussed that because he will no longer be getting opiates from his provider he will need to be off of opiates, we will help with his withdrawal symptoms but we will not be giving opiates here. Patient states he does not have any pain, he states agreement with this plan. Patient will require more nausea medication and IV fluids, this will be provided. Patient in no distress on reevaluation. Urinalysis shows hematuria and yeast. Appears to be contaminated, shows ketones which is consistent with dehydration. Asked patient for another sample , he provided one but the sample he provided looked like it was from his colostomy bag. I feel that this sample is therefore unreliable and the urinalysis will not be used in the determination of patient's treatment plan. I reviewed his previous CAT scans and he has never had hematuria or a kidney stone that I noticed. Patient reevaluated again, has not vomited, ready to start p.o. trial. He states he is hoping not to get admitted and he wants to go home. Patient was introduced to Cheikh GLORIA at bedside. - Vital Signs Vital signs: Temp Pulse Resp BP Pulse Ox 97.6 F 58 L 20 105/51 L 100 10/16/17 04:02 10/16/17 03:56 10/16/17 03:56 10/16/17 03:56 10/16/17 03:56 - Laboratory Result Diagrams: 10/16/17 04:50 10/16/17 04:50 Laboratory results interpreted by me: 10/16/17 10/16/17 10/16/17 04:50 04:50 05:15 RDW 14.7 H Seg Neutrophils % 85.5 H Lymphocytes % 9.0 L Absolute Neutrophils 8.8 H Sodium 146.0 H Direct Bilirubin 0.6 H Urine Protein 100 H Urine Ketones 80 H Urine Blood LARGE H Discharge - Discharge Clinical Impression: Dehydration, Opiate withdrawal Nausea & vomiting Qualifiers: Vomiting type: unspecified Vomiting Intractability: non-intractable Qualified Code(s): R11.2 - Nausea with vomiting, unspecified Condition: Stable Disposition: HOME, SELF-CARE Additional Instructions: Your evaluation and symptoms are consistent with opiate withdrawals. Take the Phenergan for nausea, gabapentin as directed. Put a piece of tape over the clonidine patch when you shower. Take off when completed. Drink plenty fluids, start with bland foods, slowly progress. Follow-up with your provider. Return for any concerning or worsening symptoms including uncontrolled vomiting, vomiting blood, fever, or any other concerning or worsening symptoms. Prescriptions: Gabapentin 2 cap PO BID PRN #30 capsule PRN Reason: Promethazine HCl [Phenergan 25 mg Tablet] 1 - 2 tab PO Q6H PRN #30 tablet PRN Reason:
[2017-10-16 04:26] VITALS: BP 105/51
[2017-10-16] MEDS ORDERED: DIPHENHYDRAMINE HCL 50 MG/ML VIAL IV ONE (04:26)
[2017-10-16 05:06] LABS: ABSOLUTE BASOPHILS # (AUTO) 0.1 10^3/uL (0.0-0.2); ABSOLUTE EOSINOPHILS # (AUTO) 0.1 10^3/uL (0.0-0.6); ABSOLUTE LYMPHOCYTES (AUTO) 0.9 10^3/uL (0.5-4.7); ABSOLUTE MONOCYTES (AUTO) 0.4 10^3/uL (0.1-1.4); ABSOLUTE NEUT (AUTO) 8.8 10^3/uL (1.7-8.2); BASOPHILS % (AUTO) 0.9 % (0-2); EOSINOPHILS % (AUTO) 0.7 % (0-6); HEMATOCRIT 46.5 % (37.9-51.0); HEMOGLOBIN 15.7 g/dL (13.5-17.0); MEAN CORPUSCULAR HEMOGLOBIN 28.8 pg (27.0-33.4); MEAN CORPUSCULAR HGB CONC 33.7 g/dL (32.0-36.0); MEAN CORPUSCULAR VOLUME 86 fl (80-97); MONOCYTES % (AUTO) 3.9 % (3-13); PLATELET COUNT 268 10^3/uL (150-450); RED BLOOD COUNT 5.43 10^6/uL (4.35-5.55); RED CELL DISTRIBUTION WIDTH 14.7 % (11.5-14.0); SEGMENTED NEUTROPHILS % (AUTO) 85.5 % (42-78); TOTAL CELLS COUNTED % (AUTO) 100 %; WHITE BLOOD COUNT 10.3 10^3/uL (4.0-10.5)
[2017-10-16 05:23] LABS: ALANINE AMINOTRANSFERASE 34 U/L (21-72); ALBUMIN 4.4 g/dL (3.5-5.0); ALKALINE PHOSPHATASE 95 U/L (38-126); ANION GAP 15 (5-19); ASPARTATE AMINO TRANSFERASE 39 U/L (17-59); BILIRUBIN,DIRECT 0.6 mg/dL (0.0-0.4); BLOOD UREA NITROGEN 7 mg/dL (7-20); CALCIUM 9.5 mg/dL (8.4-10.2); CARBON DIOXIDE 25 mmol/L (22-30); CHLORIDE 106 mmol/L (98-107); GLUCOSE 97 mg/dL (75-110); LIPASE 48.3 U/L (23-300); TOTAL PROTEIN 7.5 g/dL (6.3-8.2)
[2017-10-16] MEDS ORDERED: GABAPENTIN 300 MG CAPSULE PO ONE (05:35)
[2017-10-16] MEDS ORDERED: FAMOTIDINE 20 MG TABLET PO ONE (05:35)
[2017-10-16] MEDS ORDERED: ONDANSETRON HCL INJ/PF 4 MG/2 ML SDV IV ONE (05:35)
[2017-10-16 05:42] LABS: APPEARANCE,URINE CLOUDY; BILIRUBIN,URINE NEGATIVE (NEGATIVE); COLOR,URINE AMBER; GLUCOSE, URINE NEGATIVE (NEGATIVE); KETONES,URINE 80 mg/dL (NEGATIVE); LEUKOCYTE ESTERASE,URINE NEGATIVE (NEGATIVE); NITRITE,URINE NEGATIVE (NEGATIVE); PROTEIN,URINE 100 mg/dL (NEGATIVE); URINE SPECIFIC GRAVITY 1.025; UROBILINOGEN,URINE NEGATIVE mg/dL (<2.0)
[2017-10-16] MEDS ORDERED: METOCLOPRAMIDE HCL INJ/PF 10 MG/2 ML SDV IV ONE (05:42)
[2017-10-16] MEDS ORDERED: PROCHLORPERAZINE EDISYLATE INJ 10 MG/2 ML VIAL IV ONE (08:42)
== END 2017-10-16 11:05 | disposition home or self-care (01) ==
LOC: ER 03:46
DX: E86.0 Dehydration (principal); F11.23 Opioid dependence with withdrawal; R11.2 Nausea with vomiting, unspecified; R10.9 Unspecified abdominal pain; R31.9 Hematuria, unspecified; Z79.899 Other long term (current) drug therapy
CPT/HCPCS: 36591; 99284; 96361; 96374; 96375; 36415; 83690; 85025; 80053; 81001; J1200; J2765; J3490; J0780; J2550; J7030

== ENCOUNTER 2018-02-19 23:46 | Emergency (ER) | payer SELFPAY ==
[2018-02-20] MEDS ORDERED: CLINDAMYCIN HCL 150 MG CAPSULE PO ONE (00:28)
[2018-02-20] MEDS ORDERED: DOXYCYCLINE HYCLATE 100 MG TABLET PO ONE (00:28)
--- NOTE | 2018-02-20 00:36 | ER Document Report ---
ED General - General Chief Complaint: Abscess Stated Complaint: LEFT HAND PAIN Time Seen by Provider: 02/20/18 00:06 Notes: Patient is a 37-year-old male who presents with complaint of a area of infection over the dorsum of the left hand. Patient says he noticed it a week ago. Said there is some redness and swelling there and therefore he poked it with a sewing needle see if pus came out. A day after he did this he developed increasing swelling over the fourth MCP. He says in the last 24 hours his fourth finger has remained in more of a flexed position. He does not have any pain on the palmar aspect of his hand. He says he is able to extend the finger but it is painful to do so. Patient does have history of ulcerative colitis however he is not been on any medications since September. He denies being on any immunosuppressive medications at this time. He says he has not had any complications or problems with his ulcerative colitis and last several days. He denies any current abdominal pain. The only request in regards to his ulcerative colitis is if he could get a prescription for Zofran as he still has intermittent nausea which is chronic for him. TRAVEL OUTSIDE OF THE [place] IN LAST 30 DAYS: No - Related Data Allergies/Adverse Reactions: Penicillins Allergy (Mild, Verified 08/20/17 08:31) rash/hives metronidazole [From Flagyl] Allergy (Verified 08/20/17 09:16) Past Medical History - Social History Smoking Status: Unknown if Ever Smoked Frequency of alcohol use: None Drug Abuse: None Family History: CAD, CVA, DM, Hyperlipidemia, Hypertension, Malignancy Patient has suicidal ideation: No Patient has homicidal ideation: No - Past Medical History Cardiac Medical History: Denies: Hx Heart Attack, Hx Hypertension Pulmonary Medical History: Denies: Hx Asthma, Hx Bronchitis, Hx COPD, Hx Pneumonia Neurological Medical History: Denies: Hx Seizures Renal/ Medical History: Denies: Hx Peritoneal Dialysis GI Medical History: Reports: Hx Ulcer - Ulcerative colitis, Hx Ulcerative Colitis, Hx Colonoscopy Musculoskeletal Medical History: Denies Hx Arthritis Past Surgical History: Reports: Hx Abdominal Surgery - colon/colostomy, Hx Appendectomy - February 2015, Hx Vascular Surgery - Port placement, Other - colectomy - Immunizations Immunizations up to date: Yes Hx Diphtheria, Pertussis, Tetanus Vaccination: Yes Review of Systems - Review of Systems Notes: My Normal Review Basic REVIEW OF SYSTEMS: CONSTITUTIONAL : Denies fever, chills, or sweats. Denies recent illness. GASTROINTESTINAL: Denies abdominal pain. Chronic nausea. No vomiting. MUSCULOSKELETAL: Pain and swelling to dorsum of left hand. SKIN: Redness over dorsum of left hand. NEUROLOGICAL: Slight tingling sensation into distal fourth digit. Patient says he can still feel sensation however he does have some tingling. ALL OTHER SYSTEMS REVIEWED AND NEGATIVE. Physical Exam - Vital signs Vitals: Temp Pulse Resp BP Pulse Ox 99.0 F 102 H 16 126/74 H 99 02/19/18 23:50 02/19/18 23:50 02/19/18 23:50 02/19/18 23:50 02/19/18 23:50 - Notes Notes: General Appearance: Well nourished, alert, cooperative, no acute distress, no obvious discomfort. Vitals: reviewed, See vital signs table. Extremities: Patient has a localized area of induration and redness over the dorsum of the fourth MCP. It extends slightly midway proximal down the hand. No redness or swelling to the palmar aspect of the hand. The fourth digit is held in a slightly flexed position. I am able to extend it. This causes some pain when I extend that digit. Distal sensation is intact. Skin: warm, dry, appropriate color, no rash Neuro: speech clear, oriented x 3, normal affect, responds appropriately to questions. Course - Re-evaluation Re-evalutation: 02/20/18 00:57 Patient does have some induration over the fourth MCP. I did place an 18-gauge needle just in the subcutaneous tissue. Also go back was just some bloody discharge. No purulent drainage. Patient does have some obvious localized infection over this area. I will place him on doxycycline to cover both staph and strep infections. Being that this does involve his hand and he does have some contracture of the fourth digit I did call and speak with the orthopedist, Dr. Sanon. Dr. Sanon said to have the patient follow-up with his office this morning at 8 AM and he will reevaluate the patient determine further treatment. I did explain to the patient he is agreeable plan to follow-up with Dr. Sanon this morning. Patient does not have any redness or swelling over the flexor aspect of the hand. No tenderness to palpation over the flexor tendon. Even though the fourth digit is held in a flexed position I am able to straighten it out without too much difficulty. Patient encouraged to return to ER immediately for spreading redness, increasing swelling, fevers, or if he has any further concerns. Patient agrees with plan will be discharged home. Dictation of this chart was performed using voice recognition software; therefore, there may be some unintended grammatical errors. - Vital Signs Vital signs: Temp Pulse Resp BP Pulse Ox 99.0 F 102 H 16 126/74 H 99 02/19/18 23:50 02/19/18 23:50 02/19/18 23:50 02/19/18 23:50 02/19/18 23:50 Discharge - Discharge Clinical Impression: Cellulitis of hand, left Condition: Good Disposition: HOME, SELF-CARE Additional Instructions: Please be at Dr. Sanon's office at 8am this morning. Please return to the ER immediately if you develop fevers, increasing swelling in the hand, spreading redness or feel unwell. Do not miss your appointment with Dr. Sanon this am. Prescriptions: Doxycycline Hyclate 100 mg PO BID #14 capsule Ondansetron [Zofran Odt 4 mg Tablet] 1 tab PO Q4H PRN #15 tab.rapdis PRN Reason: For Nausea/Vomiting Forms: Return to Work Referrals: FRANK SANON MD [ACTIVE STAFF] - 02/20/18 (Follow up at Dr. Sanon's office this am at 8am.)
[2018-02-20] MEDS ORDERED: ONDANSETRON ODT 4 MG TAB (6 TAB/ER DISP) PO PRN (00:40)
[2018-02-20 01:03] VITALS: BP 122/78
== END 2018-02-20 01:04 | disposition home or self-care (01) ==
LOC: ER 23:46
DX: L03.114 Cellulitis of left upper limb (principal); R20.2 Paresthesia of skin; R11.0 Nausea; Z88.0 Allergy status to penicillin; Z88.1 Allergy status to other antibiotic agents
CPT/HCPCS: 99283

== ENCOUNTER 2018-03-18 14:22 | Emergency (ER) | payer SELFPAY ==
[2018-03-18] MEDS ORDERED: FENTANYL CITRATE INJ/PF 100 MCG/2 ML AMPUL IV ONE ×2 (15:25→17:45)
[2018-03-18] MEDS ORDERED: ONDANSETRON HCL INJ/PF 4 MG/2 ML SDV IV ONE ×2 (15:26→17:45)
[2018-03-18] MEDS ORDERED: RINGERS SOLUTION,LACTATED 1,000 ML IV ONE (15:26)
--- NOTE | 2018-03-18 15:35 | ER Document Report ---
ED Medical Screen (RME) - General Chief Complaint: Abdominal Pain Stated Complaint: ABDOMINAL PAIN Time Seen by Provider: 03/18/18 15:19 TRAVEL OUTSIDE OF THE [place] IN LAST 30 DAYS: No - Related Data Allergies/Adverse Reactions: Penicillins Allergy (Mild, Verified 08/20/17 08:31) rash/hives metronidazole [From Flagyl] Allergy (Verified 08/20/17 09:16) Past Medical History - Past Medical History Cardiac Medical History: Denies: Hx Heart Attack, Hx Hypertension Pulmonary Medical History: Denies: Hx Asthma, Hx Bronchitis, Hx COPD, Hx Pneumonia Neurological Medical History: Denies: Hx Seizures Renal/ Medical History: Denies: Hx Peritoneal Dialysis GI Medical History: Reports: Hx Ulcer - Ulcerative colitis, Hx Ulcerative Colitis, Hx Colonoscopy Musculoskeltal Medical History: Denies Hx Arthritis Past Surgical History: Reports: Hx Abdominal Surgery - colon/colostomy, Hx Appendectomy - February 2015, Hx Vascular Surgery - Port placement, Other - colectomy - Immunizations Immunizations up to date: Yes Hx Diphtheria, Pertussis, Tetanus Vaccination: Yes Physical Exam - Vital signs Vitals: Temp Pulse Resp BP Pulse Ox 98.4 F 75 16 122/103 H 100 03/18/18 14:26 03/18/18 14:26 03/18/18 14:26 03/18/18 14:26 03/18/18 14:26 Course - Re-evaluation Re-evalutation: 03/18/18 19:00 This is a 37-year-old man who has a history of ulcerative colitis status post colectomy and ostomy creation who presents for intense abdominal pain and nausea which he rates worse than anything has had previously. Current plan is for this gentleman undergo further evaluation through labs as well as administration of analgesia and nausea medications. I have seen and performed a rapid medical screening examination on this patient. This patient will require further evaluation and disposition determination by a secondary provider. - Vital Signs Vital signs: Temp Pulse Resp BP Pulse Ox 98.4 F 75 16 122/103 H 100 03/18/18 14:26 03/18/18 14:26 03/18/18 14:26 03/18/18 14:26 03/18/18 14:26 Doctor's Discharge - Discharge Referrals: EVIN CHURCH MD [Primary Care Provider] - Follow up as needed
--- NOTE | 2018-03-18 17:59 | ER Document Report ---
HPI - HPI Time Seen by Provider: 03/18/18 15:19 Pain Level: 5 Notes: Patient is a 37-year-old male who presents with chief complaint of abdominal pain. Patient was initially seen by a provider in triage. At the time of my initial assessment patient is reporting that he needs to go home immediately as he just received notice that his mother had . He declines any further workup at this time. He did allow me to do a quick Head To Toe assessment. - REPRODUCTIVE Reproductive: DENIES: : - DERM Skin Color: Normal Past Medical History - General Information source: Patient - Social History Smoking Status: Never Smoker Frequency of alcohol use: None Drug Abuse: Marijuana Family History: CAD, CVA, DM, Hyperlipidemia, Hypertension, Malignancy Patient has suicidal ideation: No Patient has homicidal ideation: No - Past Medical History Cardiac Medical History: Denies: Hx Heart Attack, Hx Hypertension Pulmonary Medical History: Denies: Hx Asthma, Hx Bronchitis, Hx COPD, Hx Pneumonia Neurological Medical History: Denies: Hx Seizures Renal/ Medical History: Denies: Hx Peritoneal Dialysis GI Medical History: Reports: Hx Ulcer - Ulcerative colitis, Hx Ulcerative Colitis, Hx Colonoscopy Musculoskeletal Medical History: Denies Hx Arthritis Past Surgical History: Reports: Hx Abdominal Surgery - colon/colostomy, Hx Appendectomy - February 2015, Hx Vascular Surgery - Port placement, Other - colectomy - Immunizations Immunizations up to date: Yes Hx Diphtheria, Pertussis, Tetanus Vaccination: Yes Vertical Provider Document - CONSTITUTIONAL Notes: PHYSICAL EXAMINATION: GENERAL: Well-appearing, well-nourished and in no acute distress. HEAD: Atraumatic, normocephalic. EYES: Pupils equal round extraocular movements intact, conjunctiva are normal. ENT: Nares patent NECK: Normal range of motion LUNGS: No respiratory distress Abdomen: Colostomy bag in place. Musculoskeletal: Normal range of motion NEUROLOGICAL: Normal speech, normal gait. PSYCH: Normal mood, normal affect. SKIN: Warm, Dry, normal turgor, no rashes or lesions noted. - INFECTION CONTROL TRAVEL OUTSIDE OF THE [place] IN LAST 30 DAYS: No Course - Re-evaluation Re-evalutation: Patient discharged home with prescription for Zofran. Patient declines any further workup as his mother has while he has been waiting in the emergency department I encouraged the patient to return to the emergency department if his symptoms return. Patient verbalizes understanding of same. - Vital Signs Vital signs: Temp Pulse Resp BP Pulse Ox 98.4 F 75 16 122/103 H 100 03/18/18 14:26 03/18/18 14:26 03/18/18 14:26 03/18/18 14:26 03/18/18 14:26 Discharge - Discharge Clinical Impression: Abdominal pain Qualifiers: Abdominal location: generalized Qualified Code(s): R10.84 - Generalized abdominal pain Condition: Stable Disposition: HOME, SELF-CARE Additional Instructions: You were seen in the emergency department today with your complaint of abdominal pain. You chose to leave prior to completing your workup due to the abrupt and your family. We are happy to reevaluate you at any time. Referrals: EVIN CHURCH MD [Primary Care Provider] - Follow up as needed
[2018-03-18 18:06] VITALS: BP 131/74
== END 2018-03-18 18:03 | disposition home or self-care (01) ==
LOC: ER 14:22
DX: R10.84 Generalized abdominal pain (principal)
CPT/HCPCS: 99284

== ENCOUNTER 2018-03-19 07:07 | Emergency (ER) | payer SELFPAY ==
[2018-03-19] MEDS ORDERED: RINGERS SOLUTION,LACTATED 1,000 ML IV ONE ×2 (07:31→11:03)
[2018-03-19] MEDS ORDERED: FENTANYL CITRATE INJ/PF 100 MCG/2 ML AMPUL IV ONE ×2 (07:31→13:34)
[2018-03-19] MEDS ORDERED: ONDANSETRON HCL INJ/PF 4 MG/2 ML SDV IV ONE (07:32)
--- NOTE | 2018-03-19 08:28 | ER Document Report ---
ED GI/ - General Chief Complaint: Abdominal Pain Stated Complaint: ABDOMINAL PAIN Time Seen by Provider: 03/19/18 07:13 Mode of Arrival: Ambulatory Information source: Patient Notes: Patient is a well-nourished well-developed 37-year-old male who returns to the emergency room from yesterday was complaining of abdominal pain no vomiting. Patient is well-known to the emergency room here he has a history of chronic colitis and status post cold ostomy bag. He is also status post colectomy. Patient states he has been doing very well for several months and has not had any kind of flareups from his chronic ulcerative colitis. However he states he went back to work yesterday and he works in the [employer] industry, [place] states that smells so bad he started to vomit because of the smell. EMS was called and his blood pressure was elevated so they brought him to the emergency room here he had a rapid medical screening exam was ordered pain medication and fluids and evidently it was super busy here in the emergency room and he had to wait quite a while that they had to order another round of pain medications for him to be waiting. When the provider did get to him patient had just found out his father had and had to leave suddenly. He is returned today continuing to vomit since yesterday states he really believes this is his flareup and he also tells me that he has not been on any of his medications for quite a while since he was out of work he lost his insurance and he was not able to get his medications. He also states that since he was not able to get his medication he still has been doing well up until yesterday when the trigger was the foul-smelling house. Also states that he was sitting on the toilet and he thinks he had some bloody mucus per rectum which was a light color and a little fluid. He has not had any stool with any kind of a mass to it or consistency to it. Patient states when normally he you what works for him on his flareups is a little fluids, pain medication, Zofran and 2 antibiotics. TRAVEL OUTSIDE OF THE [place] IN LAST 30 DAYS: No - HPI Patient complains to provider of: Abdominal pain, Vomiting. No: Diarrhea Onset: Yesterday Timing/Duration: Sudden, Persistent, Worse Quality of pain: Cramping, Fullness, Pressure, Sharp, Stabbing, Throbbing Severity at maximum: Severe Severity in ED: Severe Pain Level: 4 Context: Other - Environmental Location: [facility] Adult Front & Back Diagram: 1 - Area of greatest discomfort 2 - Colostomy bag Sexual history: Inactive Associated symptoms: Blood in stool, Vomiting. 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 Lives with: Family Family History: Reviewed & Not Pertinent, CAD, CVA, DM, Hyperlipidemia, Hypertension, Malignancy Patient has suicidal ideation: No Patient has homicidal ideation: No - Past Medical History Cardiac Medical History: Denies: Hx Heart Attack, Hx Hypertension Pulmonary Medical History: Denies: Hx Asthma, Hx Bronchitis, Hx COPD, Hx Pneumonia Neurological Medical History: Denies: Hx Seizures Renal/ Medical History: Denies: Hx Peritoneal Dialysis GI Medical History: Reports: Hx Ulcer - Ulcerative colitis, Hx Ulcerative Colitis, Hx Colonoscopy Musculoskeletal Medical History: Denies Hx Arthritis Past Surgical History: Reports: Hx Abdominal Surgery - colon/colostomy, Hx Appendectomy - February 2015, Hx Vascular Surgery - Port placement, Other - colectomy - Immunizations Immunizations up to date: Yes Hx Diphtheria, Pertussis, Tetanus Vaccination: Yes Review of Systems - Review of Systems Constitutional: No symptoms reported EENT: No symptoms reported Cardiovascular: No symptoms reported Respiratory: No symptoms reported Gastrointestinal: See HPI, Abdominal pain, Nausea, Vomiting Genitourinary: No symptoms reported Male Genitourinary: No symptoms reported Musculoskeletal: No symptoms reported Skin: No symptoms reported Hematologic/Lymphatic: No symptoms reported Neurological/Psychological: No symptoms reported -: Yes All other systems reviewed and negative Physical Exam - Vital signs Vitals: Temp Pulse Resp BP Pulse Ox 98.0 F 86 18 132/84 H 100 03/19/18 07:26 03/19/18 07:26 03/19/18 07:26 03/19/18 07:26 03/19/18 07:26 Interpretation: Hypertensive - Notes Notes: PHYSICAL EXAMINATION: GENERAL: Patient is a well-nourished well-developed 37-year-old male who appears ill on examination. Vomiting actively as I walk into the room. HEAD: Atraumatic, normocephalic. EYES: Pupils equal round and reactive to light, extraocular movements intact, sclera anicteric, conjunctiva are normal. ENT: Nares patent, oropharynx clear without exudates. Moist mucous membranes. NECK: Normal range of motion, supple without lymphadenopathy LUNGS: Breath sounds clear to auscultation bilaterally and equal. No wheezes rales or rhonchi. HEART: Regular rate and rhythm without murmurs ABDOMEN: examination of the abdomen shows patient has an intact colostomy with a bag that the stoma looks well. There is no sign of infection at the site. There is no erythema surrounding the back itself. There is scant amount of brownish reddish stool but does not appear bloody. Further examination shows patient has no tenderness on the left upper left lower quadrant areas although severe tenderness to the right upper quadrant with guarding noted. Also positive Pinedo. But this also extends down into the right lower quadrant with severe tenderness as well. Patient is also having guarding there even though he has no appendix. Patient does display bowel sounds are active in all quads. Rectal exam was negative for occult blood Musculoskeletal: Normal range of motion, no pitting or edema. No cyanosis. NEUROLOGICAL: Cranial nerves grossly intact. Normal speech, normal gait. Normal sensory, motor exams PSYCH: Normal mood, normal affect. SKIN: Warm, Dry, normal turgor, no rashes or lesions noted. Course - Re-evaluation Re-evalutation: 03/19/18 17:59 Patient's stay in the emergency room is been interesting. His labs all came back normal with the exception of his CRP showed 31.2 and his sed rate was 27. Patient increased his intensity on his skin for pain medications. The first dose of fentanyl lasted several hours a we waited for the labs to come back and while he put his off and given us a urine. We finally obtained a urine and I gave another dose of pain medication of 50 mics of fentanyl. The pain intensified more after I got the CT report back this is a possibility of ileus versus developing obstruction. I contacted Dr. Reynoso and he came down to evaluate the patient as well. The moment Dr. Reynoso walked in the room the patient started baking for Dilaudid. Dr. Reynoso did in the exam on him and does not see any need to have patient come into the hospital. He informed me that the patient has had a total colectomy so he has no large intestine left. Patient had told me that he is going to a surgeon in [place] that is supposed to remove 7 more inches of his colon but he cannot give me the name and he only saw the surgeon 2 days ago. During my reevaluation of patient he stated that he felt like he had the urge to have a bowel movement through the rectum. He jumped out of bed and ran and sat down and as I was in the bathroom with him he had difficult time to distract me and when I looked back patient was emptying his cold colostomy bag into the toilet so it has some bloody tinge to it. I then did a rectal exam and the guaiac came back negative. At this point in reviewing patient's old records and my discussion with Dr. Reynoso and Dr. Ricks believe it is safe to discharge patient home and he can follow-up with his surgeon in [place] tomorrow. I will treat him with antispasmodics and nausea medication. I been to the room and inform patient of this and he is in agreement but not happy. - Vital Signs Vital signs: Temp Pulse Resp BP Pulse Ox 98.0 F 64 18 113/65 100 03/19/18 14:05 03/19/18 14:05 03/19/18 14:05 03/19/18 14:05 03/19/18 14:05 - Laboratory Result Diagrams: 03/19/18 08:15 03/19/18 08:15 Laboratory results interpreted by me: 03/19/18 03/19/18 03/19/18 08:15 08:15 08:15 Hgb 12.4 L Hct 37.1 L MCV 79 L MCH 26.5 L RDW 17.0 H ESR 27 H C-Reactive Protein 31.2 H Urine Ketones 03/19/18 12:52 Hgb Hct MCV MCH RDW ESR C-Reactive Protein Urine Ketones TRACE H Discharge - Discharge Clinical Impression: Pancolitis Abdominal pain Qualifiers: Abdominal location: generalized Qualified Code(s): R10.84 - Generalized abdominal pain Condition: Stable Disposition: HOME, SELF-CARE Instructions: Abdominal Pain ([facility]), Antispasmodics ([facility]), Bowel Obstruction ( [facility]), Irritable Bowel Syndrome ([facility]) Additional Instructions: Home and rest. Medication as prescribed. Clear liquids for the next 24 hours. Then advance her diet as tolerated. As I have discussed with you in the room you need to know what is going on it with your body. You could not tell me the name of your surgeon you could not tell me the name of your medications and he certainly could not tell me what surgeries you had. So you have to be responsible for your body and for your medical outcomes. At this point I have had a surgeon evaluate you and feels it is safe to let you go home as I do. Since you have a surgeon in follow-up I highly suggest that you contact them tomorrow and set up an earlier appointment. Prescriptions: Hyoscyamine Sulfate [Levsin 0.125 Tablet] 0.25 mg PO Q4 #30 tab Promethazine HCl [Phenergan 25 mg Tablet] 1 - 2 tab PO Q6H PRN #15 tablet PRN Reason: Referrals: EVIN CHURCH MD [Primary Care Provider] - Follow up as needed
[2018-03-19 08:36] LABS: ABSOLUTE BASOPHILS # (AUTO) 0.1 10^3/uL (0.0-0.2); ABSOLUTE EOSINOPHILS # (AUTO) 0.1 10^3/uL (0.0-0.6); ABSOLUTE LYMPHOCYTES (AUTO) 1.6 10^3/uL (0.5-4.7); ABSOLUTE MONOCYTES (AUTO) 0.6 10^3/uL (0.1-1.4); BASOPHILS % (AUTO) 0.7 % (0-2); EOSINOPHILS % (AUTO) 1.3 % (0-6); HEMATOCRIT 37.1 % (37.9-51.0); HEMOGLOBIN 12.4 g/dL (13.5-17.0); LYMPHOCYTES % (AUTO) 15.7 % (13-45); MEAN CORPUSCULAR HEMOGLOBIN 26.5 pg (27.0-33.4); MEAN CORPUSCULAR HGB CONC 33.3 g/dL (32.0-36.0); MEAN CORPUSCULAR VOLUME 79 fl (80-97); MONOCYTES % (AUTO) 5.8 % (3-13); PLATELET COUNT 376 10^3/uL (150-450); RED BLOOD COUNT 4.67 10^6/uL (4.35-5.55); SEGMENTED NEUTROPHILS % (AUTO) 76.5 % (42-78); TOTAL CELLS COUNTED % (AUTO) 100 %; WHITE BLOOD COUNT 10.5 10^3/uL (4.0-10.5)
[2018-03-19 09:05] LABS: ALANINE AMINOTRANSFERASE 22 U/L (21-72); ALBUMIN 3.5 g/dL (3.5-5.0); ALKALINE PHOSPHATASE 65 U/L (38-126); ANION GAP 12 (5-19); ASPARTATE AMINO TRANSFERASE 17 U/L (17-59); BILIRUBIN,DIRECT 0.3 mg/dL (0.0-0.4); BILIRUBIN,TOTAL 0.9 mg/dL (0.2-1.3); BLOOD UREA NITROGEN 9 mg/dL (7-20); CALCIUM 9.4 mg/dL (8.4-10.2); CARBON DIOXIDE 23 mmol/L (22-30); CHLORIDE 106 mmol/L (98-107); GLUCOSE 96 mg/dL (75-110); LIPASE 47.5 U/L (23-300); SODIUM 141.4 mmol/L (137-145); TOTAL PROTEIN 6.8 g/dL (6.3-8.2)
[2018-03-19] MEDS ORDERED: METHYLPREDNISOLONE INJ 125 MG/2 ML SDV IV ONE (11:04)
[2018-03-19] MEDS ORDERED: PROMETHAZINE HCL INJ 25 MG/1 ML VIAL IV ONE (13:34)
[2018-03-19 13:51] LABS: APPEARANCE,URINE CLEAR; BILIRUBIN,URINE NEGATIVE (NEGATIVE); COLOR,URINE YELLOW; GLUCOSE, URINE NEGATIVE (NEGATIVE); KETONES,URINE TRACE mg/dL (NEGATIVE); LEUKOCYTE ESTERASE,URINE NEGATIVE (NEGATIVE); NITRITE,URINE NEGATIVE (NEGATIVE); PROTEIN,URINE NEGATIVE (NEGATIVE); URINE SPECIFIC GRAVITY 1.016; UROBILINOGEN,URINE NEGATIVE mg/dL (<2.0)
--- NOTE | 2018-03-19 14:40 | RADIOLOGY REPORT (SQ) ---
EXAM DESCRIPTION: CT ABD/PELVIS WITH IV ORAL COMPLETED DATE/TIME: 03/19/2018 2:24 pm REASON FOR STUDY: aBD pain COMPARISON: 07/13/2017 TECHNIQUE: CT scan of the abdomen and pelvis performed with intravenous and oral contrast using norma alicia scanning technique with dynamic intravenous contrast injection. Images reviewed with lung, soft t issue, and bone windows. Reconstructed coronal and sagittal MPR images reviewed. Delayed images for e valuation of the urinary system also acquired. All images stored on PACS. All CT scanners at this facility use dose modulation, iterative reconstruction, and/or weight based d osing when appropriate to reduce radiation dose to as low as reasonably achievable (ALARA). [facility]: Dose Right [facility]: CareDose [facility]: Dose Right [facility]: Teradose 4D [facility]: CelePost CONTRAST TYPE AND DOSE: contrast/concentration: Isovue 350.00 mg/ml; Total Contrast Delivered: 85.0 ml; Total Saline Delivered: 67.0 ml RENAL FUNCTION: GFR > 60. RADIATION DOSE: CT Rad equipment meets quality standard of care and radiation dose reduction techniq ues were employed. CTDIvol: 15.4 - 18.9 mGy. DLP: 1973 mGy-cm.. LIMITATIONS: Limited clinical information. FINDINGS: LOWER CHEST: Mild motion artifact with minimal left lower lobe subsegmental atelectasis. Distal esophagus looks minimally thick-walled. Small hiatal hernia is likely. LIVER: Normal size. No masses. No dilated ducts. SPLEEN: Normal size. No focal lesions. PANCREAS: No masses. No significant calcifications. No adjacent inflammation or peripancreatic fluid collections. Pancreatic duct not dilated. GALLBLADDER: No identified stones by CT criteria. No inflammatory changes to suggest cholecystitis. ADRENAL GLANDS: No significant masses or asymmetry. RIGHT KIDNEY AND URETER: No solid masses. No significant calcification. No hydronephrosis or hydroure ter. LEFT KIDNEY AND URETER: No solid masses. No significant calcification. No hydronephrosis or hydrouret er. AORTA AND VESSELS: No aneurysm. No dissection. Renal arteries, SMA, celiac without stenosis. RETROPERITONEUM: Stable shotty retroperitoneal subcentimeter lymph nodes. BOWEL AND PERITONEAL CAVITY: Status post distal colectomy with right lower quadrant ostomy. There is fluid in the adjacent abdominal wall with mild fat stranding. Fluid-filled loops of small bowel not ed. This may represent ileus, consider developing obstruction as well. No free air or free fluid wi thin the abdomen. APPENDIX: Surgically absent. PELVIS: No significant masses. Normal bladder. No free fluid. ABDOMINAL WALL: No masses. No hernias. BONES: Mild sclerosis along the SI joints, iliac sided bilaterally. Subtle erosions may be present. 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 OTHER: No other significant finding. IMPRESSION: 1. Right lower quadrant ostomy with associated fluid and potential inflammatory changes . Correlate with clinical symptoms. Slight bowel distention with fluid. This may reflect ileus or developing obstruction. TECHNICAL DOCUMENTATION: JOB ID: [id number] Quality ID # [id number]: Final reports with documentation of one or more dose reduction techniques (e.g., Au tomated exposure control, adjustment of the mA and/or kV according to patient size, use of iterative reconstruction technique) 2010 [email or web address]- All Rights Reserved Reading location - IP/workstation name: [email or web address]
[2018-03-19] MEDS ORDERED: METOCLOPRAMIDE HCL INJ/PF 10 MG/2 ML SDV IV ONE (16:17)
[2018-03-19] MEDS ORDERED: HYDROMORPHONE HCL INJ/PF 2 MG/ML AMPULE IV ONE (16:20)
[2018-03-19 16:36] LABS: URINE AMPHETAMINES SCREEN NEGATIVE; URINE BARBITURATES SCREEN NEGATIVE; URINE BENZODIAZEPINES SCREEN NEGATIVE; URINE COCAINE SCREEN NEGATIVE; URINE MARIJUANA (THC) SCREEN NEGATIVE; URINE METHADONE SCREEN NEGATIVE; URINE PHENCYCLIDINE SCREEN NEGATIVE
[2018-03-19] MEDS ORDERED: DICYCLOMINE HCL INJ 20 MG/2 ML AMPULE IM STA (17:39)
--- NOTE | 2018-03-19 18:20 | PDOC CONSULTATION ---
Consultation Consult Date: 03/19/18 Consult reason:: Ulcerative colitis History of Present Illness Admission Date/PCP: EVIN CHURCH MD History of Present Illness: JEREMIAH ANSARI is a 37 year old male with multiple abdominal surgeries, complaining of abdominal pain. He was seen at the request of the emergency room physician. The patient reports that he has ulcerative colitis and is status post a partial colectomy last February. 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 The patient reports a 2-3-day history of abdominal pain. He reports that the pain is so severe that he occasionally vomits. Patient reports that he saw his physician in [place] 2 days ago and is supposedly scheduled for "removal of the rest of his colon". He reports that his pain is all over his abdomen. He denies significant distention. His pain is 10 out of 10. It does not radiate. The patient cannot relay the name of his surgeon, or any surgeon who has seen him previously in [place]. The patient denies chest pain, shortness of breath, headache, fevers, chills. He does report abdominal pain, malaise, fatigue, nausea. His ostomy is functioning well. Past Medical History Cardiac Medical History: Denies: Myocardial Infarction, Hypertension Pulmonary Medical History: Denies: Asthma, Bronchitis, Chronic Obstructive Pulmonary Disease (COPD), Pneumonia Neurological Medical History: Denies: Seizures GI Medical History: Reports: Ulcerative Colitis Musculoskeltal Medical History: Denies: Arthritis Hematology: Reports: Anemia Past Surgical History Past Surgical History: Reports: Appendectomy - February 2015, Vascular Surgery - Port placement, Other - colectomy Social History Lives with: Family Smoking Status: Unknown if Ever Smoked Frequency of Alcohol Use: None - From age 16 until age 33 was a heavy drinker. Only 2 drinks in the last 2 years, since being diagnosed with UC. Hx Recreational Drug Use: No Hx Prescription Drug Abuse: No Family History Family History: CAD, CVA, DM, Hyperlipidemia, Hypertension, Malignancy Parental Family History Reviewed: Yes Children Family History Reviewed: Yes Sibling(s) Family History Reviewed.: Yes Medication/Allergy Home Medications: No Home Medications 03/19/18 Allergies/Adverse Reactions: Penicillins Allergy (Mild, Verified 03/19/18 08:36) rash/hives metronidazole [From Flagyl] Allergy (Verified 03/19/18 08:36) Review of Systems Constitutional: PRESENT: fatigue, weakness. ABSENT: chills, fever(s) Eyes: ABSENT: visual disturbances Ears: ABSENT: hearing changes Nose, Mouth, and Throat: ABSENT: sore throat Cardiovascular: ABSENT: chest pain, dyspnea on exertion Respiratory: ABSENT: cough, dyspnea Gastrointestinal: PRESENT: abdominal pain. ABSENT: bloating, constipation Musculoskeletal: ABSENT: back pain Integumentary: ABSENT: pruritus, rash Neurological: ABSENT: confusion, convulsions, dizziness Psychiatric: PRESENT: anxiety Endocrine: ABSENT: cold intolerance, heat intolerance Hematologic/Lymphatic: ABSENT: easy bleeding, easy bruising Physical Exam Vital Signs: Temp Pulse Resp BP Pulse Ox 98.0 F 64 18 113/65 100 03/19/18 14:05 03/19/18 14:05 03/19/18 14:05 03/19/18 14:05 03/19/18 14:05 Intake & Output 03/18/18 03/19/18 03/20/18 06:59 06:59 06:59 Intake Total 1999 Balance 1999 Weight 81.647 kg General appearance: PRESENT: well-developed, well-nourished Head exam: PRESENT: atraumatic, normocephalic Eye exam: PRESENT: EOMI, PERRLA. ABSENT: scleral icterus Mouth exam: PRESENT: moist, neck supple Neck exam: ABSENT: meningismus, tenderness, thyromegaly, tracheal deviation Respiratory exam: PRESENT: clear to auscultation jamal, unlabored. ABSENT: chest wall tenderness, tachypnea, wheezes Pulses: PRESENT: normal radial pulses Vascular exam: PRESENT: normal capillary refill GI/Abdominal exam: PRESENT: hernia - Small parastomal hernia, soft, other - Right lower quadrant ileostomy pink and productive. There is a mucosal scratch at the inferior lateral border with a small amount of bleeding. This does not appear to involve the entirety of the ileostomy. Digital inspection down to the fascia is normal.. ABSENT: distended, firm, guarding, rebound, rigid Rectal exam: PRESENT: deferred Extremities exam: ABSENT: clubbing Musculoskeletal exam: ABSENT: deformity Neurological exam: PRESENT: alert, awake, oriented to person, oriented to place , oriented to time, oriented to situation Psychiatric exam: PRESENT: agitated, anxious Focused psych exam: ABSENT: delusional Skin exam: ABSENT: cyanosis, erythema, jaundice Results Laboratory Results: 03/19/18 08:15 03/19/18 08:15 03/19/18 03/19/18 03/19/18 08:15 08:15 08:15 WBC 10.5 RBC 4.67 Hgb 12.4 L Hct 37.1 L MCV 79 L MCH 26.5 L MCHC 33.3 RDW 17.0 H Plt Count 376 Seg Neutrophils % 76.5 Lymphocytes % 15.7 Monocytes % 5.8 Eosinophils % 1.3 Basophils % 0.7 Absolute Neutrophils 8.0 Absolute Lymphocytes 1.6 Absolute Monocytes 0.6 Absolute Eosinophils 0.1 Absolute Basophils 0.1 Sodium 141.4 Potassium 4.0 Chloride 106 Carbon Dioxide 23 Anion Gap 12 BUN 9 Creatinine 0.78 Est GFR ( Amer) > 60 Est GFR (Non-Af Amer) > 60 Glucose 96 Calcium 9.4 Total Bilirubin 0.9 AST 17 ALT 22 Alkaline Phosphatase 65 C-Reactive Protein 31.2 H Total Protein 6.8 Albumin 3.5 Lipase 47.5 Urine Color Urine Appearance Urine pH Ur Specific [place] Urine Protein Urine Glucose (UA) Urine Ketones Urine Blood Urine Nitrite Ur Leukocyte Esterase Urine WBC (Auto) Stool Occult Blood 03/19/18 03/19/18 12:52 16:30 WBC RBC Hgb Hct MCV MCH MCHC RDW Plt Count Seg Neutrophils % Lymphocytes % Monocytes % Eosinophils % Basophils % Absolute Neutrophils Absolute Lymphocytes Absolute Monocytes Absolute Eosinophils Absolute Basophils Sodium Potassium Chloride Carbon Dioxide Anion Gap BUN Creatinine Est GFR ( Amer) Est GFR (Non-Af Amer) Glucose Calcium Total Bilirubin AST ALT Alkaline Phosphatase C-Reactive Protein Total Protein Albumin Lipase Urine Color YELLOW Urine Appearance CLEAR Urine pH 7.0 Ur Specific [place] 1.016 Urine Protein NEGATIVE Urine Glucose (UA) NEGATIVE Urine Ketones TRACE H Urine Blood NEGATIVE Urine Nitrite NEGATIVE Ur Leukocyte Esterase NEGATIVE Urine WBC (Auto) 2 Stool Occult Blood NEGATIVE Impressions: Abdomen/Pelvis CT 03/19/18 11:02 IMPRESSION: 1. Right lower quadrant ostomy with associated fluid and potential inflammatory changes. Correlate with clinical symptoms. Slight bowel distention with fluid. This may reflect ileus or developing obstruction. Assessment & Plan - Diagnosis (1) Abdominal pain Qualifiers: Abdominal location: generalized Qualified Code(s): R10.84 - Generalized abdominal pain Is this a current diagnosis for this admission?: Yes - Plan Summary Plan Summary: This is a 37-year-old male with a history of a "partial colectomy "at [place]. He reports that he recently saw a surgeon who was planning to remove the "rest of his colon". The patient does not know the name of the surgeon. He has no way to contact him. I have personally reviewed the patient' s CT scan. He had IV and p.o. contrast. There is a scant amount of p.o. contrast in the distal small bowel, however most of it has moved through the intestine. This essentially rules out a small bowel obstruction radiographically. The right lower quadrant ileostomy was digitally inspected down to the fascia. There is no evidence for kinking or obstruction clinically. Per nursing report, they have emptied his colostomy bag several times. The patient has no discernible colon remaining in the abdominal cavity on CT. The patient does still have a rectum with a possible small remnant of distal sigmoid. In my opinion, there is no intra-abdominal colon left to remove. I am not sure what operation was done in [place], and without surgical records one can never be certain. At this time, I cannot see any surgical intervention that would be helpful to the patient. The patient's laboratory workup is essentially normal. If the patient has rectal symptoms, steroid enemas can be helpful. I will defer the decision for this treatment to his hearing aid technician (he most recently saw his hearing aid technician in [place], but he does have a hearing aid technician here in [place]). I will see the patient again on an as-needed basis. Please renotify with any questions or concerns.
[2018-03-19 18:58] VITALS: BP 109/65
== END 2018-03-19 19:31 | disposition home or self-care (01) ==
LOC: ER 07:07
DX: K51.00 Ulcerative (chronic) pancolitis without complications (principal); R10.84 Generalized abdominal pain; R11.2 Nausea with vomiting, unspecified; Z90.49 Acquired absence of other specified parts of digestive tract; Z93.3 Colostomy status; Z88.0 Allergy status to penicillin
CPT/HCPCS: 36591; 96376; 99285; 96372; 96361; 96374; 96375; 36415; 83690; 85025; 85652; 82272; 86140; 80053; 81001; 80307; 74177; J0500; J3010; J2930; J2765; J1170; J2550; J2405; J7120

== ENCOUNTER 2018-03-24 23:07 | Emergency (ER) | payer SELFPAY ==
[2018-03-25] MEDS ORDERED: METOCLOPRAMIDE HCL 10 MG TABLET PO ONE (00:34)
[2018-03-25] MEDS ORDERED: NORMAL SALINE 1000 ML 1,000 ML IV ONE (00:35)
--- NOTE | 2018-03-25 00:38 | ER Document Report ---
ED Medical Screen (RME) - General Chief Complaint: Nausea/Vomiting Stated Complaint: VOMITING, ABDOMINAL PAINS Time Seen by Provider: 03/25/18 00:32 Notes: Patient is a 37-year-old male presenting to the emergency department complaining of swelling and increased pain around his colostomy site. Patient states he has a long-standing history of ulcerative colitis and a colostomy was inevitably paced. Patient states he was here Saturday and they could find "nothing wrong with me." States since Saturday he has had increased vomiting and now increased pain and swelling around his colostomy bag. Patient states the stool that is noted in his colostomy bag is very foul-smelling. Patient states last time his stool was this foul-smelling he had a an infection and ended up spending over a month in the hospital. Patient states he has not been able to eat anything since and patient admits to only drinking one bottle of Gatorade since . Past medical history: Anemia, ulcerative colitis, colostomy bag Medications: None Allergies: Penicillin, [place] Physical exam: Swelling and pain noted around colostomy bag, no erythema of the skin noted. yellow/brown tinged liquid noted in colostomy bag. I have greeted and performed a rapid initial assessment of this patient. A comprehensive ED assessment and evaluation of the patient, analysis of test results and completion of the medical decision making process will be conducted by additional ED providers. TRAVEL OUTSIDE OF THE [place] IN LAST 30 DAYS: No - Related Data Allergies/Adverse Reactions: Penicillins Allergy (Mild, Verified 03/19/18 08:36) rash/hives metronidazole [From Flagyl] Allergy (Verified 03/19/18 08:36) Past Medical History - Past Medical History Cardiac Medical History: Denies: Hx Heart Attack, Hx Hypertension Pulmonary Medical History: Denies: Hx Asthma, Hx Bronchitis, Hx COPD, Hx Pneumonia Neurological Medical History: Denies: Hx Seizures Renal/ Medical History: Denies: Hx Peritoneal Dialysis GI Medical History: Reports: Hx Ulcer - Ulcerative colitis, Hx Ulcerative Colitis, Hx Colonoscopy Musculoskeltal Medical History: Denies Hx Arthritis Past Surgical History: Reports: Hx Abdominal Surgery - colon/colostomy, Hx Appendectomy - February 2015, Hx Vascular Surgery - Port placement, Other - colectomy - Immunizations Immunizations up to date: Yes Hx Diphtheria, Pertussis, Tetanus Vaccination: Yes Physical Exam - Vital signs Vitals: Temp Pulse Resp BP Pulse Ox 98.4 F 118 H 20 137/87 H 96 03/24/18 23:35 03/24/18 23:35 03/24/18 23:35 03/24/18 23:35 03/24/18 23:35 Course - Vital Signs Vital signs: Temp Pulse Resp BP Pulse Ox 98.4 F 118 H 20 137/87 H 96 03/24/18 23:35 03/24/18 23:35 03/24/18 23:35 03/24/18 23:35 03/24/18 23:35 Doctor's Discharge - Discharge Referrals: EVIN CHURCH MD [Primary Care Provider] - Follow up as needed
[2018-03-25 02:15] LABS: ABSOLUTE BASOPHILS # (AUTO) 0.1 10^3/uL (0.0-0.2); ABSOLUTE EOSINOPHILS # (AUTO) 0.2 10^3/uL (0.0-0.6); ABSOLUTE LYMPHOCYTES (AUTO) 1.5 10^3/uL (0.5-4.7); ABSOLUTE MONOCYTES (AUTO) 0.6 10^3/uL (0.1-1.4); ABSOLUTE NEUT (AUTO) 6.7 10^3/uL (1.7-8.2); BASOPHILS % (AUTO) 0.9 % (0-2); EOSINOPHILS % (AUTO) 2.2 % (0-6); HEMOGLOBIN 12.5 g/dL (13.5-17.0); LYMPHOCYTES % (AUTO) 16.2 % (13-45); MEAN CORPUSCULAR HEMOGLOBIN 26.6 pg (27.0-33.4); MEAN CORPUSCULAR HGB CONC 33.9 g/dL (32.0-36.0); MEAN CORPUSCULAR VOLUME 79 fl (80-97); MONOCYTES % (AUTO) 6.5 % (3-13); PLATELET COUNT 291 10^3/uL (150-450); RED CELL DISTRIBUTION WIDTH 17.6 % (11.5-14.0); SEGMENTED NEUTROPHILS % (AUTO) 74.2 % (42-78); TOTAL CELLS COUNTED % (AUTO) 100 %; WHITE BLOOD COUNT 9.1 10^3/uL (4.0-10.5)
[2018-03-25 02:27] LABS: ALANINE AMINOTRANSFERASE 17 U/L (21-72); ALBUMIN 3.7 g/dL (3.5-5.0); ALKALINE PHOSPHATASE 72 U/L (38-126); ANION GAP 16 (5-19); ASPARTATE AMINO TRANSFERASE 12 U/L (17-59); BILIRUBIN,DIRECT 0.6 mg/dL (0.0-0.4); BILIRUBIN,TOTAL 1.7 mg/dL (0.2-1.3); BLOOD UREA NITROGEN 11 mg/dL (7-20); CALCIUM 9.1 mg/dL (8.4-10.2); CARBON DIOXIDE 29 mmol/L (22-30); CHLORIDE 93 mmol/L (98-107); GLUCOSE 101 mg/dL (75-110); POTASSIUM 3.5 mmol/L (3.6-5.0); SODIUM 137.9 mmol/L (137-145); TOTAL PROTEIN 7.1 g/dL (6.3-8.2)
[2018-03-25] MEDS ORDERED: MORPHINE SULFATE 10 MG/ML INJ IV ONE (02:49)
--- NOTE | 2018-03-25 02:55 | ER Document Report ---
ED GI/ - General Chief Complaint: Nausea/Vomiting Stated Complaint: VOMITING, ABDOMINAL PAINS Time Seen by Provider: 03/25/18 01:47 Mode of Arrival: Ambulatory Information source: Patient Notes: Patient is a 37-year-old male with a history of ulcerative colitis status post total colectomy who reports with acute worsening abdominal pain for the past 5- 6 days. Patient denies injury, reports symptoms began immediately after one episode of nonbloody and nonbilious emesis, denies new onset hematochezia from his ostomy. He reports presenting to the emergency department 1 week ago where both blood work and a CT scan were "normal" and he was discharged home. He now states the symptoms have persisted, but not worsened, although he believe he is becoming distended around his ostomy site. He denies fevers, chills, or any other symptom. TRAVEL OUTSIDE OF THE [place] IN LAST 30 DAYS: No - HPI Patient complains to provider of: Abdominal pain, Vomiting Onset: Last week Timing/Duration: Sudden Quality of pain: Achy, Cramping, Stabbing. denies: Fullness, Pressure Severity at maximum: Severe Severity in ED: Moderate Pain Level: 3 Context: Lifting, Other - Episode of vomiting Location: Other - Around colostomy site Sexual history: Inactive Associated symptoms: Diarrhea, Nausea. denies: Blood in stool, Chest pain, Hematuria Exacerbated by: Denies Relieved by: Denies Similar symptoms previously: Yes Recently seen / treated by doctor: No - Related Data Allergies/Adverse Reactions: Penicillins Allergy (Mild, Verified 03/19/18 08:36) rash/hives metronidazole [From Flagyl] Allergy (Verified 03/19/18 08:36) Past Medical History - General Information source: Patient - Social History Smoking Status: Unknown if Ever Smoked Cigarette use (# per day): No Chew tobacco use (# tins/day): No Smoking Education Provided: No Frequency of alcohol use: Occasional Drug Abuse: None Lives with: Family Family History: Reviewed & Not Pertinent, CAD, CVA, DM, Hyperlipidemia, Hypertension, Malignancy Patient has suicidal ideation: No Patient has homicidal ideation: No - Medical History Medical History: Other - Ulcerative colitis s/p colectomy - Past Medical History Cardiac Medical History: Reports: None Denies: Hx Heart Attack, Hx Hypertension Pulmonary Medical History: Reports: None Denies: Hx Asthma, Hx Bronchitis, Hx COPD, Hx Pneumonia EENT Medical History: Reports: None Neurological Medical History: Reports: None. Denies: Hx Seizures Endocrine Medical History: Reports: None Renal/ Medical History: Reports: None. Denies: Hx Peritoneal Dialysis Malignancy Medical History: Reports None GI Medical History: Reports: Hx Ulcer - Ulcerative colitis, Hx Ulcerative Colitis, Hx Colonoscopy Musculoskeletal Medical History: Reports None, Denies Hx Arthritis Skin Medical History: Reports None Psychiatric Medical History: Reports: None Traumatic Medical History: Reports: None Infectious Medical History: Reports: None Past Surgical History: Reports: Hx Abdominal Surgery - colon/colostomy, Hx Appendectomy - February 2015, Hx Vascular Surgery - Port placement, Other - colectomy - Immunizations Immunizations up to date: Yes Hx Diphtheria, Pertussis, Tetanus Vaccination: Yes Review of Systems - Review of Systems Constitutional: No symptoms reported EENT: No symptoms reported Cardiovascular: No symptoms reported Respiratory: No symptoms reported Gastrointestinal: Abdominal pain, Nausea, Vomiting, Poor appetite. denies: Blood in vomit, Black stools Genitourinary: No symptoms reported Male Genitourinary: No symptoms reported Musculoskeletal: No symptoms reported Skin: No symptoms reported Hematologic/Lymphatic: No symptoms reported Neurological/Psychological: No symptoms reported -: Yes All other systems reviewed and negative Physical Exam - Vital signs Vitals: Temp Pulse Resp BP Pulse Ox 98.4 F 118 H 20 137/87 H 96 03/24/18 23:35 03/24/18 23:35 03/24/18 23:35 03/24/18 23:35 03/24/18 23:35 Interpretation: Normal - General General appearance: Appears well In distress: None - HEENT Head: Normocephalic, Atraumatic Eyes: Normal Pupils: PERRL - Respiratory Respiratory status: No respiratory distress Chest status: Nontender Breath sounds: Normal Chest palpation: Normal - Cardiovascular Rhythm: Regular Heart sounds: Normal auscultation Murmur: No - Abdominal Inspection: Other - Colostomy site in the right middle abdomen Distension: No distension Bowel sounds: Hypoactive Tenderness: Tender - around colostomy site Organomegaly: No organomegaly Notes: Output from colostomy bag is light brown and watery - Rectal Tenderness: No - Deferred - Genitourinary Notes: Deferred - Back Back: Normal, Nontender - Extremities General upper extremity: Normal inspection, Nontender, Normal color, Normal ROM , Normal temperature General lower extremity: Normal inspection, Nontender, Normal color, Normal ROM , Normal temperature, Normal weight bearing. No: Nazanin's sign - Neurological Neuro grossly intact: Yes Cognition: Normal Orientation: AAOx4 [place] Coma Scale Eye Opening: Spontaneous [place] Coma Scale Verbal: Oriented [place] Coma Scale Motor: Obeys Commands Perla Coma Scale Total: 15 Speech: Normal Motor strength normal: LUE, RUE, LLE, RLE Sensory: Normal - Psychological Associated symptoms: Normal affect, Normal mood - Skin Skin Temperature: Warm Skin Moisture: Dry Skin Color: Normal Course - Re-evaluation Re-evalutation: 03/25/18 02:57 Patient has known history of narcotic dependence and abuse, as well as withdrawal. He reports multiple visits to the hospital without answers to why he has abdominal pain. I have informed the patient that repeat blood work and CT scan would be performed, but that if no answer could be found he would need to be discharged. 03/25/18 04:[address] scan shows small bowel obstruction, surgery has been consulted and will see the patient. - Vital Signs Vital signs: Temp Pulse Resp BP Pulse Ox 98.4 F 118 H 20 137/87 H 96 03/24/18 23:35 03/24/18 23:35 03/24/18 23:35 03/24/18 23:35 03/24/18 23:35 - Laboratory Result Diagrams: 03/25/18 02:06 03/25/18 02:06 Laboratory results interpreted by me: 03/25/18 03/25/18 02:06 02:06 Hgb 12.5 L Hct 37.0 L MCV 79 L MCH 26.6 L RDW 17.6 H Potassium 3.5 L Chloride 93 L Total Bilirubin 1.7 H Direct Bilirubin 0.6 H AST 12 L ALT 17 L - Diagnostic Test Radiology reviewed: Reports reviewed - Consults Dr. Unger Time consulted: 04:15 - Will see the patient and admit Consulted provider: will come to ER Discharge - Discharge Clinical Impression: Abdominal pain, Small bowel obstruction Condition: Fair Disposition: ADMITTED INPATIENT Admitting Provider: Surgicalist Unit Admitted: Surgical Floor Referrals: EVIN CHURCH MD [Primary Care Provider] - Follow up as needed
--- NOTE | 2018-03-25 04:01 | RADIOLOGY REPORT (SQ) ---
EXAM DESCRIPTION: CT ABDOMEN PELVIS WITH IV CONTRAST COMPLETED DATE/TME: 03/25/2018 00:33 CLINICAL HISTORY: 37 years Male, pain, SWELLING AROUND OSTOMY Comparison:03/19/2018 Technique: IV contrast. Coronal and sagittal reformat. This exam was performed according to our departmental dose-optimization program, which includes automated exposure control, adjustment of the mA and/or kV according to patient size and/or use of iterative reconstruction technique. [facility]: Dose Right [facility]: CareDose [facility]: Dose Right [facility]: Teradose 4D [facility]: Play With Pictures / HangPic LIMITATIONS: None Findings: Moderate small bowel obstruction pattern includes 5.5 cm diameter small bowel with air-fluid levels and stacking with likely transition zone 3 cm internal to a 7 cm parastomal small bowel hernia. There is moderate parastomal free fluid. Cholectomy. No intraperitoneal ascites. No pneumoperitoneum. Splenomegaly index of 763. Cholelithiasis/gallbladder sludge. Appendectomy. Osteoarthritis. Inferior thorax, liver, pancreas, adrenals, renal system, pelvic organs, lymphatics, vasculature, and musculoskeleton appear otherwise unremarkable. IMPRESSION: 1. Moderate small bowel obstruction appears secondary to a parastomal small bowel hernia. Immediate Surgical referral advised. 2. Moderate splenomegaly. 3. Cholelithiasis.
[2018-03-25] MEDS ORDERED: RINGERS SOLUTION,LACTATED 1,000 ML IV ONE (04:41)
[2018-03-25] MEDS ORDERED: ERTAPENEM SODIUM INJ 1 GM VIAL IV ONE (04:42)
[2018-03-25] MEDS ORDERED: HYDROMORPHONE HCL INJ/PF 2 MG/ML AMPULE IV ONE ×2 (04:51→07:21)
[2018-03-25] MEDS ORDERED: ONDANSETRON HCL INJ/PF 4 MG/2 ML SDV IV ONE ×2 (04:52→07:24)
--- NOTE | 2018-03-25 05:33 | PDOC CONSULTATION ---
Consultation Consult Date: 03/25/18 Attending physician:: MICHAEL POTTS Consult reason:: Abdominal pain nausea vomiting decreased ileostomy output History of Present Illness Admission Date/PCP: EVIN CHURCH MD Patient complains of: Abdominal pain History of Present Illness: JEREMIAH ANSARI is a 37 year old male Is seen in the emergency department via ground rescue because of a week plus history of abdominal pain nausea vomiting and decreased ileostomy output. Patient was seen in the emergency department 5 days ago treated for dehydration and discharged home. Patient is 1 year status post total colectomy, with diverting ileostomy by Dr. Gurdeep Kerr, [facility], for ulcerative colitis. Patient has been in the emergency department at [facility] on a regular basis since that time complaining of abdominal pain and other symptoms related to his ileostomy, however the patient's pain, persisting nausea, vomiting, and now foul-smelling purulent drainage from his ileostomy is new. He was seen in the emergency department where he had a CT scan of the abdomen and pelvis which showed findings consistent with a small bowel obstruction; no oral contrast was provided. He was evaluated in the emergency department by Dr. Unger on a consulting basis and felt to have an ulcerated parastomal hernia. Past Medical History Past Medical History: Pain management; chronic narcotic therapy Cardiac Medical History: Reports: None Denies: Myocardial Infarction, Hypertension Pulmonary Medical History: Reports: None Denies: Asthma, Bronchitis, Chronic Obstructive Pulmonary Disease (COPD), Pneumonia EENT Medical History: Reports: None Neurological Medical History: Reports: None Denies: Seizures Endocrine Medical History: Reports: None Renal/ Medical History: Reports: None Malignancy Medical History: Reports: None GI Medical History: Reports: Ulcerative Colitis Musculoskeltal Medical History: Reports: None Denies: Arthritis Skin Medical History: Reports: None Psychiatric Medical History: Reports: None Traumatic Medical History: Reports: None Hematology: Reports: Anemia Infectious Medical History: Reports: None Past Surgical History Past Surgical History: Subtotal colectomy with ileostomy by Dr. Gurdeep Kerr, 2016 for ulcerative colitis ; Right subclavian [id number] catheter placement for chronic pain management Past Surgical History: Reports: Appendectomy - February 2015, Vascular Surgery - Port placement, Other - colectomy Social History Lives with: Family Smoking Status: Unknown if Ever Smoked Frequency of Alcohol Use: None - From age 16 until age 33 was a heavy drinker. Only 2 drinks in the last 2 years, since being diagnosed with UC. Hx Recreational Drug Use: No Hx Prescription Drug Abuse: No Family History Family History: Reviewed & Not Pertinent, CAD, CVA, DM, Hyperlipidemia, Hypertension, Malignancy Parental Family History Reviewed: Yes Children Family History Reviewed: Yes Sibling(s) Family History Reviewed.: Yes Medication/Allergy Home Medications: Hyoscyamine Sulfate [Levsin 0.125 Tablet] 0.25 mg PO Q4 #30 tab 03/19/18 Promethazine HCl [Phenergan 25 mg Tablet] 1 - 2 tab PO Q6H PRN #15 tablet Allergies/Adverse Reactions: Penicillins Allergy (Mild, Verified 03/19/18 08:36) rash/hives metronidazole [From Flagyl] Allergy (Verified 03/19/18 08:36) Review of Systems Constitutional: PRESENT: as per HPI Eyes: ABSENT: visual disturbances Ears: ABSENT: hearing changes Respiratory: ABSENT: cough, hemoptysis Gastrointestinal: PRESENT: as per HPI Neurological: ABSENT: abnormal gait, abnormal speech, confusion, dizziness, focal weakness, syncope Psychiatric: ABSENT: anxiety, depression, homidical ideation, suicidal ideation Physical Exam Vital Signs: Temp Pulse Resp BP Pulse Ox 98.4 F 118 H 20 135/89 H 97 03/24/18 23:35 03/24/18 23:35 03/24/18 23:35 03/25/18 05:01 03/25/18 05:01 Intake & Output 03/23/18 03/24/18 03/25/18 06:59 06:59 06:59 Weight 86.1 kg General appearance: PRESENT: mild distress Head exam: PRESENT: normocephalic Eye exam: PRESENT: EOMI Mouth exam: PRESENT: dry mucosa Neck exam: PRESENT: full ROM Respiratory exam: PRESENT: clear to auscultation jamal Cardiovascular exam: PRESENT: RRR Pulses: PRESENT: normal carotid pulses, normal radial pulses, normal femoral pulses GI/Abdominal exam: PRESENT: diminished bowel sounds, other - Abdomen is slightly distended; there is a fullness around his ileostomy right lower quadrant. Appliance removed; the exposed ileal mucosa is injected erythematous and in fact sloughing; there is pus in the ileostomy appliance; I cannot reduce the parastomal hernia Psychiatric exam: PRESENT: agitated Results Laboratory Results: 03/25/18 02:06 03/25/18 02:06 03/25/18 03/25/18 03/25/18 02:06 02:06 02:57 WBC 9.1 RBC 4.70 Hgb 12.5 L Hct 37.0 L MCV 79 L MCH 26.6 L MCHC 33.9 RDW 17.6 H Plt Count 291 Seg Neutrophils % 74.2 Lymphocytes % 16.2 Monocytes % 6.5 Eosinophils % 2.2 Basophils % 0.9 Absolute Neutrophils 6.7 Absolute Lymphocytes 1.5 Absolute Monocytes 0.6 Absolute Eosinophils 0.2 Absolute Basophils 0.1 Sodium 137.9 Potassium 3.5 L Chloride 93 L Carbon Dioxide 29 Anion Gap 16 BUN 11 Creatinine 0.70 Est GFR ( Amer) > 60 Est GFR (Non-Af Amer) > 60 Glucose 101 Lactic Acid 1.0 Calcium 9.1 Total Bilirubin 1.7 H AST 12 L ALT 17 L Alkaline Phosphatase 72 Total Protein 7.1 Albumin 3.7 Stool for White Cells 03/25/18 03:46 WBC RBC Hgb Hct MCV MCH MCHC RDW Plt Count Seg Neutrophils % Lymphocytes % Monocytes % Eosinophils % Basophils % Absolute Neutrophils Absolute Lymphocytes Absolute Monocytes Absolute Eosinophils Absolute Basophils Sodium Potassium Chloride Carbon Dioxide Anion Gap BUN Creatinine Est GFR ( Amer) Est GFR (Non-Af Amer) Glucose Lactic Acid Calcium Total Bilirubin AST ALT Alkaline Phosphatase Total Protein Albumin Stool for White Cells MANY H Impressions: Abdomen/Pelvis CT 03/25/18 00:33 IMPRESSION: 1. Moderate small bowel obstruction appears secondary to a parastomal small bowel hernia. Immediate Surgical referral advised. 2. Moderate splenomegaly. 3. Cholelithiasis. Assessment & Plan - Diagnosis (1) Parastomal hernia with obstruction and without gangrene Is this a current diagnosis for this admission?: Yes Plan: Impression: Patient has subacute parastomal hernia incarceration with secondary bowel obstruction; associated with dehydration, hyperbilirubinemia and intractable pain; Patient needs operative intervention. Recommendations: 1. Explained findings above to patient and emergency department staff. The terminal ileum in the ileostomy is threatened and cannot be reduced at bedside. We do not have the expertise to tackle this problem at this time here at [facility] and I have suggested transfer to [facility]. 2. I understand Dr. Potts has successfully contacted the urgent on-call for Dr. Gurdeep Kerr who has willingly accepted patient in transfer. 3. We will continue fluid resuscitation and pain management. (2) Small bowel obstruction Is this a current diagnosis for this admission?: Yes (3) Pain management Is this a current diagnosis for this admission?: Yes (4) Abdominal pain Is this a current diagnosis for this admission?: Yes - Time Time Spent: 30 to 50 Minutes Smoking Cessation Education: 3 to 10 minutes Medications reviewed and adjusted accordingly: Yes Anticipated discharge: Home
[2018-03-25 08:05] VITALS: BP 128/81
== END 2018-03-25 08:10 | disposition short-term general hospital (02) ==
LOC: ER 23:07
DX: K56.699 Other intestinal obstruction unspecified as to partial versus complete obstruction (principal); K43.5 Parastomal hernia without obstruction or gangrene; R11.2 Nausea with vomiting, unspecified; K51.90 Ulcerative colitis, unspecified, without complications; R10.31 Right lower quadrant pain; Z93.3 Colostomy status; D64.9 Anemia, unspecified; Z88.0 Allergy status to penicillin; Z88.1 Allergy status to other antibiotic agents; Z90.49 Acquired absence of other specified parts of digestive tract
CPT/HCPCS: 36591; 96376; 99285; 96361; 96375; 96365; 36415; 87040; 87045; 89055; 87205; 85025; 80053; 83605; 74177; J1335; J2270; J1170; J2405; J7030; J7120

== ENCOUNTER 2018-05-09 09:21 | Emergency (ER) | payer SELFPAY ==
[2018-05-09] MEDS ORDERED: NORMAL SALINE 1000 ML 1,000 ML IV ONE ×2 (10:04→15:52)
--- NOTE | 2018-05-09 10:11 | ER Document Report ---
ED General - General Chief Complaint: Arm Problem Stated Complaint: ABDOMINAL PAIN Time Seen by Provider: 05/09/18 09:50 TRAVEL OUTSIDE OF THE [place] IN LAST 30 DAYS: No - HPI Notes: Patient is a 37-year-old male that presents to the emergency department for chief complaint of abdominal pain and right arm edema. Patient has extensive medical history. He was recently at [facility] from 03/25/18 through 3 days ago. He states the day he was discharged he noticed some edema in his right arm. He reports history of DVT in the past. He is not currently anticoagulated. He was receiving Lovenox while in the hospital. Patient is also complaining of abdominal pain around his inci sions. 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 While in the hospital patient had his Mediport removed and had 2 abdominal surgeries including repair of his stoma for his colostomy. Patient states he has had continued pain since being discharged but it is getting worse. He reports most of the pain is sharp and around his incisions. He states he usually takes oxycodone 15 mg but was discharged home with 5 mg tablets. He denies any cough, chest pain, shortness of breath and vomiting. He does not believe he has had a fever but does report sweats. Past Medical History: Crohn's Past Surgical History: Colostomy, MediPort, abdominal hernia repair Social History: Denies drugs alcohol and tobacco Family History: Reviewed and noncontributory for presenting illness Allergies: Reviewed, see documented allergy list. REVIEW OF SYSTEMS: CONSTITUTIONAL : No fever No chills diaphoresis No recent illness EENT: No vision changes No congestion No sore throat CARDIOVASCULAR: No chest pain No palpitations RESPIRATORY: No shortness of breath No cough No difficulty breathing GASTROINTESTINAL: abdominal pain nausea No vomiting GENITOURINARY: No dysuria No hematuria No difficulty urinating MUSCULOSKELETAL: No back pain No leg pain arm pain Arm edema SKIN: No rashes No lesions LYMPHATIC: No swollen, enlarged glands. NEUROLOGICAL: No lightheadedness No headache No weakness No paresthesias PSYCHIATRIC: No anxiety No depression PHYSICAL EXAMINATION: Vital signs reviewed, nursing noted reviewed. GENERAL: Mildly diaphoretic and in no acute distress. HEAD: Atraumatic, normocephalic. EYES: Eyes appear normal, extraocular movements intact, sclera anicteric, conjunctiva are normal. ENT: nares patent, oropharynx clear without exudates. Moist mucous membranes. NECK: Normal range of motion, supple without lymphadenopathy LUNGS: Breath sounds clear to auscultation bilaterally and equal. No wheezes rales or rhonchi. HEART: Tachycardic rate and regular rhythm without murmurs ABDOMEN: Soft, diffuse tenderness. No rebound, guarding, or rigidity. No masses appreciated. Stoma pink with no active bleeding. EXTREMITIES: Tenderness to proximal right upper extremity with right arm edema compared to left. Good range of motion, no lower extremity edema. NEUROLOGICAL: No focal neurological deficits. Moves all extremities spontaneously Motor and sensory grossly intact on exam. PSYCH: Normal mood, normal affect. SKIN: Warm, mild diaphoresis, normal turgo. Surgical incision to left upper quadrant and midline abdomen with valerie in place, incisions are clean, dry and intact with no purulence or erythema. Right upper chest surgical incision well- healing with no erythema or drainage - Related Data Allergies/Adverse Reactions: Penicillins Allergy (Mild, Verified 03/19/18 08:36) rash/hives metronidazole [From Flagyl] Allergy (Verified 03/19/18 08:36) Past Medical History - Social History Smoking Status: Never Smoker Family History: Reviewed & Not Pertinent, CAD, CVA, DM, Hyperlipidemia, Hypertension, Malignancy - Past Medical History Cardiac Medical History: Denies: Hx Heart Attack, Hx Hypertension Pulmonary Medical History: Denies: Hx Asthma, Hx Bronchitis, Hx COPD, Hx Pneumonia Neurological Medical History: Denies: Hx Seizures Renal/ Medical History: Denies: Hx Peritoneal Dialysis GI Medical History: Reports: Hx Ulcer - Ulcerative colitis, Hx Ulcerative Colitis, Hx Colonoscopy Musculoskeletal Medical History: Denies Hx Arthritis Past Surgical History: Reports: Hx Abdominal Surgery - colon/colostomy, Hx Appendectomy - February 2015, Hx Vascular Surgery - Port placement, Other - colectomy - Immunizations Immunizations up to date: Yes Hx Diphtheria, Pertussis, Tetanus Vaccination: Yes Physical Exam - Vital signs Vitals: Resp Pulse Ox 19 98 05/09/18 09:31 05/09/18 09:31 Course - Re-evaluation Re-evalutation: 05/09/18 10:10 Vitals reviewed. Nursing notes reviewed. Patient is mildly tachycardic but otherwise stable. He does have asymmetric edema of his right upper extremity and ultrasound will be performed to evaluate for underlying DVT. Patient was g iven IV hydration for his tachycardia. 05/09/18 15:47 Patient's venous duplex shows very extensive upper extremity DVT extending from his internal jugular. He was given a dose of Lovenox for the DVT. Patient has no shortness of breath and is oxygenating well on room air. He is also not complaining of chest pain. patient received a contrasted study of his abdomen and I do not want a repeat contrast to obtain a CT of his chest with no symptoms of pulmonary embolism especially since treatment plan will not change given his stable condition. CT scan of his abdomen revealed multiple intra-abdominal and pelvic abscesses. Patient has received vancomycin and Zosyn for the abscesses. His blood pressure has remained stable and his lactate is only 1.1, he is not in septic shock. Patient did require repeat dosing of pain medication. Because of his recent stay at [facility] and his requirement for drainage of his intra-abdominal and pelvic abscesses he will be transferred back to [facility] where his surgeons are. I discussed patient's care with Dr. Woo who accepts on behalf of Dr. Rubio patient in agreement with this plan. He is hemodynamically stable at this time for transfer. Laboratory 05/09/18 05/09/18 05/09/18 09:40 09:40 09:40 WBC 17.2 H RBC 4.24 L Hgb 12.4 L Hct 37.0 L MCV 87 MCH 29.3 MCHC 33.6 RDW 20.4 H Plt Count 497 H Seg Neutrophils % 86.4 H Lymphocytes % 8.7 L Monocytes % 4.0 Eosinophils % 0.6 Basophils % 0.3 Absolute Neutrophils 14.8 H Absolute Lymphocytes 1.5 Absolute Monocytes 0.7 Absolute Eosinophils 0.1 Absolute Basophils 0.1 PT 14.8 INR 1.10 VBG pH VBG pCO2 VBG HCO3 VBG Base Excess Sodium 134.7 L Potassium 4.5 Chloride 95 L Carbon Dioxide 27 Anion Gap 13 BUN 11 Creatinine 0.75 Est GFR ( Amer) > 60 Est GFR (Non-Af Amer) > 60 Glucose 115 H Lactic Acid Calcium 9.2 Total Bilirubin 0.9 Direct Bilirubin 0.5 H Neonat Total Bilirubin Not Reportable Neonat Direct Bilirubin Not Reportable Neonat Indirect Bili Not Reportable AST 17 ALT 30 Alkaline Phosphatase 76 Total Protein 6.4 Albumin 3.5 Urine Color Urine Appearance Urine pH Ur Specific [place] Urine Protein Urine Glucose (UA) Urine Ketones Urine Blood Urine Nitrite Urine Bilirubin Urine Urobilinogen Ur Leukocyte Esterase Urine WBC (Auto) Urine RBC (Auto) Urine Bacteria (Auto) Uric Acid Cryst (Auto) Urine Mucus (Auto) Urine Ascorbic Acid 05/09/18 05/09/18 05/09/18 09:40 09:40 14:30 WBC RBC Hgb Hct MCV MCH MCHC RDW Plt Count Seg Neutrophils % Lymphocytes % Monocytes % Eosinophils % Basophils % Absolute Neutrophils Absolute Lymphocytes Absolute Monocytes Absolute Eosinophils Absolute Basophils PT INR VBG pH 7.47 H VBG pCO2 36.3 VBG HCO3 25.9 VBG Base Excess 2.6 Sodium Potassium Chloride Carbon Dioxide Anion Gap BUN Creatinine Est GFR ( Amer) Est GFR (Non-Af Amer) Glucose Lactic Acid 1.1 Calcium Total Bilirubin Direct Bilirubin Neonat Total Bilirubin Neonat Direct Bilirubin Neonat Indirect Bili AST ALT Alkaline Phosphatase Total Protein Albumin Urine Color DARK YELLOW Urine Appearance SLIGHTLY-CLOUDY Urine pH 5.0 Ur Specific [place] 1.023 Urine Protein 30 H Urine Glucose (UA) NEGATIVE Urine Ketones 20 H Urine Blood NEGATIVE Urine Nitrite NEGATIVE Urine Bilirubin NEGATIVE Urine Urobilinogen NEGATIVE Ur Leukocyte Esterase NEGATIVE Urine WBC (Auto) 2 Urine RBC (Auto) 1 Urine Bacteria (Auto) TRACE Uric Acid Cryst (Auto) FEW Urine Mucus (Auto) MANY Urine Ascorbic Acid NEGATIVE Abdomen/Pelvis CT 05/09/18 00:00 IMPRESSION: Intra-abdominal and pelvic abscesses. Subcutaneous abscess adjacent to the ostomy. Surgical consultation is recommended. Chest X-Ray 05/09/18 10:05 IMPRESSION: Airspace disease in the medial right base. Atelectasis versus pneumonia. - Vital Signs Vital signs: Temp Pulse Resp BP Pulse Ox 98.7 F 17 129/88 H 100 05/09/18 09:34 05/09/18 12:01 05/09/18 12:01 05/09/18 12:01 - Laboratory Result Diagrams: 05/09/18 09:40 05/09/18 09:40 Laboratory results interpreted by me: 05/09/18 05/09/18 05/09/18 09:40 09:40 09:40 WBC 17.2 H RBC 4.24 L Hgb 12.4 L Hct 37.0 L RDW 20.4 H Plt Count 497 H Seg Neutrophils % 86.4 H Lymphocytes % 8.7 L Absolute Neutrophils 14.8 H VBG pH 7.47 H Sodium 134.7 L Chloride 95 L Glucose 115 H Direct Bilirubin 0.5 H Urine Protein Urine Ketones 05/09/18 14:30 WBC RBC Hgb Hct RDW Plt Count Seg Neutrophils % Lymphocytes % Absolute Neutrophils VBG pH Sodium Chloride Glucose Direct Bilirubin Urine Protein 30 H Urine Ketones 20 H Critical Care Note - Critical Care Note Total time excluding time spent on procedures (mins): 40 Comments: 40 Minutes of critical care time spent in direct contact evaluating and reevaluating the patient, treating symptoms, reviewing labs and studies and speaking with consultants excluding any procedures. Patient is septic with the potential for hemodynamic decompensation Discharge - Discharge Clinical Impression: Intra-abdominal abscess, Pelvic abscess Sepsis Qualifiers: Sepsis type: sepsis due to unspecified organism Qualified Code(s): A41.9 - Sep sis, unspecified organism Deep venous thrombosis of right upper extremity Qualifiers: Affected thrombotic vein of extremity: unspecified vein of extremity Chronicity: acute Qualified Code(s): I82.621 - Acute embolism and thrombosis of deep veins of right upper extremity Condition: Stable Disposition: [facility]
--- NOTE | 2018-05-09 10:23 | RADIOLOGY REPORT (SQ) ---
EXAM DESCRIPTION: CHEST SINGLE VIEW COMPLETED DATE/TIME: 05/09/2018 10:15 am REASON FOR STUDY: cough COMPARISON: None. EXAM PARAMETERS: NUMBER OF VIEWS: One view. TECHNIQUE: Single frontal radiographic view of the chest acquired. RADIATION DOSE: NA LIMITATIONS: None. FINDINGS: LUNGS AND PLEURA: There is ill-defined opacification in the medial right lung base. MEDIASTINUM AND HILAR STRUCTURES: No masses. Contour normal. HEART AND VASCULAR STRUCTURES: Heart normal in size. Normal vasculature. BONES: No acute findings. HARDWARE: None in the chest. OTHER: No other significant finding. IMPRESSION: Airspace disease in the medial right base. Atelectasis versus pneumonia. TECHNICAL DOCUMENTATION: JOB ID: [id number] [employer]- All Rights Reserved Reading location - IP/workstation name: [email or web address]
[2018-05-09 10:30] LABS: ABSOLUTE BASOPHILS # (AUTO) 0.1 10^3/uL (0.0-0.2); ABSOLUTE EOSINOPHILS # (AUTO) 0.1 10^3/uL (0.0-0.6); ABSOLUTE LYMPHOCYTES (AUTO) 1.5 10^3/uL (0.5-4.7); ABSOLUTE MONOCYTES (AUTO) 0.7 10^3/uL (0.1-1.4); ABSOLUTE NEUT (AUTO) 14.8 10^3/uL (1.7-8.2); BASOPHILS % (AUTO) 0.3 % (0-2); EOSINOPHILS % (AUTO) 0.6 % (0-6); HEMOGLOBIN 12.4 g/dL (13.5-17.0); LYMPHOCYTES % (AUTO) 8.7 % (13-45); MEAN CORPUSCULAR HEMOGLOBIN 29.3 pg (27.0-33.4); MEAN CORPUSCULAR HGB CONC 33.6 g/dL (32.0-36.0); MEAN CORPUSCULAR VOLUME 87 fl (80-97); PLATELET COUNT 497 10^3/uL (150-450); RED BLOOD COUNT 4.24 10^6/uL (4.35-5.55); RED CELL DISTRIBUTION WIDTH 20.4 % (11.5-14.0); SEGMENTED NEUTROPHILS % (AUTO) 86.4 % (42-78); TOTAL CELLS COUNTED % (AUTO) 100 %; WHITE BLOOD COUNT 17.2 10^3/uL (4.0-10.5)
[2018-05-09 10:36] LABS: VENOUS BLOOD BASE EXCESS 2.6 mmol/L; VENOUS BLOOD HCO3 25.9 mmol/L (20-32); VENOUS BLOOD PCO2 36.3 mmHg (35-63); VENOUS BLOOD PH 7.47 (7.30-7.42)
[2018-05-09 10:41] LABS: ALANINE AMINOTRANSFERASE 30 U/L (21-72); ALBUMIN 3.5 g/dL (3.5-5.0); ALKALINE PHOSPHATASE 76 U/L (38-126); ANION GAP 13 (5-19); ASPARTATE AMINO TRANSFERASE 17 U/L (17-59); BILIRUBIN,DIRECT 0.5 mg/dL (0.0-0.4); BILIRUBIN,TOTAL 0.9 mg/dL (0.2-1.3); BLOOD UREA NITROGEN 11 mg/dL (7-20); CALCIUM 9.2 mg/dL (8.4-10.2); CARBON DIOXIDE 27 mmol/L (22-30); CHLORIDE 95 mmol/L (98-107); GLUCOSE 115 mg/dL (75-110); POTASSIUM 4.5 mmol/L (3.6-5.0); SODIUM 134.7 mmol/L (137-145); TOTAL PROTEIN 6.4 g/dL (6.3-8.2)
[2018-05-09] MEDS ORDERED: MORPHINE SULFATE 10 MG/ML INJ IV ONE ×2 (10:41→12:22)
[2018-05-09 10:48] LABS: PROTHROMBIN TIME 14.8 SEC (11.4-15.4)
[2018-05-09] MEDS ORDERED: VANCOMYCIN HCL INJ 1000 MG VIAL IV ONE (11:20)
[2018-05-09] MEDS ORDERED: PIPERACILLIN/TAZOBACTAM 3.375 GM VIAL IV ONE (11:20)
--- NOTE | 2018-05-09 13:22 | XCELERA REPORT ---
[address] [address] Upper Extremity Venous Evaluation Name: JEREMIAH ANSARI Age: 37 yrs Gender: Male : 1980 Patient Status: Emergency Patient Location: ER Study Date: 05/09/2018 12:21 PM Procedure: Unilateral duplex scan of the right upper extremity veins was performed, including responses to compression and other maneuvers. Reason For Study: right arm edema Ordering Physician: TOÑA SAMUEL Performed By: Tita Mendoza Right Side Venous Evaluation Abnormal vessel filling with mostly echolucent material, no compression or Colour flow. Veins enlarged. In Internal Jugular, Subclavian, Axillary, Brachial and in Cephalic and Basilic veins. Critical Findings Discussed with Dr Samuel. Interpretation Summary Positive. for extensive Deep vein thrombosis as well as Phlebitis, in the right upper extremity. These appear to be acute. : TOÑA SAMUEL > Ed López
[2018-05-09] MEDS ORDERED: ENOXAPARIN SODIUM INJ 100 MG/1 ML DISP.SYRIN SUBCUT SCH (13:30)
--- NOTE | 2018-05-09 14:20 | RADIOLOGY REPORT (SQ) ---
EXAM DESCRIPTION: CT ABD/PELVIS WITH IV ORAL COMPLETED DATE/TIME: 05/09/2018 1:30 pm REASON FOR STUDY: abdominal pain COMPARISON: 03/19/2018 TECHNIQUE: CT scan of the abdomen and pelvis performed with intravenous and oral contrast using norma alicia scanning technique with dynamic intravenous contrast injection. Images reviewed with lung, soft t issue, and bone windows. Reconstructed coronal and sagittal MPR images reviewed. Delayed images for e valuation of the urinary system also acquired. All images stored on PACS. All CT scanners at this facility use dose modulation, iterative reconstruction, and/or weight based d osing when appropriate to reduce radiation dose to as low as reasonably achievable (ALARA). [facility]: Dose Right [facility]: CareDose [facility]: Dose Right [facility]: Teradose 4D [facility]: BiBCOM CONTRAST TYPE AND DOSE: contrast/concentration: Isovue 350.00 mg/ml; Total Contrast Delivered: 97.0 ml; Total Saline Delivered: 45.0 ml RENAL FUNCTION: GFR > 60. RADIATION DOSE: CT Rad equipment meets quality standard of care and radiation dose reduction techniq ues were employed. CTDIvol: 13.6 - 18.2 mGy. DLP: 2013 mGy-cm. . LIMITATIONS: None. FINDINGS: LOWER CHEST: Basilar atelectasis. LIVER: Normal size. No masses. No dilated ducts. SPLEEN: Normal size. No focal lesions. PANCREAS: No masses. No significant calcifications. No adjacent inflammation or peripancreatic fluid collections. Pancreatic duct not dilated. GALLBLADDER: No identified stones by CT criteria. No inflammatory changes to suggest cholecystitis. ADRENAL GLANDS: No significant masses or asymmetry. RIGHT KIDNEY AND URETER: No solid masses. No significant calcifications. No hydronephrosis or hyd roureter. LEFT KIDNEY AND URETER: No solid masses. No significant calcifications. No hydronephrosis or hydr oureter. AORTA AND VESSELS: No aneurysm. No dissection. Renal arteries, SMA, celiac without stenosis. RETROPERITONEUM: No retroperitoneal adenopathy, hemorrhage or masses. BOWEL AND PERITONEAL CAVITY: Status post colectomy. Bowel wall thickening involving several loops of mildly dilated small bowel in the lower abdomen and pelvis. At least 3 separate fluid collections, the largest subhepatic 3.7 x 8.2 cm. Parastomal fluid collection measuring about 3.5 cm. No free ai r or ascites. APPENDIX: Surgically absent. PELVIS: No significant masses. Normal bladder. No free fluid. ABDOMINAL WALL: See above. BONES: Nothing acute. OTHER: No other significant finding. IMPRESSION: Intra-abdominal and pelvic abscesses. Subcutaneous abscess adjacent to the ostomy. Akilah gical consultation is recommended. TECHNICAL DOCUMENTATION: JOB ID: [id number] Quality ID # [id number]: Final reports with documentation of one or more dose reduction techniques (e.g., Au tomated exposure control, adjustment of the mA and/or kV according to patient size, use of iterative reconstruction technique) 2010 [employer]- All Rights Reserved Reading location - IP/workstation name: [email or web address]
[2018-05-09 15:03] LABS: APPEARANCE,URINE SLIGHTLY-CLOUDY; BILIRUBIN,URINE NEGATIVE (NEGATIVE); GLUCOSE, URINE NEGATIVE (NEGATIVE); KETONES,URINE 20 mg/dL (NEGATIVE); LEUKOCYTE ESTERASE,URINE NEGATIVE (NEGATIVE); NITRITE,URINE NEGATIVE (NEGATIVE); PROTEIN,URINE 30 mg/dL (NEGATIVE); URIC ACID CRYSTALS,URINE FEW /HPF; URINE SPECIFIC GRAVITY 1.023; UROBILINOGEN,URINE NEGATIVE mg/dL (<2.0)
[2018-05-09 15:04] LABS: COLOR,URINE DARK YELLOW
[2018-05-09] MEDS ORDERED: HYDROMORPHONE HCL INJ/PF 2 MG/ML AMPULE IV ONE ×2 (15:17→17:56)
[2018-05-09 18:17] VITALS: BP 118/69
--- NOTE | 2018-05-09 18:41 | ER Document Report ---
Doctor's Note Notes: 05/09/18 18:40 Patient reevaluated upon transfer team arrival. He is alert, awake and has stable vital signs. Patient stable for transfer.
--- NOTE | 2018-05-09 20:49 | EKG REPORT ---
SEVERITY:- OTHERWISE NORMAL ECG - SINUS TACHYCARDIA : Confirmed by: Arash Oliva 09-May-2018 20:49:22
== END 2018-05-09 18:44 | disposition short-term general hospital (02) ==
LOC: ER 09:21
DX: A41.9 Sepsis, unspecified organism (principal); K65.1 Peritoneal abscess; I82.621 Acute embolism and thrombosis of deep veins of right upper extremity; R61 Generalized hyperhidrosis; J98.4 Other disorders of lung; R11.0 Nausea; R00.0 Tachycardia, unspecified; Z98.890 Other specified postprocedural states; Z79.891 Long term (current) use of opiate analgesic; Z88.0 Allergy status to penicillin; Z88.1 Allergy status to other antibiotic agents; Z87.19 Personal history of other diseases of the digestive system
CPT/HCPCS: 93005; 96376; 99285; 96372; 96361; 96375; 96365; 96366; 96368; 36415; 87040; 87086; 85025; 85610; 80053; 81001; 82803; 83605; 93971 ×2; 71045; 74177; 93010; J2270; J1170; J7030; J3370; J1650; J2543

== ENCOUNTER 2018-05-17 04:34 | Emergency (ER) | payer SELFPAY ==
[2018-05-17] MEDS ORDERED: MORPHINE SULFATE 10 MG/ML INJ IV ONE ×2 (07:16→09:29)
--- NOTE | 2018-05-17 07:21 | ER Document Report ---
ED General - General Chief Complaint: Post Surgical Bleeding Stated Complaint: ABDOMINAL BLEEDING Time Seen by Provider: 05/17/18 07:08 Primary Care Provider: EVIN CHURCH MD [Primary Care Provider] - Follow up as needed TRAVEL OUTSIDE OF THE [place] IN LAST 30 DAYS: No - HPI Notes: Patient is a 37-year-old male with an extensive medical history including DVT of his right upper extremity, Crohn's, small bowel obstruction, multiple abdominal hernias, and a colostomy in place who presents to the emergency department complaining of abscess and purulence from the incision site near his umbilicus over the last several days. Patient was started on anticoagulation about a week ago his right upper extremity DVT. Patient states that he is able to eat and drink, but has had a decreased p.o. intake. No other concerns or complaints. Denies any headache, fever, neck pain, URI, sore throat, chest pain, palpitations, syncope, cough, shortness of breath, wheeze, dyspnea, nausea/ vomiting/diarrhea, urinary retention, dysuria, hematuria, numbness/tingling, muscle paralysis/weakness. - Related Data Allergies/Adverse Reactions: Penicillins Allergy (Mild, Verified 03/19/18 08:36) rash/hives metronidazole [From Flagyl] Allergy (Verified 03/19/18 08:36) Past Medical History - Social History Smoking Status: Unknown if Ever Smoked Family History: Reviewed & Not Pertinent, CAD, CVA, DM, Hyperlipidemia, Hypertension, Malignancy - Past Medical History Cardiac Medical History: Denies: Hx Heart Attack, Hx Hypertension Pulmonary Medical History: Denies: Hx Asthma, Hx Bronchitis, Hx COPD, Hx Pneumonia Neurological Medical History: Denies: Hx Seizures Renal/ Medical History: Denies: Hx Peritoneal Dialysis GI Medical History: Reports: Hx Ulcer - Ulcerative colitis, Hx Ulcerative Colitis, Hx Colonoscopy Musculoskeletal Medical History: Denies Hx Arthritis Past Surgical History: Reports: Hx Abdominal Surgery - colon/colostomy, Hx Appendectomy - February 2015, Hx Vascular Surgery - Port placement, Other - colectomy - Immunizations Immunizations up to date: Yes Hx Diphtheria, Pertussis, Tetanus Vaccination: Yes Review of Systems - Review of Systems -: Yes All other systems reviewed and negative Physical Exam - Vital signs Vitals: Temp Pulse Resp BP Pulse Ox 97.8 F 100 22 H 104/80 100 05/17/18 05:39 05/17/18 05:39 05/17/18 05:39 05/17/18 05:39 05/17/18 05:39 - Notes Notes: PHYSICAL EXAMINATION: GENERAL: Well-appearing, well-nourished and in no acute distress. HEAD: Atraumatic, normocephalic. EYES: Pupils equal round and reactive to light, extraocular movements intact, sclera anicteric, conjunctiva are normal. ENT: Nares patent and without discharge. oropharynx clear without exudates. No tonsilar hypertrophy or erythema. Moist mucous membranes. NECK: Normal range of motion, supple without lymphadenopathy LUNGS: Breath sounds clear to auscultation bilaterally and equal. No wheezes rales or rhonchi. HEART: Regular rate and rhythm without murmurs, rubs, gallops. ABDOMEN: Soft, nondistended abdomen. No guarding, no rebound. Normal bowel sounds present. No CVA tenderness bilaterally. + ostomy in place and without obvious leakage. + erythema, induration, and tenderness to the incision near his umbilicus. No obvious streaks. Musculoskeletal: FROM to passive/active. Strength 5+/5. Extremities: No cyanosis, clubbing, or edema b/l. Peripheral pulses 2+. Capillary refill less than 3 seconds. NEUROLOGICAL: Normal speech, normal gait. PSYCH: Normal mood, normal affect. SKIN: see above. Course - Re-evaluation Re-evalutation: 05/17/18 07:[address] scan on May 09 which showed multiple intra-abdominal/pelvic abscesses including a subcutaneous abscess adjacent to his ostomy which is in the same location that it is now but appears to be worse. Reviewed with Dr. Loredo. Labs are pending and a call has been placed to [facility] for probable transfer back to their facility for surgical site abscess/infection. 05/17/18 08:[address] Angeles, on behalf of his attending Dr. Saunders, who accepted pt for admit to their facility. Labs are pending. He would like cefepime, vanc, and flagy (pt allergic to flagyl). Call was placed back for guidance for a replacement for flagyl or just to take it away entirely. NPO. 05/17/18 08:27 We will do Vanc and zosyn per Dr. Angeles as he tolerated this combo at their facility this past week. 05/17/18 08:50 Dr. Roa, surgery, is very familiar with this patient at [facility] and accepted patient in lieu of medicine. 05/17/18 10:34 Transport arrived. Pt has no new concerns or complaints. Vitals acceptable. Pt stable for transport. - Vital Signs Vital signs: Temp Pulse Resp BP Pulse Ox 98.7 F 100 14 113/75 99 05/17/18 07:38 05/17/18 05:39 05/17/18 07:38 05/17/18 07:38 05/17/18 07:38 - Laboratory Result Diagrams: 05/17/18 08:24 05/17/18 08:24 Laboratory results interpreted by me: 05/17/18 05/17/18 08:24 08:24 RBC 3.92 L Hgb 11.4 L Hct 33.7 L RDW 20.4 H Plt Count 524 H Seg Neutrophils % 81.6 H Lymphocytes % 12.6 L Absolute Neutrophils 8.4 H Sodium 136.0 L AST 12 L Total Protein 5.9 L Albumin 3.2 L Discharge - Discharge Clinical Impression: Abdominal abscess Condition: Stable Disposition: [facility] Referrals: EVIN CHURCH MD [Primary Care Provider] - Follow up as needed
[2018-05-17] MEDS ORDERED: VANCOMYCIN HCL INJ 1000 MG VIAL IV ONE (08:13)
[2018-05-17] MEDS ORDERED: CEFEPIME 1 GM/D5W RTU 1 GM/50 ML RTUPB IV ONE (08:14)
[2018-05-17] MEDS ORDERED: PIPERACILLIN/TAZOBACTAM 3.375 GM VIAL IV ONE (08:26)
[2018-05-17 08:53] LABS: ABSOLUTE BASOPHILS # (AUTO) 0.1 10^3/uL (0.0-0.2); ABSOLUTE EOSINOPHILS # (AUTO) 0.1 10^3/uL (0.0-0.6); ABSOLUTE LYMPHOCYTES (AUTO) 1.3 10^3/uL (0.5-4.7); ABSOLUTE MONOCYTES (AUTO) 0.4 10^3/uL (0.1-1.4); ABSOLUTE NEUT (AUTO) 8.4 10^3/uL (1.7-8.2); BASOPHILS % (AUTO) 1.2 % (0-2); EOSINOPHILS % (AUTO) 1.1 % (0-6); HEMATOCRIT 33.7 % (37.9-51.0); HEMOGLOBIN 11.4 g/dL (13.5-17.0); LYMPHOCYTES % (AUTO) 12.6 % (13-45); MEAN CORPUSCULAR HGB CONC 33.7 g/dL (32.0-36.0); MEAN CORPUSCULAR VOLUME 86 fl (80-97); MONOCYTES % (AUTO) 3.5 % (3-13); PLATELET COUNT 524 10^3/uL (150-450); RED BLOOD COUNT 3.92 10^6/uL (4.35-5.55); RED CELL DISTRIBUTION WIDTH 20.4 % (11.5-14.0); SEGMENTED NEUTROPHILS % (AUTO) 81.6 % (42-78); TOTAL CELLS COUNTED % (AUTO) 100 %; WHITE BLOOD COUNT 10.3 10^3/uL (4.0-10.5)
[2018-05-17 09:10] LABS: ALANINE AMINOTRANSFERASE 21 U/L (21-72); ALBUMIN 3.2 g/dL (3.5-5.0); ALKALINE PHOSPHATASE 51 U/L (38-126); ANION GAP 10 (5-19); ASPARTATE AMINO TRANSFERASE 12 U/L (17-59); BILIRUBIN,DIRECT 0.2 mg/dL (0.0-0.4); BILIRUBIN,TOTAL 0.4 mg/dL (0.2-1.3); BLOOD UREA NITROGEN 8 mg/dL (7-20); CARBON DIOXIDE 24 mmol/L (22-30); CHLORIDE 102 mmol/L (98-107); GLUCOSE 106 mg/dL (75-110); POTASSIUM 3.9 mmol/L (3.6-5.0); TOTAL PROTEIN 5.9 g/dL (6.3-8.2)
[2018-05-17] MEDS ORDERED: HYDROMORPHONE HCL INJ/PF 2 MG/ML AMPULE IM ONE (10:15)
[2018-05-17 11:15] VITALS: BP 109/74
== END 2018-05-17 11:08 | disposition short-term general hospital (02) ==
LOC: ER 04:34
DX: T81.43XA Infection following a procedure, organ and space surgical site, initial encounter (principal); K65.1 Peritoneal abscess; Y83.9 Surgical procedure, unspecified as the cause of abnormal reaction of the patient, or of later complication, without mention of misadventure at the time of the procedure; I82.621 Acute embolism and thrombosis of deep veins of right upper extremity; Z88.0 Allergy status to penicillin; Z88.1 Allergy status to other antibiotic agents; Z93.3 Colostomy status; Z90.49 Acquired absence of other specified parts of digestive tract
CPT/HCPCS: 96376; 99284; 96372; 96375; 96365; 96367; 36415; 87040; 83605; 85025; 80053; J2270; J1170; J3370; J2543

== ENCOUNTER 2018-07-18 00:42 | Emergency (ER) | payer SELFPAY ==
[2018-07-18] MEDS ORDERED: NORMAL SALINE 1000 ML 1,000 ML IV ONE (02:47)
[2018-07-18] MEDS ORDERED: METHYLPREDNISOLONE INJ 125 MG/2 ML SDV IV ONE (02:47)
--- NOTE | 2018-07-18 03:41 | ER Document Report ---
ED GI/ - General Chief Complaint: Other Stated Complaint: STOMA ISSUE Time Seen by Provider: 07/18/18 02:38 Primary Care Provider: EVIN CHURCH MD [Primary Care Provider] - Follow up as needed Mode of Arrival: Ambulatory Information source: Patient TRAVEL OUTSIDE OF THE [place] IN LAST 30 DAYS: No - HPI Patient complains to provider of: Abdominal pain Onset: Just prior to arrival Timing/Duration: Sudden Quality of pain: Dull, Fullness Severity at maximum: Moderate Severity in ED: Moderate Pain Level: 2 Associated symptoms: None Exacerbated by: Denies Relieved by: Denies Similar symptoms previously: No Recently seen / treated by doctor: No - Related Data Allergies/Adverse Reactions: Penicillins Allergy (Mild, Verified 07/18/18 05:42) rash/hives hydrocodone [From [place]] Allergy (Verified 07/18/18 05:42) Past Medical History - Social History Smoking Status: Never Smoker Family History: Reviewed & Not Pertinent, CAD, CVA, DM, Hyperlipidemia, Hypertension, Malignancy Patient has suicidal ideation: No Patient has homicidal ideation: No - Past Medical History Cardiac Medical History: Denies: Hx Heart Attack, Hx Hypertension Pulmonary Medical History: Denies: Hx Asthma, Hx Bronchitis, Hx COPD, Hx Pneumonia Neurological Medical History: Denies: Hx Seizures Renal/ Medical History: Denies: Hx Peritoneal Dialysis GI Medical History: Reports: Hx Ulcer - chrons disease, Hx Ulcerative Colitis, Hx Colonoscopy Musculoskeletal Medical History: Denies Hx Arthritis Past Surgical History: Reports: Hx Abdominal Surgery - colon/colostomy, Hx Appendectomy - February 2015, Hx Vascular Surgery - Port placement, Other - colectomy - Immunizations Immunizations up to date: Yes Hx Diphtheria, Pertussis, Tetanus Vaccination: Yes Review of Systems - Review of Systems Constitutional: No symptoms reported EENT: No symptoms reported Cardiovascular: No symptoms reported Respiratory: No symptoms reported Gastrointestinal: Abdominal pain Genitourinary: No symptoms reported Male Genitourinary: No symptoms reported Musculoskeletal: No symptoms reported Skin: No symptoms reported Hematologic/Lymphatic: No symptoms reported Neurological/Psychological: No symptoms reported Physical Exam - Vital signs Vitals: Temp Pulse Resp BP Pulse Ox 97.7 F 101 H 18 126/67 H 99 07/18/18 01:06 07/18/18 01:06 07/18/18 01:06 07/18/18 01:06 07/18/18 01:06 Interpretation: Normal - General General appearance: Appears well, Alert - HEENT Head: Normocephalic, Atraumatic Eyes: Normal Pupils: PERRL - Respiratory Respiratory status: No respiratory distress Chest status: Nontender Breath sounds: Normal Chest palpation: Normal - Cardiovascular Rhythm: Regular Heart sounds: Normal auscultation Murmur: No - Abdominal Inspection: Other - Colostomy and drainage tubes in place. Distension: No distension Bowel sounds: Normal Tenderness: Tender - mild diffused. Organomegaly: No organomegaly - Back Back: Normal, Nontender - Extremities General upper extremity: Normal inspection, Nontender, Normal color, Normal ROM, Normal temperature General lower extremity: Normal inspection, Nontender, Normal color, Normal ROM, Normal temperature, Normal weight bearing. No: Nazanin's sign - Neurological Neuro grossly intact: Yes Cognition: Normal Orientation: AAOx4 [place]la Coma Scale Eye Opening: Spontaneous [place] Coma Scale Verbal: Oriented [place] Coma Scale Motor: Obeys Commands Perla Coma Scale Total: 15 Speech: Normal Motor strength normal: LUE, RUE, LLE, RLE Sensory: Normal - Psychological Associated symptoms: Normal affect, Normal mood - Skin Skin Temperature: Warm Skin Moisture: Dry Skin Color: Normal Course - Vital Signs Vital signs: Temp Pulse Resp BP Pulse Ox 97.7 F 101 H 18 126/67 H 100 07/18/18 01:06 07/18/18 01:06 07/18/18 01:06 07/18/18 01:06 07/18/18 04:04 - Laboratory Result Diagrams: 07/18/18 03:40 07/18/18 03:40 Laboratory results interpreted by me: 07/18/18 07/18/18 07/18/18 03:40 03:40 03:40 RBC 3.54 L Hgb 9.7 L Hct 29.4 L RDW 17.5 H APTT 38.0 H Sodium 136.5 L AST 13 L ALT 14 L Albumin 3.3 L - Diagnostic Test Radiology reviewed: Reports reviewed - Transfer of Care Care transferred to following provider: Patient care was transferred to Dr. Loredo pending CT scan result. Discharge - Discharge Clinical Impression: History of Crohn's disease Abdominal pain Qualifiers: Abdominal location: generalized Qualified Code(s): R10.84 - Generalized abdominal pain Condition: Stable Referrals: EVIN CHURCH MD [Primary Care Provider] - Follow up as needed
[2018-07-18 03:51] LABS: ABSOLUTE EOSINOPHILS # (AUTO) 0.2 10^3/uL (0.0-0.6); ABSOLUTE LYMPHOCYTES (AUTO) 1.7 10^3/uL (0.5-4.7); ABSOLUTE MONOCYTES (AUTO) 0.4 10^3/uL (0.1-1.4); BASOPHILS % (AUTO) 0.5 % (0-2); EOSINOPHILS % (AUTO) 3.2 % (0-6); HEMATOCRIT 29.4 % (37.9-51.0); HEMOGLOBIN 9.7 g/dL (13.5-17.0); LYMPHOCYTES % (AUTO) 26.7 % (13-45); MEAN CORPUSCULAR HEMOGLOBIN 27.4 pg (27.0-33.4); MEAN CORPUSCULAR VOLUME 83 fl (80-97); MONOCYTES % (AUTO) 6.9 % (3-13); PLATELET COUNT 289 10^3/uL (150-450); RED BLOOD COUNT 3.54 10^6/uL (4.35-5.55); RED CELL DISTRIBUTION WIDTH 17.5 % (11.5-14.0); SEGMENTED NEUTROPHILS % (AUTO) 62.7 % (42-78); TOTAL CELLS COUNTED % (AUTO) 100 %; WHITE BLOOD COUNT 6.4 10^3/uL (4.0-10.5)
[2018-07-18 03:58] LABS: PROTHROMBIN TIME 13.7 SEC (11.4-15.4)
[2018-07-18 04:08] LABS: ALANINE AMINOTRANSFERASE 14 U/L (21-72); ALBUMIN 3.3 g/dL (3.5-5.0); ALKALINE PHOSPHATASE 58 U/L (38-126); ANION GAP 12 (5-19); ASPARTATE AMINO TRANSFERASE 13 U/L (17-59); BILIRUBIN,DIRECT 0.2 mg/dL (0.0-0.4); BILIRUBIN,TOTAL 0.4 mg/dL (0.2-1.3); BLOOD UREA NITROGEN 13 mg/dL (7-20); CALCIUM 9.4 mg/dL (8.4-10.2); CARBON DIOXIDE 25 mmol/L (22-30); CHLORIDE 100 mmol/L (98-107); GLUCOSE 97 mg/dL (75-110); LIPASE 42.9 U/L (23-300); POTASSIUM 3.6 mmol/L (3.6-5.0); SODIUM 136.5 mmol/L (137-145); TOTAL PROTEIN 6.6 g/dL (6.3-8.2)
--- NOTE | 2018-07-18 09:17 | RADIOLOGY REPORT (SQ) ---
EXAM DESCRIPTION: CT ABD/PELVIS WITH IV ORAL COMPLETED DATE/TIME: 07/18/2018 8:50 am REASON FOR STUDY: Abdominal pain. H/O Chrons disease. COMPARISON: 05/09/2018 TECHNIQUE: CT scan of the abdomen and pelvis performed using helical scanning technique with dynamic intravenous contrast injection. No oral contrast. Images reviewed with lung, soft tissue, and bone windows. Reconstructed coronal and sagittal MPR images reviewed. Delayed images for evaluation of the urinary system also acquired. All images stored on PACS. All CT scanners at this facility use dose modulation, iterative reconstruction, and/or weight based d osing when appropriate to reduce radiation dose to as low as reasonably achievable (ALARA). [facility]: Dose Right [facility]: CareDose [facility]: Dose Right [facility]: Teradose 4D [facility]: [employer] CONTRAST TYPE AND DOSE: contrast/concentration: Isovue 350.00 mg/ml; Total Contrast Delivered: 100.0 ml; Total Saline Delivered: 32.0 ml RENAL FUNCTION: None required. The patient is less than 50 years old. RADIATION DOSE: CT Rad equipment meets quality standard of care and radiation dose reduction techniq ues were employed. CTDIvol: 10.2 - 14.4 mGy. DLP: 1392 mGy-cm.. LIMITATIONS: None. FINDINGS: LOWER CHEST: No significant findings. No nodules or infiltrates. LIVER: Normal size. No masses. No dilated ducts. SPLEEN: Normal size. No focal lesions. PANCREAS: No masses. No significant calcifications. No adjacent inflammation or peripancreatic fluid collections. Pancreatic duct not dilated. GALLBLADDER: Gallstones. No inflammatory changes to suggest cholecystitis. ADRENAL GLANDS: No significant masses or asymmetry. RIGHT KIDNEY AND URETER: No solid masses. No significant calcifications. No hydronephrosis or hyd roureter. LEFT KIDNEY AND URETER: No solid masses. No significant calcifications. No hydronephrosis or hydr oureter. AORTA AND VESSELS: No aneurysm. No dissection. Renal arteries, SMA, celiac without stenosis. RETROPERITONEUM: No retroperitoneal adenopathy, hemorrhage or masses. BOWEL AND PERITONEAL CAVITY: Status post colectomy. There has been percutaneous drainage of previous ly described abscesses subhepatic anterior abdominal cavity and adjacent to the right lower quadrant ostomy. No obstruction. No ascites or free air. APPENDIX: Surgically absent. PELVIS: No mass. No free fluid. Normal bladder. ABDOMINAL WALL: See above. BONES: No significant or acute findings. OTHER: No other significant finding. IMPRESSION: 1. Interval percutaneous drainage of intra-abdominal and parastomal abscesses. No significant residu al abscess. 2. Cholelithiasis. TECHNICAL DOCUMENTATION: JOB ID: [id number] Quality ID # [id number]: Final reports with documentation of one or more dose reduction techniques (e.g., Au tomated exposure control, adjustment of the mA and/or kV according to patient size, use of iterative reconstruction technique) 2010 [employer]- All Rights Reserved Reading location - IP/workstation name: [email or web address]-
[2018-07-18] MEDS ORDERED: MORPHINE SULFATE 10 MG/ML INJ IV ONE (10:02)
[2018-07-18] MEDS ORDERED: ONDANSETRON HCL INJ/PF 4 MG/2 ML SDV IV ONE (10:02)
--- NOTE | 2018-07-18 10:58 | ER Document Report ---
ED General - General Chief Complaint: Other Stated Complaint: STOMA ISSUE Time Seen by Provider: 07/18/18 02:38 Primary Care Provider: EVIN CHURCH MD [Primary Care Provider] - Follow up as needed Mode of Arrival: Ambulatory TRAVEL OUTSIDE OF THE [place] IN LAST 30 DAYS: No - HPI Patient complains to provider of: Stoma issue Notes: Patient coming in for evaluation of swelling to the stoma patient states recently returned from [place] has a significant history of Crohn's disease with multiple abscesses and operations. Patient states he is concerned that his stoma is swollen. This patient was seen by the nighttime doctor and signed out to myself currently was awaiting a CT scan. CT scan result is negative. Lab work was reviewed. Did evaluate the patient patient states he feels better denies any other complaints. - Related Data Allergies/Adverse Reactions: Penicillins Allergy (Mild, Verified 07/18/18 05:42) rash/hives hydrocodone [From [place]] Allergy (Verified 07/18/18 05:42) Past Medical History - General Information source: Patient - Social History Smoking Status: Never Smoker Family History: Reviewed & Not Pertinent, CAD, CVA, DM, Hyperlipidemia, Hypertension, Malignancy Patient has suicidal ideation: No Patient has homicidal ideation: No - Past Medical History Cardiac Medical History: Denies: Hx Heart Attack, Hx Hypertension Pulmonary Medical History: Denies: Hx Asthma, Hx Bronchitis, Hx COPD, Hx Pneumonia Neurological Medical History: Denies: Hx Seizures Renal/ Medical History: Denies: Hx Peritoneal Dialysis GI Medical History: Reports: Hx Ulcer - chrons disease, Hx Ulcerative Colitis, Hx Colonoscopy Musculoskeletal Medical History: Denies Hx Arthritis Past Surgical History: Reports: Hx Abdominal Surgery - colon/colostomy, Hx Appendectomy - February 2015, Hx Vascular Surgery - Port placement, Other - colectomy - Immunizations Immunizations up to date: Yes Hx Diphtheria, Pertussis, Tetanus Vaccination: Yes Review of Systems - Review of Systems Constitutional: No symptoms reported EENT: No symptoms reported Cardiovascular: No symptoms reported Respiratory: No symptoms reported Gastrointestinal: Other - Stoma swollen Genitourinary: No symptoms reported Male Genitourinary: No symptoms reported Musculoskeletal: No symptoms reported Skin: No symptoms reported Hematologic/Lymphatic: No symptoms reported Neurological/Psychological: No symptoms reported Physical Exam - Vital signs Vitals: Temp Pulse Resp BP Pulse Ox 97.7 F 101 H 18 126/67 H 99 07/18/18 01:06 07/18/18 01:06 07/18/18 01:06 07/18/18 01:06 07/18/18 01:06 Interpretation: Normal - General General appearance: Appears well, Alert - HEENT Head: Normocephalic, Atraumatic Eyes: Normal Pupils: PERRL - Respiratory Respiratory status: No respiratory distress Chest status: Nontender Breath sounds: Normal Chest palpation: Normal - Cardiovascular Rhythm: Regular Heart sounds: Normal auscultation Murmur: No - Abdominal Inspection: Normal Distension: No distension Bowel sounds: Normal Tenderness: Nontender Organomegaly: No organomegaly Notes: Patient has a stoma that does have some edema of the tissue is pink there is normal stool coming out of the stoma there are JAYMIE drains in place no signs of infection - Back Back: Normal, Nontender - Extremities General upper extremity: Normal inspection, Nontender, Normal color, Normal ROM, Normal temperature General lower extremity: Normal inspection, Nontender, Normal color, Normal ROM, Normal temperature, Normal weight bearing. No: Nazanin's sign - Neurological Neuro grossly intact: Yes Cognition: Normal Orientation: AAOx4 [place] Coma Scale Eye Opening: Spontaneous [place] Coma Scale Verbal: Oriented [place] Coma Scale Motor: Obeys Commands Perla Coma Scale Total: 15 Speech: Normal Motor strength normal: LUE, RUE, LLE, RLE Sensory: Normal - Psychological Associated symptoms: Normal affect, Normal mood - Skin Skin Temperature: Warm Skin Moisture: Dry Skin Color: Normal Course - Re-evaluation Re-evalutation: 07/18/18 14:36 Discussed with the patient's general surgeon at [facility] more likely etiology of these edema of the stoma is due to his recent travel and sitting recommended the patient lie flat and not sit for prolonged periods of time. Also recommend that the patient come to the office at his earliest convenience to have the JAYMIE is removed. Patient agrees with this plan discharged home - Vital Signs Vital signs: Temp Pulse Resp BP Pulse Ox 98.0 F 78 14 132/70 H 100 07/18/18 11:17 07/18/18 11:17 07/18/18 11:17 07/18/18 11:17 07/18/18 11:17 - Laboratory Result Diagrams: 07/18/18 03:40 07/18/18 03:40 Laboratory results interpreted by me: 07/18/18 07/18/18 07/18/18 03:40 03:40 03:40 RBC 3.54 L Hgb 9.7 L Hct 29.4 L RDW 17.5 H APTT 38.0 H Sodium 136.5 L AST 13 L ALT 14 L Albumin 3.3 L Discharge - Discharge Clinical Impression: History of Crohn's disease Abdominal pain Qualifiers: Abdominal location: generalized Qualified Code(s): R10.84 - Generalized abdominal pain Condition: Stable Disposition: HOME, SELF-CARE Instructions: Abdominal Pain ([facility]) Additional Instructions: Discussed your case with your surgeon at this time your CAT scan is otherwise negative did recommend follow-up next week to have your JAYMIE drains removed. P lebella continue your home medications. Please avoid sitting for prolonged period of time such as with car travel or watching TV. Return to ER if symptoms worsen. Referrals: EVIN CHURCH MD [Primary Care Provider] - Follow up as needed
[2018-07-18 11:17] VITALS: BP 132/70
== END 2018-07-18 11:20 | disposition home or self-care (01) ==
LOC: ER 00:42
DX: K50.90 Crohn's disease, unspecified, without complications (principal); R10.84 Generalized abdominal pain; R60.0 Localized edema; Z88.0 Allergy status to penicillin; Z88.5 Allergy status to narcotic agent
CPT/HCPCS: 99284; 96361; 96374; 96375; 36415; 83690; 85025; 85610; 85730; 80053; 74177; J2930; J2270; J2405; J7030

== ENCOUNTER 2018-09-14 08:46 | Emergency (ER) | payer SELFPAY ==
[2018-09-14 08:54] VITALS: BP 137/84
--- NOTE | 2018-09-14 09:49 | ER Document Report ---
ED General - General Chief Complaint: Wound Recheck Stated Complaint: COLOSTOMY BAG ISSUES Time Seen by Provider: 09/14/18 09:16 Primary Care Provider: EVIN CHURCH MD [Primary Care Provider] - Follow up as needed Mode of Arrival: Ambulatory Information source: Patient Notes: 38-year-old male with a colostomy presents with request for colostomy supplies. Patient states that due to the holiday his delivery was postponed. He denies any fever, chills, nausea, vomiting, abdominal pain. TRAVEL OUTSIDE OF THE [place] IN LAST 30 DAYS: No - HPI Onset: Other Quality of pain: No pain Severity: None Pain Level: Denies Associated symptoms: None Exacerbated by: Denies Relieved by: Denies Similar symptoms previously: Yes Recently seen / treated by doctor: No - Related Data Allergies/Adverse Reactions: Penicillins Allergy (Mild, Verified 09/14/18 08:47) rash/hives hydrocodone [From [place]] Allergy (Verified 09/14/18 08:47) Past Medical History - General Information source: Patient - Social History Smoking Status: Current Every Day Smoker Cigarette use (# per day): Yes - 2-3 Smoking Education Provided: Yes - Smoking cessation counseling was provided for 4 minutes at the bedside Frequency of alcohol use: None Drug Abuse: None Lives with: Alone Family History: Reviewed & Not Pertinent, CAD, CVA, DM, Hyperlipidemia, Hypertension, Malignancy - Past Medical History Cardiac Medical History: Denies: Hx Heart Attack, Hx Hypertension Pulmonary Medical History: Denies: Hx Asthma, Hx Bronchitis, Hx COPD, Hx Pneumonia Neurological Medical History: Denies: Hx Seizures Renal/ Medical History: Denies: Hx Peritoneal Dialysis GI Medical History: Reports: Hx Ulcer - chrons disease, Hx Ulcerative Colitis, Hx Colonoscopy Musculoskeletal Medical History: Denies Hx Arthritis Past Surgical History: Reports: Hx Abdominal Surgery - colon/colostomy, Hx Appendectomy - February 2015, Hx Vascular Surgery - Port placement, Other - colectomy - Immunizations Immunizations up to date: Yes Hx Diphtheria, Pertussis, Tetanus Vaccination: Yes Review of Systems - Review of Systems Notes: REVIEW OF SYSTEMS: CONSTITUTIONAL : Denies fever, chills, or sweats. Denies recent illness. Denies weight loss, recent hospitalizations. EENT: Denies visual changes, eye pain. Denies sore throat, oral lesions, difficulty swallowing. CARDIOVASCULAR: Denies chest pain. Denies palpitations. Denies lower extremity edema. RESPIRATORY: Denies cough. Denies shortness of breath, wheezing. GASTROINTESTINAL: Denies abdominal pain or distention. Denies nausea, vomiting, or diarrhea. Denies blood in vomitus, stools, or per rectum. Denies black, tarry stools. Denies constipation. GENITOURINARY: Denies difficulty urinating, painful urination, frequency, blood in urine, testicular pain or penile discharge. MUSCULOSKELETAL: Denies back or neck pain or stiffness. Denies joint pain or swelling. SKIN: Denies rash, lesions or sores. HEMATOLOGIC : Denies easy bruising or bleeding. LYMPHATIC: Denies swollen glands. NEUROLOGICAL: Denies confusion or altered mental status. Denies loss of consciousness. Denies dizziness or lightheadedness. Denies headache. Denies weakness or paralysis. Denies problems difficulty with ambulation, slurred speech. Denies sensory loss, numbness, or tingling. Denies seizures. PSYCHIATRIC: Denies anxiety or stress. Denies depression, suicidal ideation, or Physical Exam - Vital signs Vitals: Temp Pulse Resp BP Pulse Ox 97.4 F 78 16 137/84 H 99 09/14/18 08:47 09/14/18 08:47 09/14/18 08:47 09/14/18 08:47 09/14/18 08:47 - Notes Notes: PHYSICAL EXAMINATION: GENERAL: Well-appearing, well-nourished and in no acute distress. HEAD: Atraumatic, normocephalic. EYES: Pupils equal round and reactive to light, extraocular movements intact, sclera anicteric, conjunctiva are normal. ENT: Nares patent, oropharynx clear without exudates. Moist mucous membranes. NECK: Normal range of motion, supple without lymphadenopathy LUNGS: Breath sounds clear to auscultation bilaterally and equal. No wheezes rales or rhonchi. HEART: Regular rate and rhythm without murmurs ABDOMEN: Soft, nontender, nondistended abdomen. No guarding, no rebound. No masses appreciated. Ostomy site clean dry no purulent discharge, no associated erythema. Musculoskeletal: Normal range of motion, no pitting or edema. No cyanosis. NEUROLOGICAL: Cranial nerves grossly intact. Normal speech, normal gait. Normal sensory, motor exams PSYCH: Normal mood, normal affect. SKIN: Warm, Dry, normal turgor, no rashes or lesions noted. Course - Re-evaluation Re-evalutation: 09/14/18 10:56 Temp Pulse Resp BP Pulse Ox 97.4 F 78 16 137/84 H 99 09/14/18 08:47 09/14/18 08:47 09/14/18 08:47 09/14/18 08:47 09/14/18 08:47 38-year-old male presents with request for ostomy supplies. Due to the holiday patient's delivery is delayed and he has no current covering of his ostomy. Vital signs reviewed and were within normal limits. Patient does not appear toxic or dehydrated. He is in no acute distress. Patient denies abdominal pain, fever, chills, nausea, vomiting. Patient was provided an ostomy bag and discharged home in stable condition. Patient was evaluated and treated as appropriate for the patient's presenting symptoms and complaint, with consideration of any critical or life threatening conditions that may be associated with their obtained history and exam as noted above. All results were discussed with patient. Patient provided the opportunity to ask questions, and express concerns. Patient was educated on treatments based on their presumed diagnosis as noted above. At this time we will discharge the patient with return precautions and follow-up recommendations. Verbal discharge instructions given a the bedside. Medication warnings reviewed. Patient is in agreement with this plan and has verbalized understanding of return precautions. After careful consideration I feel that that patient can be safely discharged from the emergency department, they were advised to followup with a primary care physician in 2-3 days. Dictation on this chart was performed using voice recognition software and may result in unintended grammatical, spelling, syntax or errors. - Vital Signs Vital signs: Temp Pulse Resp BP Pulse Ox 97.4 F 78 16 137/84 H 99 09/14/18 08:47 09/14/18 08:47 09/14/18 08:47 09/14/18 08:47 09/14/18 08:47 Discharge - Discharge Clinical Impression: Colostomy care Condition: Good Disposition: HOME, SELF-CARE Additional Instructions: Follow up with your physicianin as needed for further care or return to the ED IMMEDIATELY if symptoms worsen or you have any concerns. If you cannot afford to follow up with your primary care physician a list of low cost clinics have been provided at the end of your discharge papers as well. Most prescribed medications have multiple side effects. The safest thing to do is when filling your prescription speak to your pharmacist regarding possible interactions with your normal home medications and over the counter medications such as Ibuprofen, Tylenol, Benadryl. If you experience any symptoms that cause you discomfort or concern you should discontinue the medication immediately and return to the emergency room or call your primary care physician. Referrals: EVIN CHURCH MD [Primary Care Provider] - Follow up as needed
== END 2018-09-14 10:00 | disposition home or self-care (01) ==
LOC: ER 08:46
DX: Z43.3 Encounter for attention to colostomy (principal); F17.210 Nicotine dependence, cigarettes, uncomplicated; Z88.0 Allergy status to penicillin; Z88.6 Allergy status to analgesic agent
CPT/HCPCS: 99282

== ENCOUNTER 2018-09-22 00:11 | Emergency (ER) | payer SELFPAY ==
[2018-09-22 00:20] VITALS: BP 126/76
== END 2018-09-22 03:09 | disposition left against medical advice (07) ==
LOC: ER 00:11
DX: Z53.21 Procedure and treatment not carried out due to patient leaving prior to being seen by health care provider (principal)

== ENCOUNTER 2018-11-22 00:29 | Inpatient (IN) | payer SELFPAY ==
--- NOTE | 2018-11-22 01:15 | ER Document Report ---
ED Medical Screen (RME) - General Chief Complaint: Abdominal Problem Stated Complaint: STOMACH PAIN Time Seen by Provider: 11/22/18 01:02 Primary Care Provider: EVIN CHURCH MD [Primary Care Provider] - Follow up as needed Notes: Patient is a 38-year-old male with a history of Crohn's presents to the emergency department with a chief complaint of an issue with his stoma. Patient states about 30 minutes prior to arrival to the emergency department his colostomy bag fell off and he noticed that the stoma was hanging out 4 inches longer than normal. Patient states that at times his stoma will protrude a little bit but that it retracts on its own. Patient states is never been this long. Patient states that still continues to move through the stoma. Patient states it is tender around the site but denies significant abdominal pain. Patient does not have any additional colostomy bags with him. TRAVEL OUTSIDE OF THE [place] IN LAST 30 DAYS: No - Related Data Allergies/Adverse Reactions: Penicillins Allergy (Mild, Verified 09/14/18 08:47) rash/hives hydrocodone [From [place]] Allergy (Verified 09/14/18 08:47) Past Medical History - Past Medical History Cardiac Medical History: Denies: Hx Heart Attack, Hx Hypertension Pulmonary Medical History: Denies: Hx Asthma, Hx Bronchitis, Hx COPD, Hx Pneumonia Neurological Medical History: Denies: Hx Seizures Renal/ Medical History: Denies: Hx Peritoneal Dialysis GI Medical History: Reports: Hx Ulcer - chrons disease, Hx Ulcerative Colitis, Hx Colonoscopy Musculoskeltal Medical History: Denies Hx Arthritis Past Surgical History: Reports: Hx Abdominal Surgery - colon/colostomy, Hx Appendectomy - February 2015, Hx Vascular Surgery - Port placement, Other - colectomy - Immunizations Immunizations up to date: Yes Hx Diphtheria, Pertussis, Tetanus Vaccination: Yes Physical Exam - Vital signs Vitals: Temp Pulse Resp BP Pulse Ox 98.2 F 76 18 126/70 H 98 11/22/18 00:48 11/22/18 00:48 11/22/18 00:48 11/22/18 00:48 11/22/18 00:48 - Abdominal Distension: No distension Notes: Stoma is protruding about 7 cm out of the abdomen. Course - Re-evaluation Re-evalutation: 11/22/18 01:14 I have greeted and performed a rapid initial assessment of this patient. A comprehensive ED assessment and evaluation of the patient, analysis of test results and completion of the medical decision making process will be conducted by additional ED providers. - Vital Signs Vital signs: Temp Pulse Resp BP Pulse Ox 98.2 F 76 18 126/70 H 98 11/22/18 00:48 11/22/18 00:48 11/22/18 00:48 11/22/18 00:48 11/22/18 00:48 Doctor's Discharge - Discharge Referrals: EVIN CHURHC MD [Primary Care Provider] - Follow up as needed
[2018-11-22] MEDS ORDERED: MORPHINE SULFATE 10 MG/ML INJ IV ONE (02:41)
[2018-11-22] MEDS ORDERED: ONDANSETRON HCL INJ/PF 4 MG/2 ML SDV IV ONE (02:42)
--- NOTE | 2018-11-22 03:17 | ER Document Report ---
ED General - General Chief Complaint: Abdominal Problem Stated Complaint: STOMACH PAIN Time Seen by Provider: 11/22/18 01:02 Notes: Patient is a pleasant 38-year-old male well known to me who presents with complaint of prolapse of his ileostomy. Patient says that his bag came off of his at work and ostomy was prolapse reduced is not having a lot of pain associate with it. Still has some output from the ostomy. Said it has started to swell and therefore has come to the ER. No fevers. No vomiting. He says his Crohn's disease has been under well control over the last couple months. TRAVEL OUTSIDE OF THE [place] IN LAST 30 DAYS: No - Related Data Allergies/Adverse Reactions: Penicillins Allergy (Mild, Verified 09/14/18 08:47) rash/hives hydrocodone [From [place]] Allergy (Verified 09/14/18 08:47) Past Medical History - Social History Smoking Status: Never Smoker Frequency of alcohol use: None Drug Abuse: None Family History: Reviewed & Not Pertinent, CAD, CVA, DM, Hyperlipidemia, Hypertension, Malignancy Patient has suicidal ideation: No Patient has homicidal ideation: No - Past Medical History Cardiac Medical History: Denies: Hx Heart Attack, Hx Hypertension Pulmonary Medical History: Denies: Hx Asthma, Hx Bronchitis, Hx COPD, Hx Pneumonia Neurological Medical History: Denies: Hx Seizures Renal/ Medical History: Denies: Hx Peritoneal Dialysis GI Medical History: Reports: Hx Ulcer - chrons disease, Hx Ulcerative Colitis, Hx Colonoscopy Musculoskeletal Medical History: Denies Hx Arthritis Past Surgical History: Reports: Hx Abdominal Surgery - colon/colostomy, Hx Appendectomy - February 2015, Hx Vascular Surgery - Port placement, Other - colectomy - Immunizations Immunizations up to date: Yes Hx Diphtheria, Pertussis, Tetanus Vaccination: Yes Review of Systems - Review of Systems Notes: My Normal Review Basic REVIEW OF SYSTEMS: CONSTITUTIONAL : Denies fever, chills, or sweats. Denies recent illness. RESPIRATORY: Denies cough, cold, or chest congestion. Denies shortness of breath, difficulty breathing, or wheezing. GASTROINTESTINAL: Prolapsed ileostomy NEUROLOGICAL: Denies altered mental status or loss of consciousness. Denies sensory or motor loss. ALL OTHER SYSTEMS REVIEWED AND NEGATIVE. Physical Exam - Vital signs Vitals: Temp Pulse Resp BP Pulse Ox 98.2 F 76 18 126/70 H 98 11/22/18 00:48 11/22/18 00:48 11/22/18 00:48 11/22/18 00:48 11/22/18 00:48 - Notes Notes: General Appearance: Well nourished, alert, cooperative, no acute distress, no obvious discomfort. Well-appearing. Vitals: reviewed, See vital signs table. Eyes: PERRL, EOMI, Conjuctiva clear Mouth: No decreasd moisture Lungs: No wheezing, No rales, No rhonci, No accessory muscle use, good air exchange bilaterally. Heart: Normal rate, Regular rythm, No murmur, no rub Abdomen: Normal BS, soft, No rigidity, no significant tenderness palpation of the abdomen except for some mild tenderness around the ostomy site which the patient says is typically there. Patient does have approximately 5 to 6 inches of his ileum protruding from the ostomy site. It is very swollen at the base and is purplish to deep red in color throughout the ileum with significant edema. Extremities: no edema. Skin: warm, dry, appropriate color Neuro: speech clear, oriented x 3, normal affect, responds appropriately to questions. Course - Re-evaluation Re-evalutation: 11/22/18 03:[address] Burns, general surgeon, who cannot evaluate the patient. He did attempt to reduce the ileostomy but was unable to do so. He therefore is going to admit the patient for surgical repair. Dictation of this chart was performed using voice recognition software; therefore, there may be some unintended grammatical errors. - Vital Signs Vital signs: Temp Pulse Resp BP Pulse Ox 98.2 F 76 18 126/70 H 98 11/22/18 00:48 11/22/18 00:48 11/22/18 00:48 11/22/18 00:48 11/22/18 00:48 Discharge - Discharge Clinical Impression: Ileostomy prolapse Condition: Stable Disposition: ADMITTED OBSERVATION Admitting Provider: Surgicalist Unit Admitted: Surgical Floor
[2018-11-22] MEDS ORDERED: MORPHINE SULFATE 10 MG/ML INJ IV PRN ×3 (03:30→13:30)
[2018-11-22] MEDS ORDERED: POTASSI CL 20 MEQ/D5-1/2NS 1L 1,000 ML IV PRN (03:30)
--- NOTE | 2018-11-22 03:30 | PDOC H&P ---
History of Present Illness Admission Date/PCP: EVIN CHURCH MD 11/22/18 Patient complains of: prolapsed ileostomy. History of Present Illness: JEREMIAH ANSARI is a 38 year old male with a history of Crohn's presents to the emergency department with a chief complaint of an issue with his stoma. Patient states about 30 minutes prior to arrival to the emergency department his colostomy bag fell off and he noticed that the stoma was hanging out 4 inches longer than normal. Patient states that at times his stoma will protrude a little bit but that it retracts on its own. Patient states is never been this long. Patient states it is tender around the site but denies significant abdominal pain. Patient does not have any additional colostomy bags with him multiple attmpts made at reduction but unsuccessful. Past Medical History Cardiac Medical History: Denies: Myocardial Infarction, Hypertension Pulmonary Medical History: Denies: Asthma, Bronchitis, Chronic Obstructive Pulmonary Disease (COPD), Pneumonia Neurological Medical History: Denies: Seizures GI Medical History: Reports: Ulcerative Colitis Musculoskeltal Medical History: Denies: Arthritis Hematology: Reports: Anemia Past Surgical History Past Surgical History: Reports: Appendectomy - February 2015, Vascular Surgery - Port placement, Other - colectomy Social History Smoking Status: Never Smoker Frequency of Alcohol Use: None - reports sobriety; previously alcohol dependent Hx Recreational Drug Use: Yes Drugs: Methadone, Other - UDS positive for opiates, methadone, and amphetamines Hx Prescription Drug Abuse: Yes Family History Family History: Reviewed & Not Pertinent, CAD, CVA, DM, Hyperlipidemia, Hypertension, Malignancy Parental Family History Reviewed: No Children Family History Reviewed: NA Sibling(s) Family History Reviewed.: NA Medication/Allergy Home Medications: Acetaminophen [Tylenol 325 mg Tablet] 650 mg PO Q4HP PRN tablet 08/04/18 Docusate Sodium [Colace 100 mg Capsule] 100 mg PO DAILY capsule 08/04/18 Famotidine [Pepcid 20 mg Tablet] 20 mg PO Q12 #60 tablet 08/04/18 Allergies/Adverse Reactions: Penicillins Allergy (Mild, Verified 09/14/18 08:47) rash/hives hydrocodone [From [place]] Allergy (Verified 09/14/18 08:47) Review of Systems Constitutional: ABSENT: chills, fever(s), headache(s), weight gain, weight loss Eyes: ABSENT: visual disturbances Ears: ABSENT: hearing changes Nose, Mouth, and Throat: ABSENT: as per HPI, headache(s), mouth pain, sore throat, vertigo, other Breasts: ABSENT: as per HPI, other Cardiovascular: ABSENT: as per HPI, chest pain, dyspnea on exertion, edema, orthropnea, palpitations, other Respiratory: ABSENT: as per HPI, cough, dyspnea, hemoptysis, sputum, other Gastrointestinal: PRESENT: abdominal pain, bloating, nausea Genitourinary: ABSENT: as per HPI, difficulty urinating, dysuria, hematuria, nocturia, other Musculoskeletal: ABSENT: as per HPI, back pain, deformity, joint swelling, muscle weakness, other Integumentary: ABSENT: as per HPI, diaphoresis, erythema, lesions, pruritus, rash, wounds, other Psychiatric: ABSENT: as per HPI, anxiety, depression, hallucinations, homidical ideation, suicidal ideation, other Endocrine: ABSENT: as per HPI, cold intolerance, flushing, heat intolerance, menstrual abnormalities, polydipsia, polyphagia, polyuria, other Allergic/Immunologic: ABSENT: as per HPI, seasonal rhinorrhea, other Physical Exam Vital Signs: Temp Pulse Resp BP Pulse Ox 98.2 F 76 18 126/70 H 98 11/22/18 00:48 11/22/18 00:48 11/22/18 00:48 11/22/18 00:48 11/22/18 00:48 Intake & Output 11/20/18 11/21/18 11/22/18 06:59 06:59 06:59 Weight 98.3 kg General appearance: PRESENT: mild distress Head exam: PRESENT: normocephalic Eye exam: PRESENT: EOMI Mouth exam: PRESENT: moist Neck exam: PRESENT: full ROM Respiratory exam: PRESENT: clear to auscultation jamal Cardiovascular exam: PRESENT: RRR Pulses: PRESENT: normal radial pulses, normal femoral pulses GI/Abdominal exam: PRESENT: other - prolapsed ileostomy Rectal exam: PRESENT: deferred Extremities exam: PRESENT: full ROM Musculoskeletal exam: PRESENT: full ROM Psychiatric exam: PRESENT: appropriate affect Skin exam: PRESENT: dry Assessment & Plan - Plan Summary Plan Summary: ileostomy prolapse plan to or for reduction possible revision. risks benefits discussed
[2018-11-22] MEDS ORDERED: CEFAZOLIN 1 GM/D5W RTU 1 GM/50 ML RTUPB IV PRN (04:33)
[2018-11-22] MEDS ORDERED: METRONIDAZOLE 500 MG/NS RTU 500 MG/100 ML RTUPB IV PRN (04:33)
[2018-11-22 05:06] LABS: ABSOLUTE BASOPHILS # (AUTO) 0.1 10^3/uL (0.0-0.2); ABSOLUTE EOSINOPHILS # (AUTO) 0.4 10^3/uL (0.0-0.6); ABSOLUTE LYMPHOCYTES (AUTO) 1.9 10^3/uL (0.5-4.7); ABSOLUTE MONOCYTES (AUTO) 0.5 10^3/uL (0.1-1.4); ABSOLUTE NEUT (AUTO) 3.7 10^3/uL (1.7-8.2); BASOPHILS % (AUTO) 1.1 % (0-2); EOSINOPHILS % (AUTO) 5.8 % (0-6); HEMATOCRIT 32.2 % (37.9-51.0); HEMOGLOBIN 10.3 g/dL (13.5-17.0); LYMPHOCYTES % (AUTO) 29.1 % (13-45); MEAN CORPUSCULAR HEMOGLOBIN 24.8 pg (27.0-33.4); MEAN CORPUSCULAR HGB CONC 32.1 g/dL (32.0-36.0); MEAN CORPUSCULAR VOLUME 77 fl (80-97); MONOCYTES % (AUTO) 7.2 % (3-13); PLATELET COUNT 248 10^3/uL (150-450); RED BLOOD COUNT 4.17 10^6/uL (4.35-5.55); RED CELL DISTRIBUTION WIDTH 16.3 % (11.5-14.0); SEGMENTED NEUTROPHILS % (AUTO) 56.8 % (42-78); TOTAL CELLS COUNTED % (AUTO) 100 %; WHITE BLOOD COUNT 6.4 10^3/uL (4.0-10.5)
[2018-11-22] MEDS ORDERED: BUPIVACAINE HCL 0.25% /EPINEPHRINE INJ/PF 30 ML SDV ONE (05:17)
[2018-11-22] MEDS ORDERED: FENTANYL CITRATE INJ/PF 250 MCG/5 ML AMPULE ONE (05:20)
[2018-11-22 05:24] LABS: ANION GAP 7 (5-19); BLOOD UREA NITROGEN 19 mg/dL (7-20); CALCIUM 8.8 mg/dL (8.4-10.2); CARBON DIOXIDE 27 mmol/L (22-30); CHLORIDE 105 mmol/L (98-107); GLUCOSE 94 mg/dL (75-110); POTASSIUM 4.2 mmol/L (3.6-5.0)
[2018-11-22] MEDS ORDERED: DEXAMETHASONE SOD PHOS INJ 10 MG/1 ML VIAL ONE (05:30)
[2018-11-22] MEDS ORDERED: ONDANSETRON HCL INJ/PF 4 MG/2 ML SDV ONE (05:30)
[2018-11-22] MEDS ORDERED: MIDAZOLAM 2 MG/2 ML INJ ONE (05:30)
[2018-11-22] MEDS ORDERED: LIDOCAINE 0.5% INJ-PF (5 MG/ML) 50 ML SDV ONE (05:33)
[2018-11-22] MEDS ORDERED: PROPOFOL INJ 200 MG/20 ML VIAL IV ONE (05:33)
[2018-11-22] MEDS ORDERED: KETOROLAC TROMETHAMINE 60 MG/2 ML SDV ONE (05:33)
[2018-11-22] MEDS ORDERED: CEFAZOLIN INJ 1 GM VIAL ONE (05:43)
[2018-11-22] MEDS ORDERED: METRONIDAZOLE 500 MG/NS RTU 500 MG/100 ML RTUPB IV ONE (05:43)
[2018-11-22] MEDS ORDERED: OXYCODONE-ACETAMINOPHEN 5-325 MG TABLET PO PRN (06:31)
[2018-11-22] MEDS ORDERED: DIPHENHYDRAMINE HCL 50 MG/ML VIAL IV PRN (06:31)
[2018-11-22] MEDS ORDERED: MEPERIDINE HCL/PF INJ 25 MG/1 ML DISP.SYRIN IV PRN (06:31)
[2018-11-22] MEDS ORDERED: FENTANYL CITRATE INJ/PF 100 MCG/2 ML AMPUL IV PRN ×3 (06:31)
[2018-11-22] MEDS ORDERED: ONDANSETRON HCL INJ/PF 4 MG/2 ML SDV IV PRN (06:31)
[2018-11-22] MEDS ORDERED: PROMETHAZINE HCL INJ 25 MG/1 ML VIAL IV PRN ×2 (06:31)
--- NOTE | 2018-11-22 07:00 | Operative Report ---
Nonrecallable Operative Report DATE OF SURGERY: 11/22/18 PREOPERATIVE DIAGNOSIS: prolapsed ileostomy POSTOPERATIVE DIAGNOSIS: Prolapsed ileostomy OPERATION: Ileostomy revision ANESTHESIA: GA TISSUE REMOVED OR ALTERED: Terminal ileum COMPLICATIONS: None ESTIMATED BLOOD LOSS: 50 cc INTRAOPERATIVE FINDINGS: Prolapsed ileostomy PROCEDURE: Procedure: Patient was brought to the operating room awake alert stable condition placed in the operating table supine position induced under general anesthesia intubated the abdomen was prepped and draped in usual sterile manner for the procedure. The ileostomy in the right lower quadrant was manipulated and we are unable to reduce it we therefore made a incision between the mucosal cutaneous line with the Bovie cautery circumferentially around the ileum we bluntly freed up the prolapse portion of the ileum and were able to mobilize it from intraperitoneum. Able to do this we identified normal ileum approximately 6 cm proximal to the end of the ileostomy we took down the mesentery with alternating Heather clamps and 2-0 Vicryl ties. Once this was done I came across the distal ileum about 4 cm from the end of the prolapsed ileum with one firing of the of the GI stapler with a blue load. This essentially excised the intussuscepted segment of ileum. We then matured the new ileum to the fascial edges with sutures between the fascia and the serosa with 3-0 Vicryl sutures once this was done we performed a Naila ileostomy between the subcutaneous tissue and the end of the ileum with circumferentially placed Vicryl sutures. A sterile colostomy appliance was then applied which completed the procedure estimated blood loss was 50 cc sponge needle counts were correct x2 the patient was awakened in the operating room extubated transferred recovery stable condition no complications
[2018-11-22] MEDS: HYDROMORPHONE HCL INJ/PF 2 MG/ML AMPULE ONE ×2 (07:18→07:28)
[2018-11-22] MEDS ORDERED: GLYCOPYRROLATE 1 MG/5 ML VIAL ONE (10:10)
[2018-11-22] MEDS ORDERED: SUCCINYLCHOLINE CHLORIDE INJ 200 MG/10 ML VIAL ONE (10:10)
[2018-11-22] MEDS ORDERED: NEOSTIGMINE METHYLSULFATE 10 MG/10 ML VIAL ONE (10:10)
[2018-11-22] MEDS ORDERED: ROCURONIUM BROMIDE INJ 50 MG/5 ML VIAL IV ONE (10:10)
[2018-11-22] MEDS ORDERED: KETOROLAC TROMETHAMINE 10 MG TABLET PO PRN (11:05)
[2018-11-22] MEDS: KETOROLAC TROMETHAMINE INJ/PF 30 MG/1 ML SDV IV PRN ×2 (11:43→20:40)
[2018-11-22] MEDS: ACETAMINOPHEN INJ/PF 1000 MG/100 ML SDV IV SCH ×3 (12:34→23:54)
[2018-11-22] MEDS ORDERED: METHADONE HCL 10 MG TABLET PO ONE (13:00)
[2018-11-22] MEDS ORDERED: METHADONE HCL 10 MG TABLET PO SCH ×2 (14:00→22:00)
--- NOTE | 2018-11-22 17:44 | PDOC CONSULTATION ---
Consultation Consult Date: 11/22/18 Attending physician:: Davon Provider Consulted: RANCHO STOUT Consult reason:: Medication (Methadone) management History of Present Illness Admission Date/PCP: 11/22/18 03:30 EVIN CHURCH MD History of Present Illness: JEREMIAH ANSARI is a 38 year old male with a past medical history of ulcerative colitis, ileostomy, and polysubstance abuse who is admitted to the surgical service for colostomy repair. Patient underwent ileostomy revision today by Dr. Burns. Patient has informed surgical team that he has been attending a methadone clinic for the previous 3 months to receive daily methadone dosing for treatment of opiate dependence. He is request that they resume his daily dose of 100 mg daily. Hospitalist service has been consulted for medication management. Past Medical History Cardiac Medical History: Reports: None Pulmonary Medical History: Reports: None EENT Medical History: Reports: None Neurological Medical History: Reports: None Endocrine Medical History: Reports: None Renal/ Medical History: Reports: None Malignancy Medical History: Reports: None GI Medical History: Reports: Ulcerative Colitis Musculoskeltal Medical History: Reports: None Skin Medical History: Reports: None Psychiatric Medical History: Reports: Substance Abuse Hematology: Reports: Anemia Past Surgical History Past Surgical History: Reports: Appendectomy - February 2015, Ileostomy, Vascular Surgery - Port placement Social History Information Source: Patient Lives with: Alone Smoking Status: Never Smoker Frequency of Alcohol Use: None Hx Recreational Drug Use: Yes Drugs: Methadone, Other - Amphetamines Hx Prescription Drug Abuse: Yes - PERCOCET - Advance Directive Resuscitation Status: Full Code Family History Family History: Reviewed & Not Pertinent, CAD, CVA, DM, Hyperlipidemia, Hypertension, Malignancy Parental Family History Reviewed: Yes Children Family History Reviewed: Yes Sibling(s) Family History Reviewed.: Yes Medication/Allergy Allergies/Adverse Reactions: Penicillins Allergy (Mild, Verified 09/14/18 08:47) rash/hives hydrocodone [From [place]] Allergy (Verified 09/14/18 08:47) Review of Systems Constitutional: PRESENT: fatigue. ABSENT: chills, fever(s), headache(s), weight gain, weight loss Eyes: ABSENT: visual disturbances Ears: ABSENT: hearing changes Cardiovascular: ABSENT: chest pain, dyspnea on exertion, edema, orthropnea, palpitations Respiratory: ABSENT: cough, hemoptysis Gastrointestinal: PRESENT: nausea, vomiting. ABSENT: abdominal pain, constipation, diarrhea, hematemesis, hematochezia Genitourinary: ABSENT: dysuria, hematuria Musculoskeletal: ABSENT: joint swelling Integumentary: ABSENT: rash, wounds Neurological: ABSENT: abnormal gait, abnormal speech, confusion, dizziness, focal weakness, syncope Psychiatric: ABSENT: anxiety, depression, homidical ideation, suicidal ideation Endocrine: ABSENT: cold intolerance, heat intolerance, polydipsia, polyuria Hematologic/Lymphatic: ABSENT: easy bleeding, easy bruising Physical Exam Vital Signs: Temp Pulse Resp BP Pulse Ox 98.5 F 80 20 128/75 H 100 11/22/18 15:24 11/22/18 15:24 11/22/18 15:24 11/22/18 15:24 11/22/18 15:24 Intake & Output 11/21/18 11/22/18 11/23/18 06:59 06:59 06:59 Intake Total 2000 Output Total 270 Balance 1730 Weight 98.3 kg 98.3 kg General appearance: PRESENT: no acute distress, disheveled, well-developed, well-nourished - Overweight Head exam: PRESENT: atraumatic, normocephalic Eye exam: PRESENT: conjunctiva pink, EOMI, PERRLA. ABSENT: scleral icterus Ear exam: PRESENT: normal external ear exam Mouth exam: PRESENT: moist, tongue midline Teeth exam: PRESENT: poor dentation Neck exam: ABSENT: carotid bruit, JVD, lymphadenopathy, thyromegaly Respiratory exam: PRESENT: clear to auscultation jamal, symmetrical, unlabored. ABSENT: rales, rhonchi, wheezes Cardiovascular exam: PRESENT: RRR. ABSENT: diastolic murmur, rubs, systolic murmur Pulses: PRESENT: normal dorsalis pedis pul Vascular exam: PRESENT: normal capillary refill GI/Abdominal exam: PRESENT: hypoactive bowel sounds, soft, tenderness. ABSENT: distended, guarding, mass, organolmegaly, rebound Rectal exam: PRESENT: deferred Extremities exam: PRESENT: full ROM. ABSENT: calf tenderness, clubbing, pedal edema Neurological exam: PRESENT: alert, awake, oriented to person, oriented to place, oriented to time, oriented to situation, CN II-XII grossly intact, other - Lethargic; falls asleep during conversation. ABSENT: motor sensory deficit Psychiatric exam: PRESENT: appropriate affect, normal mood. ABSENT: homicidal ideation, suicidal ideation Skin exam: PRESENT: dry, intact, warm. ABSENT: cyanosis, rash Results Laboratory Results: 11/22/18 04:35 11/22/18 04:35 11/22/18 11/22/18 04:35 04:35 WBC 6.4 RBC 4.17 L Hgb 10.3 L Hct 32.2 L MCV 77 L MCH 24.8 L MCHC 32.1 RDW 16.3 H Plt Count 248 Seg Neutrophils % 56.8 Lymphocytes % 29.1 Monocytes % 7.2 Eosinophils % 5.8 Basophils % 1.1 Absolute Neutrophils 3.7 Absolute Lymphocytes 1.9 Absolute Monocytes 0.5 Absolute Eosinophils 0.4 Absolute Basophils 0.1 Sodium 138.8 Potassium 4.2 Chloride 105 Carbon Dioxide 27 Anion Gap 7 BUN 19 Creatinine 0.95 Est GFR ( Amer) > 60 Est GFR (Non-Af Amer) > 60 Glucose 94 Calcium 8.8 Assessment and Plan - Diagnosis (1) Ileostomy prolapse Is this a current diagnosis for this admission?: Yes Plan: Admitted to the surgical list service. Management per their expertise. (2) History of ulcerative colitis Is this a current diagnosis for this admission?: Yes Plan: Without exacerbation at this time. Patient does not take home medications for management of UC. (3) Pain management Is this a current diagnosis for this admission?: Yes Plan: Patient reports that he attends the [facility] for methadone administration of 100 mg daily. Multiple calls were placed to the after hours nursing line for verification of his dose; unfortunately, have not received a response. Patient was admitted to our facility in mid July of this year; at that time he was not prescribed opiate medications or attending the methadone clinic. Therefore, unfortunately, we are unable to verify his accurate dose at this time. The patient was provided a one-time dose of methadone 5 mg p.o. with apparent relief of his symptoms. Per nursing, the patient fell asleep shortly after and slept comfortably for several hours before waking briefly and then returning back to sleep. Discussed methadone dosing options with Dr. Nunez; will start patient on methadone 10 mg p.o. 3 times daily with IV morphine for withdrawal symptoms. [facility] will be open from 6 to 9:30 AM tomorrow; will contact them first thing to verify dose. (4) Polysubstance abuse Is this a current diagnosis for this admission?: Yes Plan: Patient has a history of polysubstance abuse. UDS during previous admission was positive for amphetamines, methadone, and opiates; at that time he was not attending prescribed or attending methadone clinic and was admitted for toxic encephalopathy secondary to admitted polysubstance abuse. We will call the treatment center tomorrow to verify his methadone dosing. Otherwise, would recommend judicious narcotic use for pain management of #1. - Time Time Spent with patient: 15-24 minutes Medications reviewed and adjusted accordingly: Yes
[2018-11-22] MEDS: RINGERS SOLUTION,LACTATED 1,000 ML IV PRN (20:40)
[2018-11-22] MEDS: METHADONE HCL 10 MG TABLET PO SCH (21:07)
[2018-11-23] MEDS: METHADONE HCL 10 MG TABLET PO SCH (06:32)
[2018-11-23] MEDS: ACETAMINOPHEN INJ/PF 1000 MG/100 ML SDV IV SCH ×2 (06:32→11:45)
[2018-11-23] MEDS: RINGERS SOLUTION,LACTATED 1,000 ML IV PRN (06:33)
[2018-11-23] MEDS ORDERED: METHADONE HCL 10 MG TABLET PO ONE ×2 (09:15→12:45)
[2018-11-23] MEDS ORDERED: METHADONE HCL 10 MG TABLET PO SCH ×2 (10:00→14:00)
--- NOTE | 2018-11-23 10:14 | PDOC PROGRESS REPORT ---
Subjective Progress Note for:: 11/23/18 Subjective:: Patient has no complaints. Is concerned about getting his appropriate methadone dose. Eating full liquids; voiding; having excellent ostomy output Reason For Visit: ILEOSTOMY PROLAPSE Physical Exam Vital Signs: Temp Pulse Resp BP Pulse Ox 98.4 F 59 L 18 101/64 100 11/22/18 23:24 11/22/18 23:24 11/22/18 23:24 11/22/18 23:24 11/22/18 23:24 Intake & Output 11/22/18 11/23/18 11/24/18 06:59 06:59 06:59 Intake Total 3000 Output Total 270 Balance 2730 Weight 98.3 kg 98.1 kg General appearance: PRESENT: no acute distress GI/Abdominal exam: PRESENT: other - Soft nontender ileostomy appliance in place. Plenty of stool and gas in the bag Results Laboratory Results: 11/22/18 04:35 11/22/18 04:35 Assessment & Plan - Diagnosis (1) Ileostomy prolapse Is this a current diagnosis for this admission?: Yes Plan: Impression: Patient is a 1/2-day status post ileostomy revision by Dr. Say Burns, doing well, having excellent ileostomy function, and adequate pain control. Conditions: 1. Hospitalist managing resumption of appropriate methadone dosing this morning 2. We will advance diet to regular groceries. Her graph 3. Anticipate discharge home later today. Patient is familiar with ileostomy management as this is a chronic ileostomy.
--- NOTE | 2018-11-23 12:33 | PDOC DISCHARGE SUMMARY ---
General - Admit/Disc Date/PCP Admission Date/Primary Care Provider: 11/23/18 08:12 EVIN CHURCH MD Discharge Date: 11/23/18 - Discharge Diagnosis (1) Ileostomy prolapse Is this a current diagnosis for this admission?: Yes - Additional Information Resuscitation Status: Full Code Discharge Diet: As Tolerated Discharge Activity: Activity As Tolerated Home Medications: Methadone HCl [Methadose] 100 mg PO DAILY 11/23/18 History of Present Illness History of Present Illness: JEREMIAH ANSARI is a 38 year old male Hospital Course Hospital Course: Patient is a 38-year-old white male with history of substance abuse, on 100 mg of methadone orally daily who presents the emergency department 2 days ago compl aining of prolapsed ileostomy, with incarceration. Patient has a history of similar episode requiring ileostomy revision in the past. He is status post total abdominal colectomy for ulcerative colitis. The patient was admitted to the surgical service, taken to the operating room by Dr. Say Burns, and had his ileostomy revised all through the ileostomy site. He tolerated the procedure well, and had excellent ileostomy function, was started on a diet this was advanced and tolerated well. By the afternoon of the first postoperative day he was felt to have received maximum benefit from hospitalization and was discharged home. Physical Exam Vital Signs: Temp Pulse Resp BP Pulse Ox 98.4 F 59 L 18 101/64 100 11/22/18 23:24 11/22/18 23:24 11/22/18 23:24 11/22/18 23:24 11/22/18 23:24 Intake & Output 11/22/18 11/23/18 11/24/18 06:59 06:59 06:59 Intake Total 3000 Output Total 270 Balance 2730 Weight 98.3 kg 98.1 kg General appearance: PRESENT: no acute distress GI/Abdominal exam: PRESENT: other - Abdomen is soft no peritoneal signs no rigidity no distention; ileostomy functioning satisfactorily, healthy with only minimal edema Results Laboratory Results: 11/22/18 04:35 11/22/18 04:35 Qualifiers - * PATIENT BEING DISCHARGED WITH ANY OF THE FOLLOWING DIAGNOSIS: No Acute Heart Failure - Is this a Heart Failure Patient?: No Plan Discharge Plan: She will be discharged home to care of his family; shower, and maintain his ileostomy appliance as he has in the past. He will not receive any pain medication as he is under the direction of therapist for his narcotic addiction, taking methadone 100 mg p.o. daily. He will follow-up with Dr. Say Burns in 1 week [facility]. He will call tomorrow, Saturday, for an appointm ent.
[2018-11-23] MEDS: KETOROLAC TROMETHAMINE INJ/PF 30 MG/1 ML SDV IV PRN (12:54)
[2018-11-23 13:29] VITALS: BP 112/51
== END 2018-11-23 14:00 | disposition home or self-care (01) | DRG 330 ==
LOC: ER 00:29 → UNDOADMOB 03:30 → EH 03:30 → 4S 08:07 → EH 08:07 → INTOOBSV 11-23 08:12 → OBSVTOIN 11-23 08:12 → 4S 11-23 08:12 → UNDODISIN 11-23 14:00
PROVIDERS: ADMIT Surgery; ATTEND Surgery
PROC: 0D1K0Z4 Bypass Ascending Colon to Cutaneous, Open Approach (ICD-10-PCS; principal; 2018-11-22 05:30)
DX: K94.19 Other complications of enterostomy (principal); F11.20 Opioid dependence, uncomplicated; K50.90 Crohn's disease, unspecified, without complications; D64.9 Anemia, unspecified; F15.11 Other stimulant abuse, in remission; F10.21 Alcohol dependence, in remission; Z88.6 Allergy status to analgesic agent; Z88.0 Allergy status to penicillin; Z79.899 Other long term (current) drug therapy
CPT/HCPCS: 36415; 80048; 840; 85025; 88305; 94799; 96374; 96375; 99284; G0378; J0131; J0330; J0690; J1100; J1170; J1885; J2250; J2270; J2405; J2704; J2710; J3010; J3480; J3490; J7120

== ENCOUNTER 2018-12-14 08:00 | Emergency (ER) | payer SELFPAY ==
[2018-12-14] MEDS ORDERED: SILVER NITRATE APPLICATOR 1 APPLIC STICK..EA. 10/PACKAGE TOP ONE (09:38)
[2018-12-14 09:57] VITALS: BP 134/75
--- NOTE | 2018-12-14 09:57 | ER Document Report ---
HPI - HPI Patient complains to provider of: ileostomy bag replacement Time Seen by Provider: 12/14/18 09:19 Pain Level: Denies Context: Well-appearing nontoxic 38-year-old male with recent ileostomy revision on 11/24/2018 performed here presents to the emergency department for chief complaint of ileostomy bag replacement. Patient states that he ordered bags last week but they were backordered and will not get them until tomorrow. He is requesting a one-time replacement as the bag is leaking. Patient states he is also having some very minimal bleeding coming from the ostomy site. He also complains that he is getting some discharge from his rectum that is mucousy in nature. He denies fevers or chills, nausea or vomiting, shortness of breath or chest pain, denies excessive hemorrhage coming from the ileostomy site, no other complaints - CONSTITUTIONAL Constitutional: DENIES: Fever, Chills - REPRODUCTIVE Reproductive: DENIES: : Past Medical History - Social History Smoking Status: Unknown if Ever Smoked Family History: Reviewed & Not Pertinent, CAD, CVA, DM, Hyperlipidemia, Hypertension, Malignancy Patient has suicidal ideation: No Patient has homicidal ideation: No - Past Medical History Cardiac Medical History: Denies: Hx Heart Attack, Hx Hypertension Pulmonary Medical History: Denies: Hx Asthma, Hx Bronchitis, Hx COPD, Hx Pneumonia Neurological Medical History: Denies: Hx Seizures Renal/ Medical History: Denies: Hx Peritoneal Dialysis GI Medical History: Reports: Hx Ulcer - chrons disease, Hx Ulcerative Colitis, Hx Colonoscopy Musculoskeletal Medical History: Denies Hx Arthritis Past Surgical History: Reports: Hx Abdominal Surgery - colon/colostomy, Hx Appendectomy - February 2015, Hx Ileostomy, Hx Vascular Surgery - Port placement, Other - colectomy - Immunizations Immunizations up to date: Yes Hx Diphtheria, Pertussis, Tetanus Vaccination: Yes Vertical Provider Document - CONSTITUTIONAL Notes: PHYSICAL EXAMINATION: Reviewed vital signs and charting by RN GENERAL: Alert, interacts well. No acute distress. HEAD: Normocephalic, atraumatic. EYES: Pupils equal and round. Extraocular movements intact. ENT: Oral mucosa moist, tongue midline. NECK: Full range of motion. Trachea midline. ABDOMEN: soft, non-tender. No distention. Bowel sounds present. Ileostomy bag present and when removed there was a very small amount of bleeding coming from the 12 o'clock position of the stoma, stoma is pink and healthy with no evidence of duskiness or ischemia, sutures present from recent revision and stoma is patent EXTREMITIES: Moves all 4 extremities spontaneously. No edema, No cyanosis. PSYCH: Normal affect, normal mood. SKIN: Warm, dry, normal turgor. No rashes or lesions noted. - INFECTION CONTROL TRAVEL OUTSIDE OF THE [place] IN LAST 30 DAYS: No Course - Re-evaluation Re-evalutation: 12/14/18 10:00 Patient is well-appearing and is very reasonable. There was a very small amount of blood present on initial inspection plan was to cauterize the spot with some silver nitrate but when we replaced the base of this ostomy bag there was no further bleeding at all so cauterization was not necessary. The stoma appears very healthy and patient was given 2 replacement bags to bridge him for today. He is seeing his wound specialist tomorrow in [place]. I explained to him that the discharge that is coming from his rectum is typical and represents sloughing of the mucosa from the GI tract and he should not be worried about it. Patient understands and was satisfied with the plan. He is stable for discharge - Vital Signs Vital signs: Temp Pulse Resp BP Pulse Ox 97.8 F 75 18 124/73 97 12/14/18 08:07 12/14/18 08:07 12/14/18 08:07 12/14/18 08:07 12/14/18 08:07 Discharge - Discharge Clinical Impression: Ileostomy bag changed Condition: Good Disposition: HOME, SELF-CARE Additional Instructions: You were seen in the emergency department this morning for an ileostomy bag change. The site looks good and healthy. It appears that the bleeding has subsided so we did not need to cauterize it with silver nitrate. Please return to the emergency department if you have significant bleeding coming from your ileostomy site, you develop fever, or you have any other concerning symptoms. Please follow-up with your wound specialist tomorrow and make that appointment. Referrals: EVIN CHURCH MD [Primary Care Provider] - Follow up as needed
== END 2018-12-14 09:57 | disposition home or self-care (01) ==
LOC: ER 08:00
DX: Z43.2 Encounter for attention to ileostomy (principal)
CPT/HCPCS: 99282

== ENCOUNTER 2018-12-28 23:46 | Emergency (ER) | payer SELFPAY ==
[2018-12-29 00:03] VITALS: BP 143/96
[2018-12-29 01:59] LABS: ABSOLUTE BASOPHILS # (AUTO) 0.1 10^3/uL (0.0-0.2); ABSOLUTE EOSINOPHILS # (AUTO) 0.3 10^3/uL (0.0-0.6); ABSOLUTE LYMPHOCYTES (AUTO) 2.6 10^3/uL (0.5-4.7); ABSOLUTE MONOCYTES (AUTO) 0.6 10^3/uL (0.1-1.4); ABSOLUTE NEUT (AUTO) 4.1 10^3/uL (1.7-8.2); EOSINOPHILS % (AUTO) 4.3 % (0-6); HEMATOCRIT 36.4 % (37.9-51.0); HEMOGLOBIN 11.6 g/dL (13.5-17.0); LYMPHOCYTES % (AUTO) 34.1 % (13-45); MEAN CORPUSCULAR HEMOGLOBIN 24.7 pg (27.0-33.4); MEAN CORPUSCULAR HGB CONC 31.8 g/dL (32.0-36.0); MEAN CORPUSCULAR VOLUME 78 fl (80-97); MONOCYTES % (AUTO) 7.2 % (3-13); PLATELET COUNT 318 10^3/uL (150-450); RED BLOOD COUNT 4.68 10^6/uL (4.35-5.55); RED CELL DISTRIBUTION WIDTH 17.1 % (11.5-14.0); SEGMENTED NEUTROPHILS % (AUTO) 53.4 % (42-78); TOTAL CELLS COUNTED % (AUTO) 100 %; WHITE BLOOD COUNT 7.7 10^3/uL (4.0-10.5)
[2018-12-29 02:14] LABS: APPEARANCE,URINE CLEAR; BILIRUBIN,URINE NEGATIVE (NEGATIVE); COLOR,URINE YELLOW; GLUCOSE, URINE NEGATIVE (NEGATIVE); KETONES,URINE NEGATIVE (NEGATIVE); LEUKOCYTE ESTERASE,URINE NEGATIVE (NEGATIVE); NITRITE,URINE NEGATIVE (NEGATIVE); PROTEIN,URINE NEGATIVE (NEGATIVE); URINE SPECIFIC GRAVITY 1.029; UROBILINOGEN,URINE NEGATIVE mg/dL (<2.0)
[2018-12-29 02:19] LABS: ALBUMIN 4.3 g/dL (3.5-5.0); ALKALINE PHOSPHATASE 77 U/L (38-126); ANION GAP 11 (5-19); ASPARTATE AMINO TRANSFERASE 32 U/L (17-59); BILIRUBIN,DIRECT 0.3 mg/dL (0.0-0.4); BILIRUBIN,TOTAL 0.3 mg/dL (0.2-1.3); BLOOD UREA NITROGEN 18 mg/dL (7-20); CALCIUM 9.7 mg/dL (8.4-10.2); CARBON DIOXIDE 27 mmol/L (22-30); CHLORIDE 101 mmol/L (98-107); GLUCOSE 83 mg/dL (75-110); POTASSIUM 4.4 mmol/L (3.6-5.0); TOTAL PROTEIN 7.7 g/dL (6.3-8.2)
== END 2018-12-29 02:22 | disposition left against medical advice (07) ==
LOC: ER 23:46
DX: Z53.21 Procedure and treatment not carried out due to patient leaving prior to being seen by health care provider (principal); R10.9 Unspecified abdominal pain

== ENCOUNTER 2019-02-22 00:07 | Emergency (ER) | payer SELFPAY ==
[2019-02-22 00:16] VITALS: BP 140/78
[2019-02-22 00:42] LABS: ABSOLUTE BASOPHILS # (AUTO) 0.1 10^3/uL (0.0-0.2); ABSOLUTE EOSINOPHILS # (AUTO) 0.4 10^3/uL (0.0-0.6); ABSOLUTE LYMPHOCYTES (AUTO) 2.1 10^3/uL (0.5-4.7); ABSOLUTE MONOCYTES (AUTO) 0.4 10^3/uL (0.1-1.4); ABSOLUTE NEUT (AUTO) 4.2 10^3/uL (1.7-8.2); HEMATOCRIT 36.4 % (37.9-51.0); HEMOGLOBIN 11.9 g/dL (13.5-17.0); LYMPHOCYTES % (AUTO) 29.5 % (13-45); MEAN CORPUSCULAR HGB CONC 32.6 g/dL (32.0-36.0); MEAN CORPUSCULAR VOLUME 80 fl (80-97); MONOCYTES % (AUTO) 5.7 % (3-13); PLATELET COUNT 252 10^3/uL (150-450); RED BLOOD COUNT 4.57 10^6/uL (4.35-5.55); RED CELL DISTRIBUTION WIDTH 17.7 % (11.5-14.0); SEGMENTED NEUTROPHILS % (AUTO) 58.8 % (42-78); TOTAL CELLS COUNTED % (AUTO) 100 %; WHITE BLOOD COUNT 7.2 10^3/uL (4.0-10.5)
[2019-02-22 01:07] LABS: ALKALINE PHOSPHATASE 79 U/L (38-126); ANION GAP 9 (5-19); ASPARTATE AMINO TRANSFERASE 28 U/L (17-59); BILIRUBIN,DIRECT 0.1 mg/dL (0.0-0.4); BILIRUBIN,TOTAL 0.3 mg/dL (0.2-1.3); BLOOD UREA NITROGEN 25 mg/dL (7-20); CALCIUM 9.4 mg/dL (8.4-10.2); CARBON DIOXIDE 28 mmol/L (22-30); CHLORIDE 104 mmol/L (98-107); GLUCOSE 94 mg/dL (75-110); POTASSIUM 4.2 mmol/L (3.6-5.0); TOTAL PROTEIN 7.5 g/dL (6.3-8.2)
[2019-02-22 01:08] LABS: APPEARANCE,URINE CLEAR; BILIRUBIN,URINE NEGATIVE (NEGATIVE); COLOR,URINE STRAW; GLUCOSE, URINE NEGATIVE (NEGATIVE); KETONES,URINE NEGATIVE (NEGATIVE); LEUKOCYTE ESTERASE,URINE NEGATIVE (NEGATIVE); NITRITE,URINE NEGATIVE (NEGATIVE); PROTEIN,URINE NEGATIVE (NEGATIVE); UROBILINOGEN,URINE NEGATIVE mg/dL (<2.0)
[2019-02-22 01:11] LABS: ADD MANUAL MICROSCOPIC YES
[2019-02-22 01:12] LABS: BACTERIA,URINE 4+ /HPF
== END 2019-02-22 01:40 | disposition left against medical advice (07) ==
LOC: ER 00:07
DX: Z53.21 Procedure and treatment not carried out due to patient leaving prior to being seen by health care provider (principal)
CPT/HCPCS: 36415; 80053; 81001; 83690; 85025

== ENCOUNTER 2019-03-22 02:49 | Emergency (ER) | payer SELFPAY ==
--- NOTE | 2019-03-22 07:01 | ER Document Report ---
HPI - HPI Time Seen by Provider: 03/22/19 06:54 Pain Level: 2 Context: Well-appearing nontoxic 38-year-old male with recent ileostomy revision on 11/24/2018 performed here presents to the emergency department for chief complaint of ileostomy bag replacement. Patient states that he ordered bags last week but they were backordered and will not get them until tomorrow. He is requesting a one-time replacement as the bag is leaking. Patient states he is also having some very minimal bleeding coming from the ostomy site. He also complains that he is getting some discharge from his rectum that is mucousy in nature. He denies fevers or chills, nausea or vomiting, shortness of breath or chest pain, denies excessive hemorrhage coming from the ileostomy site, no other complaints - REPRODUCTIVE Reproductive: DENIES: : Past Medical History - Social History Smoking Status: Never Smoker Frequency of alcohol use: None Drug Abuse: None Family History: Reviewed & Not Pertinent, CAD, CVA, DM, Hyperlipidemia, Hypertension, Malignancy Patient has suicidal ideation: No Patient has homicidal ideation: No - Past Medical History Cardiac Medical History: Denies: Hx Heart Attack, Hx Hypertension Pulmonary Medical History: Denies: Hx Asthma, Hx Bronchitis, Hx COPD, Hx Pneumonia Neurological Medical History: Denies: Hx Seizures Renal/ Medical History: Denies: Hx Peritoneal Dialysis GI Medical History: Reports: Hx Ulcer - chrons disease, Hx Ulcerative Colitis, Hx Colonoscopy Musculoskeletal Medical History: Denies Hx Arthritis Past Surgical History: Reports: Hx Abdominal Surgery - colon/colostomy, Hx Appendectomy - February 2015, Hx Ileostomy, Hx Vascular Surgery - Port placement, Other - colectomy - Immunizations Immunizations up to date: Yes Hx Diphtheria, Pertussis, Tetanus Vaccination: Yes Vertical Provider Document - CONSTITUTIONAL Notes: GENERAL: Alert, interacts well. No acute distress. HEAD: Normocephalic, atraumatic. EYES: Pupils equal and round. Extraocular movements intact. ENT: Oral mucosa moist, tongue midline. NECK: Full range of motion. Trachea midline. ABDOMEN: soft, non-tender. No distention. Bowel sounds present. Ileostomy bag present and when removed there was stool coming from the site, stoma is pink and healthy with no evidence of duskiness or ischemia EXTREMITIES: Moves all 4 extremities spontaneously. No edema, No cyanosis. PSYCH: Normal affect, normal mood. SKIN: Warm, dry, normal turgor. No rashes or lesions noted. - INFECTION CONTROL TRAVEL OUTSIDE OF THE [place] IN LAST 30 DAYS: No Course - Re-evaluation Re-evalutation: 03/22/19 07:03 Patient is well-appearing and nontoxic. The stoma appears very healthy and patient was given a replacement bag. Stoma is healthy appearing, not dusky, not purple. There is stool actively coming from it. Patient understands and was satisfied with the plan. He is stable for discharge - Vital Signs Vital signs: Temp Pulse Resp BP Pulse Ox 97.7 F 100 20 168/83 H 100 03/22/19 02:53 03/22/19 02:53 03/22/19 02:53 03/22/19 02:53 03/22/19 02:53 Discharge - Discharge Clinical Impression: Ileostomy bag changed Condition: Good Disposition: HOME, SELF-CARE Additional Instructions: You were seen in the emergency department this morning for an ileostomy bag change. The site looks good and healthy. Please return to the emergency department if you have significant bleeding coming from your ileostomy site, you develop fever, or you have any other concerning symptoms. Please follow-up with your lithographic printing machinist tomorrow and make that appointment. Referrals: EVIN CHURCH MD [Primary Care Provider] - Follow up as needed
[2019-03-22 07:45] VITALS: BP 154/86
== END 2019-03-22 07:11 | disposition home or self-care (01) ==
LOC: ER 02:49
DX: Z43.2 Encounter for attention to ileostomy (principal); R19.8 Other specified symptoms and signs involving the digestive system and abdomen
CPT/HCPCS: 99282

== ENCOUNTER 2019-09-24 19:30 | Emergency (ER) | payer SELFPAY ==
[2019-09-24 19:36] VITALS: BP 143/83
--- NOTE | 2019-09-24 20:51 | ER Document Report ---
ED Medical Screen (RME) - General Chief Complaint: Nausea Stated Complaint: NAUSEA Time Seen by Provider: 09/24/19 20:46 Primary Care Provider: EVIN CHURCH MD [Primary Care Provider] - Follow up as needed Notes: HPI: 39-year-old male with Crohn's history with right-sided colostomy presenting for evaluation of increasing nausea over the last 24 hours with increasing abdominal pain. Patient states this feels like when his Crohn's begins to flareup. Patient also states that for the last 2 weeks he has been having a bloody purulent discharge from the rectum intermittently although he does not believe that there is any anastomosis of colon going to the rectum. No fever. Colostomy bag in the right lateral abdomen. There is stool in the colostomy bag. PHYSICAL EXAMINATION: There is moderate tenderness on palpation of the right upper quadrant region. Liquid stool output in the colostomy bag I have greeted and performed a rapid initial assessment of this patient. A comprehensive ED assessment and evaluation of the patient, analysis of test results and completion of medical decision making process will be conducted by an additional ED providers. TRAVEL OUTSIDE OF THE [place] IN LAST 30 DAYS: No - Related Data Allergies/Adverse Reactions: Penicillins Allergy (Mild, Verified 12/29/18 01:07) rash/hives hydrocodone [From [place]] Allergy (Verified 12/29/18 01:07) Past Medical History - Past Medical History Cardiac Medical History: Denies: Hx Heart Attack, Hx Hypertension Pulmonary Medical History: Denies: Hx Asthma, Hx Bronchitis, Hx COPD, Hx Pneumonia Neurological Medical History: Denies: Hx Seizures Renal/ Medical History: Denies: Hx Peritoneal Dialysis GI Medical History: Reports: Hx Ulcer - chrons disease, Hx Ulcerative Colitis, Hx Colonoscopy Musculoskeltal Medical History: Denies Hx Arthritis Past Surgical History: Reports: Hx Abdominal Surgery - colon/colostomy, Hx Appendectomy - February 2015, Hx Ileostomy, Hx Vascular Surgery - Port placement, Other - colectomy - Immunizations Immunizations up to date: Yes Hx Diphtheria, Pertussis, Tetanus Vaccination: Yes Physical Exam - Vital signs Vitals: Temp Pulse Resp BP Pulse Ox 98.6 F 100 16 143/83 H 95 09/24/19 19:35 09/24/19 19:35 09/24/19 19:35 09/24/19 19:35 09/24/19 19:35 Course - Vital Signs Vital signs: Temp Pulse Resp BP Pulse Ox 98.6 F 100 16 143/83 H 95 09/24/19 19:35 09/24/19 19:35 09/24/19 19:35 09/24/19 19:35 09/24/19 19:35 Doctor's Discharge - Discharge Referrals: EVIN CHURCH MD [Primary Care Provider] - Follow up as needed
== END 2019-09-25 03:20 | disposition left against medical advice (07) ==
LOC: ER 19:30
DX: K50.90 Crohn's disease, unspecified, without complications (principal); Z93.3 Colostomy status; R10.811 Right upper quadrant abdominal tenderness; R10.9 Unspecified abdominal pain; R11.0 Nausea; Z88.0 Allergy status to penicillin; Z88.6 Allergy status to analgesic agent; Z88.5 Allergy status to narcotic agent; Z53.20 Procedure and treatment not carried out because of patient's decision for unspecified reasons
CPT/HCPCS: 99281

== ENCOUNTER 2019-12-20 18:41 | Observation (INO) | payer SELFPAY ==
--- NOTE | 2019-12-20 19:08 | ER Document Report ---
ED Medical Screen (RME) - General Chief Complaint: Bloody Stools Stated Complaint: DIZZINESS Time Seen by Provider: 12/20/19 19:03 Primary Care Provider: EVIN CHURCH MD [Primary Care Provider] - Follow up as needed Mode of Arrival: Ambulatory Information source: Patient Notes: 39-year-old male presents to ED for complaint of bloody stools x2 days. He has a history of Crohn's disease. He has a colostomy. He states his stoma is very swollen very painful and when he has a bowel movement it is very painful and the stool is liquid blood. He states the pain and bleeding is been 2 days the dizziness has been 1-1/2 days. He thinks he has had some any bloody stools and now he is getting dizzy. He does have a history of Crohn's appendectomy anemia he had a port but had not have that removed due to sepsis and he has a colostomy on the left abdomen. He does not smoke drink or use any drugs. I have greeted and performed a rapid initial assessment of this patient. A comprehensive ED assessment and evaluation of the patient, analysis of test results and completion of medical decision making process will be conducted by an additional ED providers. TRAVEL OUTSIDE OF THE [place] IN LAST 30 DAYS: No - Related Data Allergies/Adverse Reactions: Penicillins Allergy (Mild, Verified 12/29/18 01:07) rash/hives hydrocodone [From [place]] Allergy (Verified 12/29/18 01:07) Past Medical History - Past Medical History Cardiac Medical History: Denies: Hx Heart Attack, Hx Hypertension Pulmonary Medical History: Denies: Hx Asthma, Hx Bronchitis, Hx COPD, Hx Pneumonia Neurological Medical History: Denies: Hx Seizures Renal/ Medical History: Denies: Hx Peritoneal Dialysis GI Medical History: Reports: Hx Ulcer - chrons disease, Hx Ulcerative Colitis, Hx Colonoscopy Musculoskeltal Medical History: Denies Hx Arthritis Past Surgical History: Reports: Hx Abdominal Surgery - colon/colostomy, Hx Appendectomy - February 2015, Hx Ileostomy, Hx Vascular Surgery - Port placement, Other - colectomy - Immunizations Immunizations up to date: Yes Hx Diphtheria, Pertussis, Tetanus Vaccination: Yes Physical Exam - Vital signs Vitals: Temp Pulse Resp BP Pulse Ox 98.5 F 87 20 142/86 H 96 12/20/19 18:59 12/20/19 18:59 12/20/19 18:59 12/20/19 18:59 12/20/19 18:59 Course - Vital Signs Vital signs: Temp Pulse Resp BP Pulse Ox 98.5 F 87 20 142/86 H 96 12/20/19 18:59 12/20/19 18:59 12/20/19 18:59 12/20/19 18:59 12/20/19 18:59 Doctor's Discharge - Discharge Referrals: EVIN CHURCH MD [Primary Care Provider] - Follow up as needed
[2019-12-20 21:17] LABS: ALBUMIN 3.9 g/dL (3.5-5.0); ALKALINE PHOSPHATASE 83 U/L (38-126); ANION GAP 10 (5-19); ASPARTATE AMINO TRANSFERASE 20 U/L (17-59); BILIRUBIN,DIRECT 0.3 mg/dL (0.0-0.4); BILIRUBIN,TOTAL 0.6 mg/dL (0.2-1.3); BLOOD UREA NITROGEN 11 mg/dL (7-20); CALCIUM 8.9 mg/dL (8.4-10.2); CARBON DIOXIDE 30 mmol/L (22-30); CHLORIDE 96 mmol/L (98-107); GLUCOSE 79 mg/dL (75-110); POTASSIUM 3.7 mmol/L (3.6-5.0)
[2019-12-20 21:22] LABS: ABSOLUTE BASOPHILS # (AUTO) 0.1 10^3/uL (0.0-0.2); ABSOLUTE EOSINOPHILS # (AUTO) 0.3 10^3/uL (0.0-0.6); ABSOLUTE LYMPHOCYTES (AUTO) 1.8 10^3/uL (0.5-4.7); ABSOLUTE MONOCYTES (AUTO) 0.6 10^3/uL (0.1-1.4); ABSOLUTE NEUT (AUTO) 5.5 10^3/uL (1.7-8.2); BASOPHILS % (AUTO) 0.8 % (0-2); EOSINOPHILS % (AUTO) 3.5 % (0-6); HEMATOCRIT 39.2 % (37.9-51.0); HEMOGLOBIN 12.9 g/dL (13.5-17.0); LYMPHOCYTES % (AUTO) 21.7 % (13-45); MEAN CORPUSCULAR HEMOGLOBIN 26.9 pg (27.0-33.4); MEAN CORPUSCULAR VOLUME 81 fl (80-97); MONOCYTES % (AUTO) 7.2 % (3-13); PLATELET COUNT 250 10^3/uL (150-450); RED BLOOD COUNT 4.82 10^6/uL (4.35-5.55); RED CELL DISTRIBUTION WIDTH 16.8 % (11.5-14.0); SEGMENTED NEUTROPHILS % (AUTO) 66.8 % (42-78); TOTAL CELLS COUNTED % (AUTO) 100 %; WHITE BLOOD COUNT 8.3 10^3/uL (4.0-10.5)
[2019-12-20] MEDS ORDERED: HYDROMORPHONE HCL INJ/PF 2 MG/ML AMPULE IV ONE (21:28)
[2019-12-20] MEDS ORDERED: CEFAZOLIN 1 GM/D5W RTU 1 GM/50 ML RTUPB IV ONE (23:07)
[2019-12-20] MEDS ORDERED: ONDANSETRON HCL INJ/PF 4 MG/2 ML SDV IV PRN (23:07)
--- NOTE | 2019-12-20 23:11 | ER Document Report ---
ED General - General Chief Complaint: Abdominal Pain Stated Complaint: DIZZINESS Time Seen by Provider: 12/20/19 19:03 Primary Care Provider: EVIN CHURCH MD [Primary Care Provider] - Follow up as needed Mode of Arrival: Ambulatory Information source: Patient TRAVEL OUTSIDE OF THE [place] IN LAST 30 DAYS: No - HPI Notes: Patient presents with right lower quadrant abdominal pain. Is constant. Is moderate severe. It is worse if the herniated intestinal contents are manipulated and better if left alone. The pain radiates throughout the lower abdomen. He states he has had this 1 time before and had to be taken to the operating room to have reduction of the hernia through his ostomy. He states he has this ileostomy secondary to Crohn's disease. He states he is also noticed some blood has been in the stool that is been in his back. He has had no vomiting or fevers. - Related Data Allergies/Adverse Reactions: Penicillins Allergy (Mild, Verified 12/20/19 19:07) rash/hives hydrocodone [From [place]] Allergy (Verified 12/20/19 19:07) Past Medical History - General Information source: Patient - Social History Smoking Status: Never Smoker Frequency of alcohol use: None Drug Abuse: None Family History: Reviewed & Not Pertinent, CAD, CVA, DM, Hyperlipidemia, Hypertension, Malignancy Patient has homicidal ideation: No - Past Medical History Cardiac Medical History: Denies: Hx Heart Attack, Hx Hypertension Pulmonary Medical History: Denies: Hx Asthma, Hx Bronchitis, Hx COPD, Hx Pneumonia Neurological Medical History: Denies: Hx Seizures Renal/ Medical History: Denies: Hx Peritoneal Dialysis GI Medical History: Reports: Hx Ulcer - chrons disease, Hx Ulcerative Colitis, Hx Colonoscopy Musculoskeletal Medical History: Denies Hx Arthritis Past Surgical History: Reports: Hx Abdominal Surgery - colon/colostomy, Hx Appendectomy - February 2015, Hx Ileostomy, Hx Vascular Surgery - Port placement, Other - colectomy - Immunizations Immunizations up to date: Yes Hx Diphtheria, Pertussis, Tetanus Vaccination: Yes Review of Systems - Review of Systems Constitutional: denies: Chills, Fever Cardiovascular: denies: Chest pain, Palpitations Respiratory: denies: Cough, Short of breath -: Yes All other systems reviewed and negative Physical Exam - Vital signs Vitals: Temp Pulse Resp BP Pulse Ox 98.5 F 87 20 142/86 H 96 12/20/19 18:59 12/20/19 18:59 12/20/19 18:59 12/20/19 18:59 12/20/19 18:59 Interpretation: Normal - General General appearance: Appears well, Alert - HEENT Head: Normocephalic, Atraumatic Eyes: Normal Pupils: PERRL - Respiratory Respiratory status: No respiratory distress Chest status: Nontender Breath sounds: Normal Chest palpation: Normal - Cardiovascular Rhythm: Regular Heart sounds: Normal auscultation Murmur: No - Abdominal Inspection: Other - Patient has an ostomy with herniated intestinal contents in the right lower quadrant Distension: No distension Bowel sounds: Normal Tenderness: Tender, Other - Area surrounding the ostomy is tender to palpation as are the herniated contents. The bag has green-brown stool. - Back Back: Normal, Nontender - Extremities General upper extremity: Normal inspection, Nontender, Normal color, Normal ROM, Normal temperature General lower extremity: Normal inspection, Nontender, Normal color, Normal ROM, Normal temperature, Normal weight bearing. No: Nazanin's sign - Neurological Neuro grossly intact: Yes Cognition: Normal Orientation: AAOx4 [place] Coma Scale Eye Opening: Spontaneous [place] Coma Scale Verbal: Oriented [place] Coma Scale Motor: Obeys Commands [place] Coma Scale Total: 15 Speech: Normal Motor strength normal: LUE, RUE, LLE, RLE Sensory: Normal - Psychological Associated symptoms: Normal affect, Normal mood - Skin Skin Temperature: Warm Skin Moisture: Dry Skin Color: Normal Course - Re-evaluation Re-evalutation: 12/20/19 23:09 Patient has obvious herniation of intestinal contents through his ostomy. I placed the patient in Trendelenburg and give the patient pain medication. I then tried to use manual pressure to reduce the ostomy contents but it was unsuccessful. I consulted surgery who came down evaluated the patient and will take him to the operating room for reduction. - Vital Signs Vital signs: Temp Pulse Resp BP Pulse Ox 98.5 F 87 20 142/86 H 96 12/20/19 18:59 12/20/19 18:59 12/20/19 18:59 12/20/19 18:59 12/20/19 18:59 - Laboratory Result Diagrams: 12/20/19 20:38 12/20/19 20:38 Laboratory results interpreted by me: 12/20/19 12/20/19 20:38 20:38 Hgb 12.9 L MCH 26.9 L RDW 16.8 H Sodium 136.0 L Chloride 96 L Discharge - Discharge Clinical Impression: Complication of ostomy, Parastomal hernia with obstruction and without gangrene, Ileostomy prolapse Condition: Fair Disposition: ADMITTED INPATIENT Admitting Provider: Surgicalist Unit Admitted: Surgical Floor Referrals: EVIN CHURCH MD [Primary Care Provider] - Follow up as needed
--- NOTE | 2019-12-20 23:18 | PDOC H&P ---
History of Present Illness Admission Date/PCP: EVIN CHURCH MD Patient complains of: Prolapsed ileostomy History of Present Illness: JEREMIAH ANSARI is a 39 year old male Presents emergency department complaining his permanent ileostomy is been prolapse for 1-1/2 days. For several hours multiple efforts in the emergency department were made to reduce the ileostomy but were unsuccessful. Patient has 2 previous episodes of the ileostomy intussusception, with ischemia requiring revision in 2018 and 2019. Patient is 3 years status post total like to meet [facility] permanent ileostomy for Crohn's disease. Patient takes no immune modulators and is not followed by a supervisor braiding up. In the emergency department surgery was consulted, final attempt was made to reduce the prolapsed ileostomy but was unsuccessful. Therefore the patient is admitted to the acute care surgery service for definitive surgical management. Past Medical History Past Medical History: History of substance abuse; history of Crohn's disease Cardiac Medical History: Denies: Myocardial Infarction, Hypertension Pulmonary Medical History: Denies: Asthma, Bronchitis, Chronic Obstructive Pulmonary Disease (COPD), Pneumonia Neurological Medical History: Denies: Seizures GI Medical History: Reports: Ulcerative Colitis Musculoskeltal Medical History: Denies: Arthritis Hematology: Reports: Anemia Past Surgical History Past Surgical History: As per HPI Past Surgical History: Reports: Appendectomy - February 2015, Ileostomy, Vascular Surgery - Port placement, Other - colectomy Social History Information Source: Patient Smoking Status: Never Smoker Frequency of Alcohol Use: None Hx Recreational Drug Use: Yes Drugs: Methadone, Other - Amphetamines Hx Prescription Drug Abuse: Yes - PERCOCET Family History Family History: None, Reviewed & Not Pertinent, CAD, CVA, DM, Hyperlipidemia, Hypertension, Malignancy Parental Family History Reviewed: No Children Family History Reviewed: No Sibling(s) Family History Reviewed.: No Medication/Allergy Home Medications: Methadone HCl [Methadose] 100 mg PO DAILY 11/23/18 Allergies/Adverse Reactions: Penicillins Allergy (Mild, Verified 12/20/19 19:07) rash/hives hydrocodone [From [place]] Allergy (Verified 12/20/19 19:07) Review of Systems Constitutional: PRESENT: as per HPI Eyes: PRESENT: other - Wears glasses. ABSENT: visual disturbances Ears: ABSENT: hearing changes Cardiovascular: ABSENT: chest pain, dyspnea on exertion, edema, orthropnea, palpitations Respiratory: ABSENT: cough, hemoptysis Gastrointestinal: PRESENT: as per HPI Musculoskeletal: ABSENT: joint swelling Integumentary: ABSENT: rash, wounds Endocrine: ABSENT: cold intolerance, heat intolerance, polydipsia, polyuria Hematologic/Lymphatic: ABSENT: easy bleeding, easy bruising Physical Exam Vital Signs: Temp Pulse Resp BP Pulse Ox 98.5 F 87 20 142/86 H 96 12/20/19 18:59 12/20/19 18:59 12/20/19 18:59 12/20/19 18:59 12/20/19 18:59 Intake & Output 12/19/19 12/20/19 12/21/19 06:59 06:59 06:59 Weight 109.316 kg General appearance: PRESENT: mild distress Head exam: PRESENT: normocephalic Eye exam: PRESENT: EOMI Mouth exam: PRESENT: dry mucosa Neck exam: PRESENT: full ROM Respiratory exam: PRESENT: clear to auscultation jamal Cardiovascular exam: PRESENT: RRR Vascular exam: PRESENT: normal capillary refill GI/Abdominal exam: PRESENT: other - scar midline; small eschars on periphery; ileostomy appliance removed, revealing prolapsed ileostomy approximately 9 cm with terminal surface mucosa rated; unable to reduce intussuscepted ileostomy a fter significant manual pressure Musculoskeletal exam: PRESENT: full ROM Neurological exam: PRESENT: oriented to person, oriented to place, oriented to time, oriented to situation Skin exam: PRESENT: dry Results Laboratory Results: 12/20/19 20:38 12/20/19 20:38 12/20/19 12/20/19 12/20/19 19:52 20:38 20:38 WBC 8.3 RBC 4.82 Hgb 12.9 L Hct 39.2 MCV 81 MCH 26.9 L MCHC 33.0 RDW 16.8 H Plt Count 250 Seg Neutrophils % 66.8 Sodium 136.0 L Potassium 3.7 Chloride 96 L Carbon Dioxide 30 Anion Gap 10 BUN 11 Creatinine 1.12 Est GFR ( Amer) > 60 Glucose 79 Calcium 8.9 Total Bilirubin 0.6 AST 20 Alkaline Phosphatase 83 Total Protein 7.0 Albumin 3.9 Lipase 28.3 Stool for White Cells NO WBCs SEEN Blood Type Antibody Screen 12/20/19 20:38 WBC RBC Hgb Hct MCV MCH MCHC RDW Plt Count Seg Neutrophils % Sodium Potassium Chloride Carbon Dioxide Anion Gap BUN Creatinine Est GFR ( Amer) Glucose Calcium Total Bilirubin AST Alkaline Phosphatase Total Protein Albumin Lipase Stool for White Cells Blood Type A POSITIVE Antibody Screen NEGATIVE Assessment & Plan - Diagnosis (1) Ileostomy prolapse Is this a current diagnosis for this admission?: Yes Plan: Impression: Acute prolapsed ileostomy likely with intussusception, now with a hemorrhagic ischemic changes unable to be reduced manually; third episode in 3 years. Patient is status post colectomy for inflammatory bowel disease 3.5 years ago. Plan: 1. Admit, keep n.p.o., IV fluids, intravenous antibiotics 2. Take patient to operating room for operative resection of ischemic terminal ileum, revision of ileostomy, possible exploratory laparotomy, general anesthesia, lisy Wilkins. 3. Check COVID-19 status. (2) Inflammatory bowel disease Is this a current diagnosis for this admission?: Yes (3) History of substance abuse Is this a current diagnosis for this admission?: Yes (4) Abdominal pain Is this a current diagnosis for this admission?: Yes - Time Time Spent: 30 to 50 Minutes Critical Time spent with patient: 15-24 minutes Medications reviewed and adjusted accordingly: Yes Anticipated Discharge Disposition: Home, Self Care Anticipated Discharge Timeframe: To be determined
[2019-12-20] MEDS: NORMAL SALINE 1000 ML 1,000 ML IV PRN (23:57)
[2019-12-21] MEDS ORDERED: FENTANYL CITRATE INJ/PF 100 MCG/2 ML AMPUL ONE (01:24)
[2019-12-21] MEDS ORDERED: MIDAZOLAM 2 MG/2 ML INJ ONE (01:24)
[2019-12-21] MEDS ORDERED: ONDANSETRON HCL INJ/PF 4 MG/2 ML SDV ONE (01:24)
[2019-12-21] MEDS ORDERED: PROPOFOL INJ 200 MG/20 ML VIAL IV ONE (01:25)
[2019-12-21] MEDS ORDERED: PROMETHAZINE HCL INJ 25 MG/1 ML VIAL IV PRN ×2 (02:18)
[2019-12-21] MEDS ORDERED: ONDANSETRON HCL INJ/PF 4 MG/2 ML SDV IV PRN (02:18)
[2019-12-21] MEDS ORDERED: MEPERIDINE HCL/PF INJ 25 MG/1 ML DISP.SYRIN IV PRN (02:18)
[2019-12-21] MEDS ORDERED: FENTANYL CITRATE INJ/PF 100 MCG/2 ML AMPUL IV PRN ×3 (02:18)
[2019-12-21] MEDS ORDERED: DIPHENHYDRAMINE HCL 50 MG/ML VIAL IV PRN (02:18)
[2019-12-21] MEDS: FENTANYL CITRATE INJ/PF 100 MCG/2 ML AMPUL ONE ×2 (03:15→03:30)
--- NOTE | 2019-12-21 03:32 | Operative Report ---
Operative Report DATE OF SURGERY: 12/21/19 PREOPERATIVE DIAGNOSIS: 1. 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 2. Status post total colectomy. 3. History of Crohn's disease POSTOPERATIVE DIAGNOSIS: Same with ischemic ileostomy OPERATION: 1. Revision ileostomy with resection of ischemic, prolapsed terminal ileum. 2. Maturation of ileostomy SURGEON: XENIA HARGROVE ANESTHESIA: GA TISSUE REMOVED OR ALTERED: Ischemic, prolapsed ileostomy COMPLICATIONS: None ESTIMATED BLOOD LOSS: 50 cc INTRAOPERATIVE FINDINGS: See below PROCEDURE: Patient was taken the preop holding area to the main operating room and general anesthesia was induced. Cespedes catheter was inserted with return of clear yellow urine. Ileostomy appliance removed, and care of the abdominal wall clipped, the ostomy was closed with 2-0 Prolene suture. The abdominal wall was prepped and draped sterile fashion. Surgical plan and surgical timeout were conducted. The findings were significant for prolapsed, intussuscepted terminal ileostomy on the right lower quadrant of the abdominal wall. A knife was used to cut the mucosal-skin interface, and the ileostomy was freed from the surrounding skin and fascia. The intussuscepted intact ileum was freed from the ischemic terminal ileum using electrocautery. The peel mesentery was very edematous. It was now divided between clamps and tied off with 2-0 Vicryl ties. A suitable site for division of the terminal ileum from the viable intact ileum was chosen, and the ileum divided with a DANTE 55 stapler. The segment of ischemic, terminal ileum removed was approximately 8 to 9 cm. It was sent to pathology for permanent analysis. We now checked for mechanical bleeding and there was none. The skin was freed up from the underlying fascia in a circumferential fashion. We now brought the transected, intact, slightly edematous ileum back up into the hole in the abdominal wall. A portion of the staple line was opened with electrocautery, and the lumen confirmed for patency with the examining index finger. We secured the ileum to the fascia with 6 interrupted 2-0 Vicryl sutures. The ileostomy was formally matured with multiple 3-0 Vicryl sutures securing the full-thickness edge of the ileum to the dermis. At the conclusion of this procedure, the ostomy was patent, viable without tension. A new ileostomy appliance was applied with adhesive. Patient tolerated procedure well, extubated, taken to recovery in stable condition.
[2019-12-21] MEDS: KETOROLAC TROMETHAMINE INJ/PF 30 MG/1 ML SDV IV PRN ×3 (04:18→16:37)
[2019-12-21] MEDS: NORMAL SALINE 1000 ML 1,000 ML IV PRN ×2 (04:19→10:28)
[2019-12-21] MEDS ORDERED: ACETAMINOPHEN INJ/PF 1000 MG/100 ML SDV IV SCH (06:00)
[2019-12-21] MEDS: ACETAMINOPHEN 1,000 MG/100 ML RTUPB IV SCH ×3 (06:02→18:00)
[2019-12-21] MEDS ORDERED: SUCCINYLCHOLINE CHLORIDE INJ 200 MG/10 ML VIAL ONE (10:12)
[2019-12-21] MEDS ORDERED: VECURONIUM BROMIDE INJ 10 MG VIAL IV ONE (10:12)
[2019-12-21] MEDS ORDERED: NORMAL SALINE INJ/PF 0.9% 10 ML SDV ONE (10:12)
[2019-12-21] MEDS ORDERED: NEOSTIGMINE METHYLSULFATE 10 MG/10 ML VIAL ONE (10:12)
[2019-12-21] MEDS ORDERED: GLYCOPYRROLATE 1 MG/5 ML VIAL ONE (10:12)
[2019-12-21] MEDS: DOCUSATE SODIUM 100 MG CAPSULE PO SCH ×2 (10:22→18:00)
--- NOTE | 2019-12-21 16:05 | PDOC DISCHARGE SUMMARY ---
General - Admit/Disc Date/PCP Admission Date/Primary Care Provider: 12/20/19 23:27 EVIN CHURCH MD Discharge Date: 12/21/19 - Discharge Diagnosis Final Diagnosis: Ischemic prolapse ileostomy - Assessment Summary: Patient underwent revision of prolapse ischemic ileostomy by Dr. Unger on 12/20/2019. Patient did very well and tolerating soft diet the next day the ileostomy site started to function right away and looks viable. Patient will be discharged on 12/21/2019 to be followed in the surgical clinic in 2 weeks - Additional Information Resuscitation Status: Full Code Referrals: EVIN CHURCH MD [Primary Care Provider] - Follow up as needed Home Medications: Methadone HCl [Methadose] 106 mg PO DAILY 11/23/18 History of Present Illiness History of Present Illness: JEREMIAH ANSARI is a 39 year old male who was admitted via the emergency room for ischemic prolapse ileostomy. Hospital Course Hospital Course: Patient underwent revision of ischemic prolapse ileostomy by Dr. Unger on 12/20/2019 patient did very well and discharged the next day Physical Exam Vital Signs: Temp Pulse Resp BP Pulse Ox 97.5 F 49 L 16 129/70 H 97 12/21/19 12:11 12/21/19 12:11 12/21/19 12:11 12/21/19 12:11 12/21/19 12:11 Intake & Output 12/20/19 12/21/19 12/22/19 06:59 06:59 06:59 Intake Total 2223 1000 Output Total 200 Balance 2022 1000 Weight 109 kg Exam: Ileostomy site functioning well and ileostomy itself looks viable. Results Laboratory Results: WBC 8.3 10^3/uL (4.0-10.5) 12/20/19 20:38 RBC 4.82 10^6/uL (4.35-5.55) 12/20/19 20:38 Hgb 12.9 g/dL (13.5-17.0) L 12/20/19 20:38 Hct 39.2 % (37.9-51.0) 12/20/19 20:38 MCV 81 fl (80-97) 12/20/19 20:38 MCH 26.9 pg (27.0-33.4) L 12/20/19 20:38 MCHC 33.0 g/dL (32.0-36.0) 12/20/19 20:38 RDW 16.8 % (11.5-14.0) H 12/20/19 20:38 Plt Count 250 10^3/uL (150-450) 12/20/19 20:38 Lymph % (Auto) 21.7 % (13-45) 12/20/19 20:38 Kaufman % (Auto) 7.2 % (3-13) 12/20/19 20:38 Eos % (Auto) 3.5 % (0-6) 12/20/19 20:38 Baso % (Auto) 0.8 % (0-2) 12/20/19 20:38 Absolute Neuts (auto) 5.5 10^3/uL (1.7-8.2) 12/20/19 20:38 Absolute Lymphs (auto) 1.8 10^3/uL (0.5-4.7) 12/20/19 20:38 Absolute Monos (auto) 0.6 10^3/uL (0.1-1.4) 12/20/19 20:38 Absolute Eos (auto) 0.3 10^3/uL (0.0-0.6) 12/20/19 20:38 Absolute Basos (auto) 0.1 10^3/uL (0.0-0.2) 12/20/19 20:38 Seg Neutrophils % 66.8 % (42-78) 12/20/19 20:38 Sodium 136.0 mmol/L (137-145) L 12/20/19 20:38 Potassium 3.7 mmol/L (3.6-5.0) 12/20/19 20:38 Chloride 96 mmol/L (98-107) L 12/20/19 20:38 Carbon Dioxide 30 mmol/L (22-30) 12/20/19 20:38 Anion Gap 10 (5-19) 12/20/19 20:38 BUN 11 mg/dL (7-20) 12/20/19 20:38 Creatinine 1.12 mg/dL (0.52-1.25) 12/20/19 20:38 Est GFR ( Amer) > 60 (>60) 12/20/19 20:38 Est GFR (MDRD) Non-Af > 60 (>60) 12/20/19 20:38 Glucose 79 mg/dL (75-110) 12/20/19 20:38 Calcium 8.9 mg/dL (8.4-10.2) 12/20/19 20:38 Total Bilirubin 0.6 mg/dL (0.2-1.3) 12/20/19 20:38 Direct Bilirubin 0.3 mg/dL (0.0-0.4) 12/20/19 20:38 Neonat Total Bilirubin Not Reportable 12/20/19 20:38 Neonat Direct Bilirubin Not Reportable 12/20/19 20:38 Neonat Indirect Bili Not Reportable 12/20/19 20:38 AST 20 U/L (17-59) 12/20/19 20:38 ALT 14 U/L (<50) 12/20/19 20:38 Alkaline Phosphatase 83 U/L (38-126) 12/20/19 20:38 Total Protein 7.0 g/dL (6.3-8.2) 12/20/19 20:38 Albumin 3.9 g/dL (3.5-5.0) 12/20/19 20:38 Lipase 28.3 U/L (23-300) 12/20/19 20:38 Stool for White Cells NO WBCs SEEN 12/20/19 19:52 SARS-CoV-2 (PCR) NEGATIVE (NEGATIVE) 12/20/19 23:11 Blood Type A POSITIVE 12/20/19 20:38 Antibody Screen NEGATIVE 12/20/19 20:38 Plan Time Spent: Less than 30 Minutes - To be followed in the surgical clinic in 2 weeks
[2019-12-21 17:05] VITALS: BP 105/55
== END 2019-12-21 19:00 | disposition home or self-care (01) ==
LOC: ER 18:41 → EH 23:27 → 5 12-21 04:11
DX: K94.19 Other complications of enterostomy (principal); Y83.8 Other surgical procedures as the cause of abnormal reaction of the patient, or of later complication, without mention of misadventure at the time of the procedure; K56.1 Intussusception; K43.3 Parastomal hernia with obstruction, without gangrene; K65.8 Other peritonitis; K57.00 Diverticulitis of small intestine with perforation and abscess without bleeding; K50.90 Crohn's disease, unspecified, without complications; F19.11 Other psychoactive substance abuse, in remission; Z90.49 Acquired absence of other specified parts of digestive tract; Z03.818 Encounter for observation for suspected exposure to other biological agents ruled out
CPT/HCPCS: 99285; 96374; 86900; 86901; 36415; 87045; 89055; 87205; 86850; 83690; 85025; 87635; 80053; 88307 ×2; 99140; 00840; 44312; G0378 ×3; C1758; J2250; J0690; J3010; J3490 ×3; J1885; J2710; J1170; J0330; J2405; J7030 ×2; J2704; J0131; C9803; 840

== ENCOUNTER 2020-02-14 21:37 | Emergency (ER) | payer SELFPAY ==
[2020-02-14 21:53] VITALS: BP 151/84
--- NOTE | 2020-02-14 22:38 | ER Document Report ---
ED GI/ - General Chief Complaint: Medical Complaint Stated Complaint: PROCEDURE OR SURGICAL ISSUES Time Seen by Provider: 02/14/20 22:27 Primary Care Provider: EVIN CHURCH MD [Primary Care Provider] - Follow up as needed Mode of Arrival: Ambulatory Information source: Patient Notes: 39-year-old male presented to ED for difficulty with his ostomy appliance. He s tates that his colostomy pouch fell off and the wafer fell off. He is not able to get any more supplies until tomorrow. He states he has looked all around the area and nobody sells the ostomy appliances. He states he was supposed to get his supplies here on Saturday but they did not come. He states he has no replacement bags. He does have a lot of stool draining around his ostomy and on his stomach at this time. We will provide him with 2 sets of ostomy equipment to take home with him tonight. He states he has no other complaints at this time. REVIEW OF SYSTEMS: CONSTITUTIONAL : Denies fever, chills, or sweats. Denies recent illness. EENT: Denies eye, ear, throat, or mouth pain or symptoms. Denies nasal or sinus congestion. CARDIOVASCULAR: Denies chest pain. RESPIRATORY: Denies cough, cold, or chest congestion. Denies shortness of breath, difficulty breathing, or wheezing. GASTROINTESTINAL: Patient's ostomy appliance fell off. He has no replacement bags or equipment he is draining stool all over his abdomen. GENITOURINARY: Denies difficulty urinating, painful urination, burning, frequency, or blood in urine. FEMALE GENITOURINARY: Denies vaginal bleeding, abnormal or irregular periods. LMP: MUSCULOSKELETAL: Denies neck or back pain or joint pain or swelling. SKIN: Denies rash or skin lesions. HEMATOLOGIC : Denies easy bruising or bleeding. LYMPHATIC: Denies swollen, enlarged glands. NEUROLOGICAL: Denies altered mental status or loss of consciousness. Denies headache. Denies weakness or paralysis or loss of use of either side. Denies problems with gait or speech. Denies sensory or motor loss. PSYCHIATRIC: Denies anxiety or stress or depression. ALL OTHER SYSTEMS REVIEWED AND NEGATIVE. VITAL SIGNS: Within normal limits. GENERAL: No acute distress, non-toxic appearance. HEAD: Normal with no signs of head trauma. EYES: PERRLA, EOMI, conjunctiva normal, no discharge. EARS: Hearing grossly intact. NOSE: Normal. THROAT: Oropharynx is normal. NECK: Normal range of motion, no tenderness, supple, no lymphadenopathy, No adenopathy, no JVD. CHEST: Clear breath sounds bilaterally. No wheezes, rales, or rhonchi. CARDIAC: Regular rate and rhythm. S1 and S2, without murmurs, gallops, or rubs. VASCULAR: No Edema. Peripheral pulses normal and equal in all extremities. ABDOMEN: Patient has a right colostomy due to Crohn's. He states he is out of his colostomy supplies and they were supposed to come on Saturday and they did not. He has no ostomy supplies to put on his abdomen. GASTROINTESTINAL: Bowel sounds normal GENITOURINARY: Normal, No tenderness LYMPATHTIC: No lymphadenopathy noted. MUSCULOSKELETAL: Good range of motion of all major joints. Extremities without clubbing, cyanosis or edema. NEUROLOGICAL: Alert and oriented x 3. No focal sensory or strength deficits. Speech normal. Follows commands appropriately. PSYCHIATRIC: Normal Affect, judgement and mood. SKIN: Normal appearance with no rashes or lesions. TRAVEL OUTSIDE OF THE [place] IN LAST 30 DAYS: No - HPI Patient complains to provider of: Other - Ostomy draining onto his abdomen because he has no supplies Onset: This afternoon Timing/Duration: Gradual Quality of pain: No pain Severity in ED: None Pain Level: Denies Associated symptoms: Other - Leaking colostomy Exacerbated by: Other - No ostomy bag Relieved by: Other - Ostomy bag Similar symptoms previously: Yes Recently seen / treated by doctor: No - Related Data Allergies/Adverse Reactions: Penicillins Allergy (Mild, Verified 12/20/19 19:07) rash/hives hydrocodone [From [place]] Allergy (Verified 12/20/19 19:07) Past Medical History - General Information source: Patient - Social History Smoking Status: Never Smoker Frequency of alcohol use: None Drug Abuse: None Family History: None, Reviewed & Not Pertinent, CAD, CVA, DM, Hyperlipidemia, Hypertension, Malignancy - Past Medical History Cardiac Medical History: Reports: None Pulmonary Medical History: Reports: None EENT Medical History: Reports: None Neurological Medical History: Reports: None. Denies: Hx Seizures Endocrine Medical History: Reports: None Renal/ Medical History: Reports: None Malignancy Medical History: Reports None GI Medical History: Reports: Hx Ulcer - chrons disease, Hx Ulcerative Colitis, Hx Colonoscopy, Other - Colostomy Musculoskeletal Medical History: Reports None Skin Medical History: Reports None Psychiatric Medical History: Reports: None Traumatic Medical History: Reports: None Infectious Medical History: Reports: None Past Surgical History: Reports: Hx Abdominal Surgery - colon/colostomy, Hx Appendectomy - February 2015, Hx Bowel Diversion, Hx Ileostomy, Hx Vascular [place] radha - Port placement, Other - colectomy - Immunizations Immunizations up to date: Yes Hx Diphtheria, Pertussis, Tetanus Vaccination: Yes Physical Exam - Vital signs Vitals: Temp Pulse Resp BP Pulse Ox 97.8 F 31 L 17 151/84 H 98 02/14/20 21:51 02/14/20 21:51 02/14/20 21:51 02/14/20 21:51 02/14/20 21:51 Course - Vital Signs Vital signs: Temp Pulse Resp BP Pulse Ox 97.8 F 31 L 17 151/84 H 98 02/14/20 21:51 02/14/20 21:51 02/14/20 21:51 02/14/20 21:51 02/14/20 21:51 Discharge - Discharge Clinical Impression: Needs ostomy supplies Condition: Stable Disposition: HOME, SELF-CARE Additional Instructions: You were seen today because your ostomy bag fell off and you did not have any replacement supplies to replace the ostomy bag. Your ostomy bag has been replaced. You have been given a spare bag. You state you are supposed to get your supplies tomorrow. Please try to order your supplies well ahead of time so that they do not come in late in the future. These follow-up with your sewer hand. FOLLOW-UP CARE: If you have been referred to a physician for follow-up care, call the physicians office for an appointment as you were instructed or within the next two days. If you experience worsening or a significant change in your symptoms, notify the physician immediately or return to the Emergency Department at any time for re-evaluation. Referrals: EVIN CHURCH MD [Primary Care Provider] - Follow up as needed
== END 2020-02-14 22:45 | disposition home or self-care (01) ==
LOC: ER 21:37
DX: Z43.3 Encounter for attention to colostomy (principal); K50.90 Crohn's disease, unspecified, without complications; Z88.0 Allergy status to penicillin; Z88.6 Allergy status to analgesic agent; Z88.5 Allergy status to narcotic agent
CPT/HCPCS: 99284